=== PATIENT | male | born 1945 | race Caucasian/White ===

== ENCOUNTER → 2020-09-04 15:36 | Outpatient (BNVA) | payer MEDICARE, SELFPAY | PROVIDERS: PCP Internal Medicine; Visit Provider Internal Medicine | DX: J44.9 Chronic obstructive pulmonary disease, unspecified (principal); R53.83 Other fatigue; Z79.899 Other long term (current) drug therapy | CPT/HCPCS: 99212; 99213 ==

== ENCOUNTER 2020-09-05 06:13 | Outpatient (REF) | payer MEDICARE, SELFPAY ==
--- NOTE | 2020-09-05 06:37 | XR_ITS ---
EXAMINATION: XR CHEST CLINICAL INFORMATION: Bronchitis COMPARISON: 05/12/2020 TECHNIQUE: 2 views of the chest were obtained. FINDINGS: The lungs are hyperinflated, suggesting underlying COPD. No focal consolidation is seen. Redemonstrated clips overlying the upper and lower left lung. No evidence of pneumothorax, pleural effusion, or pulmonary edema. The cardiomediastinal contour is unremarkable. Mild degenerative changes are present in the spine. XR/XR chest 2V IMPRESSION: Hyperinflated lungs suspicious for COPD. No acute findings identified.
[2020-09-05 07:38] LABS: MANUAL DIFF FLAG NO
[2020-09-05 07:47] LABS: Basophils Percent Auto 0.3 % (0-2); Eosinophils Percent Auto 0.1 % (0-4); Hematocrit 39.5 % (42-52); Imm Gran Abs Auto 0.02 X10*3/uL (0.00-0.03); Imm Gran Pct Auto 0.3 % (0.0-0.4); Lymphocytes Absolute Auto 2.4 X10*3/uL (1.2-4.9); Lymphocytes Percent Auto 33.6 % (20-40); Mean Corpuscular HGB Conc 32.9 g/dl (31.0-36.0); Mean Corpuscular Hemoglobin 30.2 pg (27.0-33.0); Mean Corpuscular Volume 91.9 fL (80-98); Monocytes Absolute Auto 0.7 X10*3/uL (0.1-1.2); Monocytes Percent Auto 9.5 % (2-11); Neutrophils Percent Auto 56.2 % (45-73); Platelet Count 307 X10*3/uL (160-400); Red Cell Distribution Width 12.4 % (11.0-16.0); White Blood Count 7.1 X10*3/uL (4.8-10.8)
== END 2020-09-05 06:14 | disposition home or self-care (01) ==
LOC: HO.LAB 06:13
PROVIDERS: PCP Internal Medicine; Visit Provider Internal Medicine
DX: J40 Bronchitis, not specified as acute or chronic (principal); J44.9 Chronic obstructive pulmonary disease, unspecified; R53.83 Other fatigue
CPT/HCPCS: 36415; 71046; 85025; 87635

== ENCOUNTER 2020-09-18 15:38 | Outpatient (REF) | payer MEDICARE, SELFPAY ==
--- NOTE | 2020-09-18 12:36 | PFT_ITS ---
FLOWS: FEV1 53% of predicted at 1.60 L. FVC 94% of predicted at 3.92 L. FEV1 to FVC ratio of 0.41. Positive bronchodilator response. LUNG VOLUMES: Total lung capacity 8.09 L at 114% of predicted. Residual volume 164% of predicted at 4.29 L. Slow vital capacity 85% of predicted at 3.81 L. Expiratory reserve volume 146% of predicted at 1.76 L. Diffusion capacity is severely decreased. In comparison to pulmonary function test performed in September of 2014, FVC and FEV1 have been without significant changes; total lung capacity has increased by 0.36 L; residual volume has increased by 0.23 L; slow vital capacity has increased by 0.14 L; expiratory reserve volume has increased by 0.36 L; diffusion capacity has decreased by 0.64 mL/minute/mmHg. IMPRESSION: Severe obstructive ventilatory defect with positive bronchodilator response. Increased residual volume suggests air trapping. Decreased diffusion capacity suggests emphysema. MD LELA Medrano/MODL / [id number]
== END 2020-09-18 15:39 | disposition home or self-care (01) ==
LOC: HO.RESP 15:38
PROVIDERS: PCP Internal Medicine; Visit Provider Internal Medicine
DX: J44.9 Chronic obstructive pulmonary disease, unspecified (principal); Z87.891 Personal history of nicotine dependence
CPT/HCPCS: 94060; 94727; 94729

== ENCOUNTER 2020-09-25 10:22 | Outpatient (REF) | payer MEDICARE, SELFPAY ==
[2020-09-25 11:19] LABS: MANUAL DIFF FLAG NO
[2020-09-25 11:27] LABS: Basophils Absolute Auto 0.1 X10*3/uL (0.0-0.2); Basophils Percent Auto 0.6 % (0-2); Eosinophils Absolute Auto 0.2 X10*3/uL (0.0-0.4); Eosinophils Percent Auto 1.9 % (0-4); Hematocrit 42.3 % (42-52); Hemoglobin 14.1 g/dl (14.0-18.0); Imm Gran Abs Auto 0.04 X10*3/uL (0.00-0.03); Imm Gran Pct Auto 0.5 % (0.0-0.4); Lymphocytes Absolute Auto 2.3 X10*3/uL (1.2-4.9); Mean Corpuscular HGB Conc 33.3 g/dl (31.0-36.0); Mean Corpuscular Hemoglobin 30.7 pg (27.0-33.0); Monocytes Absolute Auto 0.7 X10*3/uL (0.1-1.2); Monocytes Percent Auto 9.3 % (2-11); Neutrophils Absolute Auto 4.6 X10*3/uL (2.0-8.3); Neutrophils Percent Auto 58.7 % (45-73); Platelet Count 274 X10*3/uL (160-400); Red Cell Distribution Width 12.8 % (11.0-16.0); White Blood Count 7.8 X10*3/uL (4.8-10.8)
[2020-09-25 12:12] LABS: Alanine Aminotransferase 10 U/L (0-40); Albumin Level 3.9 g/dL (3.5-5.0); Alkaline Phosphatase 53 U/L (39-117); Anion Gap 13 (12-20); Aspartate Amino Transferase 13 U/L (5-37); Blood Urea Nitrogen 9 mg/dL (9-16); Calcium 8.7 mg/dL (8.4-10.2); Carbon Dioxide 26 mmol/L (22-29); Chloride 101 mmol/L (96-108); Estimated Glomerular Filt Rate 58; Glucose Random 83 mg/dL (60-115); Potassium 4.4 mmol/l (3.3-5.1); Sodium 136 mmol/L (135-145); Total Protein 6.8 g/dL (6.5-8.0)
[2020-09-25 12:16] LABS: Erythrocyte Sedimentation Rate 2 MM/HR (0-15)
[2020-09-25 12:37] LABS: Thyroid Stimulating Hormone 0.01 uIU/mL (0.32-4.0)
[2020-09-26 08:07] LABS: Triiodothyronine T3 Total 112 ng/dL (76-181)
== END 2020-09-25 10:23 | disposition home or self-care (01) ==
LOC: HO.HMGCLDS 10:22
PROVIDERS: PCP Internal Medicine; Visit Provider Internal Medicine
DX: E03.9 Hypothyroidism, unspecified (principal); G25.81 Restless legs syndrome; F41.9 Anxiety disorder, unspecified
CPT/HCPCS: 36415; 80053; 82550; 83735; 84439; 84443; 84480; 85025; 85652

== ENCOUNTER → 2020-10-02 15:04 | Outpatient (BNVA) | payer MEDICARE, SELFPAY | PROVIDERS: PCP Internal Medicine; Visit Provider Internal Medicine | DX: J44.9 Chronic obstructive pulmonary disease, unspecified (principal) | CPT/HCPCS: 99212 ==

== ENCOUNTER → 2020-12-03 15:09 | Outpatient (BNVA) | payer MEDICARE, SELFPAY | PROVIDERS: PCP Internal Medicine; Visit Provider Internal Medicine | DX: J44.9 Chronic obstructive pulmonary disease, unspecified (principal); M51.36 Other intervertebral disc degeneration, lumbar region; G25.81 Restless legs syndrome | CPT/HCPCS: 99212 ==

== ENCOUNTER 2021-02-19 10:44 | Outpatient (REF) | payer MEDICARE, SELFPAY ==
[2021-02-19 13:59] LABS: MANUAL DIFF FLAG NO
[2021-02-19 14:07] LABS: Basophils Absolute Auto 0.1 X10*3/uL (0.0-0.2); Eosinophils Absolute Auto 0.2 X10*3/uL (0.0-0.4); Eosinophils Percent Auto 3.4 % (0-4); Hematocrit 37.5 % (42-52); Hemoglobin 12.6 g/dl (14.0-18.0); Imm Gran Abs Auto 0.01 X10*3/uL (0.00-0.03); Imm Gran Pct Auto 0.2 % (0.0-0.4); Lymphocytes Absolute Auto 1.8 X10*3/uL (1.2-4.9); Lymphocytes Percent Auto 30.9 % (20-40); Mean Corpuscular HGB Conc 33.6 g/dl (31.0-36.0); Mean Corpuscular Hemoglobin 30.4 pg (27.0-33.0); Mean Corpuscular Volume 90.6 fL (80-98); Monocytes Absolute Auto 0.8 X10*3/uL (0.1-1.2); Monocytes Percent Auto 13.4 % (2-11); Neutrophils Percent Auto 51.1 % (45-73); Platelet Count 272 X10*3/uL (160-400); Red Blood Count 4.14 X10*6/uL (4.60-5.80); Red Cell Distribution Width 12.9 % (11.0-16.0)
[2021-02-19 14:40] LABS: Alanine Aminotransferase 12 U/L (0-40); Alkaline Phosphatase 60 U/L (39-117); Anion Gap 13 (12-20); Aspartate Amino Transferase 18 U/L (5-37); Bilirubin Total 1.6 mg/dL (0.0-1.0); Blood Urea Nitrogen 15 mg/dL (9-16); Calcium 8.8 mg/dL (8.4-10.2); Carbon Dioxide 26 mmol/L (22-29); Chloride 102 mmol/L (96-108); Estimated Glomerular Filt Rate 57; Glucose Random 93 mg/dL (60-115); Potassium 4.7 mmol/L (3.3-5.1); Sodium 136 mmol/L (135-145); Total Protein 6.9 g/dL (6.5-8.0)
[2021-02-19 14:41] LABS: Free T4 (Free Thyroxine) 1.52 ng/dL (0.71-1.85); Thyroid Stimulating Hormone 0.03 uIU/mL (0.32-4.0)
== END 2021-02-19 10:45 | disposition home or self-care (01) ==
LOC: HO.LAB 10:44
PROVIDERS: PCP Internal Medicine; Visit Provider Internal Medicine
DX: E03.9 Hypothyroidism, unspecified (principal); J44.9 Chronic obstructive pulmonary disease, unspecified; M51.36 Other intervertebral disc degeneration, lumbar region
CPT/HCPCS: 36415; 80053; 84439; 84443; 85025

== ENCOUNTER → 2021-04-08 15:53 | Outpatient (BNVA) | payer MEDICARE, SELFPAY | PROVIDERS: PCP Internal Medicine; Visit Provider Internal Medicine | DX: J44.9 Chronic obstructive pulmonary disease, unspecified (principal); G25.81 Restless legs syndrome | CPT/HCPCS: 99212 ==

== ENCOUNTER → 2021-04-29 10:42 | Outpatient (BNVA) | payer MEDICARE, SELFPAY | PROVIDERS: PCP Internal Medicine; Visit Provider Internal Medicine | DX: J44.9 Chronic obstructive pulmonary disease, unspecified (principal); R06.00 Dyspnea, unspecified; R00.0 Tachycardia, unspecified | CPT/HCPCS: 99212 ==

== ENCOUNTER 2021-05-12 13:55 | Outpatient (REF) | payer MEDICARE, SELFPAY | END 2021-05-12 13:56 | disposition home or self-care (01) | LOC: HO.LNP 13:55 | PROVIDERS: Visit Provider Internal Medicine | DX: R19.7 Diarrhea, unspecified (principal) | CPT/HCPCS: 87338 ==

== ENCOUNTER 2021-06-11 12:20 | Outpatient (REF) | payer MEDICARE, SELFPAY ==
[2021-06-11 14:29] LABS: PSA,Total (Free>4and<10) 3.75 ng/mL (0.00-4.00)
== END 2021-06-11 12:21 | disposition home or self-care (01) ==
LOC: HO.HMGCLDS 12:20
PROVIDERS: PCP Internal Medicine; Visit Provider Internal Medicine
DX: Z12.5 Encounter for screening for malignant neoplasm of prostate (principal); N40.1 Benign prostatic hyperplasia with lower urinary tract symptoms; R35.0 Frequency of micturition
CPT/HCPCS: 36415; 84153

== ENCOUNTER → 2021-07-08 15:10 | Outpatient (BNVA) | payer MEDICARE, SELFPAY | PROVIDERS: PCP Internal Medicine; Visit Provider Urology | DX: N40.1 Benign prostatic hyperplasia with lower urinary tract symptoms (principal); R35.0 Frequency of micturition; R35.1 Nocturia | CPT/HCPCS: Q3014 ==

== ENCOUNTER 2021-07-17 10:34 | Outpatient (REF) | payer MEDICARE, SELFPAY ==
[2021-07-17 14:08] LABS: MANUAL DIFF FLAG NO
[2021-07-17 14:23] LABS: Basophils Percent Auto 0.7 % (0-2); Eosinophils Absolute Auto 0.1 X10*3/uL (0.0-0.4); Eosinophils Percent Auto 2.1 % (0-4); Hematocrit 38.4 % (42-52); Hemoglobin 12.7 g/dl (14.0-18.0); Imm Gran Abs Auto 0.01 X10*3/uL (0.00-0.03); Imm Gran Pct Auto 0.2 % (0.0-0.4); Lymphocytes Absolute Auto 2.3 X10*3/uL (1.2-4.9); Lymphocytes Percent Auto 41.1 % (20-40); Mean Corpuscular HGB Conc 33.1 g/dl (31.0-36.0); Mean Corpuscular Hemoglobin 30.2 pg (27.0-33.0); Mean Corpuscular Volume 91.4 fL (80-98); Mean Platelet Volume 9.8 fL (9.4-12.4); Monocytes Absolute Auto 0.5 X10*3/uL (0.1-1.2); Monocytes Percent Auto 9.2 % (2-11); Neutrophils Absolute Auto 2.6 X10*3/uL (2.0-8.3); Neutrophils Percent Auto 46.7 % (45-73); Platelet Count 255 X10*3/uL (160-400); Red Cell Distribution Width 12.8 % (11.0-16.0); White Blood Count 5.6 X10*3/uL (4.8-10.8)
[2021-07-17 14:34] LABS: Alanine Aminotransferase 10 U/L (0-40); Albumin Level 3.9 g/dL (3.5-5.0); Alkaline Phosphatase 55 U/L (39-117); Anion Gap 13 (12-20); Aspartate Amino Transferase 17 U/L (5-37); Bilirubin Total 1.4 mg/dL (0.0-1.0); Blood Urea Nitrogen 14 mg/dL (9-16); Calcium 9.1 mg/dL (8.4-10.2); Carbon Dioxide 26 mmol/L (22-29); Chloride 101 mmol/L (96-108); Estimated Glomerular Filt Rate 57; Glucose Random 90 mg/dL (60-115); Potassium 5.1 mmol/L (3.3-5.1); Sodium 135 mmol/L (135-145); Total Protein 6.6 g/dL (6.5-8.0)
[2021-07-17 14:56] LABS: Free T4 (Free Thyroxine) 1.36 ng/dL (0.71-1.85); Thyroid Stimulating Hormone 0.57 uIU/mL (0.32-4.0)
== END 2021-07-17 10:35 | disposition home or self-care (01) ==
LOC: HO.HMGCLDS 10:34
PROVIDERS: PCP Internal Medicine; Visit Provider Internal Medicine
DX: E03.9 Hypothyroidism, unspecified (principal); R53.83 Other fatigue; I10 Essential (primary) hypertension
CPT/HCPCS: 36415; 80053; 84439; 84443; 85025

== ENCOUNTER → 2021-08-11 15:36 | Outpatient (BNVA) | payer MEDICARE, SELFPAY | PROVIDERS: PCP Internal Medicine; Visit Provider Internal Medicine | DX: J44.9 Chronic obstructive pulmonary disease, unspecified (principal); R06.00 Dyspnea, unspecified | CPT/HCPCS: 99212 ==

== ENCOUNTER 2021-10-12 09:38 | Outpatient (REF) | payer MEDICARE, SELFPAY ==
[2021-10-12 12:28] LABS: Alanine Aminotransferase 11 U/L (0-40); Albumin Level 3.9 g/dL (3.5-5.0); Alkaline Phosphatase 52 U/L (39-117); Anion Gap 11 (12-20); Aspartate Amino Transferase 12 U/L (5-37); Bilirubin Total 1.4 mg/dL (0.0-1.0); Blood Urea Nitrogen 15 mg/dL (9-16); C Reactive Protein 0.05 mg/dL (< or = 0.50); Calcium 9.1 mg/dL (8.4-10.2); Carbon Dioxide 27 mmol/L (22-29); Chloride 104 mmol/L (96-108); Estimated Glomerular Filt Rate 51; Glucose Random 102 mg/dL (60-115); Magnesium 2.2 mg/dL (1.6-2.6); Potassium 5.5 mmol/L (3.3-5.1); Sodium 136 mmol/L (135-145); Total Protein 6.8 g/dL (6.5-8.0)
[2021-10-12 12:30] LABS: Erythrocyte Sedimentation Rate 2 MM/HR (0-15)
[2021-10-13 20:52] LABS: ANA Titer 2 1:40 titer; ANA Titer 3 1:40 titer; Anti Nuclear Antibody Screen POSITIVE (NEGATIVE); Anti Nuclear Antibody Titer 1:40 titer
== END 2021-10-12 09:39 | disposition home or self-care (01) ==
LOC: HO.HMGCLDS 09:38
PROVIDERS: PCP Internal Medicine; Visit Provider Internal Medicine
DX: M79.7 Fibromyalgia (principal); I10 Essential (primary) hypertension; R25.2 Cramp and spasm
CPT/HCPCS: 36415; 80053; 82550; 83735; 85652; 86038; 86039; 86140

== ENCOUNTER → 2021-12-10 14:27 | Outpatient (BNVA) | payer MEDICARE, SELFPAY | PROVIDERS: PCP Internal Medicine; Referring Provider Internal Medicine; Visit Provider Internal Medicine Cardiovascular Disease | DX: R94.39 Abnormal result of other cardiovascular function study (principal); R06.00 Dyspnea, unspecified | CPT/HCPCS: 93005; 99212 ==

== ENCOUNTER → 2021-12-14 12:29 | Outpatient (REF) | payer MEDICARE, SELFPAY ==
--- NOTE | 2021-12-14 12:35 | CA_ITS ---
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 The visually estimated ejection fraction is between 55-60%. - E/E prime ratio is between 8 and 15 consistent with indeterminate filling pressures. - Mildly increased right ventricular cavity size. There is normal right ventricular systolic function. - The left atrium is moderately dilated. - There is mild dilatation of the sinuses of Valsalva measuring 4.30 cm and mild dilatation of the ascending aorta measuring 3.60 cm. Findings Left Ventricle Normal left ventricular size, thickness, and systolic function. The visually estimated ejection fraction is between 55-60%. There is no evidence of regional wall motion abnormalities. Abnormal diastolic function is noted. Spectral Doppler is indicative of an impaired relaxation filling pattern. E/E prime ratio is between 8 and 15 consistent with indeterminate filling pressures. Right Ventricle Mildly increased right ventricular cavity size. There is normal right ventricular systolic function. Atria The left atrium is moderately dilated. Aortic Valve There is a normal trileaflet aortic valve. There is mild calcification of the aortic valve. There is mild thickening of the aortic valve. There is no aortic valve stenosis. There is mild aortic valve regurgitation. Mitral Valve There is severe mitral annular calcification. There is trace mitral valve regurgitation. There is no mitral valve stenosis. Pulmonic Valve Normal pulmonic valve structure and function. There is trace pulmonic valve regurgitation. Tricuspid Valve Normal tricuspid valve structure and function. There is trace tricuspid valve regurgitation. Normal right atrial pressure. Mild pulmonary hypertension is present. Great Vessels There is mild dilatation of the sinuses of Valsalva measuring 4.30 cm and mild dilatation of the ascending aorta measuring 3.60 cm. The visualized portions of the pulmonary artery and branches are normal. Venous The inferior vena cava is normal in size and collapses greater than 50% with inspiration. Pericardium/Pleural There is no evidence of pericardial effusion. Prior Study Comparison Changes noted compared to prior study dated: 07/23/2020. PA pressures are lower than before. Measurements 2D Linear Measurements IVSd: 0.98 0.6-0.9/0.6-1.0 cm LVIDd: 5.12 3.9-5.3/4.2-5.9 cm LVIDd Index: 2.67 2.4-3.2/2.2-3.1 cm/m2 LVIDs: 4.19 2.0-3.6 cm LVPWd: 1.10 0.7-1.1 cm Ao Root: 4.30 2.1-3.5 cm LA Diam: 3.60 2.7-3.8/3.0-4.0 cm LAIDs Index: 1.88 1.5-2.3 cm/m2 LV Mass: 247.94 67-162/88-224 g LV Mass Index: 129.14 43-95/49-115 g/m2 LVOT Diam: 2.30 3.0+(-)1.3 cm 2D Systolic Function EF 4C: 65.60 >55% EF 2C: 60.20 >55% EF BiP: 61.20 >55% Mitral Valve MV Pk E: 0.72 MV PK A: 1.15 MV Decel Time: 310.00 E/A: 0.60 E'Lateral: 9.03 E'Medial: 5.87 E/E' Med: 12.30 E/E' Lat: 8.00 PHT: 91.00 MVA PHT: 2.42 Decel Coal: 2.33 Aortic Valve AoV Pk Rojas: 1.23 AoV Mn Rojas: 0.88 AoV VTI: 0.29 AoV Pk Grad: 6.00 Aov Mn Grad: 3.00 REMI Cont.VTI: 3.57 AI Pk Rojas: 3.71 AI Coal: 1.17 LVOT LVOT Pk Rojas: 1.04 LVOT Mn Rojas: 0.69 LVOT VTI: 0.25 LVOT Pk Grad: 4.00 LVOT Mn Grad: 2.00 LVOT Diam: 2.30 LVOT Area: 4.15 Diastolic Function MV Pk E: 0.72 MV Pk A: 1.15 E/A: 0.60 E'Medial: 5.87 E/E' Med: 12.30 E' Laterial: 9.03 E/E' Lat: 8.00 Right Ventricle TAPSE (mm): 28.20 TVS' Rojas: 11.90 Tricuspid Valve TR Pk Rojas: 3.15 TR Pk Grad: 40.00 RA Press: 3.00 RVSP: 43.00 Great Vessels Aorta Ao Root-2D: 4.30 2.0-3.7 cm Sinus of Valsalva: 4.30 2.0-3.5 cm Ao Asc: 3.60 2.1-3.4 cm Ao Arch: 2.80 Updated in Other Vendor System with Status of Final Oren Liz MD electronically signed on 12/14/2021 5:52:35 PM with status of Final
[2021-12-14 13:25] LABS: Hematocrit 42.9 % (42.0-52.0); Hemoglobin 14.1 g/dl (14.0-18.0); Mean Corpuscular HGB Conc 32.9 g/dl (31.0-36.0); Mean Corpuscular Hemoglobin 30.4 pg (27.0-33.0); Mean Corpuscular Volume 92.5 fL (80.0-98.0); Mean Platelet Volume 10.3 fL (9.4-12.4); Platelet Count 245 X10*3/uL (160-400); Red Blood Count 4.64 X10*6/uL (4.60-5.80); Red Cell Distribution Width 12.5 % (11.0-16.0); White Blood Count 7.8 X10*3/uL (4.8-10.8)
[2021-12-14 13:28] LABS: INTERNATIONAL NORM RATIO 1.1 (0.9-1.1); Prothrombin Time 12.3 SEC (9.9-13.0)
[2021-12-14 13:48] LABS: Anion Gap 16 (12-20); Blood Urea Nitrogen 17 mg/dL (9-16); Calcium 9.8 mg/dL (8.4-10.2); Carbon Dioxide 25 mmol/L (22-29); Chloride 102 mmol/L (96-108); Estimated Glomerular Filt Rate 55; Glucose Random 90 mg/dL (60-115); Potassium 5.8 mmol/L (3.3-5.1); Sodium 137 mmol/L (135-145)
== END ==
LOC: HO.CARD 12:29
PROVIDERS: PCP Internal Medicine; Visit Provider Internal Medicine Cardiovascular Disease
DX: R06.00 Dyspnea, unspecified (principal); R94.39 Abnormal result of other cardiovascular function study
CPT/HCPCS: 36415; 80048; 85027; 85610; 93306

== ENCOUNTER → 2022-01-18 14:51 | Outpatient (BNVA) | payer MEDICARE, SELFPAY | PROVIDERS: PCP Internal Medicine; Referring Provider Internal Medicine; Visit Provider Internal Medicine Cardiovascular Disease | DX: R06.00 Dyspnea, unspecified (principal) | CPT/HCPCS: 99212 ==

== ENCOUNTER → 2022-02-09 14:54 | Outpatient (BNVA) | payer MEDICARE, SELFPAY | PROVIDERS: PCP Internal Medicine; Visit Provider Internal Medicine | DX: J44.9 Chronic obstructive pulmonary disease, unspecified (principal); R06.00 Dyspnea, unspecified; I27.20 Pulmonary hypertension, unspecified | CPT/HCPCS: 99212 ==

== ENCOUNTER → 2022-04-07 15:25 | Outpatient (BNVA) | payer MEDICARE, SELFPAY | PROVIDERS: PCP Internal Medicine; Visit Provider Internal Medicine | DX: J44.9 Chronic obstructive pulmonary disease, unspecified (principal); R06.00 Dyspnea, unspecified; G25.81 Restless legs syndrome; I27.20 Pulmonary hypertension, unspecified | CPT/HCPCS: 99212 ==

== ENCOUNTER 2022-04-16 11:39 | Emergency (ER) | payer MEDICARE, SELFPAY ==
--- NOTE | ~2022-04-16 | XR_ITS ---
EXAMINATION: XR CHEST CLINICAL INFORMATION: Shortness of breath COMPARISON: 09/05/2020 TECHNIQUE: 2 views of the chest were obtained. FINDINGS: Hyperexpanded lungs. No consolidation. No edema or effusion. No pneumothorax. The cardiomediastinal silhouette is within normal limits. Degenerative change at the right shoulder. Surgical clips over the left hemithorax. Nodular density at the right base likely a granuloma. XR/XR chest 2V IMPRESSION: Hyperexpanded lungs with no acute pulmonary finding.
--- NOTE | ~2022-04-16 | CT_ITS ---
EXAMINATION: CT CHEST WITHOUT CONTRAST CLINICAL INFORMATION: Shortness of breath and fever. COMPARISON: Chest x-ray of same day and September 05, 2020 TECHNIQUE: Multidetector volumetric CT imaging of the chest was done. Axial MIP volume rendering provided. Sagittal and coronal reformatted images were obtained. This CT examination was performed using dose optimization techniques as appropriate, variously including the following: *Automated exposure control *Adjustment of mA and/or kV according to patient size (this includes techniques or standardized protocols for targeted exams where dose is matched to indication/reason for exam; i.e. extremities or head) *Use of iterative reconstruction technique DLP: 237 mGy-cm FINDINGS: LUNGS: Lungs are hyperinflated. There are significant changes of centrilobular emphysema seen bilaterally. Central airways are patent. There are mild bronchiectatic region seen within the lower lobes bilaterally. There is a region of airspace disease seen within the right lower lobe consistent with pneumonia or atelectasis. There are scattered sub-4 mm densities noted bilaterally. Atelectasis and/or scarring seen within the left lower lobe and lingula. A few calcified granulomas are present. MEDIASTINUM: Heart normal size. Coronary artery calcification present. Mitral annular calcification is seen. No pericardial effusion. No thoracic aortic aneurysm. Nonocclusive calcified plaque is seen within the aortic arch. Pulmonary artery prominent. No mediastinal or hilar lymphadenopathy appreciated. PLEURA: There is no pleural effusion. No pleural mass or thickening. AXILLA: No lymphadenopathy. UPPER ABDOMEN: Unremarkable. OSSEOUS STRUCTURES: There is severe degenerative change of the right shoulder with loss of joint space and subchondral cyst formation. Calcific tendinitis is also present. There is a nonobstructive sclerotic density seen about the anterior lateral aspect of the ninth right rib. No suspicious destructive bony lesion identified. There is mild scoliosis of the lower thoracic spine convex left. There is multilevel degenerative disc disease present which is most significant in the lower thoracic and lumbar spine. There is scoliosis of the lumbar spine convex right.. Rib resections from previous left lung surgery noted posteriorly. CT/CT chest wo con IMPRESSION: Right lower lobe disease consistent with pneumonia or atelectasis. Old granulomatous disease. Significant changes of centrilobular emphysema. No suspicious destructive bony lesions identified. Fleischner guidelines were followed.
[2022-04-16 11:42] VITALS: BP 160/84; PULSE 87; RESP 19; TEMP 37; O2SAT 99; BMI 23.0
--- NOTE | 2022-04-16 11:46 | ECG_ITS ---
Test Reason : sob Blood Pressure : / mmHG Vent. Rate : 076 BPM Atrial Rate : 076 BPM P-R Int : 146 ms QRS Dur : 096 ms QT Int : 384 ms P-R-T Axes : 082 014 071 degrees QTc Int : 432 ms Normal sinus rhythm Possible Left atrial enlargement Borderline ECG When compared with ECG of 23-AUG-2014 11:55, Premature ventricular complexes are no longer Present Referred By: Generic ED Physician Electronically Signed By:ALEX GAR MD
[2022-04-16 12:15] LABS: Basophils Percent Auto 0.2 % (0-2); Eosinophils Percent Auto 0.1 % (0-4); Hematocrit 38.9 % (42.0-52.0); Hemoglobin 13.3 g/dl (14.0-18.0); Imm Gran Abs Auto 0.12 X10*3/uL (0.00-0.03); Imm Gran Pct Auto 0.7 % (0.0-0.4); Lymphocytes Absolute Auto 1.8 X10*3/uL (1.2-4.9); Lymphocytes Percent Auto 10.9 % (20-40); MANUAL DIFF FLAG SCAN; Mean Corpuscular HGB Conc 34.2 g/dl (31.0-36.0); Mean Corpuscular Hemoglobin 30.6 pg (27.0-33.0); Mean Corpuscular Volume 89.6 fL (80.0-98.0); Mean Platelet Volume 9.2 fL (9.4-12.4); Monocytes Percent Auto 12.3 % (2-11); Neutrophils Absolute Auto 12.4 x10*3/uL (2.0-8.3); Neutrophils Percent Auto 75.8 % (45-73); Platelet Count 259 X10*3/uL (160-400); Red Blood Count 4.34 X10*6/uL (4.60-5.80); Red Cell Distribution Width 13.1 % (11.0-16.0); SCAN SMEAR FLAG 1; White Blood Count 16.3 X10*3/uL (4.8-10.8)
[2022-04-16 12:19] LABS: Lactic Acid 1.2 mmol/L (0.5-2.0)
[2022-04-16 12:22] LABS: Anion Gap 13 (12-20); Blood Urea Nitrogen 14 mg/dL (9-16); Calcium 9.2 mg/dL (8.4-10.2); Carbon Dioxide 24 mmol/L (22-29); Chloride 100 mmol/L (96-108); Creatinine Clr Calc Pharmacy 50.3; Estimated Glomerular Filt Rate 58; Glucose Random 105 mg/dL (60-115); Sodium 133 mmol/L (135-145)
[2022-04-16 12:23] LABS: COVID-19 Test Negative (Negative); IDNOW Serial# 16C4AD1C; IDNOW Serial# 55D5AD1C; Influenza A Negative (Negative); Influenza B2 Negative (Negative)
[2022-04-16 12:31] LABS: B Type Natriuretic Peptide 260 pg/mL (<100); Troponin-I High Sensitivity 7.2 ng/L (<3.5-35.0)
[2022-04-16 12:35] LABS: SLIDE REVIEW VERIFIED
--- NOTE | 2022-04-16 14:02 | ED.URI ---
HPI - URI/Sore Throat General Chief Complaint: Upper Respiratory Symptoms Stated Complaint: SOB/Fever Time Seen by Provider: 04/16/22 11:49 Source: patient Mode of arrival: ambulatory History of Present Illness HPI Narrative: 76-year-old male with a past medical history of hypothyroid, anxiety, BPH, bronchitis, COPD, GERD, pulmonary hypertension, restless leg syndrome, presenting to the ED complaining of fever T-max 101 degrees last night, productive cough of pink sputum, SOB worse on exertion x few days. Has been compliant with inhalers at home. Also reports taking 40 mg of prednisone yesterday an additional 20 mg today, admits periodically takes them when needed. Denies chest pain, abdominal pain, nausea/vomiting, pedal edema, recent travel MD elicited complaint: cough Pertinent past history: COPD Onset (ago): day(s) Related Data Home Medications Medication Instructions Recorded Confirmed celecoxib 200 mg capsule 200 mg PO DAILY cap 04/07/22 Previous Rx's Medication Instructions Recorded tiotropium bromide 2.5 2 puff INHALATION DAILY #12 g 06/29/21 mcg/actuation mist for inhalation (Spiriva Respimat) albuterol sulfate 90 mcg/actuation 2 puff INHALATION Q6H PRN 90 Days 10/06/21 aerosol inhaler (ProAir HFA) #3 ea tizanidine 4 mg tablet See Rx Instructions PO BEDTIME PRN 12/10/21 30 Days #60 tab amlodipine 10 mg tablet 10 mg PO DAILY #60 tab 12/11/21 aspirin 81 mg tablet,delayed 81 mg PO DAILY #90 tab 12/11/21 release (Adult Aspirin Regimen) montelukast 10 mg tablet 10 mg PO DAILY #30 tab 01/05/22 ropinirole 1 mg tablet 1 mg PO Q6H #360 tab 01/18/22 levothyroxine 137 mcg tablet 137 mcg PO DAILY #90 tab 02/08/22 prednisone 20 mg tablet 20 mg PO DAILY PRN 60 Days #20 tab 02/09/22 buspirone 5 mg tablet 5 mg PO BID 30 Days #60 tab 03/15/22 omeprazole 20 mg capsule,delayed 20 mg PO QAM #90 cap 03/15/22 release oxycodone-acetaminophen 10 mg-325 1 tab PO BID PRN #60 tab 03/24/22 mg tablet Advair Diskus 250 mcg-50 mcg/dose 1 inh INHALATION BID #60 ea NS 04/08/22 powder for inhalation (fluticasone propion-salmeterol) tamsulosin 0.4 mg capsule 0.4 mg PO BEDTIME 90 Days #90 cap 04/14/22 levofloxacin 750 mg tablet 750 mg PO DAILY #6 tab 04/16/22 prednisone 20 mg tablet 40 mg PO DAILY 5 Days #10 tab 04/16/22 Allergies Allergy/AdvReac Type Severity Reaction Status Date / Time aspirin AdvReac Unknown stomach Verified 04/07/22 16:40 upset, stomach nicole Review of Systems Review of Systems: Constitutional: No Fever, No Chills, No Fatigue, No Malaise ENT/Mouth: No Ear Pain, No Nasal Congestion, No Sinus Pain, No Hoarseness, No sore throat, No Rhinorrhea, No Swallowing Difficulty Eyes: No Eye Pain, No Swelling, No Redness Cardiovascular: No Chest Pain, + SOB, + Dyspnea on Exertion, No Orthopnea, No Edema, No Palpitations Respiratory: + Cough, + Sputum, No Wheezing, No Smoke Exposure, + Dyspnea Gastrointestinal: No Nausea, No Vomiting, No Diarrhea, No Constipation, No Abdominal pain Genitourinary: No Dysuria, No Urinary Frequency, No Hematuria, No Flank Pain, No Urinary Flow Changes Musculoskeletal: No joint pain, No Myalgias, No Joint Swelling Skin: No Skin Lesions, No rash Neuro: No Weakness, No Numbness, No Dizziness, No Headache Yes all other systems are reviewed and are negative PMFSH Past Medical History Attestation statement: The following information was validated with the patient. Medical History Acquired hypothyroidism Anxiety Benign essential hypertension Benign prostatic hyperplasia Bronchitis COPD (chronic obstructive pulmonary disease) Dyspnea on exertion Fatigue GERD (gastroesophageal reflux disease) Lumbar degenerative disc disease Primary osteoarthritis of right shoulder Pulmonary hypertension Restless leg syndrome Screening for diabetes mellitus Tachycardia Surgical History History of cardiac catheterization (~12/29/21) History of colonoscopy Family History Family History Father No problems noted. 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 80% of hearing loss would like to get hearing aids.) Vision needs: No Physical Exam Vital Signs: Vital Signs: Last Vital Signs Temp 98.7 F 04/16/22 14:14 Pulse 73 04/16/22 17:04 Resp 16 04/16/22 17:04 BP 145/101 H 04/16/22 14:14 Pulse Ox 97 04/16/22 14:14 BMI result Body Mass Index 23.0 Const: General: cooperative, healthy appearing, no acute distress, alert and awake Orientation/consciousness: patient oriented x3 Limitations: no limitations HEENT: Head: Yes normal to inspection and Yes atraumatic Ears: hearing grossly normal bilaterally General nose exam: Normal external nose present Face and sinus: Yes normal facial exam Eyes: General: appearance normal, both eyes and all related structures EOM: EOMs intact bilaterally Neck: Neck: Yes normal visual inspection and Yes no meningeal signs Resp: Other: Talking in short sentences, increased work of breathing with prolonged conversation Effort & Inspection: no respiratory distress and no stridor Auscultation: clear to auscultation bilaterally and no rhonchi Cardio: Rate: regular rate Heart sounds: S1 normal heart sound present and S2 normal heart sound present GI: Inspection: Yes normal to inspection Palpation (GI): Soft to palpation, nontender, no guarding and not rigid : General: Yes no CVA tenderness Back/Spine/Pelvis: Back: no CVA tenderness Skin: Rashes: no rashes Wounds: no wounds Neuro: General: patient oriented x3, tone normal and no meningeal signs Gait exam (Neuro): Normal gait present Extrem: General: Yes normal to inspection, Yes no pedal edema and Yes no calf tenderness Course Course Course Narrative: XR chest 2V IMPRESSION: Hyperexpanded lungs with no acute pulmonary finding. >> dry CT chest ordered for further evaluation -1400--COVID-19 and influenza negative. Noted leukocytosis of 16.3 >likely from prednisone use rather than severe sepsis. H&H at patient's baseline. -initial troponin of 7.2 > will obtain 3 hour repeat. -CRP elevated to 7.7 >> empiric IV Levaquin ordered CT chest wo con IMPRESSION: Right lower lobe disease consistent with pneumonia or atelectasis. ? Old granulomatous disease. ? Significant changes of centrilobular emphysema. ? No suspicious destructive bony lesions identified.? ? Fleischner guidelines were followed. >> infection now suspected. Patient already covered with IV Levaquin. Patient does not meet severe sepsis criteria. PSI/PORT score recommends Outpatient or inpatient treatment, and CURB 65 recommends outpatient treatment Results discussed with patient, Admission offered however patient has no interest in staying. -1630--repeat troponin equivocal, [place] unlikely. Patient reports symptomatic improvement and would like to be discharged home. Will ambulate with pulse ox -patient maintain saturation of 93% or greater during ambulation trial on room air. Patient would still like to be discharged home, will receive 1 additional DuoNeb prior to discharge. Discussed worrisome signs and symptoms and strict return precautions and need a close follow-up with PCP. MDM - URI/Sore Throat MDM Narrative Medical decision making narrative: 76-year-old male with a past medical history of hypothyroid, anxiety, BPH, bronchitis, COPD, GERD, pulmonary hypertension, restless leg syndrome, presenting to the ED complaining of fever T-max 101 degrees last night, productive cough of pink sputum, SOB worse on exertion x few days. On exam vital signs stable, afebrile, increased work of breathing noted with prolonged conversation, no respiratory distress, lungs CTA, no pedal edema. Concern for COPD exacerbation vs viral illness including COVID-19/influenza vs pneumonia vs bronchitis. Lower concern for PE Low concern for severe sepsis at this time Plan: EKG, labs, CXR, COVID 19/influenza testing, a DuoNeb, Solu-Medrol, magnesium Differential Diagnosis Differential diagnosis: Likely upper respiratory infection, viral infection, bronchitis and influenza Medical Records Attestation: I reviewed the patient's medical records. Lab Data Attestation: I reviewed the patient's lab results. Result diagrams: 04/16/22 11:59 04/16/22 11:59 Labs: Lab Results 04/16/22 04/16/22 04/16/22 Range/Units 11:58 11:58 11:58 WBC (4.8-10.8) X10*3/uL RBC (4.60-5.80) X10*6/uL Hgb (14.0-18.0) g/dl Hct (42.0-52.0) % MCV (80.0-98.0) fL MCH (27.0-33.0) pg MCHC (31.0-36.0) g/dl RDW (11.0-16.0) % Plt Count (160-400) X10*3/uL MPV (9.4-12.4) fL Immature Gran % (Auto) (0.0-0.4) % Neut % (Auto) (45-73) % Lymph % (Auto) (20-40) % Cavalier % (Auto) (2-11) % Eos % (Auto) (0-4) % Baso % (Auto) (0-2) % Lymph # (Auto) (1.2-4.9) X10*3/uL Cavalier # (Auto) (0.1-1.2) X10*3/uL Eos # (Auto) (0.0-0.4) X10*3/uL Baso # (Auto) (0.0-0.2) X10*3/uL Abs Immat Gran (auto) (0.00-0.03) X10*3/uL Absolute Neuts (auto) (2.0-8.3) x10*3/uL Absolute Nucleated RBC (0.0-0.012) X10*3/uL Nucleated RBC % (auto) (0.0-0.2) /100WBC Smear Tech's Comments Sodium (135-145) mmol/L Potassium (3.3-5.1) mmol/L Chloride (96-108) mmol/L Carbon Dioxide (22-29) mmol/L Anion Gap (12-20) BUN (9-16) mg/dL Creatinine (0.5-1.4) mg/dL Estim Creat Clear Calc Estimated GFR Random Glucose (60-115) mg/dL Lactic Acid (0.5-2.0) mmol/L Calcium (8.4-10.2) mg/dL Magnesium (1.6-2.6) mg/dL Total Bilirubin (0.0-1.0) mg/dL Direct Bilirubin (0.0-0.5) mg/dL AST (5-37) U/L ALT (0-40) U/L Alkaline Phosphatase (39-117) U/L Troponin I High Sens 7.2 (<3.5-35.0) ng/L C-Reactive Protein (< or = 0.50) mg/dL B-Natriuretic Peptide 260 H (<100) pg/mL Total Protein (6.5-8.0) g/dL Albumin (3.5-5.0) g/dL COVID-19 (EMILY) Negative (Negative) COVID-19 Clin Com See Note Influenza Type A (FEDERICO) Negative (Negative) Influenza Type B (FEDERICO) Negative (Negative) Influenza A & B Note See Note 04/16/22 04/16/22 04/16/22 Range/Units 11:58 11:59 11:59 WBC 16.3 H (4.8-10.8) X10*3/uL RBC 4.34 L (4.60-5.80) X10*6/uL Hgb 13.3 L (14.0-18.0) g/dl Hct 38.9 L (42.0-52.0) % MCV 89.6 (80.0-98.0) fL MCH 30.6 (27.0-33.0) pg MCHC 34.2 (31.0-36.0) g/dl RDW 13.1 (11.0-16.0) % Plt Count 259 (160-400) X10*3/uL MPV 9.2 L (9.4-12.4) fL Immature Gran % (Auto) 0.7 H (0.0-0.4) % Neut % (Auto) 75.8 H (45-73) % Lymph % (Auto) 10.9 L (20-40) % Cavalier % (Auto) 12.3 H (2-11) % Eos % (Auto) 0.1 (0-4) % Baso % (Auto) 0.2 (0-2) % Lymph # (Auto) 1.8 (1.2-4.9) X10*3/uL Cavalier # (Auto) 2.0 H (0.1-1.2) X10*3/uL Eos # (Auto) 0.0 (0.0-0.4) X10*3/uL Baso # (Auto) 0.0 (0.0-0.2) X10*3/uL Abs Immat Gran (auto) 0.12 H (0.00-0.03) X10*3/uL Absolute Neuts (auto) 12.4 H (2.0-8.3) x10*3/uL Absolute Nucleated RBC 0.000 (0.0-0.012) X10*3/uL Nucleated RBC % (auto) 0.0 (0.0-0.2) /100WBC Smear Tech's Comments VERIFIED Sodium 133 L (135-145) mmol/L Potassium 4.0 D (3.3-5.1) mmol/L Chloride 100 (96-108) mmol/L Carbon Dioxide 24 (22-29) mmol/L Anion Gap 13 (12-20) BUN 14 (9-16) mg/dL Creatinine 1.21 (0.5-1.4) mg/dL Estim Creat Clear Calc 50.3 Estimated GFR 58 Random Glucose 105 (60-115) mg/dL Lactic Acid 1.2 (0.5-2.0) mmol/L Calcium 9.2 D (8.4-10.2) mg/dL Magnesium 2.1 (1.6-2.6) mg/dL Total Bilirubin 3.0 H (0.0-1.0) mg/dL Direct Bilirubin 0.5 (0.0-0.5) mg/dL AST 16 (5-37) U/L ALT 17 (0-40) U/L Alkaline Phosphatase 61 (39-117) U/L Troponin I High Sens (<3.5-35.0) ng/L C-Reactive Protein 7.75 H (< or = 0.50) mg/dL B-Natriuretic Peptide (<100) pg/mL Total Protein 7.2 (6.5-8.0) g/dL Albumin 4.0 (3.5-5.0) g/dL COVID-19 (EMILY) (Negative) COVID-19 Clin Com Influenza Type A (FEDERICO) (Negative) Influenza Type B (FEDERICO) (Negative) Influenza A & B Note 04/16/22 Range/Units 14:26 WBC (4.8-10.8) X10*3/uL RBC (4.60-5.80) X10*6/uL Hgb (14.0-18.0) g/dl Hct (42.0-52.0) % MCV (80.0-98.0) fL MCH (27.0-33.0) pg MCHC (31.0-36.0) g/dl RDW (11.0-16.0) % Plt Count (160-400) X10*3/uL MPV (9.4-12.4) fL Immature Gran % (Auto) (0.0-0.4) % Neut % (Auto) (45-73) % Lymph % (Auto) (20-40) % Cavalier % (Auto) (2-11) % Eos % (Auto) (0-4) % Baso % (Auto) (0-2) % Lymph # (Auto) (1.2-4.9) X10*3/uL Cavalier # (Auto) (0.1-1.2) X10*3/uL Eos # (Auto) (0.0-0.4) X10*3/uL Baso # (Auto) (0.0-0.2) X10*3/uL Abs Immat Gran (auto) (0.00-0.03) X10*3/uL Absolute Neuts (auto) (2.0-8.3) x10*3/uL Absolute Nucleated RBC (0.0-0.012) X10*3/uL Nucleated RBC % (auto) (0.0-0.2) /100WBC Smear Tech's Comments Sodium (135-145) mmol/L Potassium (3.3-5.1) mmol/L Chloride (96-108) mmol/L Carbon Dioxide (22-29) mmol/L Anion Gap (12-20) BUN (9-16) mg/dL Creatinine (0.5-1.4) mg/dL Estim Creat Clear Calc Estimated GFR Random Glucose (60-115) mg/dL Lactic Acid (0.5-2.0) mmol/L Calcium (8.4-10.2) mg/dL Magnesium (1.6-2.6) mg/dL Total Bilirubin (0.0-1.0) mg/dL Direct Bilirubin (0.0-0.5) mg/dL AST (5-37) U/L ALT (0-40) U/L Alkaline Phosphatase (39-117) U/L Troponin I High Sens 7.2 (<3.5-35.0) ng/L C-Reactive Protein (< or = 0.50) mg/dL B-Natriuretic Peptide (<100) pg/mL Total Protein (6.5-8.0) g/dL Albumin (3.5-5.0) g/dL COVID-19 (EMILY) (Negative) COVID-19 Clin Com Influenza Type A (FEDERICO) (Negative) Influenza Type B (FEDERICO) (Negative) Influenza A & B Note Discharge Plan Discharge Clinical Impression: Pneumonia, COPD (chronic obstructive pulmonary disease) Patient Disposition: Home, Self-Care Instructions: COPD (Chronic Obstructive Pulmonary Disease) (DC), Pneumonia (ED) Additional Instructions: You have a right lower lobe pneumonia. Your also experiencing an exacerbation of her COPD. It is very important that you take antibiotics as prescribed, Levaquin. In addition take prednisone for the next 4 days. You need to be compliant with her inhalers at home Please call your doctor Tomorrow for close follow-up If her symptoms persist or worsen, have constant worsening shortness breath, developed chest pain, fever, productive cough patient turn to the emergency department Prescriptions: New levofloxacin 750 mg tablet 750 mg PO DAILY Qty: 6 0RF prednisone 20 mg tablet 40 mg PO DAILY 5 Days Qty: 10 0RF No Action Spiriva Respimat 2.5 mcg/actuation mist 2 puff inhalation DAILY Qty: 12 3RF albuterol sulfate [ProAir HFA] 90 mcg/actuation HFA aerosol inhaler 2 puff inhalation Q6H PRN (Reason: shortness of breath or wheezing) 90 Days Qty: 3 0RF tizanidine 4 mg tablet See Rx Instructions PO BEDTIME PRN (Reason: for muscle spasm) 30 Days Qty: 60 3RF Rx Instructions: Take 1 to 2 tablets PO bedtime PRN; aspirin [Adult Aspirin Regimen] 81 mg tablet,delayed release (DR/EC) 81 mg PO DAILY Qty: 90 3RF amlodipine 10 mg tablet 10 mg PO DAILY Qty: 60 4RF montelukast 10 mg tablet 10 mg PO DAILY Qty: 30 3RF ropinirole 1 mg tablet 1 mg PO Q6H Qty: 360 0RF levothyroxine 137 mcg tablet 137 mcg PO DAILY Qty: 90 0RF omeprazole 20 mg capsule,delayed release(DR/EC) 20 mg PO QAM Qty: 90 0RF buspirone 5 mg tablet 5 mg PO BID 30 Days Qty: 60 5RF oxycodone-acetaminophen 10-325 mg tablet 1 tab PO BID PRN (Reason: pain) Qty: 60 0RF fluticasone propion-salmeterol [Advair Diskus] 250-50 mcg/dose blister with device 1 inh inhalation BID Qty: 60 2RF tamsulosin 0.4 mg capsule 0.4 mg PO BEDTIME 90 Days Qty: 90 0RF prednisone 20 mg tablet 20 mg PO DAILY PRN (Reason: COPD EXCARBATION) 60 Days Qty: 20 3RF Rx Instructions: to be used prn for flare up copd celecoxib 200 mg capsule 200 mg PO DAILY 0RF Referrals: Malick Hernandez MD [Primary Care Provider] - 1 day
[2022-04-16 14:08] LABS: C Reactive Protein 7.75 mg/dL (< or = 0.50)
[2022-04-16 14:14] VITALS: BP 145/101; PULSE 69; RESP 18; TEMP 37.1; O2SAT 97; O2SAT 98
[2022-04-16 14:18] LABS: Alanine Aminotransferase 17 U/L (0-40); Alkaline Phosphatase 61 U/L (39-117); Aspartate Amino Transferase 16 U/L (5-37); Bilirubin Direct 0.5 mg/dL (0.0-0.5); Magnesium 2.1 mg/dL (1.6-2.6); Total Protein 7.2 g/dL (6.5-8.0)
[2022-04-16 14:28] VITALS: PULSE 68; RESP 14; O2SAT 97
[2022-04-16] MEDS: Albuterol/Iprat 2.5/0.5MG 3 ML AMPUL.NEB INHALE ×2 (14:28→17:03)
[2022-04-16] MEDS: Magnesium Sulfate/H2O 2 GM/50 ML PIGGYBACK IV (14:42)
[2022-04-16] MEDS: methylPREDNISolone Sod Succ 125 MG/2 ML VIAL IVPUSH (14:42)
[2022-04-16] MEDS: levoFLOXacin/D5W 750 MG/150 ML PIGGYBACK 100 MG IV (14:42)
[2022-04-16 14:51] LABS: Troponin-I High Sensitivity 7.2 ng/L (<3.5-35.0)
[2022-04-16 17:04] VITALS: PULSE 73; RESP 16; O2SAT 97
== END 2022-04-16 17:27 | disposition home or self-care (01) ==
PROVIDERS: Physician Assistant; Emergency Provider Student in an Organized Health Care Education/Training Program; PCP Internal Medicine
DX: J18.9 Pneumonia, unspecified organism (principal); J44.9 Chronic obstructive pulmonary disease, unspecified; R06.02 Shortness of breath; I10 Essential (primary) hypertension; I27.20 Pulmonary hypertension, unspecified; Z20.822 Contact with and (suspected) exposure to COVID-19
CPT/HCPCS: 36415; 71046; 71250; 80048; 80076; 83605; 83735; 83880; 84484; 85025; 86140; 87040; 87502; 87635; 93005; 94640; 96365; 96366; 96375; 99284; J1956; J2930; J3475

== ENCOUNTER 2022-04-23 15:02 | Emergency (ER) | payer MEDICARE, SELFPAY ==
[2022-04-23 15:29] VITALS: BP 152/74; PULSE 73; RESP 16; TEMP 37.4; O2SAT 96; BMI 22.8
--- NOTE | 2022-04-23 18:29 | ED.LOWEXIN ---
HPI - Extremity Injury (Lower) General Chief Complaint: Extremity Injury, Lower Stated Complaint: swollen heel Time Seen by Provider: 04/23/22 17:29 Source: patient Mode of arrival: ambulatory Limitations: no limitations History of Present Illness HPI Narrative: 04/16 prednisone and levofloxacin RLL pneumonia on CT scan complaint: leg injury Onset (ago): day(s) (started yesterday but worse this morning when he felt a pop) Injury: Right: ankle (posterior calf area) Type of Injury: unknown Place: home Severity: moderate Relieving factors: immobilization Exacerbating factors: weight bearing and movement Context: other (stepped on foot and felt a pop) Associated symptoms: snap/pop sensation and swelling Other symptoms: none Related Data Home Medications Medication Instructions Recorded Confirmed celecoxib 200 mg capsule 200 mg PO DAILY for pain 04/07/22 Previous Rx's Medication Instructions Recorded tiotropium bromide 2.5 2 puff inhalation DAILY #12 grams 06/29/21 mcg/actuation mist for inhalation (Spiriva Respimat) albuterol sulfate 90 mcg/actuation 2 puff inhalation Q6H PRN 10/06/21 aerosol inhaler (ProAir HFA) shortness of breath or wheezing 90 days #3 ea tizanidine 4 mg tablet See Rx Instructions PO BEDTIME PRN 12/10/21 for muscle spasm 30 days #60 tabs amlodipine 10 mg tablet 10 mg PO DAILY #60 tabs 12/11/21 aspirin 81 mg tablet,delayed 81 mg PO DAILY #90 tabs 12/11/21 release (Adult Aspirin Regimen) montelukast 10 mg tablet 10 mg PO DAILY #30 tabs 01/05/22 levothyroxine 137 mcg tablet 137 mcg PO DAILY #90 tabs 02/08/22 prednisone 20 mg tablet 20 mg PO DAILY PRN COPD 02/09/22 EXCARBATION 2 months #20 tabs buspirone 5 mg tablet 5 mg PO BID 30 days #60 tabs 03/15/22 omeprazole 20 mg capsule,delayed 20 mg PO QAM #90 caps 03/15/22 release Advair Diskus 250 mcg-50 mcg/dose 1 inh inhalation BID #60 ea 04/08/22 powder for inhalation (fluticasone propion-salmeterol) tamsulosin 0.4 mg capsule 0.4 mg PO BEDTIME 90 days #90 caps 04/14/22 levofloxacin 750 mg tablet 750 mg PO DAILY #6 tabs 04/16/22 prednisone 20 mg tablet 40 mg PO DAILY 5 days #10 tabs 04/16/22 oxycodone-acetaminophen 10 mg-325 1 tab PO BID PRN pain #60 tabs 04/20/22 mg tablet ropinirole 1 mg tablet 1 mg PO Q6H #360 tabs 04/20/22 oxycodone 5 mg tablet 5 mg PO Q6H PRN pain #18 tabs 04/23/22 Allergies Allergy/AdvReac Type Severity Reaction Status Date / Time levofloxacin AdvReac Severe tendon Verified 04/24/22 00:20 rupture aspirin AdvReac Unknown stomach Verified 04/24/22 00:20 upset, stomach nicole Review of Systems Review of Systems: Constitutional : No Fever, No Chills ENT/Mouth : No Ear Pain, No Hoarseness, No sore throat Cardiovascular : No Chest Pain, No SOB Respiratory : No Cough, No Dyspnea Gastrointestinal : No Nausea, No Vomiting, No Diarrhea, No abdominal Pain Genitourinary : No Dysuria, No Hematuria Musculoskeletal : positive joint pain, pos Myalgias, No Joint Swelling Skin : No Skin lacerations, No rash Neuro : No Weakness, No Numbness PMFSH Past Medical History Attestation statement: The following information was validated with the patient. Medical History Acquired hypothyroidism Anxiety Benign essential hypertension Benign prostatic hyperplasia Bronchitis COPD (chronic obstructive pulmonary disease) Dyspnea on exertion Fatigue GERD (gastroesophageal reflux disease) Lumbar degenerative disc disease Primary osteoarthritis of right shoulder Pulmonary hypertension Restless leg syndrome Screening for diabetes mellitus Tachycardia Surgical History History of cardiac catheterization (~12/29/21) History of colonoscopy Family History Family History Father No problems noted. Mother Lung cancer Social History Social History Housing: House Alcohol intake: never Patient Tobacco Use Status: Former Tobacco user e-Cigarette/Vaping Use: Never Used Second Hand Smoke Exposure: No Substance Use Type: Marijuana Advance Directives: No Advance Directives Information Provided: No service: Yes Current occupational status: retired Cognitive needs: Yes (Pt used a cane for balance) Hearing needs: Yes (Per commercial real estate underwriter 80% of hearing loss would like to get hearing aids.) Vision needs: No Physical Exam Vital Signs: Vital Signs: Last Vital Signs Temp 99.3 F 04/23/22 15:29 Pulse 73 04/23/22 15:29 Resp 16 04/23/22 15:29 BP 152/74 H 04/23/22 15:29 Pulse Ox 96 04/23/22 15:29 O2 Del Method 04/23/22 15:29 BMI result Body Mass Index 22.8 Appearance: Alert. Oriented X3. No acute distress. Eyes: Pupils equal, round and reactive to light. ENT: Pharynx normal. Neck: Normal inspection. Neck supple. CVS: Pulses normal. Respiratory: No respiratory distress. Abdomen: atraumatic Skin: Skin warm and dry. Normal skin color. Normal skin turgor. Extremities: No lower extremity edema. R posterior calf large divot felt lower achilles dorsey test no movement distal NV intact consistent with achilles rupture Neuro: Oriented X 3. No motor deficit. No sensory deficit. MDM - Extremity Injury (Lower) MDM Narrative Medical decision making narrative: 77 yo male with hx of COPD, GERD, myalgias just finished levofloxacin for pneumonia (completed on tuesday) he developed posterior R ankle pain yesterday then today was walking and felt a pop with searing pain up his leg - exam consistent with achilles rupture has divot at tendon site and dorsey test there is no movement - will place in splint NWB and refer to PCP and orthopedics for MRI on Tuesday patient aware he is NV intact Procedures Orthopedic Splinting/Casting Injury #1: Side: right Lower Extremity Injury Location: ankle Lower Extremity Immobilizer: posterior splint Other Orthopedic Equipment: crutches Discharge Plan Discharge Clinical Impression: Achilles tendon rupture Patient Disposition: Home, Self-Care Instructions: Crutch Instructions (ED), Achilles Tendon Rupture (ED), R.I.C.E. Treatment (ED) Additional Instructions: return to ED for any worsening symptoms or concerns no weight bearing - use crutches wear splint until replaced by orthopedics monitor splint - make sure foot does not have increased pain, blue color you will need MRI to confirm extent of injury please call your primary care doctor on Tuesday Prescriptions: New oxycodone 5 mg tablet 5 mg PO Q6H PRN (Reason: pain) Qty: 18 0RF Rx Instructions: Partial Fill upon patient request. achilles tendon rupture No Action Spiriva Respimat 2.5 mcg/actuation mist 2 puff inhalation DAILY Qty: 12 3RF albuterol sulfate [ProAir HFA] 90 mcg/actuation HFA aerosol inhaler 2 puff inhalation Q6H PRN (Reason: shortness of breath or wheezing) 90 Days Qty: 3 0RF tizanidine 4 mg tablet See Rx Instructions PO BEDTIME PRN (Reason: for muscle spasm) 30 Days Qty: 60 3RF Rx Instructions: Take 1 to 2 tablets PO bedtime PRN; aspirin [Adult Aspirin Regimen] 81 mg tablet,delayed release (DR/EC) 81 mg PO DAILY Qty: 90 3RF amlodipine 10 mg tablet 10 mg PO DAILY Qty: 60 4RF montelukast 10 mg tablet 10 mg PO DAILY Qty: 30 3RF levothyroxine 137 mcg tablet 137 mcg PO DAILY Qty: 90 0RF omeprazole 20 mg capsule,delayed release(DR/EC) 20 mg PO QAM Qty: 90 0RF buspirone 5 mg tablet 5 mg PO BID 30 Days Qty: 60 5RF fluticasone propion-salmeterol [Advair Diskus] 250-50 mcg/dose blister with device 1 inh inhalation BID Qty: 60 2RF tamsulosin 0.4 mg capsule 0.4 mg PO BEDTIME 90 Days Qty: 90 0RF oxycodone-acetaminophen 10-325 mg tablet 1 tab PO BID PRN (Reason: pain) Qty: 60 0RF ropinirole 1 mg tablet 1 mg PO Q6H Qty: 360 0RF levofloxacin 750 mg tablet 750 mg PO DAILY Qty: 6 0RF prednisone 20 mg tablet 40 mg PO DAILY 5 Days Qty: 10 0RF prednisone 20 mg tablet 20 mg PO DAILY PRN (Reason: COPD EXCARBATION) 60 Days Qty: 20 3RF Rx Instructions: to be used prn for flare up copd celecoxib 200 mg capsule 200 mg PO DAILY Referrals: Malick Hernandez MD [Primary Care Provider] - 04/26/22 Margo Carrasco PA-C [Physician Graduate Recruiter] - 5 days (orthopedics doctor) Interventions: ED Discharge Assessment Last Done: 04/23/22 19:19 Discharge Date/Time: 04/23/22 19:21
[2022-04-23] MEDS: oxyCODONE HCl Immed Release 5 MG TABLET PO (18:50)
== END 2022-04-23 19:21 | disposition home or self-care (01) ==
PROVIDERS: Emergency Provider Emergency Medicine; PCP Internal Medicine
DX: S96.911A Strain of unspecified muscle and tendon at ankle and foot level, right foot, initial encounter (principal); X58.XXXA Exposure to other specified factors, initial encounter; Y93.9 Activity, unspecified; Y92.009 Unspecified place in unspecified non-institutional (private) residence as the place of occurrence of the external cause; Y99.9 Unspecified external cause status
CPT/HCPCS: 99283

== ENCOUNTER → 2022-04-30 08:17 | Outpatient (BNVA) | payer MEDICARE, SELFPAY | PROVIDERS: PCP Internal Medicine; Visit Provider Physician Assistant | DX: S86.011A Strain of right Achilles tendon, initial encounter (principal) | CPT/HCPCS: 99202 ==

== ENCOUNTER 2022-05-04 11:29 | Day surgery (SDC) | payer MEDICARE, SELFPAY ==
--- NOTE | 2022-05-03 08:22 | P.CONAN_ITS ---
Documented by User: Charline Hong NP 05/03/22 08:44 HPI - Anesthesia Eval Consult details Narrative: 77yo M for Right Achilles Tendon Repair Recent course of levaquin for RLL pna. Respiratory staus stable at ED visit 04/23/22 for achilles injury. Case reviewed with Dr Hayes Prednisone prn COPD exac PMFSH Active Problems Active Problems: All Active Problems (Updated 04/26/22 @ 10:12 by Malick Hernandez MD) Rupture of right Achilles tendon (Acute) GERD (gastroesophageal reflux disease) (Acute) Pulmonary hypertension (Acute) Equivocal stress test (Acute) DORADO (dyspnea on exertion) (Acute) Lumbar radiculopathy (Acute) Leg cramps (Acute) Myalgia (Acute) Benign essential hypertension (Acute) Nocturia associated with benign prostatic hyperplasia (Acute) Hypertension (Acute) Adult general medical exam (Acute) Screening for diabetes mellitus (Acute) Tachycardia (Acute) Benign prostatic hyperplasia (Acute) Restless leg syndrome (Acute) Primary osteoarthritis of right shoulder (Acute) Lumbar degenerative disc disease (Acute) Anxiety (Acute) Acquired hypothyroidism (Acute) Dyspnea on exertion (Acute) Bronchitis (Acute) Fatigue (Acute) COPD (chronic obstructive pulmonary disease) (Acute) Family History Family History Father No problems noted. Mother Lung cancer Surgical History Surgical History History of cardiac catheterization (~12/29/21) History of colonoscopy Social History Social History Housing: House Alcohol intake: never Patient Tobacco Use Status: Former Tobacco user Tobacco use type: Cigarette e-Cigarette/Vaping Use: Never Used Second Hand Smoke Exposure: No Use of substances other than those prescribed or required for medical reasons: Yes Substance Use Type: Marijuana Substance Use Type Other:: occ. marijuana edibles none today Substance Use Frequency: Occasionally Are you DNR?: No Advance Directives: No Advance Directives Information Provided: Yes Nutrition Risks: No Nutritional Risk Poor oral hygiene: No service: Yes Current occupational status: retired Cognitive needs: Yes (Pt used a cane for balance) Hearing needs: Yes (Per elevator service technician 80% of hearing loss would like to get hearing aids.) Vision needs: No Meds Allergies Allergy/AdvReac Type Severity Reaction Status Date / Time levofloxacin AdvReac Severe tendon Verified 04/30/22 08:39 rupture aspirin AdvReac Unknown stomach Verified 04/30/22 08:39 upset, stomach nicole Home Medications Medication Instructions Recorded Confirmed Last Taken Type celecoxib 200 mg capsule 200 mg PO DAILY for pain 04/07/22 Unknown History Exam Exam Date and Time: May 03, 2022821 Pertinent Lab Results Pertinent Lab Results: Laboratory Tests 04/16/22 04/16/22 11:59 11:59 WBC 16.3 H Hgb 13.3 L Hct 38.9 L Plt Count 259 Sodium 133 L Potassium 4.0 D Chloride 100 Carbon Dioxide 24 BUN 14 Creatinine 1.21 Narrative Narrative: Cardiac cath 12/2021 No significant CAD. iFR/FFR across RCA was normal. Filling pressures at rest were normal. EKG 04/2022 Vent. Rate : 076 BPM ? ? Atrial Rate : 076 BPM ?? P-R Int : 146 ms? QRS Dur : 096 ms ? ? QT Int : 384 ms ? ? ? P-R-T Axes : 082 014 071 degrees ?? QTc Int : 432 ms ? Normal sinus rhythm Possible Left atrial enlargement Borderline ECG When compared with ECG of 23-AUG-2014 11:55, Premature ventricular complexes are no longer Present ECHO 11/2021 Conclusions: - Normal left ventricular size, thickness, and systolic function. The visually estimated ejection fraction is between 55-60%.? ? ? - E/E prime ratio is between 8 and 15 consistent with? indeterminate filling pressures. ? - Mildly increased right ventricular cavity size.? There is? ? ? normal right ventricular systolic function.? - The left atrium is moderately dilated. ? - There is mild dilatation of the sinuses of Valsalva measuring? 4.30 cm and mild dilatation of the ascending aorta measuring 3.60 cm.? ? Assessment and Plan Assessment Anesthesia Assessment: Chart Reviewed Documented by User: Tom Barroso MD 05/04/22 13:50 PMFSH Family History Family History Father No problems noted. Mother Lung cancer Family history of problems with anesthesia: No Surgical History Surgical History History of cardiac catheterization (~12/29/21) History of colonoscopy History of Problems with Anesthesia: No Social History Social History Housing: House Alcohol intake: never Patient Tobacco Use Status: Former Tobacco user Tobacco use type: Cigarette e-Cigarette/Vaping Use: Never Used Second Hand Smoke Exposure: No Use of substances other than those prescribed or required for medical reasons: Yes Substance Use Type: Marijuana Substance Use Type Other:: occ. marijuana edibles none today Substance Use Frequency: Occasionally Are you DNR?: No Advance Directives: No Advance Directives Information Provided: Yes Nutrition Risks: No Nutritional Risk Poor oral hygiene: No service: Yes Current occupational status: retired Cognitive needs: Yes (Pt used a cane for balance) Hearing needs: Yes (Per elevator service technician 80% of hearing loss would like to get hearing aids.) Vision needs: No Meds Allergies Allergy/AdvReac Type Severity Reaction Status Date / Time levofloxacin AdvReac Severe tendon Verified 04/30/22 08:39 rupture aspirin AdvReac Unknown stomach Verified 04/30/22 08:39 upset, stomach nicole Home Medications Medication Instructions Recorded Confirmed Last Taken Type celecoxib 200 mg capsule 200 mg PO DAILY for pain 04/07/22 Unknown History Exam Airway Mallampati Class: I TM Dist: >3cm Neck ROM: Full Denture: Upper and Lower Assessment and Plan Assessment Anesthesia Assessment: Anesthesia Plan Discussed Final Anesthetic Review Family History of Problems with Anesthesia: No History of Problems with Anesthesia: No NPO: Yes ASA Class: III Final Preanesthetic Review: No Changes in Pt Med Stat, Meds/Allgs Chart Reviewed, Consent Obtained/Reviewed and Anes Risks/Benef Reviewed Patient Risk: Intermediate Procedure Risk: Low Anesthetic Plan Anesthetic Plan: GA, MAC: and Regional Block Disposition: Standard PACU
[2022-05-04] VITALS (9 sets, daily range): BP systolic 131–160; BP diastolic 64–83; PULSE 56–90; RESP 18–20; TEMP 36.5–37.1; O2SAT 95–97; BMI 22.6
[2022-05-04] MEDS: Lactated Ringers 1,000 ML 100 ML IVCONT (12:47)
--- NOTE | 2022-05-04 14:35 | MHC.SHP ---
Pre-Procedural Eval Section A Date of Service: 05/04/22 The patient is an INPATIENT: No Changes since office visit: Yes Patient answered all questions; No Cold of Flu in the past 2 weeks, No New Medical Problems and No Changes in Medication The History & Physical has been completed within 30 days and I have reviewed it.: Yes Section B Chief Complaint: achilles strain Allergies: Allergies Allergy/AdvReac Type Severity Reaction Status Date / Time levofloxacin AdvReac Severe tendon Verified 04/30/22 08:39 rupture aspirin AdvReac Unknown stomach Verified 04/30/22 08:39 upset, stomach nicole Plan I have reviewed the history and physical and performed a pertinent physical examination on my patient. No changes have occurred unless specified.
--- NOTE | 2022-05-04 16:09 | P.BOP_ITS ---
Brief Operative Note Date of Service: 05/04/22 Pre-op diagnosis: right achilles tendon rupture Post-op diagnosis: same Procedure: achilles tendon repair Implants: [employer] collagen allograft Surgeon: Rico Alvarenga MD Anesthesia: GETA and regional Was an Veterinary Assistant Technician used for this Procedure?: Yes Veterinary Assistant Technician: Mayte Arciniega Estimated blood loss (mL): 0 Tourniquet time (min): 31 IV fluids (mL): 600 Pathology: none sent Condition: stable Disposition: PACU
--- NOTE | 2022-05-04 16:24 | P.OP_ITS ---
Operative Note Operative Note Date of Service: 05/04/22 Narrative: Date of Service: 05/04/22 Pre-op diagnosis: right achilles tendon rupture Post-op diagnosis: same Procedure: achilles tendon repair Implants: [employer]hew collagen allograft Surgeon: Rico Alvarenga MD Anesthesia: GETA and regional Was an Chemical Plant Technical Director used for this Procedure?: Yes Chemical Plant Technical Director: Mayte Arciniega Estimated blood loss (mL): 0 Tourniquet time (min): 31 IV fluids (mL): 600 Pathology: none sent Condition: stable Disposition: PACU Patient was brought to the operating room and placed prone on the surgical table. All bony prominences were well-padded. He was prepped and draped in standard sterile fashion and a time out was called to identify proper site, proper procedure and IV antibiotics per weight were administered. The tourniquet was insufflated ti 300 mm Hg. I began by making a 3 cm incision over the p osteromedial achilles at the level of the defect. Full thickness skin flaps were developed and the torn tendon was easily identified. The necrotic debris was removed and the paratenon was partially intact. The ends of the tendon were cleaned up with a sharp blade and a 2.0 fiber-wire suture was used to run a krakow stitch up either side of the tendon and tied with the tendons ends opposed and the foot in plantar flexion. I then wrapped a Howard [employer]hew collagen allograft around the diminutive repaired tendon. This was held in place with a 0 Vicryl suture. I then irrigated copiously and closed with absorbable suture and jesus. he was placed in sterile dressing and thensplinted in 15 deg of plantar flexion. He was then awakened from anesthesia and brought to the recovery room in stable condition. there were no known complications.
[2022-05-04] MEDS: HYDROmorphone HCl 0.5 MG/0.5 ML SYRINGE 0.25 MG IVPUSH ×2 (16:36→16:41)
[2022-05-04] MEDS: oxyCODONE HCl Immed Release 5 MG TABLET PO (16:56)
[2022-05-04] MEDS: Albuterol/Iprat 2.5/0.5MG 3 ML AMPUL.NEB 1.5 ML INHALE (17:18)
== END 2022-05-04 18:01 | disposition home or self-care (01) ==
PROVIDERS: PCP Internal Medicine; Visit Provider Orthopaedic Surgery
PROC: (CPT 27650; principal; 2022-05-04 14:10)
DX: S86.011A Strain of right Achilles tendon, initial encounter (principal); W19.XXXA Unspecified fall, initial encounter; J44.9 Chronic obstructive pulmonary disease, unspecified; I10 Essential (primary) hypertension; Y93.9 Activity, unspecified; Y92.89 Other specified places as the place of occurrence of the external cause; Y99.8 Other external cause status; Z79.51 Long term (current) use of inhaled steroids; Z79.82 Long term (current) use of aspirin; Z79.899 Other long term (current) drug therapy; Z88.8 Allergy status to other drugs, medicaments and biological substances; F12.90 Cannabis use, unspecified, uncomplicated
CPT/HCPCS: 27650; C1781; J0690; J1170; J2795; J3010

== ENCOUNTER 2022-06-08 23:45 | Inpatient (IN) | payer MEDICARE, SELFPAY ==
--- NOTE | ~2022-06-08 | XR_ITS ---
EXAMINATION: XR CHEST CLINICAL INFORMATION: Shortness of breath COMPARISON: 04/16/2022 TECHNIQUE: Frontal view of the chest was obtained. FINDINGS: Heart size is normal. No evidence of CHF. Emphysematous changes are again noted. Some small lung nodules are again seen. There there is increased patchy density seen at the left lung base worrisome for new airspace disease/infiltrate. No pleural effusions are seen. Degenerative changes spine with biconvex scoliosis. XR/XR chest 1V IMPRESSION: COPD. New area of infiltrate left lung base.
--- NOTE | 2022-06-08 23:54 | ECG_ITS ---
Test Reason : SOB Blood Pressure : / mmHG Vent. Rate : 088 BPM Atrial Rate : 088 BPM P-R Int : 144 ms QRS Dur : 084 ms QT Int : 372 ms P-R-T Axes : 081 000 066 degrees QTc Int : 450 ms Normal sinus rhythm Possible Left atrial enlargement Nonspecific ST abnormality Abnormal ECG When compared with ECG of 16-APR-2022 11:44, No significant change was found Referred By: Generic ED Physician Electronically Signed By:ALANIS DAVIS
[2022-06-09] VITALS (12 sets, daily range): BP systolic 110–154; BP diastolic 49–77; PULSE 62–105; RESP 16–19; TEMP 36.3–37.5; O2SAT 90–96; BMI 21.7
[2022-06-09 00:13] LABS: Basophils Percent Auto 0.1 % (0-2); Hemoglobin 13.4 g/dl (14.0-18.0); Imm Gran Abs Auto 0.12 X10*3/uL (0.00-0.03); Imm Gran Pct Auto 0.5 % (0.0-0.4); Lymphocytes Absolute Auto 0.6 X10*3/uL (1.2-4.9); Lymphocytes Percent Auto 2.1 % (20-40); MANUAL DIFF FLAG NO; Mean Corpuscular HGB Conc 33.5 g/dl (31.0-36.0); Mean Corpuscular Hemoglobin 30.2 pg (27.0-33.0); Mean Corpuscular Volume 90.1 fL (80.0-98.0); Mean Platelet Volume 9.3 fL (9.4-12.4); Monocytes Percent Auto 7.6 % (2-11); Neutrophils Absolute Auto 23.2 x10*3/uL (2.0-8.3); Neutrophils Percent Auto 89.7 % (45-73); Platelet Count 272 X10*3/uL (160-400); Red Blood Count 4.44 X10*6/uL (4.60-5.80); Red Cell Distribution Width 12.9 % (11.0-16.0); SCAN SMEAR FLAG 1; White Blood Count 25.9 X10*3/uL (4.8-10.8)
[2022-06-09 00:38] LABS: Anion Gap 14 (12-20); Blood Urea Nitrogen 17 mg/dL (9-16); Calcium 9.2 mg/dL (8.4-10.2); Carbon Dioxide 25 mmol/L (22-29); Chloride 100 mmol/L (96-108); Estimated Glomerular Filt Rate 53; Glucose Random 128 mg/dL (60-115); Potassium 4.8 mmol/L (3.3-5.1); Sodium 134 mmol/L (135-145)
[2022-06-09 00:46] LABS: B Type Natriuretic Peptide 184 pg/mL (<100); Troponin-I High Sensitivity 6.2 ng/L (<3.5-35.0)
[2022-06-09 03:41] LABS: COVID-19 Test Negative (Negative)
[2022-06-09 04:23] LABS: Lactic Acid 1.7 mmol/L (0.5-2.0)
[2022-06-09 04:25] LABS: Appearance Urine CLEAR; Color Urine YELLOW; Glucose Urine UA NEG (NEG); Leukocyte Esterase Urine NEG (NEG); Nitrite Urine NEG (NEG); Specific Gravity - Urine <= 1.005 (1.005-1.025); UACC Culture Trigger NO; Urine Blood 1+ (NEG); Urine Ketones NEG (NEG); Urine Protein NEG (NEG-TRACE)
--- NOTE | 2022-06-09 04:34 | ED_ITS ---
HPI - SOB/Dyspnea General Chief Complaint: Dyspnea Stated Complaint: trouble breathing, heart rate has fluctuated Time Seen by Provider: 06/09/22 04:09 Source: patient Mode of arrival: ambulatory Limitations: no limitations History of Present Illness HPI Narrative: 77-year-old male who presents emergency department for evaluation of shortness of breath, cough, chest pain and dizziness. Patient states that he woke up yesterday morning and developed a cough. He states the cough is nonproductive. He states that every time he coughs he develops pain in his chest. He points to his anterior chest when asked to localize the pain. The pain is constant, sharp and heavy, worse with coughing worse with breathing. The pain is 6/10 at its worst. The patient also feels short of breath at rest and has dyspnea on exertion. Also states he feels his heart racing. The patient states that he has prednisone to take p.r.n. when he short of breath and he took prednisone 20 mg twice a day yesterday. States this did not improve his symptoms. He denied fever, chills. He states he has had rhinorrhea and a sore throat. Denied nausea, vomiting or diarrhea. He has noted urinary frequency. The patient states that he had a right Achilles tendon rupture 6 weeks prior secondary to being on Levaquin. He had a surgical repair 4 weeks prior and is currently wearing immobilized due to his right lower extremity. Related Data Previous Rx's Medication Instructions Recorded tiotropium bromide 2.5 2 puff inhalation DAILY #12 grams 06/29/21 mcg/actuation mist for inhalation (Spiriva Respimat) albuterol sulfate 90 mcg/actuation 2 puff inhalation Q6H PRN 10/06/21 aerosol inhaler (ProAir HFA) shortness of breath or wheezing 90 days #3 ea tizanidine 4 mg tablet See Rx Instructions PO BEDTIME PRN 12/10/21 for muscle spasm 30 days #60 tabs amlodipine 10 mg tablet 10 mg PO DAILY #60 tabs 12/11/21 aspirin 81 mg tablet,delayed 81 mg PO DAILY #90 tabs 12/11/21 release (Adult Aspirin Regimen) prednisone 20 mg tablet 20 mg PO DAILY PRN COPD 02/09/22 EXCARBATION 2 months #20 tabs buspirone 5 mg tablet 5 mg PO BID 30 days #60 tabs 03/15/22 omeprazole 20 mg capsule,delayed 20 mg PO QAM #90 caps 03/15/22 release Advair Diskus 250 mcg-50 mcg/dose 1 inh inhalation BID #60 ea 04/08/22 powder for inhalation (fluticasone propion-salmeterol) tamsulosin 0.4 mg capsule 0.4 mg PO BEDTIME 90 days #90 caps 04/14/22 prednisone 20 mg tablet 40 mg PO DAILY 5 days #10 tabs 04/16/22 ropinirole 1 mg tablet 1 mg PO Q6H #360 tabs 04/20/22 hydrocodone 5 mg-acetaminophen 325 1 tab PO Q8H PRN pain 7 days #21 05/04/22 mg tablet tabs celecoxib 200 mg capsule 200 mg PO DAILY PRN pain 90 days 05/18/22 #90 caps levothyroxine 137 mcg tablet 137 mcg PO DAILY 90 days #90 tabs 05/18/22 oxycodone-acetaminophen 10 mg-325 1 tab PO BID PRN pain 30 days #60 05/18/22 mg tablet tabs montelukast 10 mg tablet 10 mg PO DAILY #30 tabs 05/19/22 Allergies Allergy/AdvReac Type Severity Reaction Status Date / Time levofloxacin AdvReac Severe tendon Verified 06/09/22 02:10 rupture aspirin AdvReac Unknown stomach Verified 06/09/22 02:10 upset, stomach nicole Review of Systems Review of Systems: Yes all other systems are reviewed and are negative [facility] Past Medical History [facility] Narrative: Social history: The patient states that he stop smoking cigarettes in 1988 but smoked for 32 years. He denies alcohol use. He states that he does use marijuana edibles for pain. Medical History Acquired hypothyroidism Anxiety Benign essential hypertension Benign prostatic hyperplasia Bronchitis COPD (chronic obstructive pulmonary disease) Dyspnea on exertion Fatigue GERD (gastroesophageal reflux disease) Lumbar degenerative disc disease Primary osteoarthritis of right shoulder Pulmonary hypertension Restless leg syndrome Screening for diabetes mellitus Tachycardia Surgical History History of cardiac catheterization (~12/29/21) History of colonoscopy Family History Family History Father No problems noted. 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 director global brand marketing 80% of hearing loss would like to get hearing aids.) Vision needs: No Physical Exam Vital Signs: Vital Signs: Last Vital Signs Temp 97.3 F 06/09/22 00:49 Pulse 75 06/09/22 04:15 Resp 18 06/09/22 04:15 BP 137/77 06/09/22 04:15 Pulse Ox 91 L 06/09/22 04:15 O2 Del Method 06/09/22 04:15 O2 Flow Rate 1 06/09/22 04:15 BMI result Body Mass Index 21.7 Const: General: cooperative and no acute distress Orientation/consciousness: oriented to person and oriented to place Limitations: no limitations HEENT: Head: Yes normal to inspection, Yes normocephalic and Yes atraumatic Ears: external ears normal General nose exam: Normal external nose present Face and sinus: Yes normal facial exam Mouth: Normal oral and palatal mucosa present Throat: Yes posterior oropharynx normal Eyes: General: appearance normal, both eyes and all related structures Pupils: Equal, round and reactive pupils present Neck: Neck: Yes normal visual inspection, Yes no lymphadenopathy, Yes trachea midline and Yes supple Chest: Chest palpation & inspection: normal inspection of the chest and normal palpation of entire chest wall Resp: Effort & Inspection: normal respiratory effort and able to speak in complete sentences Auscultation: rales (Bases) and wheezes (Diffuse) Cardio: Rate: regular rate Rhythm: regular rhythm Heart sounds: S1 normal heart sound present, S2 normal heart sound present and no murmurs GI: Inspection: Yes normal to inspection Palpation (GI): Soft to palpation, nontender and no guarding Auscultation: normal bowel sounds : General: Yes no CVA tenderness Back/Spine/Pelvis: Back: no CVA tenderness Skin: General skin exam: no rashes or lesions noted Neuro: General: oriented to person and oriented to place Cranial nerves: Yes CN's II-XII intact bilaterally and Yes Equal, round and reactive pupils present Cognition (Neuro): normal cognition Motor exam (neuro): 5/5 motor strength present throughout Extrem: Other: Patient has a immobilization moved to his right lower extremity Psych: Appearance: grossly normal Speech and movement: Normal speech and movement present Affect: normal affect Attitude: cooperative Thought process: Normal thought process present Thought content: Normal thought content present Course Course Course Narrative: 77-year-old male who presents emergency department for evaluation of chest pain, shortness of breath, cough, dizziness which began yesterday. Vital signs revealed an elevated blood pressure of 154/74, heart rate from 75 105. O2 saturation on room air ranged from 91-94%. Lung examination did reveal wheezing diffusely and rales at the bases. 0445: Laboratory evaluation : WBC elevated 25,900 with 89% neutrophils. BNP elevated 184. First high sensitive troponin I was 6.2, repeat 3 hour troponin was 9.6. Urinalysis 1+ blood, microscopic 0-2 RBCs, 0-2 WBCs, trace bacteria. Lactate 1.7. EKG: Normal sinus rhythm with no acute ST segment elevation depression. Radiology evaluation: Chest x-ray: Left lower lobe infiltrate The patient's presentation is consistent with acute pneumonia. The patient was treated with Zosyn 4.5 g IV, Solu-Medrol 125 mg IV, albuterol nebulizer 5 mg nebulized and morphine 4 mg IV. I will discuss the patient's presentation with the covering hospitalist. 0453: I did discuss the patient's presentation with the hospitalist, Dr. Bojorquez. MDM - SOB/Dyspnea Medical Records Attestation: I reviewed the patient's medical records. Lab Data Attestation: I reviewed the patient's lab results. Result diagrams: 06/09/22 00:07 06/09/22 00:07 Labs: Lab Results 06/09/22 06/09/22 06/09/22 Range/Units 00:07 00:07 00:07 WBC 25.9 H (4.8-10.8) X10*3/uL RBC 4.44 L (4.60-5.80) X10*6/uL Hgb 13.4 L (14.0-18.0) g/dl Hct 40.0 L (42.0-52.0) % MCV 90.1 (80.0-98.0) fL MCH 30.2 (27.0-33.0) pg MCHC 33.5 (31.0-36.0) g/dl RDW 12.9 (11.0-16.0) % Plt Count 272 (160-400) X10*3/uL MPV 9.3 L (9.4-12.4) fL Immature Gran % (Auto) 0.5 H (0.0-0.4) % Neut % (Auto) 89.7 H (45-73) % Lymph % (Auto) 2.1 L (20-40) % Brooks % (Auto) 7.6 (2-11) % Eos % (Auto) 0.0 (0-4) % Baso % (Auto) 0.1 (0-2) % Lymph # (Auto) 0.6 L (1.2-4.9) X10*3/uL [place] # (Auto) 2.0 H (0.1-1.2) X10*3/uL Eos # (Auto) 0.0 (0.0-0.4) X10*3/uL Baso # (Auto) 0.0 (0.0-0.2) X10*3/uL Abs Immat Gran (auto) 0.12 H (0.00-0.03) X10*3/uL Absolute Neuts (auto) 23.2 H (2.0-8.3) x10*3/uL Absolute Nucleated RBC 0.000 (0.0-0.012) X10*3/uL Nucleated RBC % (auto) 0.0 (0.0-0.2) /100WBC Sodium 134 L (135-145) mmol/L Potassium 4.8 (3.3-5.1) mmol/L Chloride 100 (96-108) mmol/L Carbon Dioxide 25 (22-29) mmol/L Anion Gap 14 (12-20) BUN 17 H (9-16) mg/dL Creatinine 1.30 (0.5-1.4) mg/dL Estim Creat Clear Calc TNP Estimated GFR 53 Random Glucose 128 H (60-115) mg/dL Lactic Acid (0.5-2.0) mmol/L Calcium 9.2 (8.4-10.2) mg/dL Troponin I High Sens 6.2 (<3.5-35.0) ng/L B-Natriuretic Peptide 184 H (<100) pg/mL COVID-19 (EMILY) (Negative) COVID-19 Clin Com 06/09/22 06/09/22 Range/Units 03:22 04:02 WBC (4.8-10.8) X10*3/uL RBC (4.60-5.80) X10*6/uL Hgb (14.0-18.0) g/dl Hct (42.0-52.0) % MCV (80.0-98.0) fL MCH (27.0-33.0) pg MCHC (31.0-36.0) g/dl RDW (11.0-16.0) % Plt Count (160-400) X10*3/uL MPV (9.4-12.4) fL Immature Gran % (Auto) (0.0-0.4) % Neut % (Auto) (45-73) % Lymph % (Auto) (20-40) % Brooks % (Auto) (2-11) % Eos % (Auto) (0-4) % Baso % (Auto) (0-2) % Lymph # (Auto) (1.2-4.9) X10*3/uL [place] # (Auto) (0.1-1.2) X10*3/uL Eos # (Auto) (0.0-0.4) X10*3/uL Baso # (Auto) (0.0-0.2) X10*3/uL Abs Immat Gran (auto) (0.00-0.03) X10*3/uL Absolute Neuts (auto) (2.0-8.3) x10*3/uL Absolute Nucleated RBC (0.0-0.012) X10*3/uL Nucleated RBC % (auto) (0.0-0.2) /100WBC Sodium (135-145) mmol/L Potassium (3.3-5.1) mmol/L Chloride (96-108) mmol/L Carbon Dioxide (22-29) mmol/L Anion Gap (12-20) BUN (9-16) mg/dL Creatinine (0.5-1.4) mg/dL Estim Creat Clear Calc Estimated GFR Random Glucose (60-115) mg/dL Lactic Acid 1.7 (0.5-2.0) mmol/L Calcium (8.4-10.2) mg/dL Troponin I High Sens (<3.5-35.0) ng/L B-Natriuretic Peptide (<100) pg/mL COVID-19 (EMILY) Negative (Negative) COVID-19 Clin Com See Note ECG Data Attestation: I personally reviewed and interpreted this ECG as follows: Interpretation: 2359: Normal sinus rhythm rate of 88, normal MA, QRS and QTC intervals, no ST segment elevation, no ST segment depression, no PACs, no PVCs, no significant T- wave abnormalities. Discharge Plan Discharge Prescriptions: No Action Spiriva Respimat 2.5 mcg/actuation mist 2 puff inhalation DAILY Qty: 12 3RF albuterol sulfate [ProAir HFA] 90 mcg/actuation HFA aerosol inhaler 2 puff inhalation Q6H PRN (Reason: shortness of breath or wheezing) 90 Days Qty: 3 0RF tizanidine 4 mg tablet See Rx Instructions PO BEDTIME PRN (Reason: for muscle spasm) 30 Days Qty: 60 3RF Rx Instructions: Take 1 to 2 tablets PO bedtime PRN; aspirin [Adult Aspirin Regimen] 81 mg tablet,delayed release (DR/EC) 81 mg PO DAILY Qty: 90 3RF amlodipine 10 mg tablet 10 mg PO DAILY Qty: 60 4RF omeprazole 20 mg capsule,delayed release(DR/EC) 20 mg PO QAM Qty: 90 0RF buspirone 5 mg tablet 5 mg PO BID 30 Days Qty: 60 5RF fluticasone propion-salmeterol [Advair Diskus] 250-50 mcg/dose blister with device 1 inh inhalation BID Qty: 60 2RF tamsulosin 0.4 mg capsule 0.4 mg PO BEDTIME 90 Days Qty: 90 0RF ropinirole 1 mg tablet 1 mg PO Q6H Qty: 360 0RF levothyroxine 137 mcg tablet 137 mcg PO DAILY 90 Days Qty: 90 1RF celecoxib 200 mg capsule 200 mg PO DAILY PRN (Reason: pain) 90 Days Qty: 90 1RF Rx Instructions: Take with food oxycodone-acetaminophen 10-325 mg tablet 1 tab PO BID PRN (Reason: pain) 30 Days Qty: 60 0RF montelukast 10 mg tablet 10 mg PO DAILY Qty: 30 3RF prednisone 20 mg tablet 40 mg PO DAILY 5 Days Qty: 10 0RF hydrocodone-acetaminophen 5-325 mg tablet 1 tab PO Q8H PRN (Reason: pain) 7 Days Qty: 21 0RF Rx Instructions: Partial Fill upon patient request. prednisone 20 mg tablet 20 mg PO DAILY PRN (Reason: COPD EXCARBATION) 60 Days Qty: 20 3RF Rx Instructions: to be used prn for flare up copd
[2022-06-09 04:39] LABS: Bacteria Urine TRACE /LPF; RBC Urine 0-2 /HPF (0); Squamous Epithelial Cell Urine TRACE /LPF; WBC Urine 0-2 /HPF (0-4)
[2022-06-09 04:40] LABS: Troponin-I High Sensitivity 9.6 ng/L (<3.5-35.0)
[2022-06-09] MEDS: Albuterol Sulfate (0.083%) 2.5 MG/3 ML VIAL.NEB 5 MG INHALE (04:46)
[2022-06-09] MEDS: Piperacillin Sodium/Tazobactam 4.5 GM in 0.9 % Sodium Chloride 100 ML IV (04:58)
[2022-06-09] MEDS: methylPREDNISolone Sod Succ 125 MG/2 ML VIAL IVPUSH (04:58)
[2022-06-09] MEDS: Morphine Sulfate 4 MG/ML CARTRIDGE IVPUSH (04:58)
--- NOTE | 2022-06-09 05:09 | PC.NURSE ---
I assumed nursing care of Sami on his arrival to bed 13 from the waiting room. he presents for evaluation of pleuritic chest pain and dyspnea. Gerber is alert and oriented x 3, calm and cooperative, makes eye contact with RN. he ambulates with one stand by assist safely (he wears a RLE brace due to blowing out his achillees 4 weeks ago). At es respirations are non-labored, RR 20-22, room air sat's 94%. He is only able to speak 4-5 words at a time before he begins to feel short of breath. While talking his room air sat's decrease to 89% and he is visibly short of breath. No cyanosis. 1L nasal cannula given and his sats maintain at 94% or better while at rest and while talking. Gerber describes pain in the middle of his chest that he experiences when he takes a deep breath. The pain reminds him of the pain he experienced when he had pneumonia. +dry, non productive cough. pt states it feels like there's a lot of stuff there for me to bring up but I cant get any of it up. No nausea. No vomiting. Speech clear and appropriate. Gerber and his SO are aware that he is TBADM. Awaiting inpatient bed assignment. We will continue to monitor Gerber.
[2022-06-09 06:05] LABS: Basophils Percent Auto 0.1 % (0-2); Hematocrit 37.8 % (42.0-52.0); Hemoglobin 12.8 g/dl (14.0-18.0); Imm Gran Abs Auto 0.17 X10*3/uL (0.00-0.03); Imm Gran Pct Auto 0.7 % (0.0-0.4); Lymphocytes Absolute Auto 1.7 X10*3/uL (1.2-4.9); Lymphocytes Percent Auto 6.7 % (20-40); MANUAL DIFF FLAG SCAN; Mean Corpuscular HGB Conc 33.9 g/dl (31.0-36.0); Mean Corpuscular Hemoglobin 30.3 pg (27.0-33.0); Mean Corpuscular Volume 89.4 fL (80.0-98.0); Mean Platelet Volume 9.1 fL (9.4-12.4); Monocytes Absolute Auto 1.8 X10*3/uL (0.1-1.2); Neutrophils Percent Auto 85.5 % (45-73); Platelet Count 256 X10*3/uL (160-400); Red Blood Count 4.23 X10*6/uL (4.60-5.80); SCAN SMEAR FLAG 1; White Blood Count 25.7 X10*3/uL (4.8-10.8)
[2022-06-09] MEDS: Enoxaparin Sodium 40 MG/0.4 ML SYRINGE SUBCUT (06:09)
[2022-06-09] MEDS: Azithromycin 500 MG TABLET PO (06:09)
[2022-06-09] MEDS: cefTRIAXone sodium 1 GM in 0.9 % Sodium Chloride 50 ML IV (06:09)
[2022-06-09 06:27] LABS: Anion Gap 14 (12-20); Blood Urea Nitrogen 17 mg/dL (9-16); Calcium 8.7 mg/dL (8.4-10.2); Carbon Dioxide 24 mmol/L (22-29); Chloride 103 mmol/L (96-108); Creatinine Clr Calc Pharmacy 49.7; Estimated Glomerular Filt Rate 58; Glucose Random 142 mg/dL (60-115); Potassium 4.5 mmol/L (3.3-5.1); Sodium 136 mmol/L (135-145)
--- NOTE | 2022-06-09 06:31 | PM.IMHP ---
History of Present Illness Date of Service: 06/09/22 Chief Complaint: sob This is a 77-year-old male with past medical history of GERD, HTN, COPD, restless leg syndrome, osteoarthritis, among others presents to the hospital with complaints of dyspnea as well as cough and slight sputum production. Patient reports the symptoms started 2 days ago, he is also complaining of pleuritic chest pain especially when he coughs or takes deep breaths, patient reports no fever, has no chills, no palpitations, no abdominal pain nausea or vomiting, no diarrhea constipation, no urinary symptoms and no lower extremity edema. No headache or change in vision. No numbness weakness or tingling. On arrival to the ED patient found to have a heart rate of 105, vitals otherwise stable, satting 94% on room air but desatting on minimal activity Labs are significant for WBC count of 25.9, hemoglobin of 13.4, hematocrit 40.0, sodium of 134, BUN of 17, creatinine of 1.30, BNP of 184, UA negative, does have a BUN of 17 Chest x-ray shows left lower lobe infiltrate concerning for infectious etiology Review of Systems Review of Systems: Yes all other systems are reviewed and are negative [facility] Medical History Acquired hypothyroidism Anxiety Benign essential hypertension Benign prostatic hyperplasia Bronchitis COPD (chronic obstructive pulmonary disease) Dyspnea on exertion Fatigue GERD (gastroesophageal reflux disease) Lumbar degenerative disc disease Primary osteoarthritis of right shoulder Pulmonary hypertension Restless leg syndrome Screening for diabetes mellitus Tachycardia Family History Father No problems noted. Mother Lung cancer Surgical History History of cardiac catheterization (~12/29/21) History of colonoscopy Social History Housing: House Alcohol intake: former Patient Tobacco Use Status: Former Tobacco user Tobacco use type: Cigarette e-Cigarette/Vaping Use: Never Used Second Hand Smoke Exposure: No Use of substances other than those prescribed or required for medical reasons: No Substance Use Type: Marijuana Advance Directives: No Advance Directives Information Provided: Yes service: Yes Current occupational status: retired Cognitive needs: Yes (Pt used a cane for balance) Hearing needs: Yes (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 winder 80% of hearing loss would like to get hearing aids.) Vision needs: No Meds Allergies Allergy/AdvReac Type Severity Reaction Status Date / Time levofloxacin AdvReac Severe tendon Verified 06/09/22 02:10 rupture aspirin AdvReac Unknown stomach Verified 06/09/22 02:10 upset, stomach nicole Active Medications: Current Medications Acetaminophen (Acetaminophen 325 Mg Tablet) 650 mg PO Q6H PRN PRN Reason: Pain, Mild (Pain Scale 1-3) Albuterol/Ipratropium (Albuterol/Iprat 2.5/0.5mg 3 Ml Ampul.Neb) 3 ml INHALE RQ4H WHILE AWAKE [facility] Albuterol/Ipratropium (Albuterol/Iprat 2.5/0.5mg 3 Ml Ampul.Neb) 1.5 ml INHALE Q20M PRN PRN Reason: Shortness of Breath/Wheezing Azithromycin (Azithromycin 500 Mg Tablet) 500 mg PO Q24H [facility] Last Admin: 06/09/22 06:09 Dose: 500 mg Benzonatate (Benzonatate 100 Mg Capsule) 100 mg PO TID PRN PRN Reason: Cough Docusate Sodium (Docusate Sodium 100 Mg Capsule) 100 mg PO DAILY PRN PRN Reason: Constipation Enoxaparin Sodium (Enoxaparin Sodium 40 Mg/0.4 Ml Syringe) 40 mg SUBCUT Q24H [facility] Last Admin: 06/09/22 06:09 Dose: 40 mg Ceftriaxone Sodium 1 gm/ (Sodium Chloride) 50 mls @ 100 mls/hr IV Q24H [facility] Last Admin: 06/09/22 06:09 Dose: 100 mls/hr Melatonin (Melatonin 3 Mg Tablet) 6 mg PO BEDTIME PRN PRN Reason: Insomnia Ondansetron HCl (Ondansetron Hcl 4 Mg/2 Ml Vial) 4 mg IVPUSH Q8H PRN PRN Reason: Nausea and Vomiting Sodium Chloride (0.9 % Sodium Chloride Flush 3 Ml Syringe) 3 ml IVFLUSH QSHIFT [facility] Physical Exam Vital Signs and Narrative: Vital Signs: Last Vital Signs Temp 97.3 F 06/09/22 00:49 Pulse 78 06/09/22 04:46 Resp 16 06/09/22 04:46 BP 137/77 06/09/22 04:15 Pulse Ox 91 L 06/09/22 04:15 O2 Del Method 06/09/22 04:15 O2 Flow Rate 1 06/09/22 04:15 BMI result Body Mass Index 21.7 Const: General: cooperative and no acute distress Orientation/consciousness: patient oriented x3 Eyes: General: appearance normal, both eyes and all related structures Pupils: Equal, round and reactive pupils present Resp: Other: Bilateral crackles Effort & Inspection: normal respiratory effort Cardio: Rate: regular rate Rhythm: regular rhythm GI: Palpation (GI): Soft to palpation Auscultation: normal bowel sounds Skin: General skin exam: no rashes or lesions noted Neuro: General: patient oriented x3 Cranial nerves: Yes Equal, round and reactive pupils present Cognition (Neuro): normal cognition Extrem: General: Yes normal to inspection and Yes no pedal edema Results Labs CBC and Chem 7: 06/09/22 06:00 06/09/22 06:00 Labs: Laboratory Results - last 24 hr 06/09/22 06/09/22 06/09/22 00:07 00:07 00:07 MCV 90.1 MCH 30.2 MCHC 33.5 RDW 12.9 Plt Count 272 MPV 9.3 L Immature Gran % (Auto) 0.5 H Neut % (Auto) 89.7 H Lymph % (Auto) 2.1 L [place] % (Auto) 7.6 Eos % (Auto) 0.0 Baso % (Auto) 0.1 Lymph # (Auto) 0.6 L [place] # (Auto) 2.0 H Eos # (Auto) 0.0 Baso # (Auto) 0.0 Abs Immat Gran (auto) 0.12 H Absolute Neuts (auto) 23.2 H Absolute Nucleated RBC 0.000 Nucleated RBC % (auto) 0.0 Anion Gap 14 Estim Creat Clear Calc TNP Estimated GFR 53 Random Glucose 128 H Lactic Acid Calcium 9.2 B-Natriuretic Peptide 184 H Urine Color Urine Appearance Urine pH Ur Specific [facility] Urine Protein Urine Glucose (UA) Urine Ketones Urine Blood Urine Nitrite Ur Leukocyte Esterase Urine RBC Urine WBC Ur Squamous Epith Cells Urine Bacteria COVID-19 (EMILY) COVID-19 Clin Com 06/09/22 06/09/22 06/09/22 03:22 04:02 04:18 MCV MCH MCHC RDW Plt Count MPV Immature Gran % (Auto) Neut % (Auto) Lymph % (Auto) [place] % (Auto) Eos % (Auto) Baso % (Auto) Lymph # (Auto) [place] # (Auto) Eos # (Auto) Baso # (Auto) Abs Immat Gran (auto) Absolute Neuts (auto) Absolute Nucleated RBC Nucleated RBC % (auto) Anion Gap Estim Creat Clear Calc Estimated GFR Random Glucose Lactic Acid 1.7 Calcium B-Natriuretic Peptide Urine Color YELLOW Urine Appearance CLEAR Urine pH 6.0 Ur Specific [place] [facility] <= 1.005 Urine Protein NEG Urine Glucose (UA) NEG Urine Ketones NEG Urine Blood 1+ H Urine Nitrite NEG Ur Leukocyte Esterase NEG Urine RBC 0-2 Urine WBC 0-2 Ur Squamous Epith Cells TRACE Urine Bacteria TRACE COVID-19 (EMILY) Negative COVID-19 Clin Com See Note 06/09/22 06/09/22 06:00 06:00 MCV 89.4 MCH 30.3 MCHC 33.9 RDW 13.0 Plt Count 256 MPV 9.1 L Immature Gran % (Auto) 0.7 H Neut % (Auto) 85.5 H Lymph % (Auto) 6.7 L [place] % (Auto) 7.0 Eos % (Auto) 0.0 Baso % (Auto) 0.1 Lymph # (Auto) 1.7 [place] # (Auto) 1.8 H Eos # (Auto) 0.0 Baso # (Auto) 0.0 Abs Immat Gran (auto) 0.17 H Absolute Neuts (auto) 22.0 H Absolute Nucleated RBC 0.000 Nucleated RBC % (auto) 0.0 Anion Gap 14 Estim Creat Clear Calc 49.7 Estimated GFR 58 Random Glucose 142 H Lactic Acid Calcium 8.7 B-Natriuretic Peptide Urine Color Urine Appearance Urine pH Ur Specific [facility] Urine Protein Urine Glucose (UA) Urine Ketones Urine Blood Urine Nitrite Ur Leukocyte Esterase Urine RBC Urine WBC Ur Squamous Epith Cells Urine Bacteria COVID-19 (EMILY) COVID-19 Clin Com Imaging Radiologist's Impressions: Impressions Chest X-Ray 06/09/22 00:15 IMPRESSION: COPD. New area of infiltrate left lung base. Assessment and Plan (1) Pneumonia: Qualifiers: Laterality: left Lung location: lower lobe of lung Status: Acute (2) COPD exacerbation: Status: Acute Plan 77-year-old male with past medical history of COPD presents the hospital with complaints of cough as well as shortness of breath found to have pneumonia # acute community-acquired pneumonia - patient has significant dyspnea, with evidence of pneumonia on chest x-ray - exacerbating his COPD -will treat with IV antibiotics - follow cultures # acute COPD exacerbation - has dyspnea, increased cough and sputum production - pneumonia as above - will treat with DuoNeb, Solu-Medrol - monitor respiratory status - COVID negative # hypertension - stable - continue home medications # history of right Achilles tendon rupture after Levaquin use - possibly related - avoid levofloxacin on discharge DVT prophylaxis: Lovenox Quality Stroke Does the patient have a stroke diagnosis?: No VTE Prior VTE?: No VTE Risk Level:: Medical - moderate - high VTE Device Contraindication: Treatment Not Indicated VTE Drug Contraindication: N/A - Med Ordered
[2022-06-09] MEDS: Albuterol/Iprat 2.5/0.5MG 3 ML AMPUL.NEB INHALE ×2 (08:04→16:01)
--- NOTE | 2022-06-09 08:21 | PHA.MEDREC ---
Pharmacy Consult ? Medication Reconciliation Pharmacy has completed the medication reconciliation. Patient had list of medications on his phone which matched claim history. Bernadine Angelo, JamaalD
[2022-06-09] MEDS: Benzonatate 100 MG CAPSULE PO ×2 (08:27→16:44)
[2022-06-09] MEDS: Acetaminophen 325 MG TABLET 650 MG PO (08:27)
[2022-06-09] MEDS: 0.9 % Sodium Chloride Flush 3 ML SYRINGE IVFLUSH ×3 (08:28→23:28)
--- NOTE | 2022-06-09 09:29 | MHC.CM.PN ---
Attempted to meet with patient in regards to discharge planning. Patient currently sleeping. No family present. Will attempt to meet again. Continue to monitor for d/c needs.
[2022-06-09 11:17] LABS: SLIDE REVIEW VERIFIED
[2022-06-09] MEDS: rOPINIRole HCL 1 MG TABLET PO ×2 (14:20→20:48)
--- NOTE | 2022-06-09 14:48 | PM.EVENT ---
Event Note Date of Service: 06/09/22 Event Note: Seen and evaluated this morning Patient feels some improvement since presenting to the hospital continue treatment with IV antibiotics, oxygen supplement and steroids
[2022-06-09] MEDS: guaiFENesin DM 600/30 1 TAB TAB.ER.12H PO (16:46)
[2022-06-09] MEDS: methylPREDNISolone Sod Succ 40 MG/ML VIAL IVPUSH (18:02)
--- NOTE | 2022-06-09 19:46 | PC.NURSE ---
Attempt to call report to floor - S3 RN will call back
--- NOTE | 2022-06-09 19:56 | PC.NURSE ---
Report called to RN on S3
--- NOTE | 2022-06-09 20:03 | MHC.CM.PN ---
[facility] 06/09. Met with admitted patient with bed assignment 374. with patient. A&Ox4. Vax/boosted/Pfizer 01/27/21, 02/17/21 & 09/25/21. HCP reviewed, completed and signed. Copies given . Uploaded into [employer] and [employer]. HCP/ Emmy Nieves ([phone]). Lives w . Cane/no services. , not vet connected. No services. D/C plan: home without services. Family to transport CM to follow for d/c plan.
[2022-06-09] MEDS: Tamsulosin HCL 0.4 MG CAPSULE PO (20:48)
[2022-06-09] MEDS: busPIRone HCl 5 MG TABLET PO (20:48)
[2022-06-09] MEDS: oxyCODONE HCl Immed Release 5 MG TABLET PO ×2 (20:54→21:38)
--- NOTE | 2022-06-09 21:16 | PM.EVENT ---
Event Note Date of Service: 06/09/22 Event Note: pt wants Oxy to be his home dose of 10 BID instead of the current 5 Q6. changed.
--- NOTE | 2022-06-09 21:27 | P.HPHOSP_ITS ---
History of Present Illness Date of Service: 06/09/22 [facility] Medical History Acquired hypothyroidism Anxiety Benign essential hypertension Benign prostatic hyperplasia Bronchitis COPD (chronic obstructive pulmonary disease) Dyspnea on exertion Fatigue GERD (gastroesophageal reflux disease) Lumbar degenerative disc disease Primary osteoarthritis of right shoulder Pulmonary hypertension Restless leg syndrome Screening for diabetes mellitus Tachycardia Family History Father No problems noted. Mother Lung cancer Surgical History History of cardiac catheterization (~12/29/21) History of colonoscopy Social History Housing: House Alcohol intake: former Patient Tobacco Use Status: Former Tobacco user Tobacco use type: Cigarette e-Cigarette/Vaping Use: Never Used Second Hand Smoke Exposure: No Use of substances other than those prescribed or required for medical reasons: No Substance Use Type: Marijuana Advance Directives: No Advance Directives Information Provided: Yes service: Yes Current occupational status: retired Cognitive needs: Yes (Pt used a cane for balance) Hearing needs: Yes (Per filler spreader 80% of hearing loss would like to get hearing aids.) Vision needs: No Meds Allergies Allergy/AdvReac Type Severity Reaction Status Date / Time levofloxacin AdvReac Severe tendon Verified 06/09/22 02:10 rupture aspirin AdvReac Unknown stomach Verified 06/09/22 02:10 upset, stomach nicole Active Medications: Current Medications Acetaminophen (Acetaminophen 325 Mg Tablet) 650 mg PO Q6H PRN PRN Reason: Pain, Mild (Pain Scale 1-3) Last Admin: 06/09/22 08:27 Dose: 650 mg Albuterol/Ipratropium (Albuterol/Iprat 2.5/0.5mg 3 Ml Ampul.Neb) 3 ml INHALE RQ4H WHILE AWAKE [place] Last Admin: 06/09/22 19:25 Dose: Not Given Albuterol/Ipratropium (Albuterol/Iprat 2.5/0.5mg 3 Ml Ampul.Neb) 1.5 ml INHALE Q20M PRN PRN Reason: Shortness of Breath/Wheezing Amlodipine Besylate (Amlodipine Besylate 5 Mg Tablet) 5 mg PO DAILY [facility]; Protocol Aspirin (Aspirin Enteric Coated 81 Mg Tablet.) 81 mg PO DAILY [facility] Azithromycin (Azithromycin 500 Mg Tablet) 500 mg PO Q24H [facility] Last Admin: 06/09/22 06:09 Dose: 500 mg Benzonatate (Benzonatate 100 Mg Capsule) 100 mg PO TID PRN PRN Reason: Cough Last Admin: 06/09/22 16:44 Dose: 100 mg Buspirone HCl (Buspirone Hcl 5 Mg Tablet) 5 mg PO BID [facility] Last Admin: 06/09/22 20:48 Dose: 5 mg Docusate Sodium (Docusate Sodium 100 Mg Capsule) 100 mg PO DAILY PRN PRN Reason: Constipation Enoxaparin Sodium (Enoxaparin Sodium 40 Mg/0.4 Ml Syringe) 40 mg SUBCUT Q24H [facility] Last Admin: 06/09/22 06:09 Dose: 40 mg Guaifenesin/Dextromethorphan (Guaifenesin Dm 600/30 1 Tab Tab.Er.12h) 1 tab PO Q12H PRN PRN Reason: Cough Last Admin: 06/09/22 16:46 Dose: 1 tab Ceftriaxone Sodium 1 gm/ (Sodium Chloride) 50 mls @ 100 mls/hr IV Q24H [facility] Last Infusion: 06/09/22 06:44 Dose: Infused Levothyroxine Sodium (Levothyroxine Sodium 112 Mcg Tablet) 112 mcg PO DAILY@0600 [facility] Levothyroxine Sodium (Levothyroxine Sodium 25 Mcg Tablet) 25 mcg PO DAILY@0600 [facility] Magnesium Oxide (Magnesium Oxide 400 Mg Tablet) 400 mg PO DAILY [facility] Melatonin (Melatonin 3 Mg Tablet) 6 mg PO BEDTIME PRN PRN Reason: Insomnia Methylprednisolone Sodium Succinate (Methylprednisolone Sod Succ 40 Mg/Ml Vial) 40 mg IVPUSH Q12H [facility] Last Admin: 06/09/22 18:02 Dose: 40 mg Montelukast Sodium (Montelukast Sodium 10 Mg Tablet) 10 mg PO DAILY [facility] Omeprazole (Omeprazole 20 Mg Capsule.) 20 mg PO DAILY@0630 [facility] Ondansetron HCl (Ondansetron Hcl 4 Mg/2 Ml Vial) 4 mg IVPUSH Q8H PRN PRN Reason: Nausea and Vomiting Oxycodone HCl (Oxycodone Hcl Immed Release 5 Mg Tablet) 10 mg PO BID PRN PRN Reason: Pain, Severe (Pain Scale 7-10) Ropinirole HCl (Ropinirole Hcl 1 Mg Tablet) 1 mg PO QID@0300,0900,1500,2100 [facility] Last Admin: 06/09/22 20:48 Dose: 1 mg Sodium Chloride (0.9 % Sodium Chloride Flush 3 Ml Syringe) 3 ml IVFLUSH QSHIFT [facility] Last Admin: 06/09/22 16:45 Dose: 3 ml Tamsulosin HCl (Tamsulosin Hcl 0.4 Mg Capsule) 0.4 mg PO BEDTIME [facility] Last Admin: 06/09/22 20:48 Dose: 0.4 mg Tizanidine HCl (Tizanidine Hcl 4 Mg Tablet) 4 mg PO BEDTIME MRX1 PRN PRN Reason: for muscle spasm Vitamin D (Cholecalciferol (Vitamin D3) 25 Mcg Tablet) 50 mcg PO DAILY [facility] Home Medications Medication Instructions Recorded Confirmed Last Taken Type cholecalciferol (vitamin D3) 50 50 mcg PO DAILY 06/09/22 06/09/22 06/08/22 History mcg (2,000 unit) tablet dextromethorphan-guaifenesin 30 1 tab PO Q12H PRN Cough 06/09/22 06/09/22 Unknown History mg-600 mg tablet extended hr (Mucinex DM) magnesium oxide 500 mg tablet 500 mg PO DAILY 06/09/22 06/09/22 06/08/22 History ropinirole 1 mg tablet 1 mg PO QID 06/09/22 06/09/22 06/08/22 History Physical Exam Vital Signs and Narrative: Vital Signs: Last Vital Signs Temp 97.8 F 06/09/22 20:36 Pulse 86 06/09/22 20:36 Resp 18 06/09/22 20:36 BP 138/69 06/09/22 20:36 Pulse Ox 94 06/09/22 20:36 O2 Del Method 06/09/22 20:36 O2 Flow Rate 2 06/09/22 18:00 BMI result Body Mass Index 21.7 Results Labs CBC and Chem 7: 06/09/22 06:00 06/09/22 06:00 Labs: Laboratory Results - last 24 hr 06/09/22 06/09/22 06/09/22 00:07 00:07 00:07 MCV 90.1 MCH 30.2 MCHC 33.5 RDW 12.9 Plt Count 272 MPV 9.3 L Immature Gran % (Auto) 0.5 H Neut % (Auto) 89.7 H Lymph % (Auto) 2.1 L Gaines % (Auto) 7.6 Eos % (Auto) 0.0 Baso % (Auto) 0.1 Lymph # (Auto) 0.6 L Gaines # (Auto) 2.0 H Eos # (Auto) 0.0 Baso # (Auto) 0.0 Abs Immat Gran (auto) 0.12 H Absolute Neuts (auto) 23.2 H Absolute Nucleated RBC 0.000 Nucleated RBC % (auto) 0.0 Smear Tech's Comments Anion Gap 14 Estim Creat Clear Calc TNP Estimated GFR 53 Random Glucose 128 H Lactic Acid Calcium 9.2 B-Natriuretic Peptide 184 H Urine Color Urine Appearance Urine pH Ur Specific [place] Urine Protein Urine Glucose (UA) Urine Ketones Urine Blood Urine Nitrite Ur Leukocyte Esterase Urine RBC Urine WBC Ur Squamous Epith Cells Urine Bacteria COVID-19 (EMILY) COVID-19 Clin Com 06/09/22 06/09/22 06/09/22 03:22 04:02 04:18 MCV MCH MCHC RDW Plt Count MPV Immature Gran % (Auto) Neut % (Auto) Lymph % (Auto) Gaines % (Auto) Eos % (Auto) Baso % (Auto) Lymph # (Auto) Gaines # (Auto) Eos # (Auto) Baso # (Auto) Abs Immat Gran (auto) Absolute Neuts (auto) Absolute Nucleated RBC Nucleated RBC % (auto) Smear Tech's Comments Anion Gap Estim Creat Clear Calc Estimated GFR Random Glucose Lactic Acid 1.7 Calcium B-Natriuretic Peptide Urine Color YELLOW Urine Appearance CLEAR Urine pH 6.0 Ur Specific [place] <= 1.005 Urine Protein NEG Urine Glucose (UA) NEG Urine Ketones NEG Urine Blood 1+ H Urine Nitrite NEG Ur Leukocyte Esterase NEG Urine RBC 0-2 Urine WBC 0-2 Ur Squamous Epith Cells TRACE Urine Bacteria TRACE COVID-19 (EMILY) Negative COVID-19 Clin Com See Note 06/09/22 06/09/22 06:00 06:00 MCV 89.4 MCH 30.3 MCHC 33.9 RDW 13.0 Plt Count 256 MPV 9.1 L Immature Gran % (Auto) 0.7 H Neut % (Auto) 85.5 H Lymph % (Auto) 6.7 L Gaines % (Auto) 7.0 Eos % (Auto) 0.0 Baso % (Auto) 0.1 Lymph # (Auto) 1.7 Gaines # (Auto) 1.8 H Eos # (Auto) 0.0 Baso # (Auto) 0.0 Abs Immat Gran (auto) 0.17 H Absolute Neuts (auto) 22.0 H Absolute Nucleated RBC 0.000 Nucleated RBC % (auto) 0.0 Smear Tech's Comments VERIFIED Anion Gap 14 Estim Creat Clear Calc 49.7 Estimated GFR 58 Random Glucose 142 H Lactic Acid Calcium 8.7 B-Natriuretic Peptide Urine Color Urine Appearance Urine pH Ur Specific [place] Urine Protein Urine Glucose (UA) Urine Ketones Urine Blood Urine Nitrite Ur Leukocyte Esterase Urine RBC Urine WBC Ur Squamous Epith Cells Urine Bacteria COVID-19 (EMILY) COVID-19 Clin Com Imaging Radiologist's Impressions: Impressions Chest X-Ray 06/09/22 00:15 IMPRESSION: COPD. New area of infiltrate left lung base. Quality Stroke Does the patient have a stroke diagnosis?: No VTE Prior VTE?: No VTE Risk Level:: Medical - moderate - high VTE Device Contraindication: Treatment Not Indicated VTE Drug Contraindication: N/A - Med Ordered
[2022-06-10] VITALS (9 sets, daily range): BP systolic 129–149; BP diastolic 61–77; PULSE 68–90; RESP 16–20; TEMP 36.2–37.2; O2SAT 93–98
[2022-06-10] MEDS: rOPINIRole HCL 1 MG TABLET PO ×4 (02:49→20:54)
[2022-06-10] MEDS: methylPREDNISolone Sod Succ 40 MG/ML VIAL IVPUSH ×2 (05:37→17:53)
[2022-06-10] MEDS: guaiFENesin DM 600/30 1 TAB TAB.ER.12H PO ×2 (05:37→18:29)
[2022-06-10] MEDS: Omeprazole 20 MG CAPSULE.DR PO (05:37)
[2022-06-10] MEDS: Azithromycin 500 MG TABLET PO (05:37)
[2022-06-10] MEDS: Levothyroxine Sodium 112 MCG TABLET PO (05:37)
[2022-06-10] MEDS: Levothyroxine Sodium 25 MCG TABLET PO (05:38)
[2022-06-10] MEDS: Enoxaparin Sodium 40 MG/0.4 ML SYRINGE SUBCUT (05:38)
[2022-06-10] MEDS: cefTRIAXone sodium 1 GM in 0.9 % Sodium Chloride 50 ML IV (05:40)
[2022-06-10] MEDS: busPIRone HCl 5 MG TABLET PO ×2 (07:39→20:54)
[2022-06-10] MEDS: Aspirin Enteric Coated 81 MG TABLET.DR PO (07:40)
[2022-06-10] MEDS: Magnesium Oxide 400 MG TABLET PO (07:40)
[2022-06-10] MEDS: Montelukast Sodium 10 MG TABLET PO (07:40)
[2022-06-10] MEDS: Cholecalciferol (Vitamin D3) 25 MCG TABLET 50 MCG PO (07:40)
[2022-06-10] MEDS: amLODIPine Besylate 5 MG TABLET PO (07:40)
[2022-06-10] MEDS: 0.9 % Sodium Chloride Flush 3 ML SYRINGE IVFLUSH ×3 (07:47→20:55)
[2022-06-10] MEDS: oxyCODONE HCl Immed Release 5 MG TABLET 10 MG PO (08:00)
[2022-06-10] MEDS: Albuterol/Iprat 2.5/0.5MG 3 ML AMPUL.NEB INHALE ×4 (08:00→20:01)
[2022-06-10 08:14] LABS: Hematocrit 37.7 % (42.0-52.0); Hemoglobin 12.8 g/dl (14.0-18.0); Mean Corpuscular Hemoglobin 30.5 pg (27.0-33.0); Mean Corpuscular Volume 89.8 fL (80.0-98.0); Mean Platelet Volume 9.6 fL (9.4-12.4); Platelet Count 254 X10*3/uL (160-400); Red Cell Distribution Width 13.1 % (11.0-16.0); White Blood Count 20.3 X10*3/uL (4.8-10.8)
[2022-06-10 08:31] LABS: Anion Gap 11 (12-20); Blood Urea Nitrogen 18 mg/dL (9-16); Calcium 8.9 mg/dL (8.4-10.2); Carbon Dioxide 25 mmol/L (22-29); Chloride 101 mmol/L (96-108); Creatinine Clr Calc Pharmacy 59.6; Estimated Glomerular Filt Rate > 60; Glucose Random 124 mg/dL (60-115); Potassium 4.3 mmol/L (3.3-5.1); Sodium 133 mmol/L (135-145)
--- NOTE | 2022-06-10 10:54 | P.PNIM_ITS ---
Subjective Subjective Date of Service: 06/10/22 Interval History: the patient was seen and evaluated this morning Laying in bed, feels improvement since admission Still reporting dyspnea with minimal exertion and coughing No reported other overnight events. Systemic review: No fever, chills or weakness No chest pain, palpitation Still having shortness of breath and dyspnea No abdominal pain, nausea or vomiting No urinary symptoms No any rash or wounds Physical Exam Vital Signs: Vital Signs: Last Vital Signs Temp 98.0 F 06/10/22 07:12 Pulse 77 06/10/22 08:01 Resp 18 06/10/22 08:01 BP 149/77 H 06/10/22 07:12 Pulse Ox 93 06/10/22 07:12 O2 Del Method 06/10/22 07:12 O2 Flow Rate 2 06/10/22 07:12 BMI result Body Mass Index 21.7 Const: Other: Constitutional : Alert, oriented, not in distress Neck : Normal inspection, Supple Cardiovascular : RRR, no JVP, no lower extremity edema Respiratory : Decreased bilateral air entry, basal fine crackles, bilateral expiratory fine wheezes Gastrointestinal: soft, lax, Normal bowel sounds, Non tender Skin : Warm, Dry Extremities: Right foot in cast Neurological : Alert & oriented x3, No focal deficit , CN 2-12 within normal Objective Data Active Medications Acetaminophen (Acetaminophen 325 Mg Tablet) 650 mg PO Q6H PRN PRN Reason: Pain, Mild (Pain Scale 1-3) Last Admin: 06/09/22 08:27 Dose: 650 mg Documented By: COOPEB Albuterol/Ipratropium (Albuterol/Iprat 2.5/0.5mg 3 Ml Ampul.Neb) 3 ml INHALE RQ4H WHILE AWAKE [facility] Last Admin: 06/10/22 08:00 Dose: 3 ml Documented By: GUIDJUANIS Albuterol/Ipratropium (Albuterol/Iprat 2.5/0.5mg 3 Ml Ampul.Neb) 1.5 ml INHALE Q20M PRN PRN Reason: Shortness of Breath/Wheezing Amlodipine Besylate (Amlodipine Besylate 5 Mg Tablet) 5 mg PO DAILY [facility]; Protocol Last Admin: 06/10/22 07:40 Dose: 5 mg Documented By: LYSZ Aspirin (Aspirin Enteric Coated 81 Mg Tablet.) 81 mg PO DAILY [facility] Last Admin: 06/10/22 07:40 Dose: 81 mg Documented By: KOBE Azithromycin (Azithromycin 500 Mg Tablet) 500 mg PO Q24H [facility] Last Admin: 06/10/22 05:37 Dose: 500 mg Documented By: FLORENTIN Benzonatate (Benzonatate 100 Mg Capsule) 100 mg PO TID PRN PRN Reason: Cough Last Admin: 06/09/22 16:44 Dose: 100 mg Documented By: COOPEB Buspirone HCl (Buspirone Hcl 5 Mg Tablet) 5 mg PO BID [facility] Last Admin: 06/10/22 07:39 Dose: 5 mg Documented By: KOBE Docusate Sodium (Docusate Sodium 100 Mg Capsule) 100 mg PO DAILY PRN PRN Reason: Constipation Enoxaparin Sodium (Enoxaparin Sodium 40 Mg/0.4 Ml Syringe) 40 mg SUBCUT Q24H [facility] Last Admin: 06/10/22 05:38 Dose: 40 mg Documented By: FLORENTIN Guaifenesin/Dextromethorphan (Guaifenesin Dm 600/30 1 Tab Tab.Er.12h) 1 tab PO Q12H PRN PRN Reason: Cough Last Admin: 06/10/22 05:37 Dose: 1 tab Documented By: FLORENTIN Ceftriaxone Sodium 1 gm/ (Sodium Chloride) 50 mls @ 100 mls/hr IV Q24H [facility] Last Infusion: 06/10/22 06:24 Dose: 0 mls/hr Documented By: FLORENTIN Levothyroxine Sodium (Levothyroxine Sodium 112 Mcg Tablet) 112 mcg PO DAILY@0600 [facility] Last Admin: 06/10/22 05:37 Dose: 112 mcg Documented By: FLORENTIN Levothyroxine Sodium (Levothyroxine Sodium 25 Mcg Tablet) 25 mcg PO DAILY@0600 [facility] Last Admin: 06/10/22 05:38 Dose: 25 mcg Documented By: FLORENTIN Magnesium Oxide (Magnesium Oxide 400 Mg Tablet) 400 mg PO DAILY [facility] Last Admin: 06/10/22 07:40 Dose: 400 mg Documented By: KOBE Melatonin (Melatonin 3 Mg Tablet) 6 mg PO BEDTIME PRN PRN Reason: Insomnia Methylprednisolone Sodium Succinate (Methylprednisolone Sod Succ 40 Mg/Ml Vial) 40 mg IVPUSH Q12H [facility] Last Admin: 06/10/22 05:37 Dose: 40 mg Documented By: FLORENTIN Montelukast Sodium (Montelukast Sodium 10 Mg Tablet) 10 mg PO DAILY [facility] Last Admin: 06/10/22 07:40 Dose: 10 mg Documented By: KOBE Omeprazole (Omeprazole 20 Mg Capsule.Dr) 20 mg PO DAILY@0630 [facility] Last Admin: 06/10/22 05:37 Dose: 20 mg Documented By: FLORENTIN Ondansetron HCl (Ondansetron Hcl 4 Mg/2 Ml Vial) 4 mg IVPUSH Q8H PRN PRN Reason: Nausea and Vomiting Oxycodone HCl (Oxycodone Hcl Immed Release 5 Mg Tablet) 10 mg PO BID PRN PRN Reason: Pain, Severe (Pain Scale 7-10) Last Admin: 06/10/22 08:00 Dose: 10 mg Documented By: KOBE Ropinirole HCl (Ropinirole Hcl 1 Mg Tablet) 1 mg PO QID@0300,0900,1500,2100 [facility] Last Admin: 06/10/22 07:51 Dose: 1 mg Documented By: KOBE Sodium Chloride (0.9 % Sodium Chloride Flush 3 Ml Syringe) 3 ml IVFLUSH QSHIFT [facility] Last Admin: 06/10/22 07:47 Dose: 3 ml Documented By: KOBE Tamsulosin HCl (Tamsulosin Hcl 0.4 Mg Capsule) 0.4 mg PO BEDTIME [facility] Last Admin: 06/09/22 20:48 Dose: 0.4 mg Documented By: FLORENTIN Tiotropium [place] (Tiotropium [place] 18 Mcg Cap.W.Dev) 1 puff INHALE RDAILY [facility] Last Admin: 06/10/22 08:35 Dose: 1 puff Documented By: AMANDA Tizanidine HCl (Tizanidine Hcl 4 Mg Tablet) 4 mg PO BEDTIME MRX1 PRN PRN Reason: for muscle spasm Vitamin D (Cholecalciferol (Vitamin D3) 25 Mcg Tablet) 50 mcg PO DAILY [facility] Last Admin: 06/10/22 07:40 Dose: 50 mcg Documented By: KOBE Labs CBC & Chem 7: 06/10/22 08:08 06/10/22 08:08 Labs: Laboratory Results - last 24 hr 06/09/22 06/10/22 06/10/22 06:00 08:08 08:08 MCV 89.8 MCH 30.5 MCHC 34.0 RDW 13.1 Plt Count 254 MPV 9.6 Absolute Nucleated RBC 0.000 Nucleated RBC % (auto) 0.0 Smear Tech's Comments VERIFIED Anion Gap 11 L Estim Creat Clear Calc 59.6 Estimated GFR > 60 Random Glucose 124 H Calcium 8.9 Microbiology Microbiology Results: Microbiology 06/09/22 04:02 Blood Culture - Preliminary Blood - Venous No growth after 24 hours. Blood Culture - Preliminary No growth after 24 hours. 06/09/22 04:02 Blood Culture - Preliminary Blood - Venous No growth after 24 hours. Assessment and Plan (1) COPD exacerbation: Status: Acute (2) Pneumonia: Status: Acute Plan 77-year-old male with past medical history of COPD presents the hospital with complaints of cough as well as shortness of breath found to have pneumonia # acute community-acquired pneumonia Still having dyspnea, with evidence of pneumonia on chest x-ray Continue IV antibiotics Pending cultures Wean oxygen down as tolerated # acute COPD exacerbation has dyspnea, increased cough and sputum production Continue DuoNeb, Solu-Medrol monitor respiratory status # hypertension stable continue home medications # history of right Achilles tendon rupture after Levaquin use possibly related avoid levofloxacin on discharge DVT prophylaxis Lovenox The patient will need overnight hospital stay to continue treatment for pneumonia and COPD exacerbation to prevent decompensation and hypoxic respiratory failure. Quality Stroke Does the patient have a stroke diagnosis?: No VTE Prior VTE?: No VTE Risk Level:: Medical - moderate - high VTE Device Contraindication: Treatment Not Indicated VTE Drug Contraindication: N/A - Med Ordered
[2022-06-10] MEDS: Benzonatate 100 MG CAPSULE PO (18:29)
[2022-06-10] MEDS: Tamsulosin HCL 0.4 MG CAPSULE PO (20:54)
[2022-06-11] MEDS: oxyCODONE HCl Immed Release 5 MG TABLET 10 MG PO (02:32)
[2022-06-11] MEDS: rOPINIRole HCL 1 MG TABLET PO ×2 (02:32→07:55)
[2022-06-11 03:34] VITALS: BP 129/67; PULSE 73; RESP 17; TEMP 36.3; O2SAT 95
[2022-06-11] MEDS: Azithromycin 500 MG TABLET PO (05:12)
[2022-06-11] MEDS: Levothyroxine Sodium 112 MCG TABLET PO (05:12)
[2022-06-11] MEDS: Levothyroxine Sodium 25 MCG TABLET PO (05:12)
[2022-06-11] MEDS: Omeprazole 20 MG CAPSULE.DR PO (05:12)
[2022-06-11] MEDS: cefTRIAXone sodium 1 GM in 0.9 % Sodium Chloride 50 ML IV (05:13)
[2022-06-11] MEDS: methylPREDNISolone Sod Succ 40 MG/ML VIAL IVPUSH (05:13)
[2022-06-11] MEDS: Enoxaparin Sodium 40 MG/0.4 ML SYRINGE SUBCUT (05:13)
[2022-06-11 06:18] LABS: Hemoglobin 12.8 g/dl (14.0-18.0); Mean Corpuscular HGB Conc 33.7 g/dl (31.0-36.0); Mean Corpuscular Hemoglobin 30.1 pg (27.0-33.0); Mean Corpuscular Volume 89.4 fL (80.0-98.0); Platelet Count 287 X10*3/uL (160-400); Red Blood Count 4.25 X10*6/uL (4.60-5.80); Red Cell Distribution Width 13.1 % (11.0-16.0)
[2022-06-11 06:35] LABS: Anion Gap 16 (12-20); Blood Urea Nitrogen 27 mg/dL (9-16); Calcium 9.3 mg/dL (8.4-10.2); Carbon Dioxide 25 mmol/L (22-29); Chloride 100 mmol/L (96-108); Creatinine Clr Calc Pharmacy 52.8; Estimated Glomerular Filt Rate > 60; Glucose Random 115 mg/dL (60-115); Potassium 4.5 mmol/L (3.3-5.1); Sodium 136 mmol/L (135-145)
[2022-06-11 07:22] VITALS: BP 148/72; PULSE 62; RESP 13; TEMP 36.4; O2SAT 94
[2022-06-11] MEDS: amLODIPine Besylate 5 MG TABLET PO (07:54)
[2022-06-11] MEDS: Montelukast Sodium 10 MG TABLET PO (07:55)
[2022-06-11] MEDS: guaiFENesin DM 600/30 1 TAB TAB.ER.12H PO (07:55)
[2022-06-11] MEDS: Aspirin Enteric Coated 81 MG TABLET.DR PO (07:55)
[2022-06-11] MEDS: Cholecalciferol (Vitamin D3) 25 MCG TABLET 50 MCG PO (07:55)
[2022-06-11] MEDS: Magnesium Oxide 400 MG TABLET PO (07:55)
[2022-06-11] MEDS: busPIRone HCl 5 MG TABLET PO (07:55)
[2022-06-11] MEDS: Benzonatate 100 MG CAPSULE PO (07:56)
[2022-06-11] MEDS: 0.9 % Sodium Chloride Flush 3 ML SYRINGE IVFLUSH (08:00)
[2022-06-11] MEDS: Albuterol/Iprat 2.5/0.5MG 3 ML AMPUL.NEB INHALE (08:02)
[2022-06-11 08:06] VITALS: PULSE 78; RESP 21; O2SAT 95
[2022-06-11 09:45] VITALS: O2SAT 94
--- NOTE | 2022-06-11 10:41 | PM.DS ---
DS: Providers Provider Date of Service: 06/11/22 Date of admission: 06/09/22 05:31 Primary care physician: Malick Hernandez MD DS: Diagnosis Discharge Diagnosis (1) COPD exacerbation: Status: Acute (2) Pneumonia: Status: Acute DS: Summary Hospital Course Hospital Course: Admission note HPI This is a 77-year-old male with past medical history of GERD, HTN, COPD, restless leg syndrome, osteoarthritis, among others presents to the hospital with complaints of dyspnea as well as cough and slight sputum production.? Patient reports the symptoms started 2 days ago, he is also complaining of pleuritic chest pain especially when he coughs or takes deep breaths, patient reports no fever, has no chills, no palpitations, no abdominal pain nausea or vomiting, no diarrhea constipation, no urinary symptoms and no lower extremity edema.? No headache or change in vision.? No numbness weakness or tingling.? On arrival to the ED patient found to have a heart rate of 105, vitals otherwise stable, satting 94% on room air but desatting on minimal activity Labs are significant for WBC count of 25.9, hemoglobin of 13.4, hematocrit 40.0, sodium of 134, BUN of 17, creatinine of 1.30, BNP of 184, UA negative, does have a BUN of 17 Chest x-ray shows left lower lobe infiltrate concerning for infectious etiology Hospital course The patient was admitted for evaluation of difficulty breathing. Chest x-ray was consistent with pneumonia. Treated with IV antibiotics of azithromycin and ceftriaxone as blood cultures remain negative. He was weaned down the oxygen to room air with good tolerance as he was ambulating on room. Treated with steroids and bronchodilator nebulizers for evidence of COPD exacerbation with good improvement over the course of hospital stay. Use your inhalers at home as scheduled Continue azithromycin and Ceftin for 5 more days Continue prednisone for 4 more days To follow-up with PCP as scheduled Time Spent with Patient Time attestation: Total time spent providing and/or coordinating discharge services: Discharge coordination time: Greater than 30 minutes Quality: Safe Use of Opioids Does Pt have an Active Cancer Diagnosis on the Problem List?: No Quality: Stroke Does the patient have a stroke diagnosis?: No Physical Exam Vital Signs: Vital Signs: Last Vital Signs Temp 97.6 F 06/11/22 07:22 Pulse 78 07/29/22 08:06 Resp 21 H 06/11/22 08:06 BP 148/72 H 06/11/22 07:22 Pulse Ox 94 06/11/22 09:45 O2 Del Method 06/11/22 09:45 O2 Flow Rate 2.0 06/11/22 07:22 BMI result Body Mass Index 21.7 Const: Other: Constitutional : Alert, oriented, not in distress Neck : Normal inspection, Supple Cardiovascular : RRR, no JVP, no lower extremity edema Respiratory : For bilateral air entry, no crackles, no wheezes Gastrointestinal: soft, lax, Normal bowel sounds, Non tender Skin : Warm, Dry Extremities: Right foot in cast Neurological : Alert & oriented x3, No focal deficit , CN 2-12 within normal DS: Data Data Completed and Pending Labs on day of discharge: Laboratory Results - last 24 hr 06/11/22 06/11/22 05:25 05:25 WBC 16.0 H RBC 4.25 L Hgb 12.8 L Hct 38.0 L MCV 89.4 MCH 30.1 MCHC 33.7 RDW 13.1 Plt Count 287 MPV 10.0 Absolute Nucleated RBC 0.000 Nucleated RBC % (auto) 0.0 Sodium 136 Potassium 4.5 Chloride 100 Carbon Dioxide 25 Anion Gap 16 BUN 27 H Creatinine 1.13 Estim Creat Clear Calc 52.8 Estimated GFR > 60 Random Glucose 115 Calcium 9.3 Preliminary micro results at discharge 06/09/22 04:02 Blood Culture - Preliminary Blood - Venous No growth after 48 hours. Blood Culture - Preliminary No growth after 48 hours. 06/09/22 04:02 Blood Culture - Preliminary Blood - Venous No growth after 48 hours. Imaging Chest x-ray: Radiologist's impression: ITS Impressions Chest X-Ray 06/09/22 00:15 IMPRESSION: COPD. New area of infiltrate left lung base. Discharge Plan Discharge Patient Disposition: Home, Self-Care Discharge Diagnosis: Pneumonia COPD exacerbation Referrals: Malick Hernandez MD [Primary Care Provider] - 1 Week Discharge Medications: New benzonatate 100 mg Capsule 100 mg PO TID PRN (Reason: Cough) Qty: 20 0RF azithromycin 500 mg Tablet 500 mg PO Q24H 5 Days Qty: 5 0RF prednisone 20 mg tablet 40 mg PO DAILY Qty: 8 0RF cefuroxime axetil 500 mg tablet 500 mg PO BID Qty: 10 0RF Continued Spiriva Respimat 2.5 mcg/actuation mist 2 puff inhalation DAILY Qty: 12 3RF albuterol sulfate [ProAir HFA] 90 mcg/actuation HFA aerosol inhaler 2 puff inhalation Q6H PRN (Reason: shortness of breath or wheezing) 90 Days Qty: 3 0RF tizanidine 4 mg tablet See Rx Instructions PO BEDTIME PRN (Reason: for muscle spasm) 30 Days Qty: 60 3RF Rx Instructions: Take 1 to 2 tablets PO bedtime PRN; aspirin [Adult Aspirin Regimen] 81 mg tablet,delayed release (DR/EC) 81 mg PO DAILY Qty: 90 3RF amlodipine 10 mg tablet 10 mg PO DAILY Qty: 60 4RF omeprazole 20 mg capsule,delayed release(DR/EC) 20 mg PO QAM Qty: 90 0RF buspirone 5 mg tablet 5 mg PO BID 30 Days Qty: 60 5RF fluticasone propion-salmeterol [Advair Diskus] 250-50 mcg/dose blister with device 1 inh inhalation BID Qty: 60 2RF tamsulosin 0.4 mg capsule 0.4 mg PO BEDTIME 90 Days Qty: 90 0RF levothyroxine 137 mcg tablet 137 mcg PO DAILY 90 Days Qty: 90 1RF celecoxib 200 mg capsule 200 mg PO DAILY PRN (Reason: pain) 90 Days Qty: 90 1RF Rx Instructions: Take with food oxycodone-acetaminophen 10-325 mg tablet 1 tab PO BID PRN (Reason: pain) 30 Days Qty: 60 0RF montelukast 10 mg tablet 10 mg PO DAILY Qty: 30 3RF magnesium oxide 500 mg Tablet 500 mg PO DAILY Mucinex DM 30-600 mg Tablet Extended Release 12 Hr 1 tab PO Q12H PRN (Reason: Cough) cholecalciferol (vitamin D3) 50 mcg (2,000 unit) Tablet 50 mcg PO DAILY ropinirole 1 mg tablet 1 mg PO QID Discharge Orders: Discharge Order (Routine); Ordered 06/11/22 Ordered By: Casie Nichole Diet: Advance to usual diet Activity on Discharge: As tolerated Stand Alone Forms: Patient Portal Discharge page Care Plan Goals: Read below Health Concerns: Read below Plan of Treatment: Read below Assessment: You were admitted to the hospital for evaluation of difficulty breathing. Chest x-ray was consistent with pneumonia. Treated with IV antibiotics with addition of bronchodilator nebulizers and steroids for COPD exacerbation. You were weaned off the oxygen and became able to ambulate on room air with good tolerance. Use your inhalers at home as scheduled Continue azithromycin and Ceftin for 5 more days Continue prednisone for 4 more days To follow-up with PCP as scheduled
[2022-06-11 11:15] VITALS: BP 139/67; PULSE 80; RESP 16; TEMP 37.1; O2SAT 91
--- NOTE | 2022-06-11 12:05 | MHC.CM.PN ---
PT WILL DC HOME TODAY WITH NO NEW SERVICES FAMILY TO TRANSPORT
== END 2022-06-11 14:54 | disposition home or self-care (01) | DRG 194 ==
LOC: HO.ED 06-09 04:50 → HO.EDOVER 06-09 05:42 → HO.S3 06-09 19:39
PROVIDERS: Admitting Provider Internal Medicine; Emergency Provider Emergency Medicine Emergency Medical Services; PCP Internal Medicine; Visit Provider Student in an Organized Health Care Education/Training Program
DX: J18.9 Pneumonia, unspecified organism (principal); J44.0 Chronic obstructive pulmonary disease with (acute) lower respiratory infection; J44.1 Chronic obstructive pulmonary disease with (acute) exacerbation; E03.9 Hypothyroidism, unspecified; K21.9 Gastro-esophageal reflux disease without esophagitis; G25.81 Restless legs syndrome; M19.90 Unspecified osteoarthritis, unspecified site; I10 Essential (primary) hypertension; Z20.822 Contact with and (suspected) exposure to COVID-19; Z87.891 Personal history of nicotine dependence; Z88.1 Allergy status to other antibiotic agents; Z88.6 Allergy status to analgesic agent; Z79.52 Long term (current) use of systemic steroids; Z79.82 Long term (current) use of aspirin; Z79.890 Hormone replacement therapy; Z79.899 Other long term (current) drug therapy
CPT/HCPCS: 36415; 71045; 80048; 81001; 83605; 83880; 84484; 85025; 85027; 87040; 87635; 93005; 94640; 96365; 96375; 99285; J0696; J1650; J2270; J2543; J2920; J2930

== ENCOUNTER 2022-07-01 08:41 | Outpatient (REF) | payer MEDICARE, SELFPAY ==
[2022-07-01 11:26] LABS: Hematocrit 39.7 % (42.0-52.0); Mean Corpuscular HGB Conc 32.7 g/dl (31.0-36.0); Mean Corpuscular Hemoglobin 30.3 pg (27.0-33.0); Mean Corpuscular Volume 92.5 fL (80.0-98.0); Mean Platelet Volume 9.4 fL (9.4-12.4); Platelet Count 327 X10*3/uL (160-400); Red Blood Count 4.29 X10*6/uL (4.60-5.80); Red Cell Distribution Width 13.1 % (11.0-16.0); White Blood Count 7.5 X10*3/uL (4.8-10.8)
[2022-07-01 12:00] LABS: Anion Gap 15 (12-20); Blood Urea Nitrogen 14 mg/dL (9-16); Calcium 9.2 mg/dL (8.4-10.2); Carbon Dioxide 27 mmol/L (22-29); Chloride 100 mmol/L (96-108); Estimated Glomerular Filt Rate > 60; Glucose Random 103 mg/dL (60-115); Potassium 5.1 mmol/L (3.3-5.1); Sodium 137 mmol/L (135-145)
== END 2022-07-01 08:42 | disposition home or self-care (01) ==
LOC: HO.HMGCLDS 08:41
PROVIDERS: Absent Provider Internal Medicine; PCP Internal Medicine; Visit Provider Urology
DX: J44.1 Chronic obstructive pulmonary disease with (acute) exacerbation (principal)
CPT/HCPCS: 36415; 80048; 85027

== ENCOUNTER 2022-07-02 11:49 | Outpatient (REF) | payer MEDICARE, SELFPAY ==
[2022-07-05 09:07] LABS: Percent Free Prostate Spec Ag 17 % (calc) (>25)
== END 2022-07-02 11:50 | disposition home or self-care (01) ==
LOC: HO.HMGCLDS 11:49
PROVIDERS: Visit Provider Urology
DX: Z12.5 Encounter for screening for malignant neoplasm of prostate (principal); N40.1 Benign prostatic hyperplasia with lower urinary tract symptoms; R35.0 Frequency of micturition
CPT/HCPCS: 36415; 84153; 84154

== ENCOUNTER 2022-07-05 14:00 | Outpatient (RCR) | payer MEDICARE, SELFPAY ==
--- NOTE | 2022-06-01 10:17 | MHC.PT.EP ---
[facility] [place] Office [place] Office [place] Office [address] Ki Enrique [address] [phone] F: [phone] F: [phone] F: [phone] F: [phone] Physical Therapy Plan of Care Date of Evaluation: Date of Surgery: 05/04/22 Diagnosis: R AT repair Assessment: Pt is a 77 y/o male who underwent a R AT tendon rupture repair surgery on 05/04/22. His functional limitations include decreased tolerance and ability for standing and walking as well as negotiating stairs and curbs as well as performing HH chores secondary to surgical healing process, decreased R ankle strength and ROM, and pain. Pt is deemed an appropriate candidate to receive skilled PT in order to address his physical limitations to improve his functional ability and maximize his recovery. Frequency and Duration: The patient will be seen 2 x / wk x 12 wks. Short Term Goals: -Pt will be I with non weight bearing status with axillary crutches and demonstrates compliance. Initial: at eval Pt unaware of education on weight bearing status and presents with SPC and is FWB as he reports crutches not the right size for him. -Initiate HEP. -DC boot per MD [employer] Football Coach Goals: I with home program. Pt will be FWB and tolerates ambulating 2 blocks with minimal difficulty. Pt will achieve at least 12 degrees AROM R ankle dorsiflexion ROM. symmetrical gait achieved. Treatment Plan: Modalities to reduce pain, spasms and effusion. Manual therapy to restore motion and function. Therapeutic exercise to improve strength and flexibility. Neuromuscular re-education for posture and balance. Therapeutic activities to return to functional activities of daily living. Electronically signed by: Rell Heard PT. Please sign and return to therapist. Thank you for your referral.
--- NOTE | 2022-11-11 08:54 | MHC.PT.DC ---
[facility] [place] Office [place] [facility] [place] Office [address] [place] Enrique [address] [phone] F: [phone] F: [phone] F: [phone] F: [phone] Physical Therapy Discharge Report Diagnosis: R AT repair Date of Surgery: 05/04/22 Date of Evaluation: 05/28/22 Date of Discharge: Treatments to Date: 4 Cancellations to Date: No Shows to Date: Discharge Status: Patient Elected to Stop Discharge Summary: Pt had self progressed his weight bearing and himself into his normal boots before protocol recommends; he requested to stop therapy d/t his back pain and other appointments. His chart was held open x 1 month though did not seek further therapy. Electronically signed by: Rell Heard PT. Please sign and return to therapist. Thank you for your referral.
== END 2022-11-11 08:55 | disposition home or self-care (01) ==
LOC: HO.PTCHIC 14:00
PROVIDERS: PCP Internal Medicine; Visit Provider Orthopaedic Surgery
DX: Z98.890 Other specified postprocedural states (principal)
CPT/HCPCS: 97110; 97116; 97161

== ENCOUNTER → 2022-07-22 14:28 | Outpatient (BNVA) | payer MEDICARE, SELFPAY | PROVIDERS: PCP Internal Medicine; Visit Provider Internal Medicine | DX: J44.1 Chronic obstructive pulmonary disease with (acute) exacerbation (principal); Z79.899 Other long term (current) drug therapy | CPT/HCPCS: 99212 ==

== ENCOUNTER → 2022-08-10 15:20 | Outpatient (BNVA) | payer MEDICARE, SELFPAY | PROVIDERS: PCP Internal Medicine; Visit Provider Internal Medicine | DX: J44.1 Chronic obstructive pulmonary disease with (acute) exacerbation (principal); I27.20 Pulmonary hypertension, unspecified; R06.00 Dyspnea, unspecified | CPT/HCPCS: 99212 ==

== ENCOUNTER → 2022-08-13 13:20 | Outpatient (BNVA) | payer MEDICARE, SELFPAY | PROVIDERS: PCP Internal Medicine; Visit Provider Urology | DX: N40.1 Benign prostatic hyperplasia with lower urinary tract symptoms (principal); R35.0 Frequency of micturition | CPT/HCPCS: Q3014 ==

== ENCOUNTER → 2022-09-14 15:37 | Outpatient (BNVA) | payer MEDICARE, SELFPAY | PROVIDERS: PCP Internal Medicine; Visit Provider Internal Medicine | DX: J44.9 Chronic obstructive pulmonary disease, unspecified (principal); J40 Bronchitis, not specified as acute or chronic; R06.00 Dyspnea, unspecified; G25.81 Restless legs syndrome; I27.20 Pulmonary hypertension, unspecified | CPT/HCPCS: 99212 ==

== ENCOUNTER → 2022-11-17 15:40 | Outpatient (BNVA) | payer MEDICARE, SELFPAY | PROVIDERS: PCP Internal Medicine; Visit Provider Internal Medicine | DX: J44.9 Chronic obstructive pulmonary disease, unspecified (principal); R06.00 Dyspnea, unspecified; G25.81 Restless legs syndrome; Z79.52 Long term (current) use of systemic steroids; Z79.899 Other long term (current) drug therapy | CPT/HCPCS: 99212 ==

== ENCOUNTER → 2023-01-19 14:44 | Outpatient (BNVA) | payer MEDICARE, SELFPAY | PROVIDERS: PCP Internal Medicine; Referring Provider Internal Medicine; Visit Provider Internal Medicine Cardiovascular Disease | DX: R06.00 Dyspnea, unspecified (principal); I10 Essential (primary) hypertension | CPT/HCPCS: 99212 ==

== ENCOUNTER 2023-02-09 14:23 | Outpatient (REF) | payer MEDICARE, SELFPAY ==
[2023-02-09 17:47] LABS: Prostate Specific Antigen 3.12 ng/mL (<0.05-4.0)
== END 2023-02-09 14:24 | disposition home or self-care (01) ==
LOC: HO.HMGCLDS 14:23
PROVIDERS: PCP Internal Medicine; Visit Provider Urology
DX: N40.1 Benign prostatic hyperplasia with lower urinary tract symptoms (principal); R35.0 Frequency of micturition; Z12.5 Encounter for screening for malignant neoplasm of prostate
CPT/HCPCS: 36415; 84153

== ENCOUNTER → 2023-02-16 13:39 | Outpatient (BNVA) | payer MEDICARE, SELFPAY | PROVIDERS: PCP Internal Medicine; Visit Provider Urology | DX: R97.20 Elevated prostate specific antigen [PSA] (principal) | CPT/HCPCS: 51798; 99212 ==

== ENCOUNTER → 2023-02-23 15:39 | Outpatient (BNVA) | payer MEDICARE, SELFPAY | PROVIDERS: PCP Internal Medicine; Visit Provider Internal Medicine | DX: J44.1 Chronic obstructive pulmonary disease with (acute) exacerbation (principal); I27.20 Pulmonary hypertension, unspecified; G25.81 Restless legs syndrome | CPT/HCPCS: 99212 ==

== ENCOUNTER 2023-03-11 09:42 | Outpatient (REF) | payer MEDICARE, SELFPAY ==
[2023-03-11 11:44] LABS: MANUAL DIFF FLAG NO
[2023-03-11 12:05] LABS: Basophils Absolute Auto 0.1 X10*3/uL (0.0-0.2); Basophils Percent Auto 1.1 % (0-2); Eosinophils Absolute Auto 0.4 X10*3/uL (0.0-0.4); Eosinophils Percent Auto 4.6 % (0-4); Hematocrit 42.5 % (42.0-52.0); Hemoglobin 13.8 g/dl (14.0-18.0); Imm Gran Abs Auto 0.03 X10*3/uL (0.00-0.03); Imm Gran Pct Auto 0.4 % (0.0-0.4); Lymphocytes Percent Auto 23.9 % (20-40); Mean Corpuscular HGB Conc 32.5 g/dl (31.0-36.0); Mean Corpuscular Hemoglobin 30.1 pg (27.0-33.0); Mean Corpuscular Volume 92.8 fL (80.0-98.0); Mean Platelet Volume 9.8 fL (9.4-12.4); Monocytes Absolute Auto 0.9 X10*3/uL (0.1-1.2); Monocytes Percent Auto 10.3 % (2-11); Neutrophils Absolute Auto 5.1 x10*3/uL (2.0-8.3); Neutrophils Percent Auto 59.7 % (45-73); Platelet Count 318 X10*3/uL (160-400); Red Blood Count 4.58 X10*6/uL (4.60-5.80); Red Cell Distribution Width 12.4 % (11.0-16.0); White Blood Count 8.5 X10*3/uL (4.8-10.8)
[2023-03-11 12:38] LABS: Alanine Aminotransferase 18 U/L (0-40); Albumin Level 3.9 g/dL (3.5-5.0); Alkaline Phosphatase 53 U/L (39-117); Anion Gap 12 (12-20); Aspartate Amino Transferase 22 U/L (5-37); Bilirubin Total 2.1 mg/dL (0.0-1.0); Blood Urea Nitrogen 16 mg/dL (9-16); Calcium 9.1 mg/dL (8.4-10.2); Carbon Dioxide 28 mmol/L (22-29); Chloride 100 mmol/L (96-108); Cholesterol 143 mg/dL; Estimated Glomerular Filt Rate 54; Free T4 (Free Thyroxine) 1.34 ng/dL (0.71-1.85); Glucose Fasting 89 mg/dL (60-99); HDL Cholesterol 54 mg/dL; LDL Cholesterol Calculated 72 mg/dl; Potassium 4.7 mmol/L (3.3-5.1); Sodium 135 mmol/L (135-145); Thyroid Stimulating Hormone 0.74 uIU/mL (0.32-4.0); Total Protein 6.5 g/dL (6.5-8.0); Triglycerides 86 mg/dL; Vitamin D 25-OH Total 44.4 ng/mL (>30)
[2023-03-11 13:57] LABS: Appearance Urine Clear; Color Urine Yellow; Glucose Urine UA Negative (Negative); Leukocyte Esterase Urine Negative (Negative); Nitrite Urine Negative (Negative); PH 7.5 (5.0-9.0); Specific Gravity - Urine 1.015 (1.005-1.025); Urine Blood Negative (Negative); Urine Ketones Negative (Negative); Urine Protein Negative (Neg-Trace)
== END 2023-03-11 09:43 | disposition home or self-care (01) ==
LOC: HO.HMGCLDS 09:42
PROVIDERS: PCP Internal Medicine; Visit Provider Internal Medicine
DX: R30.0 Dysuria (principal); E03.9 Hypothyroidism, unspecified; I10 Essential (primary) hypertension; E78.00 Pure hypercholesterolemia, unspecified; E55.9 Vitamin D deficiency, unspecified
CPT/HCPCS: 36415; 80053; 80061; 81003; 82306; 84439; 84443; 85025

== ENCOUNTER 2023-03-19 10:21 | Outpatient (REF) | payer MEDICARE, SELFPAY ==
--- NOTE | ~2023-03-19 | XR_ITS ---
EXAMINATION: XR LUMBOSACRAL SPINE CLINICAL INFORMATION: Low back pain. COMPARISON: None available. TECHNIQUE: 3 views of the lumbosacral spine. FINDINGS: There is normal lumbar lordosis. There is dextrorotoscoliosis with degenerative disc changes virtually at every disc level. No visible fracture or lytic process seen. The paravertebral soft tissues are normal. XR/XR lumbar spine 2-3V IMPRESSION: Dextrorotoscoliosis with degenerative disc changes virtually at every disc level. No visible acute fracture or dislocation seen.
== END 2023-03-19 10:22 | disposition home or self-care (01) ==
LOC: HO.HMGCX 10:21
PROVIDERS: PCP Internal Medicine; Visit Provider Internal Medicine
DX: M54.50 Low back pain, unspecified (principal)
CPT/HCPCS: 72100

== ENCOUNTER → 2023-04-07 15:17 | Outpatient (BNVA) | payer MEDICARE, SELFPAY | PROVIDERS: PCP Internal Medicine; Visit Provider Internal Medicine | DX: J44.9 Chronic obstructive pulmonary disease, unspecified (principal); I27.20 Pulmonary hypertension, unspecified; R06.00 Dyspnea, unspecified; Z79.899 Other long term (current) drug therapy | CPT/HCPCS: 99212 ==

== ENCOUNTER → 2023-05-02 14:45 | Outpatient (BNVA) | payer MEDICARE, SELFPAY | PROVIDERS: PCP Internal Medicine; Visit Provider Anesthesiology | DX: M47.816 Spondylosis without myelopathy or radiculopathy, lumbar region (principal); M46.1 Sacroiliitis, not elsewhere classified; M53.3 Sacrococcygeal disorders, not elsewhere classified; M47.819 Spondylosis without myelopathy or radiculopathy, site unspecified; G89.4 Chronic pain syndrome | CPT/HCPCS: 99202 ==

== ENCOUNTER 2023-05-24 07:14 | Outpatient (REF) | payer MEDICARE, SELFPAY ==
--- NOTE | ~2023-05-24 | FL_ITS ---
EXAMINATION: XR FLUOROSCOPY WITH IMAGES CLINICAL INFORMATION: Sacrococcygeal disorders, not elsewhere classified. COMPARISON: None available. TECHNIQUE: Fluoroscopy Supervised By: Dr. Chuck Sandoval. Fluoroscopy Time: 0.2 minutes. Cumulative Dose: 4.22 mGy. DAP: 0.0734 Gycm2. Images: 2. FINDINGS: Images demonstrate needle placement and contrast injection over the bilateral sacroiliac joints. FL/FL guidance in treatment room IMPRESSION: Prostatic guidance for pain management procedure.
== END 2023-05-24 07:15 | disposition home or self-care (01) ==
LOC: CF 07:14
PROVIDERS: PCP Internal Medicine; Visit Provider Anesthesiology
DX: M53.3 Sacrococcygeal disorders, not elsewhere classified (principal); M47.816 Spondylosis without myelopathy or radiculopathy, lumbar region; M46.1 Sacroiliitis, not elsewhere classified; M47.819 Spondylosis without myelopathy or radiculopathy, site unspecified
CPT/HCPCS: 27096; J2795

== ENCOUNTER 2023-05-24 13:45 | Outpatient (AMB) | payer MEDICARE, SELFPAY ==
[2023-05-24 14:45] VITALS: BP 124/68; PULSE 94; RESP 14; O2SAT 97; BMI 22.3
--- NOTE | 2023-05-24 14:45 | MHC.OFFVIS ---
Intake Vital Signs 05/24/23 14:45 05/24/23 15:07 Height 5 ft 11 in 5 ft 11 in Weight 160 lb 160 lb BMI 22.3 22.3 BP 124/68 126/58 L Blood Pressure Location Lt brachial Rt brachial Position Sitting Sitting Respiration 14 14 Pulse 94 100 Pulse Source Pulse Oximeter Pulse Oximeter Pulse Oximetry (%) 97 98 Oxygen Delivery Method Room Air Room Air Comment Pre-op Post-op Intake Visit Reasons: BILAT DX SIJ INJ/LOCAL Allergies levofloxacin Adverse Reaction (Severe, Verified 05/24/23 14:45) tendon rupture aspirin Adverse Reaction (Unknown, Verified 05/24/23 14:45) stomach upset, stomach nicole PFSH Medical History Acquired hypothyroidism Anxiety Benign essential hypertension Benign prostatic hyperplasia Bronchitis COPD (chronic obstructive pulmonary disease) COPD exacerbation Depression Dyspnea on exertion Fatigue GERD (gastroesophageal reflux disease) Lumbar degenerative disc disease Primary osteoarthritis of right shoulder Pulmonary hypertension Restless leg syndrome Screening for diabetes mellitus Tachycardia Surgical History History of cardiac catheterization (~12/29/21) History of colonoscopy History of foot surgery Family History Father No problems noted. 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 resource protection specialist 80% of hearing loss would like to get hearing aids.) Vision needs: No Physical Exam Vital Signs: Last Vital Signs Pulse 100 05/24/23 15:07 Resp 14 05/24/23 15:07 BP 126/58 L 05/24/23 15:07 Pulse Ox 98 05/24/23 15:07 Oxygen Delivery Method Room Air 05/24/23 15:07 BMI result Body Mass Index 22.3 Results Reviewed Results Reviewed: 05/24/23 13:48 Lidocaine HCl 2 % MPF [Xylocaine 2 % MPF] 5 ml .ROUTE .STK-MED ONE 05/24/23 14:34 ROPivacaine HCl/PF 0.5% [Naropin 0.5%] 150 mg .ROUTE .STK-MED ONE Assessment & Plan Assessment & Plan (1) Spondylosis of lumbar region without myelopathy or radiculopathy: Code(s): M47.816 - Spondylosis without myelopathy or radiculopathy, lumbar region (2) Sacroiliitis: Code(s): M46.1 - Sacroiliitis, not elsewhere classified (3) Sacroiliac joint dysfunction of both sides: Code(s): M53.3 - Sacrococcygeal disorders, not elsewhere classified (4) Chronic pain syndrome: Code(s): G89.4 - Chronic pain syndrome (5) Arthropathy of facet joint: Code(s): M47.819 - Spondylosis without myelopathy or radiculopathy, site unspecified Plan bilateral diagnostic sacroiliac joint injection Informed consent was explained thoroughly to the patient. All questions about benefits and risks for the procedure were answered. Patient came to the operating room and was positioned prone on the operating table with the pillow under the pelvis. Time out was performed delineating name and of the patient, allergies and the nature of the procedure. The lower back and buttocks of the patient were prepped with ChloraPrep prepped and draped with sterile utility towels. C-arm was brought over the operating field and sq picture of patient's pelvis was demonstrated on the screen. For the right joint tilting C-arm contralateral to the site of the joint the most posterior portion of the joints was superimposed with anterior silhouette of the joint. Skin was injected in the projection of the joint slightly medial to the location of the joint with 25 gauge 1/2 inch needle using local lidocaine 2% .After that 22 gauge 3 and 1/2 inch needle was driven to the right joint in tunnel vision fashion. When needle entered the joint capsule injection of the contrast was performed demonstrating intra-articular and minimally periarticular spread of the contrast. After that 4 cc. of ropivacaine 0.5% was injected into the joint. Upon completion of the injections the needle was removed and the procedure was repeated for the left joint in the mirroring fashion. Sterile dressing was applied. Upon completion of the injection patient was taken outside of the operating room to the recovery room where recovered uneventfully. Orders: Orders FL guidance in treatment room Today M53.3 - Sacrococcygeal disorders, not elsewhere classified Coding Level of Care Code Procedure Only Diagnoses Spondylosis of lumbar region without myelopathy or radiculopathy M47.816 Sacroiliitis M46.1 Sacroiliac joint dysfunction of both sides M53.3 Chronic pain syndrome G89.4 Arthropathy of facet joint M47.819
[2023-05-24 15:07] VITALS: BP 126/58; PULSE 100; RESP 14; O2SAT 98; BMI 22.3
== END 2023-05-24 14:50 | disposition home or self-care (01) ==
LOC: HO.PMCPRC 13:45
PROVIDERS: PCP Internal Medicine; Visit Provider Anesthesiology
DX: M46.1 Sacroiliitis, not elsewhere classified (principal); M53.3 Sacrococcygeal disorders, not elsewhere classified
CPT/HCPCS: 27096

== ENCOUNTER 2023-05-26 11:34 | Outpatient (AMB) | payer MEDICARE, SELFPAY ==
--- NOTE | 2023-05-26 11:35 | MHC.OFFVIS ---
Intake Intake Visit Reasons: BILAT DX SIJ INJ 05/24/23 Allergies levofloxacin Adverse Reaction (Severe, Verified 05/26/23 11:35) tendon rupture aspirin Adverse Reaction (Unknown, Verified 05/26/23 11:35) stomach upset, stomach nicole HPI HPI Comments History of Present Illness Details Televisit completed today for follow up diagnostic SI joint injections 05/24/2023. Gerber reports that he received approx 50% pain relief after the injections. Prior to the procedure he states pain was about 7/10 Immediately following procedure 5/10 1 hour after 5/10 2 hours post procedure 2/10 which lasted for approx 6 hours. Patient reports pain has since returned and last night was 8/10. After the procedure he went home and remained active; continued with routine activities of daily living. Patient has MBB's scheduled for next week and would like to discuss right shoulder pain after back procedures are completed. 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 Prior: Sami Phoenix) is very pleasant 78 years old gentleman who presents in my office with complains on lower back pain. He reports that pain started 20 years ago and keep getting worse. 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 He reports that he cannot sleep normally because of his pain cannot do activities of daily living, he can take care of himself but he cannot function normally. He is retired individual. He is using cane for ambulation. He reports that his pain is most severe and the left at afternoon and early a.m. in the morning, he reports that he wakes up from pain. In terms of tissue damage he reports his pain is pulsing, throbbing, pounding, stabbing, lancinating, pinching, cramping, crushing, tugging pulling, pulling, ranging, tiring, exhausting, stabbing, lancinating. He takes Celebrex 200 mg once a day for his pain. He used to take oxycodone for his pain but eventually he stop taking oxycodone because of developed tolerance and ?ineffectiveness . He had MRI in 2008 in 2010 the reports are available for me today however I would not think that 13 years after those MRI are relevant to the case. He had physical therapy and obtain some relief with his pain. He was a subject of chiropractic manipulation which did not help his pain. He had acupuncture procedure which did not help his pain and he has 10s unit at home which does not help his pain. He was under care of Dr. Gerard who performed unknown type of steroid injections in his back. He reported that originally injections were working for him for long period of time however the faded ineffectiveness with time. The nature of injections are known to me. His past medical history significant for advanced COPD with shortness of breath and multiple medications. He has benign prostate hypertrophy and hypertension. He is suffering from multiple sites arthritis. His past med surgical history is significant for repair of diaphragmatic hernia and shoulder surgery. His stops to smoking cigarettes in 1988 he was smoking 2 packs per day. He denies drinking alcohol. He admits drinking decaf coffee 3 cups a day peer he denies using recreational drugs. [facility] Medical History Acquired hypothyroidism Anxiety Benign essential hypertension Benign prostatic hyperplasia Bronchitis COPD (chronic obstructive pulmonary disease) COPD exacerbation Depression Dyspnea on exertion Fatigue GERD (gastroesophageal reflux disease) Lumbar degenerative disc disease Primary osteoarthritis of right shoulder Pulmonary hypertension Restless leg syndrome Screening for diabetes mellitus Tachycardia Surgical History History of cardiac catheterization (~12/29/21) History of colonoscopy History of foot surgery Family History Father No problems noted. 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 80% of hearing loss would like to get hearing aids.) Vision needs: No Review of Systems Const All systems reviewed & are unremarkable except as noted in HPI and below Physical Exam Const Orientation/consciousness: patient oriented x3 Neuro General: patient oriented x3 Psych Speech and movement: Clear speech present Attitude: cooperative Thought process: Normal thought process present Thought content: Normal thought content present Insight: Good insight present (Psych) Judgement: Good judgement present (Psych) Assessment & Plan Assessment & Plan (1) Spondylosis of lumbar region without myelopathy or radiculopathy: Code(s): M47.816 - Spondylosis without myelopathy or radiculopathy, lumbar region (2) Sacroiliitis: Code(s): M46.1 - Sacroiliitis, not elsewhere classified (3) Sacroiliac joint dysfunction of both sides: Code(s): M53.3 - Sacrococcygeal disorders, not elsewhere classified (4) Chronic pain syndrome: Code(s): G89.4 - Chronic pain syndrome (5) Arthropathy of facet joint: Code(s): M47.819 - Spondylosis without myelopathy or radiculopathy, site unspecified Plan This patient is suffering from spondylosis of lumbar spine with facet joint arthropathy in combination with sacroiliac joint dysfunction and sacroiliitis bilaterally. He received at least 50% pain relief for 6 hours post diagnostic SI joint injections. Continue with plan for L3 L4 DRL5 MBB next week Patient will follow up after the injection to determine the benefits received from each procedure. If patient does not receive adequate pain relief from either diagnostic injection will consider intervertebral discs as a pain generator. All questions and concerns have been answered and patient agrees with the plan. Follow up after injections and sooner if needed. Telehealth Telehealth Location of provider rendering services: practice address Location of patient: address on file Patient Identification confirmed using: Name, : Yes Telehealth method: voice only Patient verbally consented to treatment: Yes Patient verbally consented to billing insurance company: Yes Patient informed of any privacy concerns related to visit: Yes Coding Level of Care Code Tele Est Pt Level 3 (51969) Diagnoses Spondylosis of lumbar region without myelopathy or radiculopathy M47.816 Sacroiliitis M46.1 Sacroiliac joint dysfunction of both sides M53.3 Chronic pain syndrome G89.4 Arthropathy of facet joint M47.819
== END 2023-05-26 11:55 | disposition home or self-care (01) ==
LOC: HO.PMC 11:34
PROVIDERS: PCP Internal Medicine; Visit Provider Registered Nurse Emergency
DX: M47.816 Spondylosis without myelopathy or radiculopathy, lumbar region (principal); M46.1 Sacroiliitis, not elsewhere classified; M53.3 Sacrococcygeal disorders, not elsewhere classified; G89.4 Chronic pain syndrome; M47.819 Spondylosis without myelopathy or radiculopathy, site unspecified
CPT/HCPCS: 99442

== ENCOUNTER → 2023-05-26 11:34 | Outpatient (BNVA) | payer MEDICARE, SELFPAY | PROVIDERS: PCP Internal Medicine; Visit Provider Registered Nurse Emergency ==

== ENCOUNTER 2023-05-31 06:12 | Outpatient (REF) | payer MEDICARE, SELFPAY ==
--- NOTE | ~2023-05-31 | FL_ITS ---
EXAMINATION: XR FLUOROSCOPY WITH IMAGES CLINICAL INFORMATION: Spondylosis without myelopathy or radiculopathy, lumbar region. Bilateral lumbar injections. COMPARISON: None available. TECHNIQUE: Fluoroscopy Supervised By: Dr. Chuck Sandoval. Fluoroscopy Time: 0.5 minutes. Cumulative Dose: 4.27 mGy. DAP: 0.0742 Gycm2. Images: 6. FINDINGS: There are 6 digital images obtained with bilateral needles positioned adjacent to L5, L4, L3 facet joints with contrast opacifying the soft tissues. There is mild levoscoliosis of lumbar spine with degenerative disc changes at L2-L3, L3-L4, L4-L5 and L5/S1 disc levels. Moderate spondylosis seen throughout lumbar spine. FL/FL guidance in treatment room IMPRESSION: 1. Fluoroscopy was provided to referring physician for bilateral facet joint injection as described above. 2. Levoscoliosis with degenerative disc changes and spondylosis seen
== END 2023-05-31 06:13 | disposition home or self-care (01) ==
LOC: CF 06:12
PROVIDERS: Visit Provider Anesthesiology
DX: M47.816 Spondylosis without myelopathy or radiculopathy, lumbar region (principal); M47.819 Spondylosis without myelopathy or radiculopathy, site unspecified; M46.1 Sacroiliitis, not elsewhere classified; M53.3 Sacrococcygeal disorders, not elsewhere classified; G89.4 Chronic pain syndrome
CPT/HCPCS: 64493; 64494; 64495; J2795

== ENCOUNTER 2023-06-02 10:06 | Outpatient (AMB) | payer MEDICARE, SELFPAY ==
[2023-06-02 10:29] VITALS: BP 136/76; PULSE 73; RESP 14; O2SAT 95; BMI 22.7
--- NOTE | 2023-06-02 10:29 | MHC.OFFVIS ---
Intake Vital Signs 06/02/23 10:29 Height 5 ft 11 in Weight 163 lb BMI 22.7 BP 136/76 Blood Pressure Location Rt brachial Position Sitting Respiration 14 Pulse 73 Pulse Source Pulse Oximeter Pulse Oximetry (%) 95 Oxygen Delivery Method Room Air Intake Visit Reasons: BILAT DX L3-L4-DRL5 MBB 05/31/23 Intake Note: patient comes in for post-op. Allergies levofloxacin Adverse Reaction (Severe, Verified 06/02/23 10:29) tendon rupture aspirin Adverse Reaction (Unknown, Verified 06/02/23 10:29) stomach upset, stomach nicole HPI HPI Comments History of Present Illness Details Patient is here today to discuss the results of the diagnostic medial branch block. The procedure was technically very difficult. He has significant spondylosis and prominent osteoporosis. He reported pain approximately the same range before the injection and after the injection. He reports only minimal improvement. I do not think that this is his pain generator. He had diagnostic sacroiliac joint injection before that and this resulted in no significant improvement either. We discussed today Nevro SCS and very briefly we discussed intrathecal drug delivery system pain pump [employer]. He agreed to go for psychological evaluation. He will be scheduled accordingly. Prior: Sami Phoenix) is very pleasant 78 years old gentleman who presents in my office with complains on lower back pain. He reports that pain started 20 years ago and keep getting worse. 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 He reports that he cannot sleep normally because of his pain cannot do activities of daily living, he can take care of himself but he cannot function normally. He is retired individual. He is using cane for ambulation. He reports that his pain is most severe and the left at afternoon and early a.m. in the morning, he reports that he wakes up from pain. He takes Celebrex 200 mg once a day for his pain. He used to take oxycodone for his pain but eventually he stop taking oxycodone because of developed tolerance and ?ineffectiveness . He had physical therapy and obtain some relief with his pain. He was a subject of chiropractic manipulation which did not help his pain. He had acupuncture procedure which did not help his pain and he has 10s unit at home which does not help his pain. He was under care of Dr. Gerard who performed unknown type of steroid injections in his back. He reported that originally injections were working for him for long period of time however the faded ineffectiveness with time. The nature of injections are not known to me. His past medical history significant for advanced COPD with shortness of breath and multiple medications. He has benign prostate hypertrophy and hypertension. He is suffering from multiple sites arthritis. [facility] Medical History Acquired hypothyroidism Anxiety Benign essential hypertension Benign prostatic hyperplasia Bronchitis COPD (chronic obstructive pulmonary disease) COPD exacerbation Depression Dyspnea on exertion Fatigue GERD (gastroesophageal reflux disease) Lumbar degenerative disc disease Primary osteoarthritis of right shoulder Pulmonary hypertension Restless leg syndrome Screening for diabetes mellitus Tachycardia Surgical History History of cardiac catheterization (~12/29/21) History of colonoscopy History of foot surgery Family History Father No problems noted. 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 80% of hearing loss would like to get hearing aids.) Vision needs: No Review of Systems Const All systems reviewed & are unremarkable except as noted in HPI and below ENT Reports Normal hearing present Neuro Reports Normal hearing present, Denies Abnormal speech present and Denies Sensory deficit (Neuro) Physical Exam Vital Signs: Last Vital Signs Pulse 73 06/02/23 10:29 Resp 14 06/02/23 10:29 BP 136/76 06/02/23 10:29 Pulse Ox 95 06/02/23 10:29 Oxygen Delivery Method Room Air 06/02/23 10:29 BMI result Body Mass Index 22.7 Const General: no acute distress Orientation/consciousness: patient oriented x3 Eyes General: appearance normal, both eyes and all related structures Pupils: Equal, round and reactive pupils present EOM: EOMs intact bilaterally Neck Neck: Yes full ROM Chest Chest palpation & inspection: normal inspection of the chest Resp Effort & Inspection: normal respiratory effort, able to speak in complete sentences, normal respiratory pattern, no audible wheezes and no cough Cardio Jugular venous distension: no JVD GI Inspection: Yes normal to inspection Back/Spine/Pelvis Other: He is able to stand on bilateral tiptoes in bilateral heels without difficulty. He is able to dorsiflex bilateral 1st toes without difficulty. That demonstrates normal strength of bilateral lower extremities. SLR is negative for pain increase. Lassegue test is negative for pain increase. He reports tenderness on palpation in paraspinal spinal region of the lumbar spine. He reports tenderness on palpation in projection of bilateral iliac joints which justifies positive Manny finger test. Stinchfield test is positive for the pain increase in bilateral SI joints. Loading test is positive bilateral. Neuro General: patient oriented x3 and gait normal Cranial nerves: Yes CN's II-XII intact bilaterally, Yes Equal, round and reactive pupils present, Yes Normal hearing present and Yes Ability to bilaterally elevate shoulders present Speech: No Abnormal speech present Gait exam (Neuro): Normal gait present Motor exam (neuro): 5/5 motor strength present throughout Sensory Exam: No Sensory deficit (Neuro) Extrem General: No pedal edema Psych Speech and movement: Normal speech and movement present Affect: normal affect Attitude: cooperative Thought process: Normal thought process present Thought content: Normal thought content present Insight: Good insight present (Psych) Judgement: Good judgement present (Psych) Assessment & Plan Assessment & Plan (1) Spondylosis of lumbar region without myelopathy or radiculopathy: Code(s): M47.816 - Spondylosis without myelopathy or radiculopathy, lumbar region (2) Sacroiliitis: Code(s): M46.1 - Sacroiliitis, not elsewhere classified (3) Sacroiliac joint dysfunction of both sides: Code(s): M53.3 - Sacrococcygeal disorders, not elsewhere classified (4) Chronic pain syndrome: Code(s): G89.4 - Chronic pain syndrome (5) Arthropathy of facet joint: Code(s): M47.819 - Spondylosis without myelopathy or radiculopathy, site unspecified Plan 1. Sacroiliac joint injection diagnostic bilateral. Resulted in equivocal pain improvement. 2. Medial branch block L3-L4 does ramus L5 diagnostic bilateral 2 weeks after sacroiliac joint injection also resulted in equivocal pain improvement. 3. I DDD [employer] and SCS Nevro were discussed. SCS Nevro was explained in detail . Patient will go to psychological evaluation and after that will schedule him for the trial. Coding Level of Care Code Est Pt Level 4 (17054) Diagnoses Spondylosis of lumbar region without myelopathy or radiculopathy M47.816 Sacroiliitis M46.1 Sacroiliac joint dysfunction of both sides M53.3 Chronic pain syndrome G89.4 Arthropathy of facet joint M47.819
== END 2023-06-02 10:46 | disposition home or self-care (01) ==
PROVIDERS: PCP Internal Medicine; Visit Provider Anesthesiology
DX: M47.816 Spondylosis without myelopathy or radiculopathy, lumbar region (principal); M46.1 Sacroiliitis, not elsewhere classified; M53.3 Sacrococcygeal disorders, not elsewhere classified; G89.4 Chronic pain syndrome; M47.819 Spondylosis without myelopathy or radiculopathy, site unspecified
CPT/HCPCS: 99214

== ENCOUNTER → 2023-06-02 10:06 | Outpatient (BNVA) | payer MEDICARE, SELFPAY | PROVIDERS: PCP Internal Medicine; Visit Provider Anesthesiology | DX: G89.4 Chronic pain syndrome (principal); M47.816 Spondylosis without myelopathy or radiculopathy, lumbar region; M46.1 Sacroiliitis, not elsewhere classified; M53.3 Sacrococcygeal disorders, not elsewhere classified | CPT/HCPCS: 99212 ==

== ENCOUNTER 2023-06-25 10:49 | Outpatient (AMB) | payer MEDICARE, SELFPAY ==
--- NOTE | 2023-06-25 11:28 | MHC.OFFWIV ---
Intake Vital Signs 06/25/23 11:30 Height 5 ft 11 in BP 140/78 H Blood Pressure Location Lt brachial Position Sitting Pulse 61 Pulse Source Pulse Oximeter Temp 98.1 F Temp Source Temporal Artery Scan Pulse Oximetry (%) 97 Oxygen Delivery Method Room Air Intake Visit Reasons: EST/COPD flair up Intake Note: pt is here for c/o COPD flair up, concerned about pneumonia Patient Tobacco Use Status: Former Tobacco user Allergies levofloxacin Adverse Reaction (Severe, Verified 06/25/23 11:30) tendon rupture aspirin Adverse Reaction (Unknown, Verified 06/25/23 11:30) stomach upset, stomach nicole HPI EST/COPD flair up HPI Details Patient is an 78-year-old male with 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 He did not do a home test for COVID yet. He states that had a similar exacerbation about a year ago and was diagnosed with pneumonia, and worries that this is occurring again. He uses his home nebulizer with limited relief, and takes maintenance COPD medication along with a prophylactic regimen of low-dose prednisone and azithromycin. He denies chest pain, nausea vomiting or diarrhea, dizziness, loss of sense of taste or smell, sore throat, runny nose, anorexia, or other significant associated symptoms. He states that he has an appointment with Dr. French, his analyst business analysis in 3 days. [facility] Medical History Acquired hypothyroidism Anxiety Benign essential hypertension Benign prostatic hyperplasia Bronchitis COPD (chronic obstructive pulmonary disease) COPD exacerbation Depression Dyspnea on exertion Fatigue GERD (gastroesophageal reflux disease) Lumbar degenerative disc disease Primary osteoarthritis of right shoulder Pulmonary hypertension Restless leg syndrome Screening for diabetes mellitus Tachycardia Surgical History History of cardiac catheterization (~12/29/21) History of colonoscopy History of foot surgery Family History Father No problems noted. 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 plastic welder 80% of hearing loss would like to get hearing aids.) Vision needs: No Review of Systems Const All systems reviewed & are unremarkable except as noted in HPI and below Physical Exam Vital Signs: Last Vital Signs Temp 98.1 F 06/25/23 11:30 Pulse 61 06/25/23 11:30 BP 140/78 H 06/25/23 11:30 Pulse Ox 97 06/25/23 11:30 Oxygen Delivery Method Room Air 06/25/23 11:30 Const General: cooperative, alert, awake, Physically active, ill appearing, tired appearing and well groomed; No healthy appearing, comfortable, anxious, diaphoretic, intoxicated appearing or poor hygiene Nutritional Appearance: average body habitus Orientation/consciousness: patient oriented x3 Limitations: ambulation with cane Resp Effort & Inspection: able to speak in complete sentences (short few words at a time only), no audible wheezes, no cough, no grunting, labored (mild to moderate), no nasal flaring, no pursed lip breathing, no segmental paradox chest wall movement, no stridor, tripod positioning, no use of accessory muscles, prolonged expiratory phase and symmetric chest movement Auscultation: no crackles, no rales, wheezes scattered wheezes, lung sounds not diminished and No rub present Cardio Rate: regular rate Rhythm: regular rhythm Skin Other: Good color, warm and dry Neuro General: patient oriented x3 Psych Appearance: grossly normal Mental Status: mental status grossly normal Speech and movement: Normal speech and movement present Affect: normal affect Attitude: cooperative Thought process: Normal thought process present Insight: Good insight present (Psych) Judgement: Good judgement present (Psych) Assessment & Plan Assessment & Plan (1) COPD with pneumonia: Code(s): J44.0 - Chronic obstructive pulmonary disease with (acute) lower respiratory infection; J18.9 - Pneumonia, unspecified organism Plan: Patient has apparent moderate to severe COPD, and looks like he has exacerbation of symptoms due to left side pneumonia. COVID test was negative. He has an increased cough with sputum production with the cough, shortness of breath, and already is on a prophylaxis regimen with azithromycin and low-dose prednisone. Fortunately he has a follow-up appointment with his analyst business analysis in 3 days, and he does seem to be tolerating his exacerbation, with a resting oxygen saturation of 97%. We discussed trialing outpatient treatment, but very tight monitoring is needed. Unfortunately he cannot tolerate fluoroquinolones due to tendon rupture, and so I will increase his azithromycin to 500 mg daily, and will add Ceftin 500 mg twice a day. This is the treatment regimen that he was put on last year when he had left side pneumonia exacerbating his COPD. I also will increase his prednisone to 60 mg and taper from there. Otherwise he can continue his maintenance COPD medication, and he has his albuterol nebulizer which gives him some relief. He does have an oxygen saturation device at home, so he will monitor this closely. His was present during the exam, and I advised that she consider taking him to the emergency department if his symptoms worsen, specifically if he becomes more dyspneic, or if his oxygen saturation decreases. She agreed to this. Otherwise, they plan to follow up with analyst business analysis in 3 days as planned. Orders: Orders [employer] Covid-19 Ag 06/25/23 Z20.822 - Contact with and (suspected) exposure to COVID-19 XR chest 2V 06/25/23 R05.9 - Cough, unspecified Medications: New prednisone then take 2 and half tabs daily for 3 days, then take 2 tabs daily for 3 days, then take 1 and half tabs daily for 3 days, and then take 1 tab daily for 3 days 60 mg (3 x 20 mg) PO DAILY 3 days 30 tabs 0RF azithromycin 500 mg PO DAILY 5 days 5 tabs 0RF cefuroxime axetil 500 mg PO BID 5 days 10 tabs 0RF Coding Level of Care Code Est Pt Level 4 (58858) Diagnoses COPD with pneumonia J44.0; J18.9
[2023-06-25 11:30] VITALS: BP 140/78; PULSE 61; TEMP 36.7; O2SAT 97
== END 2023-06-25 12:47 | disposition home or self-care (01) ==
PROVIDERS: PCP Internal Medicine; Visit Provider Physician Assistant Medical
DX: J44.0 Chronic obstructive pulmonary disease with (acute) lower respiratory infection (principal); J18.9 Pneumonia, unspecified organism
CPT/HCPCS: 99214

== ENCOUNTER 2023-06-25 12:01 | Outpatient (REF) | payer MEDICARE, SELFPAY ==
--- NOTE | ~2023-06-25 | XR_ITS ---
EXAMINATION: XR CHEST CLINICAL INFORMATION: Cough COMPARISON: No images available for comparison at this time. TECHNIQUE: 2 views of the chest were obtained. FINDINGS: The cardiac silhouette does not appear enlarged. The hilar and mediastinal contours are unremarkable. The lungs are well inflated. There are bilateral symmetric nodular opacities in the midlungs. These may represent nipple shadows. The lungs are otherwise clear. No pleural effusion or pneumothorax. Surgical clips project over the left chest. Degenerative changes of the spine. XR/XR chest 2V IMPRESSION: Well-inflated lungs suggestive of COPD. Symmetric nodular opacities in the midlungs, question representing nipple shadows. Follow-up chest x-ray with nipple markers recommended.
[2023-06-25 12:29] LABS: Binax Internal Control QC Valid; Binax Now Covid-19 Ag Negative (Negative); Binax Performed by: HO.BONILM
== END 2023-06-25 12:02 | disposition home or self-care (01) ==
LOC: HO.HMGCX 12:01
PROVIDERS: PCP Internal Medicine; Visit Provider Physician Assistant Medical
DX: R05.9 Cough, unspecified (principal); Z20.822 Contact with and (suspected) exposure to COVID-19
CPT/HCPCS: 71046; 87811; C9803

== ENCOUNTER 2023-06-28 12:51 | Outpatient (AMB) | payer MEDICARE, SELFPAY ==
[2023-06-28 13:04] VITALS: BP 122/62; PULSE 76; O2SAT 96
--- NOTE | 2023-06-28 13:04 | A.OFFVIS_ITS ---
Intake Vital Signs 06/28/23 13:04 Height 5 ft 11 in BP 122/62 Blood Pressure Location Lt brachial Position Sitting Pulse 76 Pulse Source Pulse Oximeter Pulse Oximetry (%) 96 Oxygen Delivery Method Room Air Intake Visit Reasons: COPD Intake Note: pt is here for his usual follow up and states he was dx with pneumonia and states he is having sore chest from coughing, he has swollen ankles, was given taper dose of prednisone, and antibiotic for 5 days. He states he cannot get the mucous out. Intermediate Designer Required: No Allergies levofloxacin Adverse Reaction (Severe, Verified 06/28/23 13:16) tendon rupture aspirin Adverse Reaction (Unknown, Verified 06/28/23 13:16) stomach upset, stomach nicole Medication List - Last Reconciled 06/28/23 by Ridge French MD albuterol sulfate 90 mcg/actuation 2 puffs inhalation Q6H PRN amlodipine 10 mg PO DAILY aspirin (Adult Aspirin Regimen) 81 mg PO DAILY azithromycin 500 mg PO DAILY 5 days azithromycin 250 mg PO .on alternate days 28 days baclofen 20 mg PO DAILY buspirone 5 mg PO BID 30 days cefuroxime axetil 500 mg PO BID 5 days celecoxib 200 mg PO DAILY cholecalciferol (vitamin D3) 50 mcg PO DAILY dextromethorphan-guaifenesin 30-600 mg (Mucinex DM) 1 tab PO Q12H PRN finasteride 5 mg orally M,W,F; Take Tuesday, Tuesday, Tuesday 90 days ipratropium-albuterol 0.5 mg-3 mg(2.5 mg base)/3 mL 3 mL inhalation Q6H PRN 30 days levothyroxine 137 mcg PO DAILY 90 days montelukast 10 mg PO DAILY omeprazole 20 mg PO QAM oxycodone-acetaminophen 10-325 mg 1 tab PO BID PRN 30 days pramipexole 1 mg PO TID PRN 30 days prednisone 60 mg (3 x 20 mg) PO DAILY 3 days prednisone 10 mg (1/2 x 20 mg) PO Q OTHER DAY tamsulosin 0.4 mg PO BEDTIME 90 days tiotropium bromide 2.5 mcg/actuation (Spiriva Respimat) 2 puffs inhalation DAILY tizanidine 4 mg PO BEDTIME PRN 30 days Do you need a note to return to daycare/school/sports/work: No HPI COPD HPI Details THIS 78 YEARS OLD GENTLEMAN WAS SEEN IN URGENT CARE ON 06/25, BECAUSE OF ACUTE EXACERBATION OF HIS COPD. HE HAD NO FEVER CHILLS BUT HE WAS ALMOST SUFFOCATING WITH SHORTNESS OF BREATH. CHEST X-RAY SHOWED DENSITIES IN BOTH LUNGS BUT QUESTION OF NIPPLE DENSITIES, REST OF THE LUNGS WERE CLEAR. HIS O2 SAT LEVELS WERE SOMEWHAT LOW. TREATED WITH A COURSE OF PREDNISONE AND ALSO COMBINATION OF AZITHROMYCIN PLUS CEFUROXIME X 5 DAYS . HE STILL HAS ABOUT 2 DAYS FOR THE MEDICINE. TO GO TODAY HE IS STILL SOMEWHAT WEAK BUT OTHERWISE HIS BREATHING IS BACK. TO BASELINE HE HAS FREQUENT COUGH AND HAS DIFFICULTY IN EXPECTORATED. HE WAKES FREQUENTLY DURING THE NIGHT AND WHEN HE CHECKS HIS O2 SAT IT IS DOWN TO 86-88 % HE WONDERS IF HE NEEDS OXYGEN AT NIGHT. [facility] Medical History Acquired hypothyroidism Anxiety Benign essential hypertension Benign prostatic hyperplasia Bronchitis COPD (chronic obstructive pulmonary disease) COPD exacerbation Depression Dyspnea on exertion Fatigue GERD (gastroesophageal reflux disease) Lumbar degenerative disc disease Lung density on x-ray Primary osteoarthritis of right shoulder Pulmonary hypertension Restless leg syndrome Screening for diabetes mellitus Tachycardia Surgical History History of cardiac catheterization (~12/29/21) History of colonoscopy History of foot surgery Family History Father No problems noted. 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 hr representative 80% of hearing loss would like to get hearing aids.) Vision needs: No Review of Systems Const All systems reviewed & are unremarkable except as noted in HPI and below Eyes Reports no additional complaints ENT Reports no additional complaints Card Denies chest pain, Denies irregular heart rhythm and Denies leg edema Resp Reports as per HPI GI Reports no additional complaints Reports no additional complaints Musc Reports back pain Skin/Breast Reports system reviewed and no additional complaints, except as documented Neuro Reports no additional complaints Psych Reports no additional complaints Physical Exam Vital Signs: Last Vital Signs Pulse 76 06/28/23 13:04 BP 122/62 06/28/23 13:04 Pulse Ox 96 06/28/23 13:04 Oxygen Delivery Method Room Air 06/28/23 13:04 Const Other: He is of a thin build, with slightly hunched back, and walks with a cane. General: comfortable, no acute distress, alert and awake Orientation/consciousness: patient oriented x3 HEENT Head: Yes normal to inspection General nose exam: No nasal polyps present and No nasal discharge present Face and sinus: Yes sinuses nontender Mouth: oropharynx normal Throat: Yes posterior oropharynx normal Eyes General: appearance normal, both eyes and all related structures Neck Neck: Yes normal visual inspection, Yes no lymphadenopathy, Yes trachea midline and Yes no JVD Thyroid: Thyroid normal Chest Chest palpation & inspection: abnormal inspection of the chest (Extensive scar over the left lower chest from previous surgery), normal palpation of entire chest wall and no tenderness Resp Other: Percussion note is resonant, breath sounds are distant with prolonged expiratory phase. LUNGS ARE MOSTLY CLEAR EXCEPT FOR A FEW EXPIRATORY WHEEZES OVER THE RT LOWER LOBE AREA . Cardio Palpation: normal PMI Rate: regular rate Rhythm: regular rhythm Heart sounds: no gallops and no murmurs GI Palpation (GI): Soft to palpation, nontender, No hepatosplenomegaly present and no masses Auscultation: normal bowel sounds Back/Spine/Pelvis Thoracic/Lumbar Spine: thoracic and lumbar spine normal to inspection, thoraco- lumbar ROM limited and thoraco-lumbar spasm Skin General skin exam: no rashes or lesions noted Neuro General: patient oriented x3 and no focal motor deficits Cranial nerves: Yes CN's II-XII intact bilaterally Extrem General: Yes normal to inspection, Yes no clubbing, cyanosis or edema and Yes no calf tenderness Psych Appearance: grossly normal and well kempt Speech and movement: Normal speech and movement present Assessment & Plan Assessment & Plan (1) COPD exacerbation: Comment: He has very advanced chronic obstructive pulmonary disease. Has been on full scale of medications,but cannot use Advair due to recurrent thrush in the mouth. He was seen in urgent care and is being treated for acute exacerbation, advised to complete the course of prednisone taper, and also complete the course of antibiotics. then go back .to the same routine as before. PLAN : CONTINUE SPIRIVA RESPIMAT 2 INHALATION DAILY. ( Not on the formulary ) CONTINUE USING IPRATROPIUM-ALBUTEROL SOLUTION Q 6 HOURS , OR QID . PREDNISONE 10 MG .DAILY . AZITHROMYCIN 250 MG DAILY TO CONTINUE BUT ON ALTERNATE DAYS .( ANTI-INFLAMMATORY AGENT) HAD ANOTHER DETAILED DISCUSSION ABOUT HIS ADVANCED COPD AND THE TREATMENT PLAN. Patient has question about his oxygen level at night. Will order overnight oximetry recording. Code(s): J44.1 - Chronic obstructive pulmonary disease with (acute) exacerbation (2) Pulmonary hypertension: Comment: SEC TO RT HEART DYSFUNCTION ,, AND COPD . CONT TX OF COPD . DOES NOT REQUIRE O2 . Code(s): I27.20 - Pulmonary hypertension, unspecified (3) DORADO (dyspnea on exertion): Comment: DUE TO COMBINATION OF HIS ADVANCED COPD AND CARDIAC CONDITION. PATIENT UNDERSTANDS WELL. Code(s): R06.00 - Dyspnea, unspecified (4) Lung density on x-ray: Comment: chest x-ray on 06/25/23 showed symmetrical lung densities on both sides, with question of nip.ple densities Repeat chest x-ray with nipple markers was recommended, which is being ordered. Code(s): J98.4 - Other disorders of lung Orders: Orders XR chest 2V Today J44.1 - Chronic obstructive pulmonary disease with (acute) exacerbation, J98.4 - Other disorders of lung Coding Level of Care Code Est Pt Level 3 (78273) Diagnoses COPD exacerbation J44.1 Pulmonary hypertension I27.20 DORADO (dyspnea on exertion) R06.00 Lung density on x-ray J98.4
== END 2023-06-28 13:34 | disposition home or self-care (01) ==
PROVIDERS: PCP Internal Medicine; Visit Provider Internal Medicine
DX: J44.1 Chronic obstructive pulmonary disease with (acute) exacerbation (principal); I27.20 Pulmonary hypertension, unspecified; R06.00 Dyspnea, unspecified; J98.4 Other disorders of lung
CPT/HCPCS: 99213

== ENCOUNTER → 2023-06-28 12:51 | Outpatient (BNVA) | payer MEDICARE, SELFPAY | PROVIDERS: PCP Internal Medicine; Visit Provider Internal Medicine | DX: J44.1 Chronic obstructive pulmonary disease with (acute) exacerbation (principal); I27.20 Pulmonary hypertension, unspecified; J98.4 Other disorders of lung; R06.00 Dyspnea, unspecified | CPT/HCPCS: 99212 ==

== ENCOUNTER 2023-06-30 12:29 | Outpatient (REF) | payer MEDICARE, SELFPAY ==
--- NOTE | ~2023-06-30 | XR_ITS ---
EXAMINATION: XR CHEST 2 VIEWS CLINICAL INFORMATION: Acute exacerbation of COPD. COMPARISON: Prior chest radiographs, most recently 06/25/2023; CT chest dated 04/16/2022. TECHNIQUE: Frontal and lateral views of the chest were obtained. Nipple markers are applied. FINDINGS: The heart, great vessels, pulmonary vasculature and mediastinum are normal. The lungs show no focal infiltrate, effusion or pneumothorax. A 5 mm nodule is redemonstrated at the lateral right costophrenic angle, unchanged from the CT chest and prior chest radiographs. There is stable blunting of the left lateral costophrenic angle. There is no acute osseous abnormality. There are degenerative changes of the thoracic spine. XR/XR chest 2V IMPRESSION: No active cardiopulmonary disease. There is no significant interim change.
== END 2023-06-30 12:30 | disposition home or self-care (01) ==
LOC: HO.XRAY 12:29
PROVIDERS: PCP Internal Medicine; Visit Provider Internal Medicine
DX: J44.1 Chronic obstructive pulmonary disease with (acute) exacerbation (principal); J98.4 Other disorders of lung
CPT/HCPCS: 71046

== ENCOUNTER 2023-07-26 10:27 | Outpatient (REF) | payer MEDICARE, SELFPAY ==
[2023-07-26 13:33] LABS: MANUAL DIFF FLAG NO
[2023-07-26 13:52] LABS: Basophils Percent Auto 0.4 % (0-2); Eosinophils Absolute Auto 0.1 X10*3/uL (0.0-0.4); Eosinophils Percent Auto 0.7 % (0-4); Hematocrit 41.6 % (42.0-52.0); Hemoglobin 13.7 g/dl (14.0-18.0); Imm Gran Abs Auto 0.05 X10*3/uL (0.00-0.03); Imm Gran Pct Auto 0.5 % (0.0-0.4); Lymphocytes Percent Auto 10.8 % (20-40); Mean Corpuscular HGB Conc 32.9 g/dl (31.0-36.0); Mean Corpuscular Hemoglobin 30.6 pg (27.0-33.0); Mean Corpuscular Volume 93.1 fL (80.0-98.0); Mean Platelet Volume 9.4 fL (9.4-12.4); Monocytes Absolute Auto 0.2 X10*3/uL (0.1-1.2); Monocytes Percent Auto 2.3 % (2-11); Neutrophils Absolute Auto 7.8 x10*3/uL (2.0-8.3); Neutrophils Percent Auto 85.3 % (45-73); Platelet Count 317 X10*3/uL (160-400); Red Blood Count 4.47 X10*6/uL (4.60-5.80); White Blood Count 9.2 X10*3/uL (4.8-10.8)
[2023-07-26 14:12] LABS: Alanine Aminotransferase 23 U/L (0-40); Albumin Level 4.2 g/dL (3.5-5.0); Alkaline Phosphatase 50 U/L (39-117); Anion Gap 11 (12-20); Aspartate Amino Transferase 24 U/L (5-37); Blood Urea Nitrogen 12 mg/dL (9-16); Calcium 9.4 mg/dL (8.4-10.2); Carbon Dioxide 28 mmol/L (22-29); Chloride 99 mmol/L (96-108); Cholesterol 135 mg/dL (<200); Estimated Glomerular Filt Rate > 60; Glucose Fasting 101 mg/dL (60-99); HDL Cholesterol 65 mg/dL (>40); LDL Cholesterol Calculated 58 mg/dL (<100); Potassium 4.2 mmol/L (3.3-5.1); Sodium 134 mmol/L (135-145); Total Protein 7.2 g/dL (6.5-8.0); Triglycerides 62 mg/dL (<150)
[2023-07-26 14:20] LABS: Prostate Specific Antigen 4.05 ng/mL (<0.05-4.0)
[2023-07-26 14:31] LABS: Free T4 (Free Thyroxine) 1.14 ng/dL (0.71-1.85); Thyroid Stimulating Hormone 1.31 uIU/mL (0.32-4.0)
== END 2023-07-26 10:28 | disposition home or self-care (01) ==
LOC: HO.HMGCLDS 10:27
PROVIDERS: Urology; PCP Internal Medicine; Visit Provider Internal Medicine
DX: E03.9 Hypothyroidism, unspecified (principal); E78.00 Pure hypercholesterolemia, unspecified; I10 Essential (primary) hypertension; R97.20 Elevated prostate specific antigen [PSA]; Z12.5 Encounter for screening for malignant neoplasm of prostate
CPT/HCPCS: 36415; 80053; 80061; 84153; 84439; 84443; 85025

== ENCOUNTER 2023-07-29 15:11 | Outpatient (AMB) | payer MEDICARE, SELFPAY ==
[2023-07-29 15:13] VITALS: BP 124/80; PULSE 62; O2SAT 95; BMI 22.3
--- NOTE | 2023-07-29 15:13 | A.OFFPC_ITS ---
Vital Signs 07/29/23 15:13 Height 5 ft 11 in Weight 160 lb BMI 22.3 BP 124/80 Blood Pressure Location Lt brachial Position Sitting Pulse 62 Pulse Source Pulse Oximeter Pulse Oximetry (%) 95 Oxygen Delivery Method Room Air Intake Visit Reasons: RLS, lumbar DDD, HTN, hyperlipidemia Chick Sexer Required: No Accompanied by: Self / Same As Patient Allergies levofloxacin Adverse Reaction (Severe, Verified 07/29/23 16:04) tendon rupture aspirin Adverse Reaction (Unknown, Verified 07/29/23 16:04) stomach upset, stomach nicole Medication List - Last Reconciled 07/29/23 by Malick Hernandez MD albuterol sulfate 90 mcg/actuation 2 puffs inhalation Q6H PRN amlodipine 10 mg PO DAILY aspirin (Adult Aspirin Regimen) 81 mg PO DAILY azithromycin 250 mg PO .on alternate days 28 days baclofen 20 mg PO DAILY buspirone 5 mg PO BID 30 days celecoxib 200 mg PO DAILY cholecalciferol (vitamin D3) 50 mcg PO DAILY dextromethorphan-guaifenesin 30-600 mg (Mucinex DM) 1 tab PO Q12H PRN finasteride 5 mg orally M,W,F; Take Tuesday, Tuesday, Tuesday 90 days ipratropium-albuterol 0.5 mg-3 mg(2.5 mg base)/3 mL 3 mL inhalation Q6H PRN 30 days levothyroxine 137 mcg PO DAILY 90 days montelukast 10 mg PO DAILY omeprazole 20 mg PO QAM oxycodone-acetaminophen 10-325 mg 1 tab PO BID PRN 30 days pramipexole 1 mg PO TID PRN 30 days prednisone 10 mg (1/2 x 20 mg) PO Q OTHER DAY tamsulosin 0.4 mg PO BEDTIME 90 days tiotropium bromide 2.5 mcg/actuation (Spiriva Respimat) 2 puffs inhalation DAILY tizanidine 4 mg PO BEDTIME PRN 30 days Tobacco use date assessed: 07/29/23 Fall risk assessment: No Falls in past year Last assessed Fall Risk: 07/29/23 Dental Screening Dental Screen Date: 07/29/23 Did you have a dental visit in the last 12 months?: No Did you have a dental problem in the last 6 months where you did not have access to dental care?: No Was dental information given to patient?: No HPI RLS, lumbar DDD, HTN, hyperlipidemia HPI Details Patient comes in today for his follow-up visit States that he feels okay He denies any headaches or dizziness Denies any chest pains, no increased shortness of breath No nausea /vomiting, no abdominal pain No change in bowel habits noted Still has chronic pains over his lower back and multiple joints - states that his pain medication usually barely helps but he takes them as needed just to get some relief Had his follow-up labs done a few days ago - to discuss his results [facility] Medical History Lung density on x-ray COPD exacerbation Depression GERD (gastroesophageal reflux disease) Pulmonary hypertension Benign essential hypertension Screening for diabetes mellitus Tachycardia Benign prostatic hyperplasia Restless leg syndrome Primary osteoarthritis of right shoulder Lumbar degenerative disc disease Anxiety Acquired hypothyroidism Dyspnea on exertion Bronchitis Fatigue COPD (chronic obstructive pulmonary disease) Surgical History History of foot surgery History of cardiac catheterization (~12/29/21) History of colonoscopy Family History Father No problems noted. 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 information officer 80% of hearing loss would like to get hearing aids.) Vision needs: No Questionnaire PHQ-9 Over the last 2 weeks, how often have you been bothered by any of the following problems? 1. Little interest or pleasure in doing things: not at all 2. Feeling down, depressed, or hopeless: not at all 3. Trouble falling or staying asleep, or sleeping too much: not at all 4. Feeling tired or having little energy: not at all 5. Poor appetite or overeating: not at all 6. Feeling bad about yourself - or that you are a failure or have let yourself or your family down: not at all 7. Trouble concentrating on things, such as reading the newspaper or watching television: not at all 8. Moving or speaking so slowly that other people could have noticed. Or the opposite - being so fidgety or restless that you have been moving around a lot more than usual: not at all 9. Thoughts that you would be better off or of hurting yourself in some way: not at all Total score: 0 Depression Screening Interpretation: Negative 80210 - PHQ-9 Billing: Yes Source: Developed by Drs. Rishabh Stallworth, Kesha Madrid, Louis Tyler and colleagues, with an educational ritu from [employer]. Thrive Questionnaire Date Thrive assessed: 07/29/23 I am a: Patient What is your living situation today?: I have a steady place to live Within the past 12 months, did the food you bought not last and you didn't have the money to get more?: Never true Within the past 12 months, did you worry whether your food would run out before you got money to buy more?: Never true Do you have trouble paying for medicines?: No Do you have trouble getting transportation to medical appointments?: No Do you have trouble paying your heating and electricity bill?: No Do you have trouble taking care of your child, family member or friend?: No Do you have trouble with day-to-day activities such as bathing, preparing meals, shopping, managing finances, etc.?: No Are you currently unemployed and looking for a job?: No Are you interested in more education?: No Please select the resources that you would like help with: None Currently or been in a relationship where the following occur: no concerns reported AUDIT C Alcohol Use Questionnaire (AUDIT-C) 1. How often do you have a drink containing alcohol?: Never 3. How often do you have six or more drinks on one occasion?: Never Total Score: 0 Score Reviewed/Action Taken: Yes THOM-7 AMB Questionnaire THOM-7 Date THOM - 7 assessed: 07/29/23 Feeling nervous, anxious, or on edge: 0 = Not at all Not being able to stop or control worryin = Not at all Worrying too much about different things: 0 = Not at all Trouble relaxin = Not at all Being so restless that it is hard to sit still: 0 = Not at all Becoming easily annoyed or irritable: 0 = Not at all Feeling afraid as if something awful might happen: 0 = Not at all Total THOM-7 score (0-4 normal; 5-9 mild; 10-14 moderate; 15-21 severe): 0 Source: Developed by Drs. Rishabh Stallworth, Kesha Madrid, Louis Tyler and colleagues, with an educational ritu from [employer]. Review of Systems Const Denies chills, Reports fatigue, Denies fever(s) and Denies headache(s) ENT Denies dysphagia, Denies dizziness, Denies otalgia, Denies headache(s), Denies odynophagia and Denies sore throat Card Denies chest pain, Denies palpitations and Reports dyspnea on exertion (mild) Resp Denies cough, Reports dyspnea on exertion (mild) and Denies wheezing GI Denies abdominal pain, Denies constipation, Denies dysphagia, Denies heartburn, Denies diarrhea, Denies nausea, Denies odynophagia and Denies vomiting Denies dysuria, Denies nocturia and Denies urinary frequency Musc Reports back pain (over the lower back, increasing lately), Reports arthralgias (right shoulder), Reports muscle cramps (in both legs, worse at night) and Reports tingling (on and off, in both legs) Neuro Denies dizziness, Denies headache(s), Reports radicular pain (in both lower extremities), Reports restless legs and Reports tingling (on and off, in both legs) Psych Reports anxiety (better controlled on current Rx) and Denies irritability Endo Reports fatigue and Denies palpitations Aller/Immun Denies wheezing Physical exam (Primary Care) Vital Signs: Last Vital Signs Pulse 62 07/29/23 15:13 BP 124/80 07/29/23 15:13 Pulse Ox 95 07/29/23 15:13 Oxygen Delivery Method Room Air 07/29/23 15:13 BMI result Body Mass Index 22.3 Tobacco/Smoking Status: Tobacco use Status Tobacco use date assessed 07/29/23 07/29/23 15:19 Patient Tobacco Use Status Former Tobacco user 07/29/23 15:19 Tobacco use type Cigarette 07/29/23 15:19 e-Cigarette/Vaping Use Never Used 07/29/23 15:19 PHQ-9: PHQ-9 Score PHQ-9: Total score 0 07/29/23 16:07 Depression Screening Interpretation: Negative Thrive Assessment: Date of Thrive Assessment Date Thrive assessed 07/29/23 07/29/23 15:19 Currently or been in a relationship where the following occur: no concerns reported Const General: no acute distress and alert HENMT Throat: Yes posterior oropharynx normal and Yes tonsils normal (no TP congestion noted) Neck Neck: Yes no lymphadenopathy and Yes supple Resp Auscultation: clear to auscultation bilaterally, no rales and no wheezes Cardio Rate: regular rate Rhythm: regular rhythm Heart sounds: no murmurs GI Palpation (GI): Soft to palpation and nontender Auscultation: normal bowel sounds Back/Spine/Pelvis Thoracic/Lumbar Spine: lumbar spinal tenderness and straight leg raise positive Extrem General: Yes no clubbing, cyanosis or edema Results Reviewed Results Reviewed: Laboratory Tests 07/26/23 10:34 WBC 9.2 Hgb 13.7 L Hct 41.6 L Plt Count 317 Sodium 134 L Potassium 4.2 Creatinine 1.07 Estimated GFR > 60 Fasting Glucose 101 H Calcium 9.4 AST 24 ALT 23 Triglycerides 62 Cholesterol 135 LDL Cholesterol, Calc 58 HDL Cholesterol 65 Prostate Specific Ag 4.05 H TSH 1.31 Free T4 1.14 Assessment and Plan Assessment & Plan (1) Lumbar degenerative disc disease: Code(s): M51.36 - Other intervertebral disc degeneration, lumbar region Plan: Reinforced activity and weight-lifting restrictions Continue Celecoxib 200 mg QD PRN, Oxycodone-Acetaminophen 10-325 mg BID PRN and Tizanidine 4 mg Q HS PRN Patient has tried taking Gabapentin in the past but stopped due to frequent nightmares while on the medication;? also noted experiencing increasing leg cramps and pain when started back on Gabapentin Was also tried on Duloxetine 30 mg BID but was only taking it Q PM - states that he felt sedated, tired and too mellow while on the Rx and was advised to stop taking this a few months ago Lumbar spine x-rays last done in March 2020 revealed (+) prominent dextrocurvature and multilevel degenerative disc changes He had an MRI of the lumbar spine done back in 2008 that revealed multilevel bony and disc degenerative changes and osteophytic narrowing of the neural foramina at multiple levels with no focal disc herniation or spinal stenosis noted at that time; patient has not had MRI repeated since Repeat lumbar spine x-rays done back in March 2023 revealed (+) dextrorotoscoliosis with degenerative disc changes virtually at every disc level. No visible acute fracture or dislocation seen (2) Primary osteoarthritis of right shoulder: Code(s): M19.011 - Primary osteoarthritis, right shoulder Plan: States that his current meds, especially Celecoxib, help with his shoulder pain Was given a cortisone injection into his shoulder by Dr. Gerard a few months ago, which he states did not really help much Follow up with orthopedics at [facility] as scheduled (3) COPD (chronic obstructive pulmonary disease): Comment: HAS ADVANCED COPD, PFT C/W SEVERE OBSTRUCTIVE LUNG DISEASE, WITH POSITIVE RESPONSE TO BDs . TX : CONT. SPIRIVA RESPIMAT 2 INH DAILY IN AM CONT. TO USE ALBUTEROL (Proair)MDI 2 PUFFS Q 4-6 HRS PRN ADVAIR 250-51 INHALATION B.I.D. DUO NEB UDs Q 6 HRS W/A PREDNISONE 10 MG ON ALT. DAYS . AZITHROMYCIN 250 MG PO ON ALT DAYS . Code(s): J44.9 - Chronic obstructive pulmonary disease, unspecified Plan: Recent work ups also revealed (+) moderate to severe pulmonary HTN Continue ProAir HFA 2 puffs 4 times a day as needed and Spiriva Respimat 2 inhalations QD; continue Prednisone 20 mg 1 to 2 tablets per week, no more than 7 tablets per month Follow up with pulmonary at [facility] [place] as scheduled (4) DORADO (dyspnea on exertion): Comment: DUE TO COMBINATION OF HIS ADVANCED COPD AND CARDIAC CONDITION. PATIENT UNDERSTANDS WELL. Code(s): R06.00 - Dyspnea, unspecified Plan: Recent echocardiogram revealed (+) moderate to severe pulmonary hypertension and this, together with his advanced COPD, are most likely the main reasons for his DORADO and easy fatigability Patient recently underwent cardiac catheterization for further evaluation - coronary angiogram revealed no significant CAD (5) Benign essential hypertension: Code(s): I10 - Essential (primary) hypertension Plan: Reinforced low sodium diet - goal is systolic BP of at least 130 to 140 mm or less Continue Amlodipine 10 mg QD (6) Acquired hypothyroidism: Code(s): E03.9 - Hypothyroidism, unspecified Plan: Results of his follow-up labs done a few days ago reviewed and discussed with patient Continue Levothyroxine 137 mcg QD Will recheck his labs in 4 months for follow up (7) GERD (gastroesophageal reflux disease): Code(s): K21.9 - Gastro-esophageal reflux disease without esophagitis Qualifiers: Esophagitis presence: without esophagitis Qualified Code(s): K21.9 - Gastro-esophageal reflux disease without esophagitis Plan: Dietary restrictions reinforced Continue Omeprazole 20 mg QD (8) Restless leg syndrome: Comment: IS A CHRONIC PROBLEM CONTROLLED WITH ROPINIROLE 1 MG Q 6 HOURS P.R.N. Code(s): G25.81 - Restless legs syndrome Plan: Continue Pramipexole 1 mg TID PRN Was on Ropinirole 1 mg every 6 hours but it was no longer helping He was referred to and was recently seen by neurology, who cut down his Ropinirole to 1 mg QHS and was reportedly advised that there is really no effective cure for RLS and taking Rx at higher doses can actually be more counterproductive rather than help Follow up with neurology as scheduled (9) Benign prostatic hyperplasia: Code(s): N40.0 - Benign prostatic hyperplasia without lower urinary tract symptoms Qualifiers: Lower urinary tract symptom detail: urinary frequency Lower urinary tract symptom presence: symptoms present Qualified Code(s): N40.1 - Benign prostatic hyperplasia with lower urinary tract symptoms; R35.0 - Frequency of micturition Plan: Continue Tamsulosin 0.4 mg Q HS Follow up with urology as scheduled (10) Mood disorder: Code(s): F39 - Unspecified mood [affective] disorder Plan: Most likely due to frustrations regarding his physical condition and partly due to anxiety and some depression States that he has been feeling better since he was started on Sertaline a few months ago - to continue on Sertraline 100 mg QD Plan Follow up in 4 months Coding Level of Care Code Est Pt Level 4 (85918) Diagnoses Lumbar degenerative disc disease M51.36 Primary osteoarthritis of right shoulder M19.011 Chronic obstructive pulmonary disease, unspecified COPD type J44.9 DORADO (dyspnea on exertion) R06.00 Benign essential hypertension I10 Acquired hypothyroidism E03.9 Gastroesophageal reflux disease without esophagitis K21.9 Esophagitis presence: without esophagitis Restless leg syndrome G25.81 Benign prostatic hyperplasia with urinary frequency N40.1; R35.0 Lower urinary tract symptom detail: urinary frequency Lower urinary tract symptom presence: symptoms present Mood disorder F39
== END 2023-07-29 16:23 | disposition home or self-care (01) ==
PROVIDERS: Visit Provider Internal Medicine
DX: I10 Essential (primary) hypertension (principal); E03.9 Hypothyroidism, unspecified; J44.9 Chronic obstructive pulmonary disease, unspecified; K21.9 Gastro-esophageal reflux disease without esophagitis; F39 Unspecified mood [affective] disorder; M51.36 Other intervertebral disc degeneration, lumbar region; M19.011 Primary osteoarthritis, right shoulder; R06.00 Dyspnea, unspecified; G25.81 Restless legs syndrome; N40.1 Benign prostatic hyperplasia with lower urinary tract symptoms; R35.0 Frequency of micturition
CPT/HCPCS: 99214

== ENCOUNTER 2023-08-23 15:38 | Outpatient (AMB) | payer MEDICARE, SELFPAY ==
[2023-08-23 15:47] VITALS: BP 130/70; PULSE 102; O2SAT 95; BMI 23.1
--- NOTE | 2023-08-23 15:47 | MHC.OFFVIS ---
Intake Vital Signs 08/23/23 15:47 Height 5 ft 11 in Weight 166 lb BMI 23.1 BP 130/70 Blood Pressure Location Lt brachial Position Sitting Pulse 102 H Pulse Source Pulse Oximeter Pulse Oximetry (%) 95 Oxygen Delivery Method Room Air Intake Visit Reasons: COPD Intake Note: pt is here for follow up and has the oxygen at home, using it as he needs it, and he is wondering about mask vs. nasal canuala. Spirvia is not 190.00 but Justus is on formulary, he prefers a mist. Campground Attendant Required: No Allergies levofloxacin Adverse Reaction (Severe, Verified 08/23/23 16:26) tendon rupture aspirin Adverse Reaction (Unknown, Verified 08/23/23 16:26) stomach upset, stomach nicole Medication List - Last Reconciled 08/23/23 by Ridge French MD albuterol sulfate 90 mcg/actuation 2 puffs inhalation Q6H PRN amlodipine 10 mg PO DAILY aspirin (Adult Aspirin Regimen) 81 mg PO DAILY azithromycin 250 mg PO .on alternate days 28 days baclofen 20 mg PO DAILY buspirone 5 mg PO BID 30 days celecoxib 200 mg PO DAILY cholecalciferol (vitamin D3) 50 mcg PO DAILY dextromethorphan-guaifenesin 30-600 mg (Mucinex DM) 1 tab PO Q12H PRN finasteride 5 mg orally M,W,F; Take Tuesday, Tuesday, Tuesday 90 days ipratropium-albuterol 0.5 mg-3 mg(2.5 mg base)/3 mL 3 mL inhalation Q6H PRN 30 days levothyroxine 137 mcg PO DAILY 90 days montelukast 10 mg PO DAILY omeprazole 20 mg PO QAM oxycodone-acetaminophen 10-325 mg 1 tab PO BID PRN 30 days pramipexole 1 mg PO TID PRN 30 days prednisone 10 mg (1/2 x 20 mg) PO Q OTHER DAY tamsulosin 0.4 mg PO BEDTIME 90 days tiotropium bromide 2.5 mcg/actuation (Spiriva Respimat) 2 puffs inhalation DAILY tizanidine 4 mg PO BEDTIME PRN 30 days Do you need a note to return to daycare/school/sports/work: No HPI COPD HPI Details TIERA, 78 YEARS OLD GENTLEMAN, HAS ADVANCED CHRONIC OBSTRUCTIVE PULMONARY DISEASE, ON HIS LAST VISIT HE QUALIFIED FOR PORTABLE O2. HE DOES HAVE THE PORTABLE UNIT AT HOME BUT USES IT ONLY WHEN HE NEEDS. HE CAME TO THE OFFICE TODAY WITHOUT THE OXYGEN AND IS DOING OKAY. AT PRESENT HIS COPD IS AT BASELINE. HIS MAIN ISSUE IS BACK PAIN AND DIFFICULTY IN SLEEPING AT NIGHT. WE HAD A LONG DISCUSSION ABOUT THE SLEEP ISSUE, SLEEP HYGIENE MEASURES, AND RELAXATION MEASURES TO INDUCE SLEEP. [facility] Medical History Lung density on x-ray COPD exacerbation Depression GERD (gastroesophageal reflux disease) Pulmonary hypertension Benign essential hypertension Screening for diabetes mellitus Tachycardia Benign prostatic hyperplasia Restless leg syndrome Primary osteoarthritis of right shoulder Lumbar degenerative disc disease Anxiety Acquired hypothyroidism Dyspnea on exertion Bronchitis Fatigue COPD (chronic obstructive pulmonary disease) Surgical History History of foot surgery History of cardiac catheterization (~12/29/21) History of colonoscopy Family History Father No problems noted. 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 surveyor geodetic 80% of hearing loss would like to get hearing aids.) Vision needs: No Review of Systems Const All systems reviewed & are unremarkable except as noted in HPI and below Eyes Reports no additional complaints ENT Reports no additional complaints Card Denies chest pain, Denies irregular heart rhythm and Denies leg edema Resp Reports as per HPI GI Reports no additional complaints Reports no additional complaints Musc Reports back pain Skin/Breast Reports system reviewed and no additional complaints, except as documented Neuro Reports no additional complaints Psych Reports no additional complaints Physical Exam Vital Signs: Last Vital Signs Pulse 102 H 10/10/23 15:47 BP 130/70 08/23/23 15:47 Pulse Ox 95 08/23/23 15:47 Oxygen Delivery Method Room Air 08/23/23 15:47 BMI result Body Mass Index 23.1 Const Other: He is of a thin build, with slightly hunched back, and walks with a cane. General: comfortable, no acute distress, alert and awake Orientation/consciousness: patient oriented x3 HEENT Head: Yes normal to inspection General nose exam: No nasal polyps present and No nasal discharge present Face and sinus: Yes sinuses nontender Mouth: oropharynx normal Throat: Yes posterior oropharynx normal Eyes General: appearance normal, both eyes and all related structures Neck Neck: Yes normal visual inspection, Yes no lymphadenopathy, Yes trachea midline and Yes no JVD Thyroid: Thyroid normal Chest Chest palpation & inspection: abnormal inspection of the chest (Extensive scar over the left lower chest from previous surgery), normal palpation of entire chest wall and no tenderness Resp Other: Percussion note is resonant, breath sounds are distant with prolonged expiratory phase. LUNGS ARE CLEAR AND NO WHEEZES OR CREPITATIONS ARE HEARD TODAY.. Cardio Palpation: normal PMI Rate: regular rate Rhythm: regular rhythm Heart sounds: no gallops and no murmurs GI Palpation (GI): Soft to palpation, nontender, No hepatosplenomegaly present and no masses Auscultation: normal bowel sounds Back/Spine/Pelvis Thoracic/Lumbar Spine: thoracic and lumbar spine normal to inspection, thoraco-lumbar ROM limited and thoraco-lumbar spasm Skin General skin exam: no rashes or lesions noted Neuro General: patient oriented x3 and no focal motor deficits Cranial nerves: Yes CN's II-XII intact bilaterally Extrem General: Yes normal to inspection, Yes no clubbing, cyanosis or edema and Yes no calf tenderness Psych Appearance: grossly normal and well kempt Speech and movement: Normal speech and movement present Assessment & Plan Assessment & Plan (1) COPD (chronic obstructive pulmonary disease): Comment: HAS ADVANCED COPD, PFT C/W SEVERE OBSTRUCTIVE LUNG DISEASE, WITH POSITIVE RESPONSE TO BDs . TX : CONT. SPIRIVA RESPIMAT 2 INH DAILY IN AM CONT. TO USE ALBUTEROL (Proair)MDI 2 PUFFS Q 4-6 HRS PRN DUO NEB UDs Q 6 HRS W/A ( 4 TIMES A DAY ) PREDNISONE 10 MG ON ALT. DAYS . AZITHROMYCIN 250 MG PO ON ALT DAYS . Code(s): J44.9 - Chronic obstructive pulmonary disease, unspecified (2) DORADO (dyspnea on exertion): Comment: DUE TO COMBINATION OF HIS ADVANCED COPD AND CARDIAC CONDITION. PATIENT UNDERSTANDS WELL. Code(s): R06.00 - Dyspnea, unspecified Coding Level of Care Code Est Pt Level 3 (28417) Diagnoses Chronic obstructive pulmonary disease, unspecified COPD type J44.9 DORADO (dyspnea on exertion) R06.00
== END 2023-08-23 16:25 | disposition home or self-care (01) ==
PROVIDERS: PCP Internal Medicine; Visit Provider Internal Medicine
DX: J44.9 Chronic obstructive pulmonary disease, unspecified (principal); R06.00 Dyspnea, unspecified
CPT/HCPCS: 99213

== ENCOUNTER → 2023-08-23 15:38 | Outpatient (BNVA) | payer MEDICARE, SELFPAY | PROVIDERS: PCP Internal Medicine; Visit Provider Internal Medicine | DX: J44.9 Chronic obstructive pulmonary disease, unspecified (principal); R06.00 Dyspnea, unspecified | CPT/HCPCS: 99212 ==

== ENCOUNTER 2023-09-23 11:42 | Outpatient (AMB) | payer MEDICARE, SELFPAY ==
--- NOTE | 2023-09-23 11:54 | MHC.OFFWIV ---
Intake Vital Signs 09/23/23 12:05 Height 5 ft 11 in Weight 166 lb BMI 23.1 BP 132/74 Blood Pressure Location Rt brachial Position Sitting Pulse 70 Pulse Source Pulse Oximeter Temp 98.3 F Temp Source Oral Pulse Oximetry (%) 95 Oxygen Delivery Method Room Air Intake Visit Reasons: EST/left pointer finger turning green (lobby) Intake Note: pt is here for c/o left pointer finger, nail bed/side of finger turning green denies injury Patient Tobacco Use Status: Former Tobacco user Allergies levofloxacin Adverse Reaction (Severe, Verified 09/23/23 12:06) tendon rupture aspirin Adverse Reaction (Unknown, Verified 09/23/23 12:06) stomach upset, stomach nicole Do you need a note to return to daycare/school/sports/work: Yes HPI HPI Comments History of Present Illness Details This is an 78-year-old male who presents to the office today for sick visit. Patient complaining of swelling erythema of his left pointer finger x1 week. He denies any fevers or chills. He denies any trauma/injury to the area. [facility] Medical History Lung density on x-ray COPD exacerbation Depression GERD (gastroesophageal reflux disease) Pulmonary hypertension Benign essential hypertension Screening for diabetes mellitus Tachycardia Benign prostatic hyperplasia Restless leg syndrome Primary osteoarthritis of right shoulder Lumbar degenerative disc disease Anxiety Acquired hypothyroidism Dyspnea on exertion Bronchitis Fatigue COPD (chronic obstructive pulmonary disease) Surgical History History of foot surgery History of cardiac catheterization (~12/29/21) History of colonoscopy Family History Father No problems noted. 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 auto appraiser 80% of hearing loss would like to get hearing aids.) Vision needs: No Review of Systems Const All systems reviewed & are unremarkable except as noted in HPI and below Reports no additional complaints Eyes Reports no additional complaints ENT Reports no additional complaints Card Reports no additional complaints Resp Reports no additional complaints GI Reports no additional complaints Reports no additional complaints Musc Reports no additional complaints Skin/Breast Reports system reviewed and no additional complaints, except as documented Neuro Reports no additional complaints Psych Reports no additional complaints Endo Reports no additional complaints Jefe/Lymph Reports no additional complaints Aller/Immun Reports no additional complaints Physical Exam Vital Signs: Last Vital Signs Temp 98.3 F 09/23/23 12:05 Pulse 70 09/23/23 12:05 BP 132/74 09/23/23 12:05 Pulse Ox 95 09/23/23 12:05 Oxygen Delivery Method Room Air 09/23/23 12:05 BMI result Body Mass Index 23.1 Const Other: Vital signs reviewed. Constitutional: Non-toxic appearing. No acute distress. Well-developed and well-nourished. HEENT: Normocephalic and atraumatic. Skin: Warm and dry. Paronychia of the left 2nd finger nail with a small abscess. There is erythema and swelling the left 2nd distal phalanx. Neck: Full and painless range of motion. No cervical lymphadenopathy. Cardio: Regular rate. No lower extremity edema. No JVD. Pulmonary: No respiratory distress. No accessory muscle usage. Gastrointestinal: Soft, nontender, and nondistended in all 4 quadrants. Musculoskeletal: Normal range of motion in joints throughout the body. No deformity or other signs of injury. Neuro: Alert and oriented x4. Cranial nerves 2-12 grossly intact. No focal deficits appreciated. Psych: Normal mood and affect. Office Procedures Incision and Drainage Details: Paronychia with small abscess of left 2nd finger nail. Incision and drainage performed by: Monae Keen Informed consent given: Yes Time out checklist: patient, procedure, site marked/identified, supplies available and allergies confirmed Anesthesia: local Incision with: #11 blade Drainage quality: purulent Lesion: erythema, drainage, fluctuance and induration Dressing: other Patient tolerated procedure: well Complications: No Assessment & Plan Assessment & Plan (1) Paronychia of finger of left hand: Code(s): L03.012 - Cellulitis of left finger Plan: This is an 78-year-old male presenting to the office complaining of swelling, erythema of his left 2nd finger. Physical examination, there is a paronychia of the left 2nd finger nail with a small abscess. Incision and drainage was performed at the bedside with expression of purulence drainage. Patient tolerated the procedure well. He was sent home on p.o. trimethoprim sulfamethoxazole twice daily x5 days. Patient advised to follow-up here for persistent/worsening symptoms. Patient verbalized understanding and is agreeable with the plan. Medications: New sulfamethoxazole-trimethoprim 800-160 mg 1 tab PO BID 10 tabs 0RF sulfamethoxazole-trimethoprim 800-160 mg 1 tab PO BID 10 tabs 0RF Coding Level of Care Code Est Pt Level 3 (63258) Diagnoses Paronychia of finger of left hand L03.012
[2023-09-23 12:05] VITALS: BP 132/74; PULSE 70; TEMP 36.8; O2SAT 95; BMI 23.1
== END 2023-09-23 13:10 | disposition home or self-care (01) ==
PROVIDERS: PCP Internal Medicine; Visit Provider Physician Assistant Medical
DX: L03.012 Cellulitis of left finger (principal)
CPT/HCPCS: 99213

== ENCOUNTER 2023-10-18 13:46 | Outpatient (REF) | payer MEDICARE, SELFPAY ==
[2023-10-18 16:50] LABS: Prostate Specific Antigen 2.79 ng/mL (<0.05-4.0)
== END 2023-10-18 13:47 | disposition home or self-care (01) ==
LOC: HO.HMGCLDS 13:46
PROVIDERS: PCP Internal Medicine; Visit Provider Urology
DX: Z12.5 Encounter for screening for malignant neoplasm of prostate (principal); R97.20 Elevated prostate specific antigen [PSA]
CPT/HCPCS: 36415; 84153

== ENCOUNTER 2023-10-25 14:35 | Outpatient (AMB) | payer MEDICARE, SELFPAY ==
--- NOTE | 2023-10-25 14:36 | A.OFFVIS_ITS ---
Intake Intake Visit Reasons: 6m/PSA(set) Intake Note: Patient is Present for Telephone Follow Up Urology Med: Finasteride, Tamsulosin Antibiotic Allergy: Levofloxacin Blood Thinner: Aspirin Allergies levofloxacin Adverse Reaction (Severe, Verified 09/23/23 12:06) tendon rupture aspirin Adverse Reaction (Unknown, Verified 09/23/23 12:06) stomach upset, stomach nicole Medication List - Last Reconciled 10/25/23 by Roscoe See MD albuterol sulfate 90 mcg/actuation 2 puffs inhalation Q6H PRN amlodipine 10 mg PO DAILY aspirin (Adult Aspirin Regimen) 81 mg PO DAILY azithromycin 250 mg PO .on alternate days 28 days baclofen 20 mg PO DAILY buspirone 5 mg PO BID 30 days celecoxib 200 mg PO DAILY cholecalciferol (vitamin D3) 50 mcg PO DAILY dextromethorphan-guaifenesin 30-600 mg (Mucinex DM) 1 tab PO Q12H PRN finasteride 5 mg orally M,W,F; Take Tuesday, Tuesday, Tuesday 90 days ipratropium-albuterol 0.5 mg-3 mg(2.5 mg base)/3 mL 3 mL inhalation Q6H PRN 30 days levothyroxine 137 mcg PO DAILY 90 days montelukast 10 mg PO DAILY omeprazole 20 mg PO QAM oxycodone-acetaminophen 10-325 mg 1 tab PO BID PRN 30 days pramipexole 1 mg PO TID PRN 30 days prednisone 10 mg PO DAILY 30 days prednisone 10 mg (1/2 x 20 mg) PO Q OTHER DAY sulfamethoxazole-trimethoprim 800-160 mg 1 tab PO BID tamsulosin 0.4 mg PO BEDTIME 90 days tiotropium bromide 2.5 mcg/actuation (Spiriva Respimat) 2 inhalations inhalation DAILY tizanidine 4 mg PO BEDTIME PRN 30 days HPI HPI Comments History of Present Illness Details Gerber is a pleasant male. He is a patient of Dr. Hernandez. He is seen for the following urologic conditions - lower urinary tract symptoms - elevated PSA Telemedicine Evaluation 15 min Consultation Dox[employer] Lesa Video attempted Six month follow-up PSA continues to dropped to 2.8 Repeat in 6 months Previously noted some libido side effect Can cut finasteride back to Tuesday, Tuesday, Tuesday Lower urinary tract symptoms Long-term lower urinary tract symptoms Good response to tamsulosin and finasteride Prior cystoscopy with known trilobar hypertrophy Has been considering prostate procedure PSA - historic range 3.5-4.5 06/03 3.8, 07/05 5.7, 02/03 3.1, 11/05 2.8 Will continue with current therapy review with PSA in 12 months [facility] Medical History Lung density on x-ray COPD exacerbation Depression GERD (gastroesophageal reflux disease) Pulmonary hypertension Benign essential hypertension Screening for diabetes mellitus Tachycardia Benign prostatic hyperplasia Restless leg syndrome Primary osteoarthritis of right shoulder Lumbar degenerative disc disease Anxiety Acquired hypothyroidism Dyspnea on exertion Bronchitis Fatigue COPD (chronic obstructive pulmonary disease) Surgical History History of foot surgery History of cardiac catheterization (~12/29/21) History of colonoscopy Family History Father No problems noted. 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 80% of hearing loss would like to get hearing aids.) Vision needs: No Review of Systems Const All systems reviewed & are unremarkable except as noted in HPI and below Reports no additional complaints Resp Reports no additional complaints GI Reports no additional complaints Reports as per HPI Musc Reports no additional complaints Physical Exam Telemedicine evaluation Appropriate responses Regular breathing rate and rhythm HEENT Head: Yes normal to inspection Ears: hearing grossly normal bilaterally Eyes General: appearance normal, both eyes and all related structures Neck Neck: Yes normal visual inspection Chest Chest palpation & inspection: normal inspection of the chest Resp Effort & Inspection: normal respiratory effort and able to speak in complete sentences Assessment & Plan Assessment & Plan (1) Nocturia associated with benign prostatic hyperplasia: Code(s): N40.1 - Benign prostatic hyperplasia with lower urinary tract symptoms; R35.1 - Nocturia (2) Elevated PSA: Code(s): R97.20 - Elevated prostate specific antigen [PSA] Plan Twelve month follow-up Orders: Orders Prostate Specific Antigen 10/18/23 R97.20 - Elevated prostate specific antigen [PSA] Prostate Specific Antigen 364 Days N40.1 - Benign prostatic hyperplasia with lower urinary tract symptoms, R35.0 - Frequency of micturition PSA,Total (Free>4and<10) 364 Days N40.1 - Benign prostatic hyperplasia with lower urinary tract symptoms, R35.0 - Frequency of micturition Patient Instructions: Imaging studies, laboratory and physical exam results were discussed and reviewed in detail. No major barriers to patient understanding were identified. An opportunity to ask questions regarding the treatment plan was provided. All questions were answered. The patient expressed understanding and agreement with the above treatment plan. The patient is aware they should contact our office by phone for worsening of their current condition or the appearance of new urologic symptoms. Compliance is encouraged with any medications and followup testing that is ordered. It is a privilege to participate in the urologic care of your patient. If you have any questions or concerns regarding treatment for the above conditions, or other urologic issues, please do not hesitate to contact me. The office telephone contact is [phone]. This note is constructed using voice recognition software. While every effort has been made to ensure accuracy tax assessor errors may have been included. Yours sincerely, Dr Roscoe See MD, [facility] - Urology Providers of Expert, Compassionate Care for the Genitourinary System Telehealth Telehealth Location of provider rendering services: practice address Location of patient: address on file Patient Identification confirmed using: Name, : Yes Telehealth method: voice only Patient verbally consented to treatment: Yes Patient verbally consented to billing insurance company: Yes Patient informed of any privacy concerns related to visit: Yes Coding Level of Care Code Tele Est Pt Level 3 (41532) Diagnoses Nocturia associated with benign prostatic hyperplasia N40.1; R35.1 Elevated PSA R97.20
== END 2023-10-25 15:03 | disposition home or self-care (01) ==
LOC: HO.HUSH 14:35
PROVIDERS: PCP Internal Medicine; Visit Provider Urology
DX: N40.1 Benign prostatic hyperplasia with lower urinary tract symptoms (principal); R35.1 Nocturia; R97.20 Elevated prostate specific antigen [PSA]
CPT/HCPCS: 99442

== ENCOUNTER → 2023-10-25 14:35 | Outpatient (BNVA) | payer MEDICARE, SELFPAY | PROVIDERS: PCP Internal Medicine; Visit Provider Urology ==

== ENCOUNTER 2023-10-27 10:47 | Outpatient (AMB) | payer MEDICARE, SELFPAY ==
[2023-10-27 11:06] VITALS: BP 124/78; PULSE 85; O2SAT 93; BMI 23.8
--- NOTE | 2023-10-27 11:06 | A.OFFVIS_ITS ---
Intake Vital Signs 10/27/23 11:06 Height 5 ft 11 in Weight 170 lb 13.732 oz BMI 23.8 BP 124/78 Blood Pressure Location Lt brachial Position Sitting Pulse 85 Pulse Source Pulse Oximeter Pulse Oximetry (%) 93 Oxygen Delivery Method Room Air Intake Visit Reasons: COPD follow-up Intake Note: pt is here for follow up and had a rough 5 days, but today is little better, pt is going into the high 80's at times. He is feeling cold all the time, the morning takes him to 20 minutes to get moving in the morning. Campus Coordinator Required: No Allergies levofloxacin Adverse Reaction (Severe, Verified 10/27/23 11:19) tendon rupture aspirin Adverse Reaction (Unknown, Verified 10/27/23 11:19) stomach upset, stomach nicole Medication List - Last Reconciled 10/27/23 by Ridge French MD albuterol sulfate 90 mcg/actuation 2 puffs inhalation Q6H PRN amlodipine 10 mg PO DAILY aspirin (Adult Aspirin Regimen) 81 mg PO DAILY azithromycin 250 mg PO .on alternate days 28 days baclofen 20 mg PO DAILY buspirone 5 mg PO BID 30 days celecoxib 200 mg PO DAILY cholecalciferol (vitamin D3) 50 mcg PO DAILY dextromethorphan-guaifenesin 30-600 mg (Mucinex DM) 1 tab PO Q12H PRN finasteride 5 mg orally M,W,F; Take Tuesday, Tuesday, Tuesday 90 days ipratropium-albuterol 0.5 mg-3 mg(2.5 mg base)/3 mL 3 mL inhalation Q6H PRN 30 days levothyroxine 137 mcg PO DAILY 90 days montelukast 10 mg PO DAILY omeprazole 20 mg PO QAM oxycodone-acetaminophen 10-325 mg 1 tab PO BID PRN 30 days pramipexole 1 mg PO TID PRN 30 days prednisone 10 mg PO Q OTHER DAY tamsulosin 0.4 mg PO BEDTIME 90 days tiotropium bromide 2.5 mcg/actuation (Spiriva Respimat) 2 inhalations inhalation DAILY tizanidine 4 mg PO BEDTIME PRN 30 days Do you need a note to return to daycare/school/sports/work: No HPI COPD follow-up HPI Details TIERA IS 78 YEARS OLD GENTLEMAN, WITH ADVANCED CHRONIC OBSTRUCTIVE PULMONARY DISEASE, PAST HISTORY OF SMOKING, HE IS ON MAXIMUM MEDICAL TREATMENT, HAS HAD FREQUENT COURSES OF ANTIBIOTICS AND NOW ON AZITHROMYCIN 250 ON ALTERNATE DAY, HAS BECOME DEPENDENT ON STEROIDS SO HIS MAINTENANCE DOSES PREDNISONE 10 MG ON ALTERNATE DAYS. HE DOES USE EXTRA AMOUNT OF PREDNISONE EVERY NOW AND THEN. HE COMES TODAY FOR A SPECIAL VISIT BECAUSE IN THE LAST 1 WEEK HE JUST NOT FEELING GOOD. HIS NOSE AND THROAT REMAINED DRY, HE DOES HAVE FREQUENT BOUTS OF COUGH WITHOUT MUCH EXPECTORATION. HE TOOK PREDNISONE 20 MG YESTERDAY AND TODAY HE IS ALREADY FEELING SOMEWHAT BETTER. HE DOES HAVE STATIONARY OXYGEN CONCENTRATOR AT HOME SPORT TO BE USE AT 2 L/MINUTE DURING THE NIGHT AND P.R.N. DURING THE DAYTIME. HE KEEPS TRACK OF HIS O2 SATS AND THERE ON AN AVERAGE 94 WITH SOMETIMES DIPPING DOWN TO HIGH 80S. THERE IS NO HISTORY OF ANY RECENT THE UPPER RESPIRATORY OR LOWER RESPIRATORY INFECTION. [facility] Medical History Lung density on x-ray COPD exacerbation Depression GERD (gastroesophageal reflux disease) Pulmonary hypertension Benign essential hypertension Screening for diabetes mellitus Tachycardia Benign prostatic hyperplasia Restless leg syndrome Primary osteoarthritis of right shoulder Lumbar degenerative disc disease Anxiety Acquired hypothyroidism Dyspnea on exertion Bronchitis Fatigue COPD (chronic obstructive pulmonary disease) Surgical History History of foot surgery History of cardiac catheterization (~12/29/21) History of colonoscopy Family History Father No problems noted. 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 80% of hearing loss would like to get hearing aids.) Vision needs: No Review of Systems Const All systems reviewed & are unremarkable except as noted in HPI and below Eyes Reports no additional complaints ENT Reports no additional complaints Card Denies chest pain, Denies irregular heart rhythm and Denies leg edema Resp Reports as per HPI GI Reports no additional complaints Reports no additional complaints Musc Reports back pain Skin/Breast Reports system reviewed and no additional complaints, except as documented Neuro Reports no additional complaints Psych Reports no additional complaints Physical Exam Vital Signs: Last Vital Signs Pulse 85 10/27/23 11:06 BP 124/78 10/27/23 11:06 Pulse Ox 93 10/27/23 11:06 Oxygen Delivery Method Room Air 10/27/23 11:06 BMI result Body Mass Index 23.8 Const Other: He is of a thin build, with slightly hunched back, and walks with a cane. General: comfortable, no acute distress, alert and awake Orientation/consciousness: patient oriented x3 HEENT Head: Yes normal to inspection General nose exam: No nasal polyps present and No nasal discharge present Face and sinus: Yes sinuses nontender Mouth: oropharynx normal Throat: Yes posterior oropharynx normal Eyes General: appearance normal, both eyes and all related structures Neck Neck: Yes normal visual inspection, Yes no lymphadenopathy, Yes trachea midline and Yes no JVD Thyroid: Thyroid normal Chest Chest palpation & inspection: abnormal inspection of the chest (Extensive scar over the left lower chest from previous surgery), normal palpation of entire chest wall and no tenderness Resp Other: Percussion note is resonant, breath sounds are distant with prolonged expiratory phase. LUNGS ARE CLEAR AND NO WHEEZES OR CREPITATIONS ARE HEARD TODAY.. Cardio Palpation: normal PMI Rate: regular rate Rhythm: regular rhythm Heart sounds: no gallops and no murmurs GI Palpation (GI): Soft to palpation, nontender, No hepatosplenomegaly present and no masses Auscultation: normal bowel sounds Back/Spine/Pelvis Thoracic/Lumbar Spine: thoracic and lumbar spine normal to inspection, thoraco- lumbar ROM limited and thoraco-lumbar spasm Skin General skin exam: no rashes or lesions noted Neuro General: patient oriented x3 and no focal motor deficits Cranial nerves: Yes CN's II-XII intact bilaterally Extrem General: Yes normal to inspection, Yes no clubbing, cyanosis or edema and Yes no calf tenderness Psych Appearance: grossly normal and well kempt Speech and movement: Normal speech and movement present Assessment & Plan Assessment & Plan (1) COPD (chronic obstructive pulmonary disease): Comment: HAS ADVANCED COPD, PFT C/W SEVERE OBSTRUCTIVE LUNG DISEASE, WITH POSITIVE RESPONSE TO BDs . TX : CONT. SPIRIVA RESPIMAT 2 INH DAILY IN AM CONT. TO USE ALBUTEROL (Proair)MDI 2 PUFFS Q 4-6 HRS PRN DUO NEB UDs Q 6 HRS W/A ( 4 TIMES A DAY ) PREDNISONE 10 MG ON ALT. DAYS . AZITHROMYCIN 250 MG PO ON ALT DAYS . Code(s): J44.9 - Chronic obstructive pulmonary disease, unspecified (2) Bronchitis: Comment: A HAS CHRONIC BRONCHITIS PART OF HIS ADVANCED COPD. TX: UNDER COPD. ALSO MAY TAKE MUCINEX 600 MG B.I.D. NEEDED. Code(s): J40 - Bronchitis, not specified as acute or chronic (3) DORADO (dyspnea on exertion): Comment: DUE TO COMBINATION OF HIS ADVANCED COPD AND CARDIAC CONDITION. PATIENT UNDERSTANDS WELL. Code(s): R06.00 - Dyspnea, unspecified (4) Pulmonary hypertension: Comment: SEC TO RT HEART DYSFUNCTION ,, AND COPD . CONT TX OF COPD . DOES NOT REQUIRE O2 . Code(s): I27.20 - Pulmonary hypertension, unspecified Plan I REVIEWED ALL THE MEDICAL PROBLEMS WITH HIM, AND ALSO HE MEDICAL REGIMEN. I REASSURED HIM THAT HIS PULMONARY STATUS IS BASICALLY STABLE WITHOUT ANY DECLINE OR EXACERBATION. THERE IS NO EVIDENCE OF ANY CHEST INFECTION. HIS O2 SAT IS OKAY BUT IS EXPECTED TO FLUCTUATE. I EXPLAINED TO HIM THAT HE SHOULD CONTINUE THE PRESENT MEDICAL REGIMEN IT IS, HE NEEDS TO START HUMIDIFIER IN THE HOUSE AND ON TOP OF THAT SHOULD HAVE A VAPORIZER RUNNING IN HIS BEDROOM. HE CAN USE SALINE SPRAY IN THE NOSE IF THE NOSE FEELS DRY. HE CAN USE OXYGEN 2 L/MINUTE DURING THE DAYTIME IF HE FEELS TIRED OR MORE SHORT OF BREATH. THIS WILL BE FOR SHORT PERIODS. IN THE PAST HE HAS NOT QUALIFIED FOR PORTABLE OXYGEN. OVERALL HIS CONDITION IS STABLE. HE NEEDS LOT OF REASSURANCE, WHICH IS PROVIDED. I WILL RECHECK HIM IN 2 MONTHS. Coding Level of Care Code Est Pt Level 3 (85149) Diagnoses Chronic obstructive pulmonary disease, unspecified COPD type J44.9 Bronchitis J40 DORADO (dyspnea on exertion) R06.00 Pulmonary hypertension I27.20
== END 2023-10-27 11:34 | disposition home or self-care (01) ==
PROVIDERS: PCP Internal Medicine; Visit Provider Internal Medicine
DX: J44.9 Chronic obstructive pulmonary disease, unspecified (principal); J40 Bronchitis, not specified as acute or chronic; R06.00 Dyspnea, unspecified; I27.20 Pulmonary hypertension, unspecified
CPT/HCPCS: 99213

== ENCOUNTER → 2023-10-27 10:47 | Outpatient (BNVA) | payer MEDICARE, SELFPAY | PROVIDERS: PCP Internal Medicine; Visit Provider Internal Medicine | DX: J44.9 Chronic obstructive pulmonary disease, unspecified (principal); J40 Bronchitis, not specified as acute or chronic; R06.00 Dyspnea, unspecified; I27.20 Pulmonary hypertension, unspecified | CPT/HCPCS: 99212 ==

== ENCOUNTER 2023-12-02 15:07 | Outpatient (AMB) | payer MEDICARE, SELFPAY ==
[2023-12-02 15:21] VITALS: BP 120/70; PULSE 70; O2SAT 95; BMI 23.4
--- NOTE | 2023-12-02 15:21 | A.OFFPC_ITS ---
Vital Signs 12/02/23 15:21 Height 5 ft 11 in Weight 168 lb BMI 23.4 BP 120/70 Blood Pressure Location Lt brachial Position Sitting Pulse 70 Pulse Source Pulse Oximeter Pulse Oximetry (%) 95 Oxygen Delivery Method Room Air Intake Visit Reasons: 4 month f/u Intake Note: Patient is here to follow up on COPD. Dermatology Nurse Required: No Jack Frame Tender: Present Accompanied by: Spouse Allergies levofloxacin Adverse Reaction (Severe, Verified 12/02/23 15:52) tendon rupture aspirin Adverse Reaction (Unknown, Verified 12/02/23 15:52) stomach upset, stomach nicole Medication List - Last Reconciled 12/02/23 by Malick Hernandez MD albuterol sulfate 90 mcg/actuation 2 puffs inhalation Q6H PRN amlodipine 10 mg PO DAILY aspirin (Adult Aspirin Regimen) 81 mg PO DAILY azithromycin 250 mg PO .on alternate days 28 days baclofen 20 mg PO DAILY buspirone 5 mg PO BID 30 days celecoxib 200 mg PO DAILY cholecalciferol (vitamin D3) 50 mcg PO DAILY dextromethorphan-guaifenesin 30-600 mg (Mucinex DM) 1 tab PO Q12H PRN finasteride 5 mg orally M,W,F; Take Tuesday, Tuesday, Tuesday 90 days ipratropium-albuterol 0.5 mg-3 mg(2.5 mg base)/3 mL 3 mL inhalation Q6H PRN levothyroxine 137 mcg PO DAILY 90 days montelukast 10 mg PO DAILY omeprazole 20 mg PO QAM oxycodone-acetaminophen 10-325 mg 1 tab PO BID PRN 30 days pramipexole 1 mg PO TID PRN 30 days prednisone 10 mg PO Q OTHER DAY tiotropium bromide 2.5 mcg/actuation (Spiriva Respimat) 2 inhalations inhalation DAILY tizanidine 4 mg PO BEDTIME PRN 30 days Tobacco use date assessed: 07/29/23 Fall risk assessment: 2 + Falls in past year Last assessed Fall Risk: 12/02/23 Dental Screening Dental Screen Date: 12/02/23 Did you have a dental visit in the last 12 months?: No Did you have a dental problem in the last 6 months where you did not have access to dental care?: No Was dental information given to patient?: No HPI 4 month f/u HPI Details Patient comes in today for his follow-up visit States that he feels okay He denies any headaches or dizziness Denies any chest pains, no increased shortness of breath No nausea /vomiting, no abdominal pain No change in bowel habits noted Still has chronic pains over his lower back and multiple joints that he states are mostly unchanged from before - states that his pain medication helps somewhat and he takes them only as needed just to get some relief Adds that he's had increased swelling of both his legs and feet for a while now and has not mentioned this to us in the past but states that this swelling seems to be more persistent and he would wake up in the morning lately with his legs and feet already swollen and he finds it uncomfortable when his legs and feet are swollen like this Is concerned that the swelling may indicate that his heart is declining [facility] Medical History Lung density on x-ray COPD exacerbation Depression GERD (gastroesophageal reflux disease) Pulmonary hypertension Benign essential hypertension Screening for diabetes mellitus Tachycardia Benign prostatic hyperplasia Restless leg syndrome Primary osteoarthritis of right shoulder Lumbar degenerative disc disease Anxiety Acquired hypothyroidism Dyspnea on exertion Bronchitis Fatigue COPD (chronic obstructive pulmonary disease) Surgical History History of foot surgery History of cardiac catheterization (~12/29/21) History of colonoscopy Family History Father No problems noted. 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 temporary office assistant 80% of hearing loss would like to get hearing aids.) Vision needs: No Questionnaire PHQ-9 Over the last 2 weeks, how often have you been bothered by any of the following problems? 1. Little interest or pleasure in doing things: not at all 2. Feeling down, depressed, or hopeless: not at all 3. Trouble falling or staying asleep, or sleeping too much: not at all 4. Feeling tired or having little energy: not at all 5. Poor appetite or overeating: not at all 6. Feeling bad about yourself - or that you are a failure or have let yourself or your family down: not at all 7. Trouble concentrating on things, such as reading the newspaper or watching television: not at all 8. Moving or speaking so slowly that other people could have noticed. Or the opposite - being so fidgety or restless that you have been moving around a lot more than usual: not at all 9. Thoughts that you would be better off or of hurting yourself in some way: not at all Total score: 0 Depression Screening Interpretation: Negative Depression Screening Done: Yes 33272 - PHQ-9 Billing: Yes Source: Developed by Drs. Rishabh Stallworth, Kesha Madrid, Louis Tyler and colleagues, with an educational ritu from [employer]. Thrive Questionnaire Date Thrive assessed: 12/02/23 I am a: Patient What is your living situation today?: I have a steady place to live Within the past 12 months, did the food you bought not last and you didn't have the money to get more?: Never true Within the past 12 months, did you worry whether your food would run out before you got money to buy more?: Never true Do you have trouble paying for medicines?: No Do you have trouble getting transportation to medical appointments?: No Do you have trouble paying your heating and electricity bill?: No Do you have trouble taking care of your child, family member or friend?: No Do you have trouble with day-to-day activities such as bathing, preparing meals, shopping, managing finances, etc.?: No Are you currently unemployed and looking for a job?: No Are you interested in more education?: No Currently or been in a relationship where the following occur: no concerns reported THRIVE Score: 0 AUDIT C Alcohol Use Questionnaire (AUDIT-C) 1. How often do you have a drink containing alcohol?: Never Total Score: 0 Score Reviewed/Action Taken: Yes THOM-7 AMB Questionnaire THOM-7 Date THOM - 7 assessed: 12/02/23 Feeling nervous, anxious, or on edge: 0 = Not at all Not being able to stop or control worryin = Not at all Worrying too much about different things: 0 = Not at all Trouble relaxin = Not at all Being so restless that it is hard to sit still: 0 = Not at all Becoming easily annoyed or irritable: 0 = Not at all Feeling afraid as if something awful might happen: 0 = Not at all Total THOM-7 score (0-4 normal; 5-9 mild; 10-14 moderate; 15-21 severe): 0 Source: Developed by Drs. Rishabh Stallworth, Kesha Madrid, Louis Tyler and colleagues, with an educational ritu from [employer]. Review of Systems Const Denies chills, Reports difficulty sleeping (at times), Reports fatigue, Denies fever(s) and Denies headache(s) ENT Denies dysphagia, Denies dizziness, Denies otalgia, Denies headache(s), Denies odynophagia and Denies sore throat Card Denies chest pain, Denies palpitations and Reports dyspnea on exertion (mild) Resp Denies chest congestion, Denies cough, Reports dyspnea on exertion (mild) and Denies wheezing GI Denies abdominal pain, Denies constipation, Denies dysphagia, Denies heartburn, Denies diarrhea, Denies nausea, Denies odynophagia and Denies vomiting Denies dysuria, Denies nocturia and Denies urinary frequency Musc Reports back pain (over the lower back, chronic), Reports arthralgias (right shoulder), Reports muscle cramps (in both legs, worse at night) and Reports tingling (on and off, in both legs) Skin/Breast Denies rash Neuro Denies dizziness, Denies headache(s), Reports radicular pain (in both lower extremities), Reports restless legs and Reports tingling (on and off, in both legs) Psych Reports anxiety (better controlled on current Rx), Denies depression and Denies irritability Endo Reports fatigue and Denies palpitations Jefe/Lymph Details: increased swelling of both legs and feet for a few months now Aller/Immun Denies wheezing Physical exam (Primary Care) Vital Signs: Last Vital Signs Pulse 70 12/02/23 15:21 BP 120/70 12/02/23 15:21 Pulse Ox 95 12/02/23 15:21 Oxygen Delivery Method Room Air 12/02/23 15:21 BMI result Body Mass Index 23.4 Tobacco/Smoking Status: Tobacco use Status Tobacco use date assessed 07/29/23 12/02/23 15:27 Patient Tobacco Use Status Former Tobacco user 12/02/23 15:27 Tobacco use type Cigarette 12/02/23 15:27 e-Cigarette/Vaping Use Never Used 12/02/23 15:27 PHQ-9: PHQ-9 Score PHQ-9: Total score 0 12/02/23 15:56 Depression Screening Interpretation: Negative Thrive Assessment: Date of Thrive Assessment Date Thrive assessed 12/02/23 12/02/23 15:27 Currently or been in a relationship where the following occur: no concerns reported Const General: no acute distress and alert HENMT Throat: Yes posterior oropharynx normal and Yes tonsils normal (no TP congestion noted) Neck Neck: Yes no lymphadenopathy and Yes supple Resp Auscultation: clear to auscultation bilaterally, no rales and no wheezes Cardio Rate: regular rate Rhythm: regular rhythm Heart sounds: no murmurs GI Palpation (GI): Soft to palpation and nontender Auscultation: normal bowel sounds Back/Spine/Pelvis Thoracic/Lumbar Spine: lumbar spinal tenderness and straight leg raise positive Skin Rashes: no rashes Extrem General: No clubbing, No cyanosis and Yes edema (3+ bipedal edema) Assessment and Plan Assessment & Plan (1) Lumbar degenerative disc disease: Code(s): M51.36 - Other intervertebral disc degeneration, lumbar region Plan: Reinforced activity and weight-lifting restrictions Continue Celecoxib 200 mg QD PRN, Oxycodone-Acetaminophen 10-325 mg BID PRN and Tizanidine 4 mg Q HS PRN Patient has tried taking Gabapentin in the past but stopped due to frequent nightmares while on the medication;? also noted experiencing increasing leg cramps and pain when he was started back on Gabapentin Was also tried on Duloxetine 30 mg BID but was only taking it Q PM - states that he felt sedated, tired and too mellow while on the Rx and was advised to stop taking this after a while Lumbar spine x-rays last done in March 2020 revealed (+) prominent dextrocurvature and multilevel degenerative disc changes He had an MRI of the lumbar spine done back in 2008 that revealed multilevel bony and disc degenerative changes and osteophytic narrowing of the neural foramina at multiple levels with no focal disc herniation or spinal stenosis noted at that time; patient has not had MRI repeated since Repeat lumbar spine x-rays done back in March 2023 revealed (+) dextrorotoscoliosis with degenerative disc changes virtually at every disc level. No visible acute fracture or dislocation seen (2) Primary osteoarthritis of right shoulder: Code(s): M19.011 - Primary osteoarthritis, right shoulder Plan: States that his current meds, especially Celecoxib, help with his shoulder pain Was given a cortisone injection into his shoulder by Dr. Gerard a few months ago, which he states did not really help much Follow up with orthopedics at [facility] as scheduled (3) COPD (chronic obstructive pulmonary disease): Comment: HAS ADVANCED COPD, PFT C/W SEVERE OBSTRUCTIVE LUNG DISEASE, WITH POSITIVE RESPONSE TO BDs . TX : CONT. SPIRIVA RESPIMAT 2 INH DAILY IN AM CONT. TO USE ALBUTEROL (Proair)MDI 2 PUFFS Q 4-6 HRS PRN DUO NEB UDs Q 6 HRS W/A ( 4 TIMES A DAY ) PREDNISONE 10 MG ON ALT. DAYS . AZITHROMYCIN 250 MG PO ON ALT DAYS . Code(s): J44.9 - Chronic obstructive pulmonary disease, unspecified Qualifiers: COPD type: unspecified COPD Qualified Code(s): J44.9 - Chronic obstructive pulmonary disease, unspecified Plan: Recent work ups also revealed (+) moderate to severe pulmonary HTN Continue ProAir HFA 2 puffs 4 times a day as needed and Spiriva Respimat 2 inhalations QD; continue Prednisone 20 mg 1 to 2 tablets per week, no more than 7 tablets per month Follow up with [place] [facility] [place] (4) DORADO (dyspnea on exertion): Comment: DUE TO COMBINATION OF HIS ADVANCED COPD AND CARDIAC CONDITION. PATIENT UNDERSTANDS WELL. Code(s): R06.00 - Dyspnea, unspecified Plan: Recent echocardiogram revealed (+) moderate to severe pulmonary hypertension and this, together with his advanced COPD, are most likely the main reasons for his DORADO and easy fatigability Patient recently underwent cardiac catheterization for further evaluation - coronary angiogram revealed no significant CAD (5) Bilateral lower extremity edema: Code(s): R60.0 - Localized edema Plan: Patient is advised that lower extremity edema is common in patients with advanced COPD and that this is most likely due to pulmonary hypertension (or cor pulmonale), as revealed in his recent echocardiogram He is scheduled to see cardiology in January 2024 for his cardiology follow up and should have cardiology look into this further For now, will go ahead and start him on Furosemide 20 mg Q AM Patient is advised to call if he does not experience any improvement at all of his symptoms in a few months Discussed that his Amlodipine 10 mg may also be contributing to this but I will leave it up to cardiology to determine if this needs to be addressed or not (6) Benign essential hypertension: Code(s): I10 - Essential (primary) hypertension Plan: Reinforced low sodium diet - goal is systolic BP of at least 130 to 140 mm or less Continue Amlodipine 10 mg QD (7) Acquired hypothyroidism: Code(s): E03.9 - Hypothyroidism, unspecified Plan: Continue Levothyroxine 137 mcg QD Will recheck his labs in 4 months for follow up (8) GERD (gastroesophageal reflux disease): Code(s): K21.9 - Gastro-esophageal reflux disease without esophagitis Qualifiers: Esophagitis presence: without esophagitis Qualified Code(s): K21.9 - Gastro-esophageal reflux disease without esophagitis Plan: Dietary restrictions reinforced Continue Omeprazole 20 mg QD (9) Restless leg syndrome: Comment: IS A CHRONIC PROBLEM CONTROLLED WITH ROPINIROLE 1 MG Q 6 HOURS P.R.N. Code(s): G25.81 - Restless legs syndrome Plan: Continue Pramipexole 1 mg TID PRN Was on Ropinirole 1 mg every 6 hours but it was no longer helping He was referred to and was seen by neurology a few months ago, who cut down his Ropinirole to 1 mg QHS and he was reportedly advised that there is really no effective cure for RLS and taking Rx at higher doses can actually be more counterproductive Follow up with neurology as scheduled (10) Benign prostatic hyperplasia: Code(s): N40.0 - Benign prostatic hyperplasia without lower urinary tract symptoms Qualifiers: Lower urinary tract symptom detail: urinary frequency Lower urinary tract symptom presence: symptoms present Qualified Code(s): N40.1 - Benign prostatic hyperplasia with lower urinary tract symptoms; R35.0 - Frequency of micturition Plan: Continue Tamsulosin 0.4 mg Q HS Follow up with urology as scheduled (11) Mood disorder: Code(s): F39 - Unspecified mood [affective] disorder Plan: Most likely due to frustrations regarding his physical condition and partly due to anxiety and some depression States that he has been feeling better since he was started on Sertaline a few months ago Continue Sertraline 100 mg QD Plan Follow up in 4 months Orders: Orders Comprehensive [place]. Panel Fast 4 Months E78.00 - Pure hypercholesterolemia, unspecified UA CC w/rflx Micro + Cult 4 Months R30.0 - Dysuria Thyroid Stimulating Hormone 4 Months E03.9 - Hypothyroidism, unspecified B Type Natriuretic Peptide 4 Months I50.9 - Heart failure, unspecified Complete Blood Count Auto Diff 4 Months D64.9 - Anemia, unspecified Lipid Panel 4 Months E78.00 - Pure hypercholesterolemia, unspecified Free T4 (Free Thyroxine) 4 Months E03.9 - Hypothyroidism, unspecified Vitamin D 25-OH Total 4 Months E55.9 - Vitamin D deficiency, unspecified Medications: New furosemide 20 mg PO QAM 30 days 30 tabs 2RF edema Review Flu Vaccine not done: system reason Coding Level of Care Code Est Pt Level 4 (60642) Diagnoses Lumbar degenerative disc disease M51.36 Primary osteoarthritis of right shoulder M19.011 Chronic obstructive pulmonary disease, unspecified COPD type J44.9 COPD type: unspecified COPD DORADO (dyspnea on exertion) R06.00 Bilateral lower extremity edema R60.0 Benign essential hypertension I10 Acquired hypothyroidism E03.9 Gastroesophageal reflux disease without esophagitis K21.9 Esophagitis presence: without esophagitis Restless leg syndrome G25.81 Benign prostatic hyperplasia with urinary frequency N40.1; R35.0 Lower urinary tract symptom detail: urinary frequency Lower urinary tract symptom presence: symptoms present Mood disorder F39
== END 2023-12-02 16:15 | disposition home or self-care (01) ==
PROVIDERS: PCP Internal Medicine; Visit Provider Internal Medicine
DX: J44.9 Chronic obstructive pulmonary disease, unspecified (principal); F39 Unspecified mood [affective] disorder; M51.36 Other intervertebral disc degeneration, lumbar region; M19.011 Primary osteoarthritis, right shoulder; R06.00 Dyspnea, unspecified; R60.0 Localized edema; I10 Essential (primary) hypertension; E03.9 Hypothyroidism, unspecified; K21.9 Gastro-esophageal reflux disease without esophagitis; G25.81 Restless legs syndrome; N40.1 Benign prostatic hyperplasia with lower urinary tract symptoms; R35.0 Frequency of micturition
CPT/HCPCS: 99214

== ENCOUNTER 2024-01-03 15:07 | Outpatient (AMB) | payer MEDICARE, SELFPAY ==
--- NOTE | 2024-01-03 15:12 | A.OFFVIS_ITS ---
Intake Vital Signs 01/03/24 15:13 Height 5 ft 11 in Weight 159 lb 13.362 oz BMI 22.3 BP 120/70 Blood Pressure Location Lt brachial Position Sitting Pulse 78 Pulse Source Pulse Oximeter Pulse Oximetry (%) 98 Oxygen Delivery Method Room Air Intake Visit Reasons: copd Intake Note: pt is here for follow up and states still good days and bad days. using oxygen when he needs it, past 6-7 weeks feels like he has a sinus issue / things sound muffled, and face is full. Set Up And Charger Required: No Allergies levofloxacin Adverse Reaction (Severe, Verified 01/03/24 15:39) tendon rupture aspirin Adverse Reaction (Unknown, Verified 01/03/24 15:39) stomach upset, stomach nicole Medication List - Last Reconciled 01/03/24 by Ridge French MD albuterol sulfate 90 mcg/actuation 2 puffs inhalation Q6H PRN amlodipine 10 mg PO DAILY aspirin (Adult Aspirin Regimen) 81 mg PO DAILY azithromycin 250 mg PO .on alternate days 28 days buspirone 5 mg PO BID 30 days celecoxib 200 mg PO DAILY cholecalciferol (vitamin D3) 50 mcg PO DAILY dextromethorphan-guaifenesin 30-600 mg (Mucinex DM) 1 tab PO Q12H PRN finasteride 5 mg orally M,W,F; Take Tuesday, Tuesday, Tuesday 90 days furosemide 40 mg PO QAM 30 days ipratropium-albuterol 0.5 mg-3 mg(2.5 mg base)/3 mL 3 mL inhalation Q6H PRN levothyroxine 137 mcg PO DAILY 90 days montelukast 10 mg PO DAILY omeprazole 20 mg PO QAM oxycodone-acetaminophen 10-325 mg 1 tab PO BID PRN 30 days pramipexole 1 mg PO TID PRN 30 days prednisone 10 mg PO Q OTHER DAY tiotropium bromide 2.5 mcg/actuation (Spiriva Respimat) 2 inhalations inhalation DAILY tizanidine 4 mg PO BEDTIME PRN 30 days Do you need a note to return to daycare/school/sports/work: No HPI copd HPI Details Sami is here today for follow-up after 2 months. He has had. No acute Respiratory infection in the last 2 months His main complaint is getting short of breath on minimal exertion, so he can not do much work during the daytime. He has intermittent cough which is mostly dry. He is on maximum. medical treatment for his COPD He does have O2 at home for nighttime use. But has been using it only as needed. He say is even if he keeps the oxygen on whole night it does not make a difference for daytime activities. He very much likes to portable oxygen if he can qualify for that. [facility]LY [facility] Medical History Lung density on x-ray COPD exacerbation Depression GERD (gastroesophageal reflux disease) Pulmonary hypertension Benign essential hypertension Screening for diabetes mellitus Tachycardia Benign prostatic hyperplasia Restless leg syndrome Primary osteoarthritis of right shoulder Lumbar degenerative disc disease Anxiety Acquired hypothyroidism Dyspnea on exertion Bronchitis Fatigue COPD (chronic obstructive pulmonary disease) Surgical History History of foot surgery History of cardiac catheterization (~12/29/21) History of colonoscopy Family History Father No problems noted. 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 technology professional 80% of hearing loss would like to get hearing aids.) Vision needs: No Review of Systems Const All systems reviewed & are unremarkable except as noted in HPI and below Eyes Reports no additional complaints ENT Reports no additional complaints Card Denies chest pain, Denies irregular heart rhythm and Denies leg edema Resp Reports as per HPI GI Reports no additional complaints Reports no additional complaints Musc Reports back pain Skin/Breast Reports system reviewed and no additional complaints, except as documented Neuro Reports no additional complaints Psych Reports no additional complaints Physical Exam Vital Signs: Last Vital Signs Pulse 78 01/03/24 15:13 BP 120/70 01/03/24 15:13 Pulse Ox 98 01/03/24 15:13 Oxygen Delivery Method Room Air 01/03/24 15:13 BMI result Body Mass Index 22.3 Const Other: He is of a thin build, with slightly hunched back, and walks with a cane. General: comfortable, no acute distress, alert and awake Orientation/consciousness: patient oriented x3 HEENT Head: Yes normal to inspection General nose exam: No nasal polyps present and No nasal discharge present Face and sinus: Yes sinuses nontender Mouth: oropharynx normal Throat: Yes posterior oropharynx normal Eyes General: appearance normal, both eyes and all related structures Neck Neck: Yes normal visual inspection, Yes no lymphadenopathy, Yes trachea midline and Yes no JVD Thyroid: Thyroid normal Chest Chest palpation & inspection: abnormal inspection of the chest (Extensive scar over the left lower chest from previous surgery), normal palpation of entire chest wall and no tenderness Resp Other: Percussion note is resonant, breath sounds are distant with prolonged expiratory phase. LUNGS ARE CLEAR AND NO WHEEZES OR CREPITATIONS ARE HEARD TODAY.. Cardio Palpation: normal PMI Rate: regular rate Rhythm: regular rhythm Heart sounds: no gallops and no murmurs GI Palpation (GI): Soft to palpation, nontender, No hepatosplenomegaly present and no masses Auscultation: normal bowel sounds Back/Spine/Pelvis Thoracic/Lumbar Spine: thoracic and lumbar spine normal to inspection, thoraco- lumbar ROM limited and thoraco-lumbar spasm Skin General skin exam: no rashes or lesions noted Neuro General: patient oriented x3 and no focal motor deficits Cranial nerves: Yes CN's II-XII intact bilaterally Extrem General: Yes normal to inspection, Yes no clubbing, cyanosis or edema and Yes no calf tenderness Psych Appearance: grossly normal and well kempt Speech and movement: Normal speech and movement present Office Procedures 6 Minute Walk Time:: 15:40 SPO2 % at rest: 94 Pulse at rest: 88 SPO2 % during excercise: 91 Pulse during excercise: 131 (HR briefly up to 131, recovered to 92 with a short rest ) SPO2 % after excercise: 94 Pulse after excercise: 92 Distance in yards walked: 180 Ed Score: 8 Performance Observations:: Sami walked on level ground with the assistance of a cane in his R hand, he walked on room air the entire walk. He maintained his SPO2 91-94%, no supplemental O2 needed. [id number] - 6 Minute Walk Results Reviewed Results Reviewed: 6 minutes walk test . The lowest O2 sat was 91% He does develop the tachycardia when walking, Assessment & Plan Assessment & Plan (1) COPD (chronic obstructive pulmonary disease): Comment: HAS ADVANCED COPD, PFT C/W SEVERE OBSTRUCTIVE LUNG DISEASE, WITH POSITIVE RESPONSE TO BDs . Code(s): J44.9 - Chronic obstructive pulmonary disease, unspecified Qualifiers: COPD type: unspecified COPD Qualified Code(s): J44.9 - Chronic obstructive pulmonary disease, unspecified Plan: TX : AZITHROMYCIN 250 MG PO ON ALT DAYS . TX : CONT. SPIRIVA RESPIMAT 2 INH DAILY IN AM CONT. TO USE ALBUTEROL (Proair)MDI 2 PUFFS Q 4-6 HRS PRN DUO NEB UDs Q 6 HRS W/A ( 4 TIMES A DAY ) PREDNISONE 10 MG ON ALT. DAYS . (2) DORADO (dyspnea on exertion): Comment: DUE TO COMBINATION OF HIS ADVANCED COPD AND CARDIAC CONDITION. PATIENT UNDERSTANDS WELL. Code(s): R06.00 - Dyspnea, unspecified Plan: Explained that he does not qualify for portable oxygen, Walk slowly when outdoors, . Take your time A few had to go to the mall then may use electric cart . (3) Pulmonary hypertension: Comment: SEC TO RT HEART DYSFUNCTION ,, AND COPD . Code(s): I27.20 - Pulmonary hypertension, unspecified Plan: CONT TX OF COPD . use o2 2l/mt at night Orders: Orders AMB 6 minute walk Today J44.9 - Chronic obstructive pulmonary disease, unspecified Coding Level of Care Code Est Pt Level 3 (46307) Diagnoses Chronic obstructive pulmonary disease, unspecified COPD type J44.9 COPD type: unspecified COPD DORADO (dyspnea on exertion) R06.00 Pulmonary hypertension I27.20 CPT Codes Coding ([id number])
[2024-01-03 15:13] VITALS: BP 120/70; PULSE 78; O2SAT 98; BMI 22.3
[2024-01-03 15:50] VITALS: PULSE 88; O2SAT 94
== END 2024-01-03 15:53 | disposition home or self-care (01) ==
PROVIDERS: PCP Internal Medicine; Visit Provider Internal Medicine
DX: J44.9 Chronic obstructive pulmonary disease, unspecified (principal); R06.00 Dyspnea, unspecified; I27.20 Pulmonary hypertension, unspecified
CPT/HCPCS: 94618; 99213

== ENCOUNTER → 2024-01-03 15:07 | Outpatient (BNVA) | payer MEDICARE, SELFPAY | PROVIDERS: PCP Internal Medicine; Visit Provider Internal Medicine | DX: J44.9 Chronic obstructive pulmonary disease, unspecified (principal); R06.00 Dyspnea, unspecified; I27.20 Pulmonary hypertension, unspecified | CPT/HCPCS: 94618; 99212 ==

== ENCOUNTER 2024-01-10 10:22 | Outpatient (REF) | payer MEDICARE, SELFPAY ==
[2024-01-10 13:18] LABS: MANUAL DIFF FLAG NO
[2024-01-10 13:35] LABS: Basophils Absolute Auto 0.1 X10*3/uL (0.0-0.2); Basophils Percent Auto 0.7 % (0-2); Eosinophils Absolute Auto 0.3 X10*3/uL (0.0-0.4); Eosinophils Percent Auto 2.8 % (0-4); Hematocrit 38.6 % (42.0-52.0); Imm Gran Abs Auto 0.03 X10*3/uL (0.00-0.03); Imm Gran Pct Auto 0.3 % (0.0-0.4); Lymphocytes Absolute Auto 3.1 X10*3/uL (1.2-4.9); Lymphocytes Percent Auto 32.8 % (20-40); Mean Corpuscular HGB Conc 33.7 g/dl (31.0-36.0); Mean Corpuscular Hemoglobin 30.7 pg (27.0-33.0); Mean Corpuscular Volume 91.3 fL (80.0-98.0); Mean Platelet Volume 9.3 fL (9.4-12.4); Monocytes Percent Auto 10.4 % (2-11); Neutrophils Absolute Auto 5.1 x10*3/uL (2.0-8.3); Platelet Count 320 X10*3/uL (160-400); Red Blood Count 4.23 X10*6/uL (4.60-5.80); Red Cell Distribution Width 12.7 % (11.0-16.0); White Blood Count 9.6 X10*3/uL (4.8-10.8)
[2024-01-10 13:56] LABS: Alanine Aminotransferase 18 U/L (0-40); Alkaline Phosphatase 52 U/L (39-117); Anion Gap 10 (12-20); Aspartate Amino Transferase 23 U/L (5-37); Bilirubin Total 1.1 mg/dL (0.0-1.0); Blood Urea Nitrogen 16 mg/dL (9-16); Calcium 9.3 mg/dL (8.4-10.2); Carbon Dioxide 32 mmol/L (22-29); Chloride 96 mmol/L (96-108); Estimated Glomerular Filt Rate > 60; Glucose Random 87 mg/dL (60-115); Potassium 3.4 mmol/L (3.3-5.1); Sodium 135 mmol/L (135-145); TSH reflex Free T4 0.64 uIU/mL (0.32-4.0); Total Protein 6.9 g/dL (6.5-8.0)
[2024-01-10 14:15] LABS: B Type Natriuretic Peptide 66 pg/mL (<100)
== END 2024-01-10 10:23 | disposition home or self-care (01) ==
LOC: HO.HMGCLDS 10:22
PROVIDERS: PCP Internal Medicine; Visit Provider Internal Medicine
DX: R60.0 Localized edema (principal)
CPT/HCPCS: 36415; 80053; 83880; 84443; 85025

== ENCOUNTER 2024-02-15 14:15 | Outpatient (AMB) | payer MEDICARE, SELFPAY ==
[2024-02-15 14:19] VITALS: BP 134/72; PULSE 95; O2SAT 95; BMI 22.1
--- NOTE | 2024-02-15 14:19 | A.OFFVIS_ITS ---
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 Accompanied by: Spouse Allergies levofloxacin Adverse Reaction (Severe, Verified 01/03/24 15:39) tendon rupture aspirin Adverse Reaction (Unknown, Verified 01/03/24 15:39) stomach upset, stomach nicole Medication List - Last Reconciled 02/15/24 by Oren Liz MD albuterol sulfate 90 mcg/actuation 2 puffs inhalation Q6H PRN amlodipine 10 mg PO DAILY aspirin (Adult Aspirin Regimen) 81 mg PO DAILY azithromycin 250 mg PO .on alternate days 28 days bumetanide 1 mg PO DAILY PRN buspirone 5 mg PO BID 30 days celecoxib 200 mg PO DAILY cholecalciferol (vitamin D3) 50 mcg PO DAILY dextromethorphan-guaifenesin 30-600 mg (Mucinex DM) 1 tab PO Q12H PRN finasteride 5 mg orally M,W,F; Take Tuesday, Tuesday, Tuesday 90 days ipratropium-albuterol 0.5 mg-3 mg(2.5 mg base)/3 mL 3 mL inhalation Q6H PRN levothyroxine 137 mcg PO DAILY 90 days montelukast 10 mg PO DAILY omeprazole 20 mg PO QAM oxycodone-acetaminophen 10-325 mg 1 tab PO BID PRN 30 days pramipexole 1 mg PO TID PRN 30 days prednisone 10 mg PO Q OTHER DAY tiotropium bromide 2.5 mcg/actuation (Spiriva Respimat) 2 inhalations inhalation DAILY tizanidine 4 mg PO BEDTIME PRN 30 days HPI HPI Comments History of Present Illness Details 78-year-old gentleman here for follow-up . He has background history of COPD. Main complaint has been dyspnea on exertion. His echocardiography showed RV dysfunction with moderate to severe pulmonary hypertension with pulmonary artery systolic pressure 55 mm Hg. For his dyspnea on exertion he underwent stress testing which was equivocal because he stops quite quickly on the treadmill. After discussion we took him for left and right heart cath. His filling pressures at rest were normal. He had 60% RCA stenosis which was normal with iFR/FFR assessment. On follow-up he was doing well. 02/15/24: He returns for follow-up. He h as been more short of breath over the last year. He is a former smoker and has COPD. He also has back pain and is quite limited due to that. Overall appears to be quite deconditioned but is complaining that his shortness of breath is worse than before. FOR[facility]LY [facility] Medical History Lung density on x-ray COPD exacerbation Depression GERD (gastroesophageal reflux disease) Pulmonary hypertension Benign essential hypertension Screening for diabetes mellitus Tachycardia Benign prostatic hyperplasia Restless leg syndrome Primary osteoarthritis of right shoulder Lumbar degenerative disc disease Anxiety Acquired hypothyroidism Dyspnea on exertion Bronchitis Fatigue COPD (chronic obstructive pulmonary disease) Surgical History History of foot surgery History of cardiac catheterization (~12/29/21) History of colonoscopy Family History Father No problems noted. 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 dean of admissions 80% of hearing loss would like to get hearing aids.) Vision needs: No Review of Systems Const Denies chills, Denies fatigue, Denies fever(s), Denies frequent falls, Denies weakness, Denies weight gain and Denies weight loss ENT Denies dizziness Card Denies chest pain, Denies leg edema, Denies lightheadedness, Denies palpitations, Denies dyspnea and Denies dyspnea on exertion Resp Denies cough, Denies dyspnea and Denies dyspnea on exertion GI Denies hematochezia Musc Denies abnormal gait, Denies muscle weakness, Denies numbness, Denies radiating pain into limb and Denies tingling Neuro Denies abnormal gait, Denies dizziness, Denies frequent falls, Denies numbness, Denies tingling and Denies weakness Endo Denies fatigue and Denies palpitations Physical Exam Vital Signs: Last Vital Signs Pulse 95 02/15/24 14:19 BP 134/72 02/15/24 14:19 Pulse Ox 95 02/15/24 14:19 BMI result Body Mass Index 22.1 GENERAL APPEARANCE: in no acute distress, pleasant. NECK: no carotid bruit, no jugular venous distention. SKIN: no suspicious lesions, warm and dry. HEART: no murmurs, regular rate and rhythm. LUNGS: clear to auscultation bilaterally. ABDOMEN: soft, nontender. EXTREMITIES: no edema. PERIPHERAL PULSES: equal. NEUROLOGIC: No gross deficits, AAO X 3. Office Procedures EKG Details: Sinus rhythm 95 beats per minute, normal axis, otherwise normal EKG, QTC 447 milliseconds. [id number], Complete Assessment & Plan Assessment & Plan (1) Bilateral lower extremity edema: Code(s): R60.0 - Localized edema (2) Pulmonary hypertension: Code(s): I27.20 - Pulmonary hypertension, unspecified (3) Dyspnea on exertion: Comment: Code(s): R06.00 - Dyspnea, unspecified Plan 78-year-old gentleman who is here for follow-up. He has background history of COPD and moderate right coronary artery stenosis. He also has moderate to severe pulmonary hypertension with PASP of 55 mm Hg on last echocardiography. He is back and is has more shortness of breath than before. He appears quite symptomatic. He has low back pain which is a chronic issue for him and is definitely affecting his mobility. I think his dyspnea is multifactorial probably due to underlying lung disease and deconditioning. Pulmonary hypertension is playing a role in this and I think we should reassess his PA pressures with echocardiography. If in fact his PA pressures are worse or he has RV dysfunction then he may need oxygen therapy in the future. He supposed to use oxygen at night time but he occasionally uses it. I have advised him to use oxygen at night regularly. We will arrange echocardiography. He will benefit from pulmonary rehab in addition. LE edema but no obvious JVD or CHF currently. This is probably due to amlodipine. Thank you for allowing me to participate in the care of your patient. Please feel free to contact me if you have any questions. Orders: Orders CA echo transthorac w con Today I27.20 - Pulmonary hypertension, unspecified Coding Level of Care Code Est Pt Level 4 (46744) Diagnoses Bilateral lower extremity edema R60.0 Pulmonary hypertension I27.20 Dyspnea on exertion R06.00 CPT Codes EKG - CPT: 14786-[id number], Complete ([id number])
== END 2024-02-15 15:02 | disposition home or self-care (01) ==
PROVIDERS: PCP Internal Medicine; Visit Provider Internal Medicine Cardiovascular Disease
DX: R60.0 Localized edema (principal); I27.20 Pulmonary hypertension, unspecified; R06.00 Dyspnea, unspecified
CPT/HCPCS: 93010; 99214

== ENCOUNTER → 2024-02-15 14:15 | Outpatient (BNVA) | payer MEDICARE, SELFPAY | PROVIDERS: PCP Internal Medicine; Visit Provider Internal Medicine Cardiovascular Disease | DX: I27.20 Pulmonary hypertension, unspecified (principal); J44.1 Chronic obstructive pulmonary disease with (acute) exacerbation; R06.00 Dyspnea, unspecified; R60.0 Localized edema | CPT/HCPCS: 93005; 99212 ==

== ENCOUNTER 2024-03-06 15:09 | Outpatient (AMB) | payer MEDICARE, SELFPAY ==
[2024-03-06 15:35] VITALS: BP 120/62; PULSE 75; O2SAT 94; BMI 22.1
--- NOTE | 2024-03-06 15:35 | A.OFFVIS_ITS ---
Vital Signs 03/06/24 15:35 Height 5 ft 11 in Weight 158 lb 11.725 oz BMI 22.1 BP 120/62 Blood Pressure Location Lt brachial Position Sitting Pulse 75 Pulse Source Pulse Oximeter Pulse Oximetry (%) 94 Oxygen Delivery Method Room Air Intake Visit Reasons: COPD Intake Note: pt is here for follow up and states he is doing about the same with up and down oxygen levels, did nebulizer right before he came over. 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 Allergies levofloxacin Adverse Reaction (Severe, Verified 03/06/24 16:17) tendon rupture aspirin Adverse Reaction (Unknown, Verified 03/06/24 16:17) stomach upset, stomach nicole Medication List - Last Reconciled 03/06/24 by Ridge French MD albuterol sulfate 90 mcg/actuation 2 puffs inhalation Q6H PRN amlodipine 10 mg PO DAILY aspirin (Adult Aspirin Regimen) 81 mg PO DAILY azithromycin 250 mg PO Q OTHER DAY bumetanide 1 mg PO DAILY PRN buspirone 5 mg PO BID 30 days celecoxib 200 mg PO DAILY cholecalciferol (vitamin D3) 50 mcg PO DAILY dextromethorphan-guaifenesin 30-600 mg (Mucinex DM) 1 tab PO Q12H PRN finasteride 5 mg orally M,W,F; Take Tuesday, Tuesday, Tuesday 90 days ipratropium-albuterol 0.5 mg-3 mg(2.5 mg base)/3 mL 3 mL inhalation Q6H PRN levothyroxine 137 mcg PO DAILY 90 days montelukast 10 mg PO DAILY omeprazole 20 mg PO QAM oxycodone-acetaminophen 10-325 mg 1 tab PO BID PRN 30 days pramipexole 1 mg PO TID PRN 30 days prednisone 10 mg PO Q OTHER DAY tiotropium bromide 2.5 mcg/actuation (Spiriva Respimat) 2 inhalations inhalation DAILY tizanidine 4 mg PO BEDTIME PRN 30 days Do you need a note to return to daycare/school/sports/work: No HPI HPI COPD: Details: TIERA IS COMING AFTER 2 MONTHS FOR FOLLOW-UP. HE HAS REMAINED VERY STABLE IN THE LAST 2 MONTHS WITHOUT ANY RESPIRATORY INFECTION OR. ACUTE EXACERBATION HE DID NOT HAVE TO USE ANY EXTRA DOES OF PREDNISONE. HE WAS ABLE TO GET OUT AND MOWS HIS LAWN A FEW DAYS AGO. OF COURSE HE GETS SHORT OF BREATH AND THEN, HE HAS TO USE OXYGEN FOR A SHORT PERIOD. HE DOES USE OXYGEN 2 L/MINUTE AT NIGHT. HE IS DOING WELL WITH HIS CURRENT MEDICAL REGIMEN. PENDING SALE TO [facility] Medical History Lung density on x-ray COPD exacerbation Depression GERD (gastroesophageal reflux disease) Pulmonary hypertension Benign essential hypertension Screening for diabetes mellitus Tachycardia Benign prostatic hyperplasia Restless leg syndrome Primary osteoarthritis of right shoulder Lumbar degenerative disc disease Anxiety Acquired hypothyroidism Dyspnea on exertion Bronchitis Fatigue COPD (chronic obstructive pulmonary disease) Surgical History History of foot surgery History of cardiac catheterization (~12/29/21) History of colonoscopy Family History Father No problems noted. 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 fill technician 80% of hearing loss would like to get hearing aids.) Vision needs: No Review of Systems Const All systems reviewed & are unremarkable except as noted in HPI and below Eyes Reports no additional complaints ENT Reports no additional complaints Card Denies chest pain, Denies irregular heart rhythm and Denies leg edema Resp Reports as per HPI GI Reports no additional complaints Reports no additional complaints Musc Reports back pain Skin/Breast Reports system reviewed and no additional complaints, except as documented Neuro Reports no additional complaints Psych Reports no additional complaints Physical Exam Vital Signs: Last Vital Signs Pulse 75 03/06/24 15:35 BP 120/62 03/06/24 15:35 Pulse Ox 94 03/06/24 15:35 Oxygen Delivery Method Room Air 03/06/24 15:35 BMI result Body Mass Index 22.1 Const Other: He is of a thin build, with slightly hunched back, and walks with a cane. General: comfortable, no acute distress, alert and awake Orientation/consciousness: patient oriented x3 HEENT Head: Yes normal to inspection General nose exam: No nasal polyps present and No nasal discharge present Face and sinus: Yes sinuses nontender Mouth: oropharynx normal Throat: Yes posterior oropharynx normal Eyes General: appearance normal, both eyes and all related structures Neck Neck: Yes normal visual inspection, Yes no lymphadenopathy, Yes trachea midline and Yes no JVD Thyroid: Thyroid normal Chest Chest palpation & inspection: abnormal inspection of the chest (Extensive scar over the left lower chest from previous surgery), normal palpation of entire chest wall and no tenderness Resp Other: Percussion note is resonant, breath sounds are distant with prolonged expiratory phase. LUNGS ARE CLEAR AND NO WHEEZES OR CREPITATIONS ARE HEARD TODAY.. Cardio Palpation: normal PMI Rate: regular rate Rhythm: regular rhythm Heart sounds: no gallops and no murmurs GI Palpation (GI): Soft to palpation, nontender, No hepatosplenomegaly present and no masses Auscultation: normal bowel sounds Back/Spine/Pelvis Thoracic/Lumbar Spine: thoracic and lumbar spine normal to inspection, thoraco- lumbar ROM limited and thoraco-lumbar spasm Skin General skin exam: no rashes or lesions noted Neuro General: patient oriented x3 and no focal motor deficits Cranial nerves: Yes CN's II-XII intact bilaterally Extrem General: Yes normal to inspection, Yes no clubbing, cyanosis or edema and Yes no calf tenderness Psych Appearance: grossly normal and well kempt Speech and movement: Normal speech and movement present Assessment & Plan Assessment & Plan (1) COPD (chronic obstructive pulmonary disease): Comment: HAS ADVANCED COPD, PFT C/W SEVERE OBSTRUCTIVE LUNG DISEASE, WITH POSITIVE RESPONSE TO BDs . Code(s): J44.9 - Chronic obstructive pulmonary disease, unspecified Category: Medical Qualifiers: COPD type: unspecified COPD Qualified Code(s): J44.9 - Chronic obstructive pulmonary disease, unspecified Plan: CONTINUE THE PRESENT REGIMEN WHICH IS FOLLOWS ; DUONEB UPDRAFT Q 6 HOURS P.R.N. MONTELUKAST 10 MG DAILY PREDNISONE 10 MG ON ALTERNATE DAYS SPIRIVA RESPIMAT 2 INHALATIONS DAILY PROAIR 2 PUFFS Q 4-6 HOURS P.R.N. WHEN OUTDOORS (2) Restless leg syndrome: Comment: IS A CHRONIC PROBLEM CONTROLLED WITH ROPINIROLE 1 MG Q 6 HOURS P.R.N. Code(s): G25.81 - Restless legs syndrome Category: Medical Plan: PREMPEXOLE 1 MG T.I.D. P.R.N. (3) DORADO (dyspnea on exertion): Comment: DUE TO COMBINATION OF HIS ADVANCED COPD AND CARDIAC CONDITION. PATIENT UNDERSTANDS WELL. Code(s): R06.00 - Dyspnea, unspecified Category: Medical Plan: HAD A GOOD DISCUSSION WITH HIM AND HE UNDERSTANDS VERY WELL. Medications: Refilled albuterol sulfate 90 mcg/actuation 2 puffs inhalation Q6H PRN 25.5 grams 3RF for wheezing Coding Level of Care Code Est Pt Level 3 (51144) Diagnoses Chronic obstructive pulmonary disease, unspecified COPD type J44.9 COPD type: unspecified COPD Restless leg syndrome G25.81 DORADO (dyspnea on exertion) R06.00
== END 2024-03-06 16:18 | disposition home or self-care (01) ==
PROVIDERS: PCP Internal Medicine; Visit Provider Internal Medicine
DX: J44.9 Chronic obstructive pulmonary disease, unspecified (principal); G25.81 Restless legs syndrome; R06.00 Dyspnea, unspecified
CPT/HCPCS: 99213

== ENCOUNTER → 2024-03-06 15:09 | Outpatient (BNVA) | payer MEDICARE, SELFPAY | PROVIDERS: PCP Internal Medicine; Visit Provider Internal Medicine | DX: J44.9 Chronic obstructive pulmonary disease, unspecified (principal); G25.81 Restless legs syndrome; R06.00 Dyspnea, unspecified; Z99.81 Dependence on supplemental oxygen | CPT/HCPCS: 99212 ==

== ENCOUNTER → 2024-03-15 10:42 | Outpatient (REF) | payer MEDICARE, SELFPAY ==
--- NOTE | 2024-03-15 10:45 | CA_ITS ---
Transthoracic Echocardiogram Patient (Last, First, Middle): Sami Levi, Gender: Male Date of : 1945 Age: 78 Procedure Date: 03/15/2024 Procedure Type: Transthoracic Echocardiogram Location: OP Height: 177.8 cm Weight: 68.95 kg BSA: 1.86 m2 Heart Rate: 67 bpm BP: 138 / 68 mmHg Furrier Designer: TO Referring MD: Oren Liz MD Cloud Systems Architect: Oren Liz MD Symptoms: I27.20 - Pulmonary hypertension, unspecified Study Quality: Fair ECG Rhythm: Sinus Conclusions: - The left ventricular systolic function is normal. The calculated ejection fraction is 61% by biplane method. - Moderately increased right ventricular cavity size. - There is moderate mitral annular calcification. - Mild pulmonary hypertension is present. Findings Left Ventricle Normal left ventricular cavity size. There is normal left ventricular wall thickness. The left ventricular systolic function is normal. The calculated ejection fraction is 61% by biplane method. There is no evidence of regional wall motion abnormalities. Diastolic function is normal for age. Right Ventricle Moderately increased right ventricular cavity size. There is normal right ventricular systolic function. Atria Mild biatrial enlargement. Aortic Valve There is a normal trileaflet aortic valve. There is mild calcification of the aortic valve. There is no aortic valve stenosis. Trace to mild aortic regurgitation. Mitral Valve There is moderate mitral annular calcification. There is no mitral valve regurgitation. There is no mitral valve stenosis. Pulmonic Valve There is trace pulmonic valve regurgitation. Tricuspid Valve Normal tricuspid valve structure. There is mild tricuspid valve regurgitation. Mild pulmonary hypertension is present. Great Vessels The asc aorta is normal in size. Venous The inferior vena cava is dilated and collapses greater than 50% with inspiration. Pericardium/Pleural There is no evidence of pericardial effusion. Prior Study Comparison No significant change compared to prior study dated: 12/14/2021. Measurements 2D Linear Measurements IVSd: 0.98 0.6-0.9/0.6-1.0 cm LVIDd: 4.77 3.9-5.3/4.2-5.9 cm LVIDd Index: 2.56 2.4-3.2/2.2-3.1 cm/m2 LVIDs: 3.20 2.0-3.6 cm LVPWd: 0.93 0.7-1.1 cm LA Diam: 3.70 2.7-3.8/3.0-4.0 cm LAIDs Index: 1.99 1.5-2.3 cm/m2 LV Mass: 196.43 67-162/88-224 g LV Mass Index: 105.61 43-95/49-115 g/m2 LVOT Diam: 2.60 3.0+(-)1.3 cm 2D Systolic Function EF 4C: 58.40 >55% EF 2C: 62.70 >55% EF BiP: 60.70 >55% Mitral Valve MV VTI: 0.41 MV Pk Rojas: 1.03 MV Mn Rojas: 0.49 MV Pk Grad: 4.00 MV Mn Grad: 1.00 MV Pk E: 0.79 MV PK A: 0.87 MV Decel Time: 245.00 E/A: 0.90 E'Lateral: 8.59 E'Medial: 5.98 E/E' Med: 13.30 E/E' Lat: 9.20 PHT: 72.00 MVA PHT: 3.06 MVA Continuity: 3.86 Decel Floyd: 3.23 Aortic Valve AoV Pk Rojas: 1.39 AoV Mn Rojas: 0.91 AoV VTI: 0.31 AoV Pk Grad: 8.00 Aov Mn Grad: 4.00 REMI Cont.VTI: 5.21 AI Pk Rojas: 3.34 AI Floyd: 1.53 LVOT LVOT Pk Rojas: 1.29 LVOT Mn Rojas: 0.77 LVOT VTI: 0.30 LVOT Pk Grad: 7.00 LVOT Mn Grad: 3.00 LVOT Diam: 2.60 LVOT Area: 5.31 Diastolic Function MV Pk E: 0.79 MV Pk A: 0.87 E/A: 0.90 E'Medial: 5.98 E/E' Med: 13.30 E' Laterial: 8.59 E/E' Lat: 9.20 Right Ventricle TAPSE (mm): 30.90 TVS' Rojas: 14.00 Tricuspid Valve TR Pk Rojas: 3.12 TR Pk Grad: 39.00 RA Press: 8.00 RVSP: 47.00 Great Vessels Aorta Sinus of Valsalva: 4.28 2.0-3.[address] [place]: 3.28 1.7-3.4 cm Ao Asc: 3.80 2.1-3.4 cm Updated in Other Vendor System with Status of Final Neil Jones MD electronically signed on 03/17/2024 12:38:20 PM with status of Final
== END ==
LOC: HO.CARD 10:42
PROVIDERS: PCP Internal Medicine; Visit Provider Internal Medicine Cardiovascular Disease
DX: I27.20 Pulmonary hypertension, unspecified (principal)
CPT/HCPCS: 93306

== ENCOUNTER → 2024-03-15 10:45 | Outpatient (BNV) | payer MEDICARE, SELFPAY | PROVIDERS: PCP Internal Medicine; Visit Provider Internal Medicine | DX: I34.81 Nonrheumatic mitral (valve) annulus calcification (principal); I35.0 Nonrheumatic aortic (valve) stenosis | CPT/HCPCS: 93306 ==

== ENCOUNTER 2024-03-26 10:28 | Outpatient (REF) | payer MEDICARE, SELFPAY ==
[2024-03-26 13:27] LABS: MANUAL DIFF FLAG NO
[2024-03-26 13:50] LABS: Basophils Absolute Auto 0.1 X10*3/uL (0.0-0.2); Eosinophils Absolute Auto 0.4 X10*3/uL (0.0-0.4); Eosinophils Percent Auto 4.5 % (0-4); Hematocrit 40.2 % (42.0-52.0); Imm Gran Abs Auto 0.03 X10*3/uL (0.00-0.03); Imm Gran Pct Auto 0.3 % (0.0-0.4); Lymphocytes Absolute Auto 2.1 X10*3/uL (1.2-4.9); Lymphocytes Percent Auto 24.2 % (20-40); Mean Corpuscular HGB Conc 32.3 g/dl (31.0-36.0); Mean Corpuscular Hemoglobin 30.1 pg (27.0-33.0); Mean Corpuscular Volume 93.1 fL (80.0-98.0); Mean Platelet Volume 9.6 fL (9.4-12.4); Monocytes Absolute Auto 0.7 X10*3/uL (0.1-1.2); Monocytes Percent Auto 8.2 % (2-11); Neutrophils Absolute Auto 5.3 x10*3/uL (2.0-8.3); Neutrophils Percent Auto 61.8 % (45-73); Platelet Count 288 X10*3/uL (160-400); Red Blood Count 4.32 X10*6/uL (4.60-5.80); Red Cell Distribution Width 12.6 % (11.0-16.0); White Blood Count 8.6 X10*3/uL (4.8-10.8)
[2024-03-26 14:10] LABS: Appearance Urine Clear; Color Urine Yellow; Glucose Urine UA Negative (Negative); Leukocyte Esterase Urine Negative (Negative); Nitrite Urine Negative (Negative); PH 6.5 (5.0-9.0); Urine Blood Negative (Negative); Urine Ketones Negative (Negative); Urine Protein Negative (Neg-Trace)
[2024-03-26 14:13] LABS: Alanine Aminotransferase 19 U/L (0-40); Albumin Level 3.9 g/dL (3.5-5.0); Alkaline Phosphatase 55 U/L (39-117); Anion Gap 19 (12-20); Aspartate Amino Transferase 25 U/L (5-37); Bilirubin Total 1.8 mg/dL (0.0-1.0); Blood Urea Nitrogen 11 mg/dL (9-16); Calcium 9.2 mg/dL (8.4-10.2); Carbon Dioxide 24 mmol/L (22-29); Chloride 100 mmol/L (96-108); Cholesterol 122 mg/dL (<200); Estimated Glomerular Filt Rate > 60; Glucose Fasting 82 mg/dL (60-99); HDL Cholesterol 49 mg/dL (>40); LDL Cholesterol Calculated 59 mg/dL (<100); Potassium 4.6 mmol/L (3.3-5.1); Sodium 138 mmol/L (135-145); Total Protein 6.9 g/dL (6.5-8.0); Triglycerides 70 mg/dL (<150)
[2024-03-26 14:20] LABS: B Type Natriuretic Peptide 228 pg/mL (<100)
[2024-03-26 14:33] LABS: Free T4 (Free Thyroxine) 1.31 ng/dL (0.71-1.85); Thyroid Stimulating Hormone 0.49 uIU/mL (0.32-4.0); Vitamin D 25-OH Total 62.5 ng/mL (>30)
== END 2024-03-26 10:29 | disposition home or self-care (01) ==
LOC: HO.HMGCLDS 10:28
PROVIDERS: PCP Internal Medicine; Visit Provider Internal Medicine
DX: I50.9 Heart failure, unspecified (principal); D64.9 Anemia, unspecified; E78.00 Pure hypercholesterolemia, unspecified; E03.9 Hypothyroidism, unspecified; R30.0 Dysuria; E55.9 Vitamin D deficiency, unspecified
CPT/HCPCS: 36415; 80053; 80061; 81003; 82306; 83880; 84439; 84443; 85025

== ENCOUNTER 2024-04-03 15:16 | Outpatient (AMB) | payer MEDICARE, SELFPAY ==
[2024-04-03 15:17] VITALS: BP 122/60; PULSE 70; O2SAT 96; BMI 22.2
--- NOTE | 2024-04-03 15:17 | A.OFFPC_ITS ---
Vital Signs 04/03/24 15:17 Height 5 ft 11 in Weight 159 lb BMI 22.2 BP 122/60 Blood Pressure Location Lt brachial Position Sitting Pulse 70 Pulse Source Pulse Oximeter Pulse Oximetry (%) 96 Oxygen Delivery Method Room Air Intake Visit Reasons: 4mth f/u Associate Director Of Development Required: No Allergies levofloxacin Adverse Reaction (Severe, Verified 04/03/24 16:17) tendon rupture duloxetine Adverse Reaction (Intermediate, Verified 04/04/24 05:19) sedation gabapentin Adverse Reaction (Intermediate, Verified 04/04/24 05:19) nightmares; leg cramps aspirin Adverse Reaction (Unknown, Verified 04/03/24 16:17) stomach upset, stomach nicole Medication List - Last Reconciled 04/03/24 by Malick Hernandez MD albuterol sulfate 90 mcg/actuation 2 puffs inhalation Q6H PRN amlodipine 10 mg PO DAILY aspirin 81 mg PO DAILY azithromycin 250 mg PO Q OTHER DAY bumetanide 1 mg PO DAILY PRN buspirone 5 mg PO BID 30 days celecoxib 200 mg PO DAILY cholecalciferol (vitamin D3) 50 mcg PO DAILY dextromethorphan-guaifenesin 30-600 mg (Mucinex DM) 1 tab PO Q12H PRN finasteride 5 mg orally M,W,F; Take Tuesday, Tuesday, Tuesday 90 days ipratropium-albuterol 0.5 mg-3 mg(2.5 mg base)/3 mL 3 mL inhalation Q6H PRN levothyroxine 137 mcg PO DAILY 90 days montelukast 10 mg PO DAILY omeprazole 20 mg PO QAM oxycodone-acetaminophen 10-325 mg 1 tab PO BID PRN 30 days pramipexole 1 mg PO TID PRN 30 days prednisone 10 mg PO Q OTHER DAY tiotropium bromide 2.5 mcg/actuation (Spiriva Respimat) 2 inhalations inhalation DAILY tizanidine 4 mg PO BEDTIME PRN 30 days Tobacco use date assessed: 04/03/24 Fall risk assessment: No Falls in past year Last assessed Fall Risk: 04/03/24 Dental Screening Dental Screen Date: 12/02/23 HPI 4mth f/u HPI Details Patient comes in today for his follow-up visit States that he feels okay He denies any headaches or dizziness Denies any chest pains, no shortness of breath No nausea /vomiting, no abdominal pain No change in bowel habits noted States that he continues to struggle with increased pain over his lower back and multiple joints - states that his current meds help keep the manageable He has been to pain management in the past couple of years and states that so far, everything that they have tried him on have not really helped much He would like to try a going [place] the [place] [facility] [place] what options are available to him at this time Had his follow-up labs done last week - to discuss his results [facility] Medical History Lung density on x-ray COPD exacerbation Depression GERD (gastroesophageal reflux disease) Pulmonary hypertension Benign essential hypertension Screening for diabetes mellitus Tachycardia Benign prostatic hyperplasia Restless leg syndrome Primary osteoarthritis of right shoulder Lumbar degenerative disc disease Anxiety Acquired hypothyroidism Dyspnea on exertion Bronchitis Fatigue COPD (chronic obstructive pulmonary disease) Surgical History History of foot surgery History of cardiac catheterization (~12/29/21) History of colonoscopy Family History Father No problems noted. 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 signalling and communications engineer 80% of hearing loss would like to get hearing aids.) Vision needs: No Questionnaire Thrive Questionnaire Date Thrive assessed: 12/02/23 AUDIT C Alcohol Use Questionnaire (AUDIT-C) 1. How often do you have a drink containing alcohol?: Never 3. How often do you have six or more drinks on one occasion?: Never Total Score: 0 Score Reviewed/Action Taken: Yes THOM-7 AMB Questionnaire THOM-7 Date THOM - 7 assessed: 12/02/23 Source: Developed by Drs. Rishabh Stallworth, Kesha Madrid, Louis Tyler and colleagues, with an educational ritu from [employer]. Review of Systems Const Denies chills, Reports difficulty sleeping (at times), Reports fatigue, Denies fever(s) and Denies headache(s) ENT Denies dysphagia, Denies dizziness, Denies otalgia, Denies headache(s), Denies neck pain, Denies odynophagia and Denies sore throat Card Denies chest pain, Denies palpitations and Reports dyspnea on exertion (mild) Resp Denies chest congestion, Denies cough, Reports dyspnea on exertion (mild) and Denies wheezing GI Denies abdominal pain, Denies constipation, Denies dysphagia, Denies heartburn, Denies diarrhea, Denies nausea, Denies odynophagia and Denies vomiting Denies dysuria, Denies nocturia and Denies urinary frequency Musc Reports back pain (over the lower back, chronic), Reports arthralgias (right shoulder), Reports muscle cramps (in both legs, worse at night), Denies neck pain and Reports tingling (on and off, in both legs) Skin/Breast Denies rash Neuro Denies dizziness, Denies headache(s), Reports radicular pain (in both lower extremities), Reports restless legs and Reports tingling (on and off, in both legs) Psych Reports anxiety (better controlled on current Rx), Denies depression and Denies irritability Endo Reports fatigue and Denies palpitations Jefe/Lymph Details: on and off swelling of both legs and feet Aller/Immun Denies wheezing Physical exam (Primary Care) Vital Signs: Last Vital Signs Pulse 70 04/03/24 15:17 BP 122/60 04/03/24 15:17 Pulse Ox 96 04/03/24 15:17 Oxygen Delivery Method Room Air 04/03/24 15:17 BMI result Body Mass Index 22.2 Tobacco/Smoking Status: Tobacco use Status Tobacco use date assessed 04/03/24 04/03/24 15:18 Patient Tobacco Use Status Former Tobacco user 04/03/24 15:18 Tobacco use type Cigarette 04/03/24 15:18 e-Cigarette/Vaping Use Never Used 04/03/24 15:18 Thrive Assessment: Date of Thrive Assessment Date Thrive assessed 12/02/23 04/03/24 15:18 Const General: no acute distress and alert HENMT Throat: Yes posterior oropharynx normal and Yes tonsils normal (no TP congestion noted) Neck Neck: Yes no lymphadenopathy and Yes supple Thyroid: Thyroid normal Resp Auscultation: clear to auscultation bilaterally, no rales and no wheezes Cardio Rate: regular rate Rhythm: regular rhythm Heart sounds: no murmurs GI Palpation (GI): Soft to palpation and nontender Auscultation: normal bowel sounds General: Yes no CVA tenderness Back/Spine/Pelvis Back: no CVA tenderness Thoracic/Lumbar Spine: lumbar spinal tenderness and straight leg raise positive Skin Rashes: no rashes Extrem General: No clubbing, No cyanosis and Yes edema (3+ bipedal edema) Results Reviewed Results Reviewed: Laboratory Tests 03/26/24 03/26/24 11:13 11:15 WBC 8.6 Hgb 13.0 L Hct 40.2 L Plt Count 288 Sodium 138 Potassium 4.6 D Creatinine 1.02 Estimated GFR > 60 Fasting Glucose 82 Calcium 9.2 AST 25 ALT 19 B-Natriuretic Peptide 228 H Triglycerides 70 Cholesterol 122 LDL Cholesterol, Calc 59 HDL Cholesterol 49 25-OH Vitamin D Total 62.5 TSH 0.49 Free T4 1.31 Ur Specific [place] 1.010 Urine Protein Negative Urine Glucose (UA) Negative Urine Blood Negative Urine Nitrite Negative Ur Leukocyte Esterase Negative Assessment and Plan Assessment & Plan (1) Lumbar degenerative disc disease: Code(s): M51.36 - Other intervertebral disc degeneration, lumbar region Plan: Reinforced activity and weight-lifting restrictions Lumbar spine x-rays last done in March 2020 revealed (+) prominent dextrocurvature and multilevel degenerative disc changes He had an MRI of the lumbar spine done back in 2008 that revealed multilevel bony and disc degenerative changes and osteophytic narrowing of the neural foramina at multiple levels with no focal disc herniation or spinal stenosis noted at that time; patient has not had MRI repeated since Repeat lumbar spine x-rays done back in March 2023 revealed (+) dextrorotoscoliosis with degenerative disc changes virtually at every disc level. No visible acute fracture or dislocation seen He has been to pain management and so far, none of the options he has been tried on have helped Per request, will try referring him to the Spine [place] here at [facility] to see what other treatment or management options remain available to him at this time Continue Celecoxib 200 mg QD PRN, Oxycodone-Acetaminophen 10-325 mg BID PRN and Tizanidine 4 mg Q HS PRN Patient has tried taking Gabapentin in the past but stopped due to frequent nightmares while on the medication;? also noted experiencing increasing leg cramps and pain when he was started back on Gabapentin Was also tried on Duloxetine 30 mg BID but was only taking it Q PM - states that he felt sedated, tired and too mellow while on the Rx and was advised to stop taking this after a while (2) Primary osteoarthritis of right shoulder: Code(s): M19.011 - Primary osteoarthritis, right shoulder Plan: States that his current meds, especially Celecoxib, help with his shoulder pain He was given a cortisone injection into his shoulder by Dr. Gerard a few months ago, which he states did not really help much Follow up with orthopedics at [facility] as scheduled (3) COPD (chronic obstructive pulmonary disease): Comment: HAS ADVANCED COPD, PFT C/W SEVERE OBSTRUCTIVE LUNG DISEASE, WITH POSITIVE RESPONSE TO BDs . Code(s): J44.9 - Chronic obstructive pulmonary disease, unspecified Qualifiers: COPD type: unspecified COPD Qualified Code(s): J44.9 - Chronic obstructive pulmonary disease, unspecified Plan: Recent work ups revealed (+) moderate to severe pulmonary HTN Continue Albuterol HFA 2 puffs 4 times a day as needed and Spiriva Respimat 2 inhalations QD; continue Prednisone 20 mg 1 to 2 tablets per week, no more than 7 tablets per month Follow up with pulmonary at [facility] [place] scheduled (4) DORADO (dyspnea on exertion): Comment: DUE TO COMBINATION OF HIS ADVANCED COPD AND CARDIAC CONDITION. PATIENT UNDERSTANDS WELL. Code(s): R06.00 - Dyspnea, unspecified Plan: Recent echocardiogram revealed (+) moderate to severe pulmonary hypertension and this, together with his advanced COPD, are most likely the main reasons for his DORADO and easy fatigability Patient recently underwent cardiac catheterization for further evaluation - coronary angiogram revealed no significant CAD (5) Bilateral lower extremity edema: Code(s): R60.0 - Localized edema Plan: Patient is advised that lower extremity edema is common in patients with advanced COPD and that this is most likely due to pulmonary hypertension (or cor pulmonale), as revealed in his recent echocardiogram Have advised that his Amlodipine 10 mg may also be contributing to this Continue Bumetanide 1 mg Q AM PRN for increased edema (6) Chronic anemia: Code(s): D64.9 - Anemia, unspecified Plan: Results of his labs done last week reviewed and discussed with patient - he is advised that he still has chronic but mild anemia - etiology remains unclear at this time as he does not appear to be deficient in iron or Vitamin B12 He reportedly last had his colonoscopy sometime in 2017 Because of his persistent anemia of unclear etiology, will refer him back to GI for consideration for repeat colonoscopy (7) Benign essential hypertension: Code(s): I10 - Essential (primary) hypertension Plan: Reinforced low sodium diet - goal is systolic BP of at least 130 to 140 mm or less Continue Amlodipine 10 mg QD (8) Acquired hypothyroidism: Code(s): E03.9 - Hypothyroidism, unspecified Plan: Continue Levothyroxine 137 mcg QD Will recheck his labs in 4 months for follow up (9) GERD (gastroesophageal reflux disease): Code(s): K21.9 - Gastro-esophageal reflux disease without esophagitis Qualifiers: Esophagitis presence: without esophagitis Qualified Code(s): K21.9 - Gastro-esophageal reflux disease without esophagitis Plan: Dietary restrictions reinforced Continue Omeprazole 20 mg QD (10) Restless leg syndrome: Comment: IS A CHRONIC PROBLEM CONTROLLED WITH ROPINIROLE 1 MG Q 6 HOURS P.R.N. Code(s): G25.81 - Restless legs syndrome Plan: Continue Pramipexole 1 mg TID PRN Was on Ropinirole 1 mg every 6 hours but it was no longer helping He was referred to and was seen by neurology a few months ago, who cut down his Ropinirole to 1 mg QHS and he was reportedly advised that there is really no effective cure for RLS and taking Rx at higher doses can actually be more counterproductive Follow up with neurology as scheduled (11) Benign prostatic hyperplasia: Code(s): N40.0 - Benign prostatic hyperplasia without lower urinary tract symptoms Qualifiers: Lower urinary tract symptom detail: urinary frequency Lower urinary tract symptom presence: symptoms present Qualified Code(s): N40.1 - Benign prostatic hyperplasia with lower urinary tract symptoms; R35.0 - Frequency of micturition Plan: Continue Tamsulosin 0.4 mg Q HS Follow up with urology as scheduled (12) Mood disorder: Code(s): F39 - Unspecified mood [affective] disorder Plan: This is Most likely due to frustrations regarding his physical condition and partly due to anxiety and some depression Patient states that he has been feeling better since he was started on Sertaline a few months ago Continue Sertraline 100 mg QD Plan Follow up in 4 months Orders: Orders 2 Complete Blood Count Auto Diff 4 Months D64.9 - Anemia, unspecified Comprehensive Imogene. Panel Fast 4 Months E78.00 - Pure hypercholesterolemia, u nspecified Lipid Panel 4 Months E78.00 - Pure hypercholesterolemia, unspecified Thyroid Stimulating Hormone 4 Months E03.9 - Hypothyroidism, unspecified Free T4 (Free Thyroxine) 4 Months E03.9 - Hypothyroidism, unspecified Vitamin D 25-OH Total 4 Months E55.9 - Vitamin D deficiency, unspecified Vitamin B12 and Folate 4 Months E53.8 - Deficiency of other specified B group vitamins UA CC w/rflx Micro + Cult 4 Months R30.0 - Dysuria B Type Natriuretic Peptide 4 Months I50.9 - Heart failure, unspecified Referrals Gastroenterology Referral D64.9 - Anemia, unspecified, Z12.11 - Encounter for screening for malignant neoplasm of colon Neurosurgery Referral M51.36 - Other intervertebral disc degeneration, lumbar region, M54.16 - Radiculopathy, lumbar region Review Flu Vaccine not done: system reason Coding Level of Care Code Est Pt Level 4 (39938) Diagnoses Lumbar degenerative disc disease M51.36 Primary osteoarthritis of right shoulder M19.011 Chronic obstructive pulmonary disease, unspecified COPD type J44.9 COPD type: unspecified COPD DORADO (dyspnea on exertion) R06.00 Bilateral lower extremity edema R60.0 Chronic anemia D64.9 Benign essential hypertension I10 Acquired hypothyroidism E03.9 Gastroesophageal reflux disease without esophagitis K21.9 Esophagitis presence: without esophagitis Restless leg syndrome G25.81 Benign prostatic hyperplasia with urinary frequency N40.1; R35.0 Lower urinary tract symptom detail: urinary frequency Lower urinary tract symptom presence: symptoms present Mood disorder F39
== END 2024-04-03 16:32 | disposition home or self-care (01) ==
PROVIDERS: PCP Internal Medicine; Visit Provider Internal Medicine
DX: M51.36 Other intervertebral disc degeneration, lumbar region (principal); J44.9 Chronic obstructive pulmonary disease, unspecified; F39 Unspecified mood [affective] disorder; M19.011 Primary osteoarthritis, right shoulder; R06.00 Dyspnea, unspecified; R60.0 Localized edema; D64.9 Anemia, unspecified; I10 Essential (primary) hypertension; E03.9 Hypothyroidism, unspecified; K21.9 Gastro-esophageal reflux disease without esophagitis; G25.81 Restless legs syndrome; N40.1 Benign prostatic hyperplasia with lower urinary tract symptoms
CPT/HCPCS: 99214

== ENCOUNTER 2024-06-05 15:51 | Outpatient (AMB) | payer MEDICARE, SELFPAY ==
[2024-06-05 15:52] VITALS: O2SAT 91
--- NOTE | 2024-06-05 15:52 | A.OFFVIS_ITS ---
Vital Signs 06/05/24 15:52 Height 5 ft 11 in Pulse Oximetry (%) 91 L Oxygen Delivery Method Room Air Intake Visit Reasons: COPD Intake Note: pt is on the phone for the past few weeks, a lot of coughing, and O2 up and down. Developing Machine Operator Required: No Allergies levofloxacin Adverse Reaction (Severe, Verified 06/05/24 16:14) tendon rupture duloxetine Adverse Reaction (Intermediate, Verified 06/05/24 16:14) sedation gabapentin Adverse Reaction (Intermediate, Verified 06/05/24 16:14) nightmares; leg cramps aspirin Adverse Reaction (Unknown, Verified 06/05/24 16:14) stomach upset, stomach nicole Medication List - Last Reconciled 06/05/24 by Ridge French MD albuterol sulfate 90 mcg/actuation 2 puffs inhalation Q6H PRN amlodipine 10 mg PO DAILY aspirin 81 mg PO DAILY azithromycin 250 mg PO Q OTHER DAY bumetanide 1 mg PO DAILY PRN buspirone 5 mg PO BID 30 days celecoxib 200 mg PO DAILY cholecalciferol (vitamin D3) 50 mcg PO DAILY dextromethorphan-guaifenesin 30-600 mg (Mucinex DM) 1 tab PO Q12H PRN finasteride 5 mg orally M,W,F; Take Tuesday, Tuesday, Tuesday 90 days ipratropium-albuterol 0.5 mg-3 mg(2.5 mg base)/3 mL 3 mL inhalation Q6H PRN levothyroxine 137 mcg PO DAILY 90 days montelukast 10 mg PO DAILY omeprazole 20 mg PO QAM oxycodone-acetaminophen 10-325 mg 1 tab PO BID PRN 30 days pramipexole 1 mg PO TID PRN 30 days prednisone 10 mg PO Q OTHER DAY tiotropium bromide 2.5 mcg/actuation (Spiriva Respimat) 2 inhalations inhalation DAILY tizanidine 4 mg PO BEDTIME PRN 30 days Do you need a note to return to daycare/school/sports/work: No HPI HPI COPD: Details: TELE-VISIT THIS 79 YEARS OLD GENTLEMAN WAS SUPPOSED TO BE COMING TO THE OFFICE FOR HIS FO LLOW-UP VISIT BUT HE CALLED. HE TOLD THAT HE HAS BEEN SICK FOR THE LAST 1 WEEK, MOST LIKELY HAD FLU-LIKE SYMPTOMS TO START WITH AND AFTER THAT HE HAS CONTINUE TO HAVE VERY FREQUENT COUGH WITH LOT EXPECTORATION . HE IS FEELING SHORT OF BREATH EVEN AT REST IN SPITE OF THE FACT THAT HE IS ON MAXIMUM TREATMENT AND ALSO HAS BEEN ON PREDNISONE 10 MG A DAY. DENIES FEVER OR CHILLS. [facility] Medical History Lung density on x-ray COPD exacerbation Depression GERD (gastroesophageal reflux disease) Pulmonary hypertension Benign essential hypertension Screening for diabetes mellitus Tachycardia Benign prostatic hyperplasia Restless leg syndrome Primary osteoarthritis of right shoulder Lumbar degenerative disc disease Anxiety Acquired hypothyroidism Dyspnea on exertion Bronchitis Fatigue COPD (chronic obstructive pulmonary disease) Surgical History History of foot surgery History of cardiac catheterization (~12/29/21) History of colonoscopy Family History Father No problems noted. 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 protein specialist 80% of hearing loss would like to get hearing aids.) Vision needs: No Review of Systems Const All systems reviewed & are unremarkable except as noted in HPI and below Eyes Reports no additional complaints ENT Reports no additional complaints Card Denies chest pain, Denies irregular heart rhythm and Denies leg edema Resp Reports as per HPI GI Reports no additional complaints Reports no additional complaints Musc Reports back pain Skin/Breast Reports system reviewed and no additional complaints, except as documented Neuro Reports no additional complaints Psych Reports no additional complaints Physical Exam Vital Signs: Last Vital Signs Pulse Ox 91 L 06/05/24 15:52 Oxygen Delivery Method Room Air 06/05/24 15:52 TELE VISIT---- . NO PHYSICAL EXAMINATION Telehealth Telehealth Minutes spent on Phone/Video with Pt.: 20 Assessment & Plan Assessment & Plan (1) COPD exacerbation: Comment: He has very advanced chronic obstructive pulmonary disease. Has been on full scale of medications, but cannot use Advair due to recurrent thrush in the mouth. He stays on prednisone 10 mg a day all the times. Code(s): J44.1 - Chronic obstructive pulmonary disease with (acute) exacerbation Category: Medical Plan: PLAN : CONTINUE SPIRIVA RESPIMAT 2 INHALATION DAILY. ( Not on the formulary ) CONTINUE USING IPRATROPIUM-ALBUTEROL SOLUTION Q 6 HOURS , OR QID . PREDNISONE 40 mg po daily for 5 days then back to 10 MG .DAILY . AZITHROMYCIN 250 MG DAILY TO CONTINUE BUT ON ALTERNATE DAYS .( ANTI-INFLAMMATORY AGENT) (2) Bronchitis: Comment: A HAS CHRONIC BRONCHITIS PART OF HIS ADVANCED COPD. Code(s): J40 - Bronchitis, not specified as acute or chronic Category: Medical Plan: TX: UNDER COPD. ALSO MAY TAKE MUCINEX 600 MG B.I.D. NEEDED. Medications: New prednisone 20 mg PO BID 5 days 10 tabs 0RF copd excerbation . Coding Level of Care Code Tele Est Pt Level 3 (03206) Diagnoses COPD exacerbation J44.1 Bronchitis J40
== END 2024-06-05 16:09 | disposition home or self-care (01) ==
LOC: HO.HPS 15:51
PROVIDERS: PCP Internal Medicine; Visit Provider Internal Medicine
DX: J44.1 Chronic obstructive pulmonary disease with (acute) exacerbation (principal)
CPT/HCPCS: 99441

== ENCOUNTER → 2024-06-05 15:51 | Outpatient (BNVA) | payer MEDICARE, SELFPAY | PROVIDERS: PCP Internal Medicine; Visit Provider Internal Medicine | DX: J44.9 Chronic obstructive pulmonary disease, unspecified (principal) ==

== ENCOUNTER 2024-06-13 13:10 | Outpatient (AMB) | payer MEDICARE, SELFPAY ==
[2024-06-13 13:14] VITALS: BP 142/70; PULSE 76; O2SAT 94; BMI 22.3
--- NOTE | 2024-06-13 13:14 | A.OFFPC_ITS ---
Vital Signs 06/13/24 13:14 06/13/24 13:41 Height 5 ft 11 in Weight 160 lb BMI 22.3 BP 142/70 H 130/72 Blood Pressure Location Lt brachial Lt brachial Position Sitting Sitting Pulse 76 Pulse Source Pulse Oximeter Pulse Oximetry (%) 94 Oxygen Delivery Method Nasal Cannula Oxygen Flow Rate 2 Intake Visit Reasons: Bilateral leg and feet swelling Intake Note: pt c/o bilateral swollen legs, red areas, and pain X6 months Allergies levofloxacin Adverse Reaction (Severe, Verified 06/13/24 13:14) tendon rupture duloxetine Adverse Reaction (Intermediate, Verified 06/13/24 13:14) sedation gabapentin Adverse Reaction (Intermediate, Verified 06/13/24 13:14) nightmares; leg cramps aspirin Adverse Reaction (Unknown, Verified 06/13/24 13:14) stomach upset, stomach nicole Medication List - Last Reconciled 06/13/24 by Sil Mahcado PA-C albuterol sulfate 90 mcg/actuation 2 puffs inhalation Q6H PRN amlodipine 10 mg PO DAILY aspirin 81 mg PO DAILY azithromycin 250 mg PO Q OTHER DAY bumetanide 1 mg PO DAILY PRN buspirone 5 mg PO BID 30 days celecoxib 200 mg PO DAILY cholecalciferol (vitamin D3) 50 mcg PO DAILY dextromethorphan-guaifenesin 30-600 mg (Mucinex DM) 1 tab PO Q12H PRN finasteride 5 mg orally M,W,F; Take Tuesday, Tuesday, Tuesday 90 days ipratropium-albuterol 0.5 mg-3 mg(2.5 mg base)/3 mL 3 mL inhalation Q6H PRN levothyroxine 137 mcg PO DAILY 90 days montelukast 10 mg PO DAILY omeprazole 20 mg PO QAM oxycodone-acetaminophen 10-325 mg 1 tab PO BID PRN 30 days pramipexole 1 mg PO TID PRN 30 days prednisone 10 mg PO Q OTHER DAY prednisone 20 mg PO BID 5 days tiotropium bromide 2.5 mcg/actuation (Spiriva Respimat) 2 inhalations inhalation DAILY tizanidine 4 mg PO BEDTIME PRN 30 days Tobacco use date assessed: 04/03/24 Fall risk assessment: No Falls in past year Last assessed Fall Risk: 06/13/24 Dental Screening Dental Screen Date: 12/02/23 HPI Bilateral leg and feet swelling HPI Details 79-year-old male with past medical histo ry COPD, hypothyroidism, BPH, hypertension, GERD, and depression last seen by Dr. Hernandez 03/2024 coming in for acute visit.? In review of the notes, patient was seen by pulmonology 05/2024 for cough and low O2 was given prednisone and azithromycin and continue on current regimen.? Per Health portal message patient has been having leg swelling which has been worsening over the last 6 months and now has drainage and erythema or bilateral legs. Patient states he has been having ongoing bilateral leg swelling for the past 2- 3 months. In the last week he has noticed his left leg has been red, painful, weeping with open sores. He also mentions he has been feeling more fatigued in the last week. Denies any fevers, confusion, chest pain. [facility] Medical History Lung density on x-ray COPD exacerbation Depression GERD (gastroesophageal reflux disease) Pulmonary hypertension Benign essential hypertension Screening for diabetes mellitus Tachycardia Benign prostatic hyperplasia Restless leg syndrome Primary osteoarthritis of right shoulder Lumbar degenerative disc disease Anxiety Acquired hypothyroidism Dyspnea on exertion Bronchitis Fatigue COPD (chronic obstructive pulmonary disease) Surgical History History of foot surgery History of cardiac catheterization (~12/29/21) History of colonoscopy Family History Father No problems noted. 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 director staffing 80% of hearing loss would like to get hearing aids.) Vision needs: No Questionnaire Thrive Questionnaire Date Thrive assessed: 12/02/23 AUDIT C Alcohol Use Questionnaire (AUDIT-C) 1. How often do you have a drink containing alcohol?: Never 3. How often do you have six or more drinks on one occasion?: Never Total Score: 0 Score Reviewed/Action Taken: Yes THOM-7 AMB Questionnaire THOM-7 Date THOM - 7 assessed: 12/02/23 Source: Developed by Drs. Rishabh Stallworth, Kesha Madrid, Louis Tyler and colleagues, with an educational ritu from [employer]. Review of Systems Const Denies body aches, Denies chills, Reports fatigue, Denies fever(s), Denies headache(s) and Denies poor appetite Eyes Reports no additional complaints ENT Denies dysphagia, Denies dizziness, Denies headache(s) and Denies odynophagia Card Denies chest pain, Denies syncope, Denies edema, Denies irregular heart rhythm, Denies lightheadedness, Reports dyspnea (Chronic on O2) and Reports dyspnea on exertion Resp Denies cough, Reports dyspnea (Chronic on O2) and Reports dyspnea on exertion GI Denies abdominal pain, Denies constipation, Denies dysphagia, Denies diarrhea, Denies nausea, Denies odynophagia and Denies vomiting Reports no additional complaints Musc Reports as per HPI and Denies abnormal gait Skin/Breast Reports system reviewed and no additional complaints, except as documented Neuro Denies abnormal gait, Denies dizziness, Denies syncope and Denies headache(s) Psych Reports no additional complaints Endo Reports fatigue Physical exam (Primary Care) Vital Signs: Oxygen Delivery Method Room Air 06/13/24 13:14 Tobacco/Smoking Status: Tobacco use Status Tobacco use date assessed 04/03/24 06/13/24 13:17 Patient Tobacco Use Status Former Tobacco user 06/13/24 13:17 Tobacco use type Cigarette 06/13/24 13:17 e-Cigarette/Vaping Use Never Used 06/13/24 13:17 Thrive Assessment: Date of Thrive Assessment Date Thrive assessed 12/02/23 06/13/24 13:17 Const General: cooperative, healthy appearing, comfortable and no acute distress Orientation/consciousness: patient oriented x3 HENMT Head: Yes normocephalic Ears: hearing grossly normal bilaterally General nose exam: Normal external nose present Eyes General: appearance normal, both eyes and all related structures Conjunctivae: conjunctivae normal Neck Neck: Yes full ROM and Yes no lymphadenopathy Resp Effort & Inspection: normal respiratory effort Auscultation: clear to auscultation bilaterally, no crackles, no rales, no rhonchi and no wheezes Cardio Rate: regular rate Rhythm: regular rhythm Skin Other: Small area of erythema on left lower extremity with warmth, tenderness, open skin tears, and clear drainage visualized on exam. Neuro General: patient oriented x3 Gait exam (Neuro): Normal gait present Extrem Other: 2+ pitting edema in bilateral lower extremities with intact pulses, sensation, strength and dry skin cracking. General: Yes normal to inspection, Yes full ROM and No edema Psych Affect: normal affect Attitude: cooperative Insight: Good insight present (Psych) Judgement: Good judgement present (Psych) Assessment and Plan Assessment & Plan (1) Bilateral lower extremity edema: Code(s): R60.0 - Localized edema Plan: Patient states that he has been having worsening leg swelling over the last 6 months has been seen by chair inspector and leveler and primary care for this concern. Electronic Controls Repairer Supervisor suspected this may be related to amlodipine. Recommended reaching out to Cardiology to let them know about worsening leg edema. We will trial increase dose of Bumetanide which was sent pharmacy. Continue regular exercise as tolerated, may use compression stockings, and elevate legs. (2) Cellulitis: Code(s): L03.90 - Cellulitis, unspecified Plan: Patient appears to have cellulitis of left lower extremity due to overlying erythema, drainage, warmth and redness on exam. We will treat with 7 day course of cephalexin which was sent to pharmacy. Please reach out if infection does not improve or worsens. If you begin to have fevers or confusion please follow up. Plan This note was constructed using voice recognition software. While every effort has been made to ensure accuracy and subassembly supervisor, still areas may have been included sometimes these areas may affect the content or meeting of the given symptoms. Total time spent caring for the patient today was 30 minutes. This includes time spent before the visit reviewing the chart, time spent during the visit, and time spent after the visit and documentation. Medications: New cephalexin 500 mg PO QID 7 days 28 caps 0RF Changed From bumetanide 1 mg PO DAILY PRN 90 tabs 0RF swelling To bumetanide 2 mg (2 x 1 mg) PO DAILY PRN 90 tabs 0RF swelling Coding Level of Care Code Est Pt Level 4 (94489) Diagnoses Bilateral lower extremity edema R60.0 Cellulitis L03.90
[2024-06-13 13:41] VITALS: BP 130/72
== END 2024-06-13 14:02 | disposition home or self-care (01) ==
PROVIDERS: PCP Internal Medicine
DX: R60.0 Localized edema (principal); L03.90 Cellulitis, unspecified
CPT/HCPCS: 99214

== ENCOUNTER 2024-07-11 11:29 | Outpatient (AMB) | payer MEDICARE, SELFPAY ==
--- NOTE | 2024-07-11 11:32 | MHC.OFFVIS ---
Intake Visit Reasons: 4 mth fu Allergies levofloxacin Adverse Reaction (Severe, Verified 06/13/24 13:14) tendon rupture duloxetine Adverse Reaction (Intermediate, Verified 06/13/24 13:14) sedation gabapentin Adverse Reaction (Intermediate, Verified 06/13/24 13:14) nightmares; leg cramps aspirin Adverse Reaction (Unknown, Verified 06/13/24 13:14) stomach upset, stomach nicole Medication List - Last Reconciled 07/11/24 by Oren Liz MD albuterol sulfate 90 mcg/actuation 2 puffs inhalation Q6H PRN amlodipine 10 mg PO DAILY aspirin 81 mg PO DAILY azithromycin 250 mg PO Q OTHER DAY bumetanide 2 mg (2 x 1 mg) PO DAILY PRN buspirone 5 mg PO BID 30 days celecoxib 200 mg PO DAILY cephalexin 500 mg PO QID 7 days cholecalciferol (vitamin D3) 50 mcg PO DAILY dextromethorphan-guaifenesin 30-600 mg (Mucinex DM) 1 tab PO Q12H PRN finasteride 5 mg orally M,W,F; Take Tuesday, Tuesday, Tuesday 90 days ipratropium-albuterol 0.5 mg-3 mg(2.5 mg base)/3 mL 3 mL inhalation Q6H PRN levothyroxine 137 mcg PO DAILY 90 days montelukast 10 mg PO DAILY omeprazole 20 mg PO QAM oxycodone-acetaminophen 10-325 mg 1 tab PO BID PRN 30 days pramipexole 1 mg PO TID PRN 30 days prednisone 20 mg PO BID 5 days prednisone 10 mg PO Q OTHER DAY tizanidine 4 mg PO BEDTIME PRN 30 days umeclidinium 62.5 mcg/actuation (Incruse Ellipta) 1 inh inhalation DAILY 30 days HPI Comments Details: 79-year-old gentleman here for follow-up. He has background history of COPD. Main complaint has been dyspnea on exertion. His echocardiography showed RV dysfunction with moderate to severe pulmonary hypertension with pulmonary artery systolic pressure 55 mm Hg. For his dyspnea on exertion he underwent stress testing which was equivocal because he stops quite quickly on the treadmill. After discussion we took him for left and right heart cath. His filling pressures at rest were normal. He had 60% RCA stenosis which was normal with iFR/FFR assessment. On follow-up he was doing well. 02/15/24: He returns for follow-up. He has been more short of breath over the last year. He is a former smoker and has COPD. He also has back pain and is quite limited due to that. Overall appears to be quite deconditioned but is complaining that his shortness of breath is worse than before. 07/11/2024: He could not come for office visit today and requested a tele health visit. We were able to do a face time call. He is saying that he has been losing weight and has been trying to gain weight for some time. This has been a process for more than couple of years at this point. He is saying this is unintentional. He is more constipated than usual but no alternation of bowel habits. No hemoptysis but he has chronic cough and sputum due to underlying COPD. He had echocardiography performed in 04/02/2024 which showed normal LVEF of 61% without any wall motion abnormalities. Moderate increase in right ventricular cavity size with normal RV function and mild pulmonary artery hypertension. [facility] Medical History Lung density on x-ray COPD exacerbation Depression GERD (gastroesophageal reflux disease) Pulmonary hypertension Benign essential hypertension Screening for diabetes mellitus Tachycardia Benign prostatic hyperplasia Restless leg syndrome Primary osteoarthritis of right shoulder Lumbar degenerative disc disease Anxiety Acquired hypothyroidism Dyspnea on exertion Bronchitis Fatigue COPD (chronic obstructive pulmonary disease) Surgical History History of foot surgery History of cardiac catheterization (~12/29/21) History of colonoscopy Family History Father No problems noted. 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 typesetter perforator operator 80% of hearing loss would like to get hearing aids.) Vision needs: No Review of Systems Const Denies chills, Denies fatigue, Denies fever(s), Denies frequent falls, Denies weakness, Denies weight gain and Denies weight loss ENT Denies dizziness Card Denies chest pain, Denies leg edema, Denies lightheadedness, Denies palpitations, Denies dyspnea and Denies dyspnea on exertion Resp Denies cough, Denies dyspnea and Denies dyspnea on exertion GI Denies hematochezia Musc Denies abnormal gait, Denies muscle weakness, Denies numbness, Denies radiating pain into limb and Denies tingling Neuro Denies abnormal gait, Denies dizziness, Denies frequent falls, Denies numbness, Denies tingling and Denies weakness Endo Denies fatigue and Denies palpitations Telehealth Telehealth Telehealth Platform: Telephone Location of provider rendering services: practice address Location of patient: address on file Patient Identification confirmed using: Name, : Yes Telehealth method: video Patient verbally consented to treatment: Yes Patient verbally consented to billing insurance company: Yes Patient informed of any privacy concerns related to visit: Yes Assessment & Plan Assessment & Plan (1) Weight loss: Code(s): R63.4 - Abnormal weight loss Category: Medical (2) Hypertension: Code(s): I10 - Essential (primary) hypertension Category: Medical Plan Pleasant 79 year gentleman with chronic dyspnea on exertion who had cardiac catheterization in the past revealing no significant coronary disease. He has pulmonary hypertension by echocardiography but recent ECHO is showing mild pulmonary hypertension. Denying any significant cardiovascular issues but worried about his weight loss which she has been experiencing for some time. He has never had colonoscopy done before. I have discussed the case with Dr. Bustillos and we will arrange assessment with GI and potential colonoscopy. I have also reached out to Dr. French to see if he should have repeat CT scan of his lungs to rule out any malignancy. He will see us back in few months. Thank you for allowing me to participate in the care of your patient. Please feel free to contact me if you have any questions. Total time spent: 15 minutes. Orders: Referrals Gastroenterology Referral R63.4 - Abnormal weight loss Coding Level of Care Code Tele Est Pt Level 4 (56978) Diagnoses Weight loss R63.4 Hypertension I10
== END 2024-07-11 11:46 | disposition home or self-care (01) ==
LOC: HO.HCS 11:29
PROVIDERS: PCP Internal Medicine; Visit Provider Internal Medicine Cardiovascular Disease
DX: I10 Essential (primary) hypertension (principal); R63.4 Abnormal weight loss
CPT/HCPCS: 99214

== ENCOUNTER → 2024-07-11 11:29 | Outpatient (BNVA) | payer MEDICARE, SELFPAY | PROVIDERS: PCP Internal Medicine; Visit Provider Internal Medicine Cardiovascular Disease ==

== ENCOUNTER 2024-08-06 14:45 | Outpatient (AMB) | payer MEDICARE, SELFPAY ==
[2024-08-06 15:02] VITALS: BP 128/80; PULSE 80; O2SAT 91; BMI 19.6
--- NOTE | 2024-08-06 15:02 | MHC.PC.OV ---
Vital Signs 08/06/24 15:02 Height 5 ft 11 in Weight 140 lb 4 oz BMI 19.6 BP 128/80 Blood Pressure Location Lt brachial Position Sitting Pulse 80 Pulse Source Pulse Oximeter Pulse Oximetry (%) 91 L Oxygen Delivery Method Room Air Intake Visit Reasons: 4mof\u Chief Nuclear Medicine Technologist Required: No Accompanied by: Self / Same As Patient Allergies levofloxacin Adverse Reaction (Severe, Verified 08/06/24 15:38) tendon rupture duloxetine Adverse Reaction (Intermediate, Verified 08/06/24 15:38) sedation gabapentin Adverse Reaction (Intermediate, Verified 08/06/24 15:38) nightmares; leg cramps aspirin Adverse Reaction (Unknown, Verified 08/06/24 15:38) stomach upset, stomach nicole Medication List - Last Reconciled 08/06/24 by Malick Hernandez MD albuterol sulfate 90 mcg/actuation 2 puffs inhalation Q6H PRN amlodipine 10 mg PO DAILY aspirin 81 mg PO DAILY azithromycin 250 mg PO Q OTHER DAY 90 days bumetanide 2 mg (2 x 1 mg) PO DAILY PRN buspirone 5 mg PO BID 30 days celecoxib 200 mg PO DAILY cephalexin 500 mg PO QID 7 days cholecalciferol (vitamin D3) 50 mcg PO DAILY dextromethorphan-guaifenesin 30-600 mg (Mucinex DM) 1 tab PO Q12H PRN finasteride 5 mg orally M,W,F; Take Tuesday, Tuesday, Tuesday 90 days ipratropium-albuterol 0.5 mg-3 mg(2.5 mg base)/3 mL 3 mL inhalation Q6H PRN levothyroxine 137 mcg PO DAILY 90 days montelukast 10 mg PO DAILY omeprazole 20 mg PO QAM oxycodone-acetaminophen 10-325 mg 1 tab PO BID PRN 30 days pramipexole 1 mg PO TID PRN 30 days prednisone 20 mg PO BID 5 days prednisone 10 mg PO Q OTHER DAY tizanidine 4 mg PO BEDTIME PRN 30 days umeclidinium 62.5 mcg/actuation (Incruse Ellipta) 1 inh inhalation DAILY 30 days Tobacco use date assessed: 08/06/24 Fall risk assessment: No Falls in past year Last assessed Fall Risk: 08/06/24 Dental Screening Dental Screen Date: 08/06/24 Did you have a dental visit in the last 12 months?: No Did you have a dental problem in the last 6 months where you did not have access to dental care?: No Was dental information given to patient?: No HPI 4mof\u HPI Details Patient comes in today for his follow up visit States that he has lost about 20 pounds in the past month or so He has lung CT scheduled for 08/10/24 to further evaluate the lung density seen on x-rays recently - CT was ordered by Dr. French He reports feeling numb on his head and on his face often lately He denies any headaches or dizziness Denies any chest pains, no increased SOB No nausea/vomiting, reports experiencing recurrent abdominal pain and bloating lately States that he has been experiencing recurrent constipation Notes that his low back pain and joint pains remain adequately controlled on his current medications He has not had his follow up labs done yet [facility] Medical History Weight loss Weight loss Lung density on x-ray COPD exacerbation Depression GERD (gastroesophageal reflux disease) Pulmonary hypertension Benign essential hypertension Screening for diabetes mellitus Tachycardia Benign prostatic hyperplasia Restless leg syndrome Primary osteoarthritis of right shoulder Lumbar degenerative disc disease Anxiety Acquired hypothyroidism Dyspnea on exertion Bronchitis Fatigue COPD (chronic obstructive pulmonary disease) Surgical History (Updated 08/06/24 @ 15:47 by Malick Hernandez MD) History of gastric surgery History of foot surgery History of cardiac catheterization (~12/29/21) History of colonoscopy Family History Father No problems noted. 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 teacher advisor 80% of hearing loss would like to get hearing aids.) Vision needs: No Questionnaire PHQ-9 Over the last 2 weeks, how often have you been bothered by any of the following problems? 1. Little interest or pleasure in doing things: not at all 2. Feeling down, depressed, or hopeless: not at all 3. Trouble falling or staying asleep, or sleeping too much: not at all 4. Feeling tired or having little energy: not at all 5. Poor appetite or overeating: not at all 6. Feeling bad about yourself - or that you are a failure or have let yourself or your family down: not at all 7. Trouble concentrating on things, such as reading the newspaper or watching television: not at all 8. Moving or speaking so slowly that other people could have noticed. Or the opposite - being so fidgety or restless that you have been moving around a lot more than usual: not at all 9. Thoughts that you would be better off or of hurting yourself in some way: not at all Total score: 0 Depression Screening Interpretation: Negative Depression Screening Done: Yes 62829 - PHQ-9 Billing: Yes Source: Developed by Drs. Rishabh Stallworth, Kesha Madrid, Louis Tyler and colleagues, with an educational ritu from [employer] Thrive Questionnaire Date Thrive assessed: 08/06/24 I am a: Patient What is your living situation today?: I have a steady place to live Within the past 12 months, did the food you bought not last and you didn't have the money to get more?: Never true Within the past 12 months, did you worry whether your food would run out before you got money to buy more?: Never true Do you have trouble paying for medicines?: No Do you have trouble getting transportation to medical appointments?: No Do you have trouble paying your heating and electricity bill?: No Do you have trouble taking care of your child, family member or friend?: No Do you have trouble with day-to-day activities such as bathing, preparing meals, shopping, managing finances, etc.?: No Are you currently unemployed and looking for a job?: No Are you interested in more education?: No Please select the resources that you would like help with: None Currently or been in a relationship where the following occur: No concerns reported THRIVE Score: 0 AUDIT C Alcohol Use Questionnaire (AUDIT-C) 1. How often do you have a drink containing alcohol?: Never 3. How often do you have six or more drinks on one occasion?: Never Total Score: 0 Score Reviewed/Action Taken: Yes THOM-7 AMB Questionnaire THOM-7 Date THOM - 7 assessed: 08/06/24 Feeling nervous, anxious, or on edge: 0 = Not at all Not being able to stop or control worryin = Not at all Worrying too much about different things: 0 = Not at all Trouble relaxin = Not at all Being so restless that it is hard to sit still: 0 = Not at all Becoming easily annoyed or irritable: 0 = Not at all Feeling afraid as if something awful might happen: 0 = Not at all Total TOHM-7 score (0-4 normal; 5-9 mild; 10-14 moderate; 15-21 severe): 0 Source: Developed by Drs. Rishabh Stallworth, Kesha Madrid, Louis Tyler and colleagues, with an educational ritu from [employer]). Review of Systems Const Denies chills, Reports difficulty sleeping (at times), Reports fatigue, Denies fever(s), Denies headache(s) and Reports weight loss ENT Denies dysphagia, Denies dizziness, Denies otalgia, Denies headache(s), Denies neck pain, Denies odynophagia and Denies sore throat Card Denies chest pain, Denies palpitations and Reports dyspnea on exertion (mild) Resp Denies chest congestion, Denies cough, Reports dyspnea on exertion (mild) and Denies wheezing GI Reports abdominal pain (on and off lately), Reports bloating, Reports constipation (increased lately), Denies dysphagia, Denies heartburn, Denies diarrhea, Denies nausea, Denies odynophagia and Denies vomiting Denies dysuria, Denies nocturia and Denies urinary frequency Musc Reports back pain (over the lower back, chronic), Reports arthralgias (right shoulder), Reports muscle cramps (in both legs, worse at night), Denies neck pain, Reports numbness (on the head and face lately) and Reports tingling (on and off, in both legs) Skin/Breast Denies rash Neuro Denies dizziness, Denies headache(s), Reports numbness (on the head and face lately), Reports radicular pain (in both lower extremities), Reports restless legs and Reports tingling (on and off, in both legs) Psych Reports anxiety (better controlled on current Rx), Denies depression and Denies irritability Endo Reports fatigue and Denies palpitations Jefe/Lymph Details: on and off swelling of both legs and feet Aller/Immun Denies wheezing Physical exam (Primary Care) Vital Signs: Last Vital Signs Pulse 80 08/06/24 15:02 BP 128/80 08/06/24 15:02 Pulse Ox 91 L 08/06/24 15:02 Oxygen Delivery Method Room Air 08/06/24 15:02 BMI result Body Mass Index 19.6 Tobacco/Smoking Status: Tobacco use Status Tobacco use date assessed 08/06/24 08/06/24 15:05 Patient Tobacco Use Status Former Tobacco user 08/06/24 15:05 Tobacco use type Cigarette 08/06/24 15:05 e-Cigarette/Vaping Use Never Used 08/06/24 15:05 PHQ-9: PHQ-9 Score PHQ-9: Total score 0 08/06/24 15:41 Depression Screening Interpretation: Negative Thrive Assessment: Date of Thrive Assessment Date Thrive assessed 08/06/24 08/06/24 15:05 Currently or been in a relationship where the following occur: No concerns reported Const General: no acute distress and alert HENMT Ears: TM's normal bilaterally and EAC's normal Throat: Yes posterior oropharynx normal and Yes tonsils normal (no TP congestion noted) Neck Neck: Yes no lymphadenopathy and Yes supple Thyroid: Thyroid normal Resp Auscultation: clear to auscultation bilaterally, no rales and no wheezes Cardio Rate: regular rate Rhythm: regular rhythm Heart sounds: no murmurs GI Palpation (GI): Soft to palpation and nontender Auscultation: normal bowel sounds General: Yes no CVA tenderness Back/Spine/Pelvis Back: no CVA tenderness Thoracic/Lumbar Spine: lumbar spinal tenderness and straight leg raise positive Skin Rashes: no rashes Extrem General: No clubbing, No cyanosis and Yes edema (3+ bipedal edema) Assessment and Plan Assessment & Plan (1) Lumbar degenerative disc disease: Code(s): M51.36 - Other intervertebral disc degeneration, lumbar region Plan: Reinforced activity and weight-lifting restrictions Lumbar spine x-rays last done in March 2020 revealed (+) prominent dextrocurvature and multilevel degenerative disc changes He had an MRI of the lumbar spine done back in 2008 that revealed multilevel bony and disc degenerative changes and osteophytic narrowing of the neural foramina at multiple levels with no focal disc herniation or spinal stenosis noted at that time; patient has not had MRI repeated since Repeat lumbar spine x-rays done back in March 2023 revealed (+) dextrorotoscoliosis with degenerative disc changes virtually at every disc level. No visible acute fracture or dislocation seen He has been to pain management and so far, none of the options he has been tried on have helped Per request, will try referring him to the Sp[facility] Center here at [facility] to see what other treatment or management options remain available to him at this time but was advised that he needs to get a more recent lumbar spine MRI done before he can be seen Continue Celecoxib 200 mg QD PRN, Oxycodone-Acetaminophen 10-325 mg BID PRN and Tizanidine 4 mg Q HS PRN Patient has tried taking Gabapentin in the past but stopped due to frequent nightmares while on the medication;? also noted experiencing increasing leg cramps and pain when he was started back on Gabapentin Was also tried on Duloxetine 30 mg BID but was only taking it Q PM - states that he felt sedated, tired and too mellow while on the Rx and was advised to stop taking this after a while (2) Primary osteoarthritis of right shoulder: Code(s): M19.011 - Primary osteoarthritis, right shoulder Plan: States that his current meds, especially Celecoxib, help with his shoulder pain He was given a cortisone injection into his shoulder by Dr. Gerard a few months ago, which he states did not really help much Follow up with orthopedics at [facility] as scheduled (3) COPD (chronic obstructive pulmonary disease): Comment: HAS ADVANCED COPD, PFT C/W SEVERE OBSTRUCTIVE LUNG DISEASE, WITH POSITIVE RESPONSE TO BDs . Code(s): J44.9 - Chronic obstructive pulmonary disease, unspecified Qualifiers: COPD type: unspecified COPD Qualified Code(s): J44.9 - Chronic obstructive pulmonary disease, unspecified Plan: Recent work ups revealed (+) moderate to severe pulmonary HTN Continue Albuterol HFA 2 puffs 4 times a day as needed and Spiriva Respimat 2 inhalations QD; continue Prednisone 20 mg 1 to 2 tablets per week, no more than 7 tablets per month Follow up with pulmonary at [facility] as scheduled (4) DORADO (dyspnea on exertion): Comment: DUE TO COMBINATION OF HIS ADVANCED COPD AND CARDIAC CONDITION. PATIENT UNDERSTANDS WELL. Code(s): R06.00 - Dyspnea, unspecified Plan: Recent echocardiogram revealed (+) moderate to severe pulmonary hypertension and this, together with his advanced COPD, are most likely the main reasons for his DORADO and easy fatigability Patient recently underwent cardiac catheterization for further evaluation - coronary angiogram revealed no significant CAD (5) Lung density on x-ray: Comment: chest x-ray on 06/25/23 showed symmetrical lung densities on both sides, with question of nip.ple densities Repeat chest x-ray with nipple markers was recommended, which is being ordered. Code(s): J98.4 - Other disorders of lung Plan: In light of his recent weight loss, he was sent for chest CT for further evaluation of these findings by Dr. French He is now scheduled to have this done in a few days on 08/10/2024 (6) Bilateral lower extremity edema: Code(s): R60.0 - Localized edema Plan: Patient is advised that lower extremity edema is common in patients with advanced COPD and that this is most likely due to pulmonary hypertension (or cor pulmonale), as revealed in his recent echocardiogram Have advised that his Amlodipine 10 mg may also be contributing to this Continue Bumetanide 1 mg Q AM PRN for increased edema (7) Acquired hypothyroidism: Code(s): E03.9 - Hypothyroidism, unspecified Plan: He is advised to try getting his previously ordered labs done MINDY Continue Levothyroxine 137 mcg QD (8) Chronic anemia: Code(s): D64.9 - Anemia, unspecified Plan: Patient still has chronic but mild anemia on his labs done a few months ago - etiology remains unclear at this time as he does not appear to be deficient in iron or Vitamin B12 He reportedly last had his colonoscopy sometime in 2017 Because of his persistent anemia of unclear etiology, he was referred back to GI for consideration for repeat colonoscopy - he is scheduled to see Dr. Bustillos in September 2024 Will also have him recheck his labs in 4 months for follow up (9) Benign essential hypertension: Code(s): I10 - Essential (primary) hypertension Plan: Reinforced low sodium diet - goal is systolic BP of at least 130 to 140 mm or less Continue Amlodipine 10 mg QD (10) GERD (gastroesophageal reflux disease): Code(s): K21.9 - Gastro-esophageal reflux disease without esophagitis Qualifiers: Esophagitis presence: without esophagitis Qualified Code(s): K21.9 - Gastro-esophageal reflux disease without esophagitis Plan: Dietary restrictions reinforced Continue Omeprazole 20 mg QD (11) Restless leg syndrome: Comment: IS A CHRONIC PROBLEM CONTROLLED WITH ROPINIROLE 1 MG Q 6 HOURS P.R.N. Code(s): G25.81 - Restless legs syndrome Plan: Continue Pramipexole 1 mg TID PRN He was on Ropinirole 1 mg every 6 hours but it was no longer helping He was referred to and was seen by neurology a few months ago, who cut down his Ropinirole to 1 mg QHS and he was reportedly advised that there is really no effective cure for RLS and taking Rx at higher doses can actually be more counterproductive Follow up with neurology as scheduled (12) Benign prostatic hyperplasia: Code(s): N40.0 - Benign prostatic hyperplasia without lower urinary tract symptoms Qualifiers: Lower urinary tract symptom detail: urinary frequency Lower urinary tract symptom presence: symptoms present Qualified Code(s): N40.1 - Benign prostatic hyperplasia with lower urinary tract symptoms; R35.0 - Frequency of micturition Plan: Continue Tamsulosin 0.4 mg Q HS Follow up with urology as scheduled (13) Mood disorder: Code(s): F39 - Unspecified mood [affective] disorder Plan: This is most likely due to frustrations regarding his physical condition and partly due to anxiety and some depression Patient states that he has been feeling better since he was started on Sertaline Continue Sertraline 100 mg QD Plan Follow up in 4 months Orders: Orders Complete Blood Count Auto Diff 4 Months D64.9 - Anemia, unspecified Thyroid Stimulating Hormone 4 Months E03.9 - Hypothyroidism, unspecified Lipid Panel 4 Months E78.00 - Pure hypercholesterolemia, unspecified Free T4 (Free Thyroxine) 4 Months E03.9 - Hypothyroidism, unspecified Comprehensive [place]. Panel Fast 4 Months E78.00 - Pure hypercholesterolemia, unspecified UA CC w/rflx Micro + Cult 4 Months R30.0 - Dysuria Review Flu Vaccine not done: system reason Coding Level of Care Code Est Pt Level 4 (53283) Complex EM visit Add On G2211 Diagnoses Lumbar degenerative disc disease M51.36 Primary osteoarthritis of right shoulder M19.011 Chronic obstructive pulmonary disease, unspecified COPD type J44.9 COPD type: unspecified COPD DORADO (dyspnea on exertion) R06.00 Lung density on x-ray J98.4 Bilateral lower extremity edema R60.0 Acquired hypothyroidism E03.9 Chronic anemia D64.9 Benign essential hypertension I10 Gastroesophageal reflux disease without esophagitis K21.9 Esophagitis presence: without esophagitis Restless leg syndrome G25.81 Benign prostatic hyperplasia with urinary frequency N40.1; R35.0 Lower urinary tract symptom detail: urinary frequency Lower urinary tract symptom presence: symptoms present Mood disorder F39
== END 2024-08-06 16:02 | disposition home or self-care (01) ==
PROVIDERS: PCP Internal Medicine; Visit Provider Internal Medicine
DX: J44.9 Chronic obstructive pulmonary disease, unspecified (principal); F39 Unspecified mood [affective] disorder; M51.36 Other intervertebral disc degeneration, lumbar region; M19.011 Primary osteoarthritis, right shoulder; R06.00 Dyspnea, unspecified; J98.4 Other disorders of lung; R60.0 Localized edema; E03.9 Hypothyroidism, unspecified; D64.9 Anemia, unspecified; I10 Essential (primary) hypertension; K21.9 Gastro-esophageal reflux disease without esophagitis; G25.81 Restless legs syndrome

== ENCOUNTER → 2024-08-06 14:45 | Outpatient (BNVA) | payer MEDICARE, SELFPAY | PROVIDERS: PCP Internal Medicine; Visit Provider Internal Medicine | DX: J98.4 Other disorders of lung (principal); R06.00 Dyspnea, unspecified; R60.0 Localized edema; J44.9 Chronic obstructive pulmonary disease, unspecified; M51.36 Other intervertebral disc degeneration, lumbar region; M19.011 Primary osteoarthritis, right shoulder; E03.9 Hypothyroidism, unspecified; D64.9 Anemia, unspecified; I10 Essential (primary) hypertension; K21.9 Gastro-esophageal reflux disease without esophagitis; G25.81 Restless legs syndrome; N40.1 Benign prostatic hyperplasia with lower urinary tract symptoms; R35.0 Frequency of micturition; F39 Unspecified mood [affective] disorder | CPT/HCPCS: 99212 ==

== ENCOUNTER 2024-08-07 10:52 | Outpatient (REF) | payer MEDICARE, SELFPAY ==
[2024-08-07 13:12] LABS: Appearance Urine Clear; Color Urine Yellow; Glucose Urine UA Negative (Negative); Leukocyte Esterase Urine Moderate (2+) (Negative); Nitrite Urine Negative (Negative); PH 6.5 (5.0-9.0); UMIC TRIGGER UACC YES; Urine Blood Negative (Negative); Urine Ketones Negative (Negative); Urine Protein Negative (Neg-Trace)
[2024-08-07 13:14] LABS: MANUAL DIFF FLAG NO
[2024-08-07 13:16] LABS: Bacteria Urine None Seen (None Seen); Hyaline Casts Urine 0-2 /LPF (0-2); RBC Urine 0-2 /HPF (0-2); Squamous Epithelial Cell Urine 0-2 /HPF (0-2); UACC Culture Trigger YES
[2024-08-07 13:30] LABS: Basophils Absolute Auto 0.1 X10*3/uL (0.0-0.2); Basophils Percent Auto 0.8 % (0-2); Eosinophils Absolute Auto 0.2 X10*3/uL (0.0-0.4); Eosinophils Percent Auto 2.2 % (0-4); Hematocrit 37.7 % (42.0-52.0); Hemoglobin 12.6 g/dl (14.0-18.0); Imm Gran Abs Auto 0.03 X10*3/uL (0.00-0.03); Imm Gran Pct Auto 0.4 % (0.0-0.4); Lymphocytes Absolute Auto 2.8 X10*3/uL (1.2-4.9); Lymphocytes Percent Auto 35.8 % (20-40); Mean Corpuscular HGB Conc 33.4 g/dl (31.0-36.0); Mean Corpuscular Hemoglobin 30.4 pg (27.0-33.0); Mean Corpuscular Volume 90.8 fL (80.0-98.0); Mean Platelet Volume 9.8 fL (9.4-12.4); Monocytes Absolute Auto 0.7 X10*3/uL (0.1-1.2); Monocytes Percent Auto 9.1 % (2-11); Neutrophils Absolute Auto 4.1 x10*3/uL (2.0-8.3); Neutrophils Percent Auto 51.7 % (45-73); Platelet Count 284 X10*3/uL (160-400); Red Blood Count 4.15 X10*6/uL (4.60-5.80); Red Cell Distribution Width 12.5 % (11.0-16.0); White Blood Count 7.8 X10*3/uL (4.8-10.8)
[2024-08-07 13:36] LABS: B Type Natriuretic Peptide 94 pg/mL (<100)
[2024-08-07 13:52] LABS: Alanine Aminotransferase 17 U/L (0-40); Albumin Level 3.9 g/dL (3.5-5.0); Alkaline Phosphatase 61 U/L (39-117); Anion Gap 9 (12-20); Aspartate Amino Transferase 25 U/L (5-37); Bilirubin Total 1.4 mg/dL (0.0-1.0); Blood Urea Nitrogen 20 mg/dL (9-16); Calcium 8.8 mg/dL (8.4-10.2); Carbon Dioxide 35 mmol/L (22-29); Chloride 97 mmol/L (96-108); Cholesterol 117 mg/dL (<200); Estimated Glomerular Filt Rate 56; Glucose Fasting 91 mg/dL (60-99); HDL Cholesterol 53 mg/dL (>40); LDL Cholesterol Calculated 54 mg/dL (<100); Potassium 3.2 mmol/L (3.3-5.1); Sodium 138 mmol/L (135-145); Triglycerides 50 mg/dL (<150)
[2024-08-07 14:13] LABS: Thyroid Stimulating Hormone 0.99 uIU/mL (0.32-4.0); Vitamin D 25-OH Total 55.5 ng/mL (>30)
[2024-08-07 14:36] LABS: Folate 10.6 ng/mL (> or = 4.0); Vitamin B12 545 pg/mL (200-900)
== END 2024-08-07 10:53 | disposition home or self-care (01) ==
LOC: HO.HMGCLDS 10:52
PROVIDERS: PCP Internal Medicine; Visit Provider Internal Medicine
DX: I50.9 Heart failure, unspecified (principal); E53.8 Deficiency of other specified B group vitamins; E55.9 Vitamin D deficiency, unspecified; E03.9 Hypothyroidism, unspecified; E78.00 Pure hypercholesterolemia, unspecified; D64.9 Anemia, unspecified; R30.0 Dysuria
CPT/HCPCS: 36415; 80053; 80061; 81001; 82306; 82607; 82746; 83880; 84439; 84443; 85025; 87086

== ENCOUNTER 2024-08-10 12:32 | Outpatient (REF) | payer MEDICARE, SELFPAY ==
--- NOTE | ~2024-08-10 | CT_ITS ---
EXAMINATION: CT CHEST WITHOUT CONTRAST CLINICAL INFORMATION: Follow-up with atelectasis COMPARISON: April 16, 2022 TECHNIQUE: Multidetector volumetric CT imaging of the chest was done. Axial MIP volume rendering provided. Sagittal and coronal reformatted images were obtained. This CT examination was performed using dose optimization techniques as appropriate, variously including the following: *Automated exposure control *Adjustment of mA and/or kV according to patient size (this includes techniques or standardized protocols for targeted exams where dose is matched to indication/reason for exam; i.e. extremities or head) *Use of iterative reconstruction technique DLP: 113 mGy-cm FINDINGS: DAIRY MANUFACTURING TECHNOLOGIST: There is S-shaped scoliosis of thoracic and upper lumbar spine LUNGS: There are emphysematous changes in the lungs with flattening of the diaphragm and scarring in the left lung base and no lung nodules or evidence of interstitial lung disease. Trachea and main bronchi are widely patent. No evidence of bronchiectasis. MEDIASTINUM: Thyroid gland is unremarkable. There is no mediastinal or hilar lymphadenopathy is seen. Aorta is not aneurysmally dilated. There is prominence of the esophagus. There is possibly prominent pulmonary artery, limited for evaluation due to noncontrast technique. Consider possibility of pulmonary hypertension. CORONARY ARTERY CALCIFICATION: Moderate to severe PLEURA: There is no pleural effusion but pleural thickening: The left AXILLA: No lymphadenopathy. UPPER ABDOMEN: Unremarkable. OSSEOUS STRUCTURES: There are multilevel degenerative changes in lumbar spine and healed fracture deformity of lower ribs on the left posterior CT/CT chest wo IV con IMPRESSION: Emphysematous changes and scarring in the left lower lobe. COPD. Questionable pulmonary hypertension Coronary artery calcifications Fleischner guidelines were followed. Electronically signed by: Sergey Agee MD 08/23/2024 05:00 PM EDT
== END 2024-08-10 12:33 | disposition home or self-care (01) ==
LOC: HO.CT 12:32
PROVIDERS: PCP Internal Medicine; Visit Provider Internal Medicine
DX: J98.4 Other disorders of lung (principal); J44.9 Chronic obstructive pulmonary disease, unspecified; R63.4 Abnormal weight loss
CPT/HCPCS: 71250

== ENCOUNTER 2024-08-14 15:08 | Outpatient (AMB) | payer MEDICARE, SELFPAY ==
[2024-08-14 15:12] VITALS: BP 120/62; PULSE 74; O2SAT 96; BMI 20.4
--- NOTE | 2024-08-14 15:12 | MHC.OFFVIS ---
Vital Signs 08/14/24 15:12 Height 5 ft 11 in Weight 146 lb 9.718 oz BMI 20.4 BP 120/62 Blood Pressure Location Lt brachial Position Sitting Pulse 74 Pulse Source Pulse Oximeter Pulse Oximetry (%) 96 Oxygen Delivery Method Room Air Intake Visit Reasons: COPD Intake Note: pt is here for follow up and states he is about the same, good days and bad days, rainy days are not good, oxygen is being used at night, and daytime prn short of breath., he does state he still does not sleep, had a lot of pain in back, pt would like a mist vs a powder in place in incse. please send into [facility]. 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 Required: No Allergies levofloxacin Adverse Reaction (Severe, Verified 08/14/24 15:18) tendon rupture duloxetine Adverse Reaction (Intermediate, Verified 08/14/24 15:18) sedation gabapentin Adverse Reaction (Intermediate, Verified 08/14/24 15:18) nightmares; leg cramps aspirin Adverse Reaction (Unknown, Verified 08/14/24 15:18) stomach upset, stomach nicole Medication List - Last Reconciled 08/14/24 by Ridge French MD albuterol sulfate 90 mcg/actuation 2 puffs inhalation Q6H PRN amlodipine 10 mg PO DAILY aspirin 81 mg PO DAILY azithromycin 250 mg PO Q OTHER DAY 90 days bumetanide 2 mg (2 x 1 mg) PO DAILY PRN buspirone 5 mg PO BID 30 days celecoxib 200 mg PO DAILY cholecalciferol (vitamin D3) 50 mcg PO DAILY dextromethorphan-guaifenesin 30-600 mg (Mucinex DM) 1 tab PO Q12H PRN finasteride 5 mg orally M,W,F; Take Tuesday, Tuesday, Tuesday 90 days ipratropium-albuterol 0.5 mg-3 mg(2.5 mg base)/3 mL 3 mL inhalation Q6H PRN levothyroxine 137 mcg PO DAILY 90 days montelukast 10 mg PO DAILY omeprazole 20 mg PO QAM oxycodone-acetaminophen 10-325 mg 1 tab PO BID PRN 30 days pramipexole 1 mg PO TID PRN 30 days prednisone 10 mg PO Q OTHER DAY tizanidine 4 mg PO BEDTIME PRN 30 days umeclidinium 62.5 mcg/actuation (Incruse Ellipta) 1 inh inhalation DAILY 30 days Do you need a note to return to daycare/school/sports/work: No HPI HPI COPD: Details: Sami is here for 2 months follow-up for his advanced chronic obstructive pulmonary disease. He has remained relatively stable with the ups and Downs depending upon the weather. He has had no major respiratory infection. Continues to feel congested in the upper airways with husky voice. In the hot weather he was having increased swelling of the legs but this has now subsided. His main issue is lot of mucus and hard to clear completely. [facility] Medical History (Updated 08/14/24 @ 15:58 by Ridge French MD) Nocturnal hypoxemia Weight loss Weight loss Lung density on x-ray COPD exacerbation Depression GERD (gastroesophageal reflux disease) Pulmonary hypertension Benign essential hypertension Screening for diabetes mellitus Tachycardia Benign prostatic hyperplasia Restless leg syndrome Primary osteoarthritis of right shoulder Lumbar degenerative disc disease Anxiety Acquired hypothyroidism Dyspnea on exertion Bronchitis Fatigue COPD (chronic obstructive pulmonary disease) Surgical History History of gastric surgery History of foot surgery History of cardiac catheterization (~12/29/21) History of colonoscopy Family History Father No problems noted. 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 byproducts operator 80% of hearing loss would like to get hearing aids.) Vision needs: No Review of Systems Const All systems reviewed & are unremarkable except as noted in HPI and below Eyes Reports no additional complaints ENT Reports no additional complaints Card Denies chest pain, Denies irregular heart rhythm and Denies leg edema Resp Reports as per HPI GI Reports no additional complaints Reports no additional complaints Musc Reports back pain Skin/Breast Reports system reviewed and no additional complaints, except as documented Neuro Reports no additional complaints Psych Reports no additional complaints Physical Exam Vital Signs: Last Vital Signs Pulse 74 08/14/24 15:12 BP 120/62 08/14/24 15:12 Pulse Ox 96 08/14/24 15:12 Oxygen Delivery Method Room Air 08/14/24 15:12 BMI result Body Mass Index 20.4 Const Other: He is of a thin build, with slightly hunched back, and walks with a cane. General: comfortable, no acute distress, alert and awake Orientation/consciousness: patient oriented x3 HEENT Head: Yes normal to inspection General nose exam: No nasal polyps present and No nasal discharge present Face and sinus: Yes sinuses nontender Mouth: oropharynx normal Throat: Yes posterior oropharynx normal Eyes General: appearance normal, both eyes and all related structures Neck Neck: Yes normal visual inspection, Yes no lymphadenopathy, Yes trachea midline and Yes no JVD Thyroid: Thyroid normal Chest Chest palpation & inspection: abnormal inspection of the chest (Extensive scar over the left lower chest from previous surgery), normal palpation of entire chest wall and no tenderness Resp Other: Percussion note is resonant, breath sounds are distant with prolonged expiratory phase. LUNGS ARE CLEAR AND NO WHEEZES OR CREPITATIONS ARE HEARD TODAY.. Cardio Palpation: normal PMI Rate: regular rate Rhythm: regular rhythm Heart sounds: no gallops and no murmurs GI Palpation (GI): Soft to palpation, nontender, No hepatosplenomegaly present and no masses Auscultation: normal bowel sounds Back/Spine/Pelvis Thoracic/Lumbar Spine: thoracic and lumbar spine normal to inspection, thoraco-lumbar ROM limited and thoraco-lumbar spasm Skin General skin exam: no rashes or lesions noted Neuro General: patient oriented x3 and no focal motor deficits Cranial nerves: Yes CN's II-XII intact bilaterally Extrem General: Yes normal to inspection, Yes no clubbing, cyanosis or edema and Yes no calf tenderness Psych Appearance: grossly normal and well kempt Speech and movement: Normal speech and movement present Results Reviewed Results Reviewed: CT scan of the chest performed last week, not officially read yet. I reviewed the image and there is evidence of thickening of the bronchial hobson, pulmonary emphysema some bronchiectasis, but no big density, Assessment & Plan Assessment & Plan (1) COPD (chronic obstructive pulmonary disease): Comment: HAS ADVANCED COPD, PFT C/W SEVERE OBSTRUCTIVE LUNG DISEASE, WITH POSITIVE RESPONSE TO BDs . Code(s): J44.9 - Chronic obstructive pulmonary disease, unspecified Category: Medical Qualifiers: COPD type: unspecified COPD Qualified Code(s): J44.9 - Chronic obstructive pulmonary disease, unspecified Plan: Prednisone 10 mg on alternate days Ipratropium-albuterol solution in the nebulizer Q 6 hours while awake. Incruse Ellipta 1 inhalation daily ( however he does not like the powder form. I told him that he does not have to use Incruse as long as he is using ipratropium solution in the nebulizer ) Montelukast 10 mg daily (2) Bronchitis: Comment: A HAS CHRONIC BRONCHITIS PART OF HIS ADVANCED COPD. It seems to be better controlled with azithromycin 250 mg Q 3 times a week. Code(s): J40 - Bronchitis, not specified as acute or chronic Category: Medical Plan: Continues azithromycin 250 mg 3 times every (3) DORADO (dyspnea on exertion): Comment: DUE TO COMBINATION OF HIS ADVANCED COPD AND CARDIAC CONDITION. PATIENT UNDERSTANDS WELL. Code(s): R06.00 - Dyspnea, unspecified Category: Medical Plan: Once again we had detailed discussion and patient is educated about his multiple medical problems especially advanced COPD (4) Restless leg syndrome: Comment: IS A CHRONIC PROBLEM CONTROLLED WITH ROPINIROLE 1 MG Q 6 HOURS P.R.N. Code(s): G25.81 - Restless legs syndrome Category: Medical Plan: Continue same (5) Nocturnal hypoxemia: Comment: Patient is a known case of nocturnal hypoxemia which is treated with O2 therapy Code(s): G47.34 - Idiopathic sleep related nonobstructive alveolar hypoventilation Category: Medical Plan: Use oxygen 2 L/minute at night and may also use it p.r.n. during the daytime Coding Level of Care Code Est Pt Level 4 (82562) Diagnoses Chronic obstructive pulmonary disease, unspecified COPD type J44.9 COPD type: unspecified COPD Bronchitis J40 DORADO (dyspnea on exertion) R06.00 Restless leg syndrome G25.81 Nocturnal hypoxemia G47.34
== END 2024-08-14 15:37 | disposition home or self-care (01) ==
PROVIDERS: PCP Internal Medicine; Visit Provider Internal Medicine
DX: J44.9 Chronic obstructive pulmonary disease, unspecified (principal); J40 Bronchitis, not specified as acute or chronic; R06.00 Dyspnea, unspecified; G25.81 Restless legs syndrome; G47.34 Idiopathic sleep related nonobstructive alveolar hypoventilation
CPT/HCPCS: 99214

== ENCOUNTER → 2024-08-14 15:08 | Outpatient (BNVA) | payer MEDICARE, SELFPAY | PROVIDERS: PCP Internal Medicine; Visit Provider Internal Medicine | DX: J44.9 Chronic obstructive pulmonary disease, unspecified (principal); J40 Bronchitis, not specified as acute or chronic; R06.00 Dyspnea, unspecified; G25.81 Restless legs syndrome; G47.34 Idiopathic sleep related nonobstructive alveolar hypoventilation; Z99.81 Dependence on supplemental oxygen | CPT/HCPCS: 99212 ==

== ENCOUNTER 2024-09-12 09:07 | Outpatient (AMB) | payer MEDICARE, SELFPAY ==
[2024-09-12 09:22] VITALS: BP 124/60; PULSE 59; BMI 21.0
--- NOTE | 2024-09-12 09:22 | A.OFFVIS_ITS ---
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 Accompanied by: Spouse Allergies levofloxacin Adverse Reaction (Severe, Verified 08/14/24 15:18) tendon rupture duloxetine Adverse Reaction (Intermediate, Verified 08/14/24 15:18) sedation gabapentin Adverse Reaction (Intermediate, Verified 08/14/24 15:18) nightmares; leg cramps aspirin Adverse Reaction (Unknown, Verified 08/14/24 15:18) stomach upset, stomach nicole Medication List - Last Reconciled 09/12/24 by Oren Liz MD albuterol sulfate 90 mcg/actuation 2 puffs inhalation Q6H PRN amlodipine 10 mg PO DAILY aspirin 81 mg PO DAILY azithromycin 250 mg PO Q OTHER DAY 90 days bumetanide 2 mg (2 x 1 mg) PO DAILY PRN buspirone 5 mg PO BID 30 days celecoxib 200 mg PO DAILY cholecalciferol (vitamin D3) 50 mcg PO DAILY dextromethorphan-guaifenesin 30-600 mg (Mucinex DM) 1 tab PO Q12H PRN finasteride 5 mg orally M,W,F; Take Tuesday, Tuesday, Tuesday 90 days ipratropium-albuterol 0.5 mg-3 mg(2.5 mg base)/3 mL 3 mL inhalation Q6H PRN levothyroxine 137 mcg PO DAILY 90 days montelukast 10 mg PO DAILY omeprazole 20 mg PO QAM oxycodone-acetaminophen 10-325 mg 1 tab PO BID PRN 30 days pramipexole 1 mg PO TID PRN 30 days prednisone 10 mg PO Q OTHER DAY tizanidine 4 mg PO BEDTIME PRN 30 days umeclidinium 62.5 mcg/actuation (Incruse Ellipta) 1 inh inhalation DAILY 30 days HPI Comments Details: 79-year-old gentleman here for follow-up. He has background history of COPD. Main complaint has been dyspnea on exertion. His echocardiography showed RV dysfunction with moderate to severe pulmonary hypertension with pulmonary artery systolic pressure 55 mm Hg. For his dyspnea on exertion he underwent stress testing which was equivocal because he stops quite quickly on the treadmill. After discussion we took him for left and right heart cath. His filling pressures at rest were normal. He had 60% RCA stenosis which was normal with iFR/FFR assessment. On follow-up he was doing well. 02/15/24: He returns for follow-up. He has been more short of breath over the last year. He is a former smoker and has COPD. He also has back pain and is quite limited due to that. Overall appears to be quite deconditioned but is complaining that his shortness of breath is worse than before. 07/11/2024: He could not come for office visit today and requested a tele health visit. We were able to do a face time call. He is saying that he has been losing weight and has been trying to gain weight for some time. This has been a process for more than couple of years at this point. He is saying this is unintentional. He is more constipated than usual but no alternation of bowel habits. No hemoptysis but he has chronic cough and sputum due to underlying COPD. He had echocardiography performed in 04/02/2024 which showed normal LVEF of 61% without any wall motion abnormalities. Moderate increase in right ventricular cavity size with normal RV function and mild pulmonary artery hypertension. 09/12/2024: He is here for follow-up. He continues to have shortness of breath with activities. He is not on any supplemental oxygen for COPD at this stage. Previous echocardiogram showed moderate RV dilation with mild pulmonary hypertension. He has peripheral edema on examination and has been on amlodipine 10 mg daily. It appears he was started on Bumex by his primary care physician and has been on Bumex 1 mg twice a day. [facility] Medical History (Updated 08/14/24 @ 15:58 by Ridge rFench MD) Nocturnal hypoxemia Weight loss Weight loss Lung density on x-ray COPD exacerbation Depression GERD (gastroesophageal reflux disease) Pulmonary hypertension Benign essential hypertension Screening for diabetes mellitus Tachycardia Benign prostatic hyperplasia Restless leg syndrome Primary osteoarthritis of right shoulder Lumbar degenerative disc disease Anxiety Acquired hypothyroidism Dyspnea on exertion Bronchitis Fatigue COPD (chronic obstructive pulmonary disease) Surgical History History of gastric surgery History of foot surgery History of cardiac catheterization (~12/29/21) History of colonoscopy Family History Father No problems noted. 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 services sales representative 80% of hearing loss would like to get hearing aids.) Vision needs: No Review of Systems Const Denies chills, Denies fatigue, Denies fever(s), Denies frequent falls, Denies weakness, Denies weight gain and Denies weight loss ENT Denies dizziness Card Denies chest pain, Denies leg edema, Denies lightheadedness, Denies palpitations, Denies dyspnea and Denies dyspnea on exertion Resp Denies cough, Denies dyspnea and Denies dyspnea on exertion GI Denies hematochezia Musc Denies abnormal gait, Denies muscle weakness, Denies numbness, Denies radiating pain into limb and Denies tingling Neuro Denies abnormal gait, Denies dizziness, Denies frequent falls, Denies numbness, Denies tingling and Denies weakness Endo Denies fatigue and Denies palpitations Physical Exam Vital Signs: Last Vital Signs Pulse 59 09/12/24 09:22 BP 124/60 09/12/24 09:22 BMI result Body Mass Index 21.0 GENERAL APPEARANCE: in no acute distress, pleasant. NECK: no carotid bruit, no jugular venous distention. SKIN: no suspicious lesions, warm and dry. HEART: no murmurs, regular rate and rhythm. LUNGS: clear to auscultation bilaterally. ABDOMEN: soft, nontender. EXTREMITIES: no edema. PERIPHERAL PULSES: equal. NEUROLOGIC: No gross deficits, AAO X 3. Office Procedures EKG Details: Sinus bradycardia 59 beats per minute, normal axis, premature atrial complexes, QTC 427 milliseconds. [id number], Complete Assessment & Plan Assessment & Plan (1) Dyspnea on exertion: Comment: Code(s): R06.00 - Dyspnea, unspecified Category: Medical (2) Hypertension: Code(s): I10 - Essential (primary) hypertension Category: Medical (3) Pulmonary hypertension: Code(s): I27.20 - Pulmonary hypertension, unspecified Category: Medical (4) Bilateral lower extremity edema: Code(s): R60.0 - Localized edema Category: Medical Plan 79-year-old gentleman with known history of COPD and deconditioning presenting for follow-up. He has dyspnea on exertion due to COPD and significant deconditioning due to significant back issues. He is not on supplemental oxygen currently. He has been getting some shortness of breath off and on but overall has been clinically stable. His main complaint is lower extremity edema and he has 1 to 2+ edema up to mid legs. He is on Bumex 1 mg twice a day. He is on amlodipine 10 mg daily. Clinical examination is not significant for any JVD. I think this could be related to amlodipine and I have advised him to cut the amlodipine to 5 mg. Given his previous RV dilation and mild pulmonary hypertension I have advised him to check repeat echocardiogram to reassess the RV function and pulmonary pressures. If RV is worse her PA pressures arising then maybe his peripheral edema is linked with the RV failure. We will follow along with you. Thank you for allowing me to participate in the care of your patient. Please feel free to contact me if you have any questions. Orders: Orders CA echo transthoracic complete Today R60.0 - Localized edema Medications: New amlodipine 5 mg PO DAILY 90 tabs 3RF R60.0 - Localized edema Changed From bumetanide 2 mg (2 x 1 mg) PO DAILY PRN 180 tabs 0RF for swelling R60.0 - Localized edema To bumetanide 1 mg PO BID 180 tabs 0RF for swelling R60.0 - Localized edema Discontinued amlodipine Discontinued Reason: Doctor's Order 10 mg PO DAILY 90 tabs 3RF Coding Level of Care Code Est Pt Level 4 (86562) Diagnoses Dyspnea on exertion R06.00 Hypertension I10 Pulmonary hypertension I27.20 Bilateral lower extremity edema R60.0 CPT Codes EKG - CPT: [id number], Complete ([id number])
== END 2024-09-12 09:54 | disposition home or self-care (01) ==
LOC: HO.HCS 09:07
PROVIDERS: PCP Internal Medicine; Visit Provider Internal Medicine Cardiovascular Disease
DX: R06.00 Dyspnea, unspecified (principal); I10 Essential (primary) hypertension; I27.20 Pulmonary hypertension, unspecified; R60.0 Localized edema
CPT/HCPCS: 93010; 99214

== ENCOUNTER → 2024-09-12 09:07 | Outpatient (BNVA) | payer MEDICARE, SELFPAY | PROVIDERS: PCP Internal Medicine; Visit Provider Internal Medicine Cardiovascular Disease | DX: R06.00 Dyspnea, unspecified (principal); I10 Essential (primary) hypertension; I27.20 Pulmonary hypertension, unspecified; R60.0 Localized edema | CPT/HCPCS: 93005; 99212 ==

== ENCOUNTER 2024-10-05 11:07 | Outpatient (AMB) | payer MEDICARE, SELFPAY ==
--- NOTE | 2024-10-05 11:08 | MHC.OFFVIS ---
Vital Signs 10/05/24 11:10 Height 5 ft 11 in Weight 140 lb 4.807 oz BMI 19.6 BP 145/71 H Blood Pressure Location Lt brachial Position Sitting Pulse 74 Intake Visit Reasons: Unintentional weight loss Intake Note: Sami presents in the office as a new patient for weight loss. CC: He states that he is here due to the weight loss - he states that he doesnt drink enough water so his BMs are not regular. 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 Allergies levofloxacin Adverse Reaction (Severe, Verified 10/05/24 11:11) tendon rupture duloxetine Adverse Reaction (Intermediate, Verified 10/05/24 11:11) sedation gabapentin Adverse Reaction (Intermediate, Verified 10/05/24 11:11) nightmares; leg cramps aspirin Adverse Reaction (Unknown, Verified 10/05/24 11:11) stomach upset, stomach nicole HPI HPI Unintentional weight loss: Details: HPI 79 yr old m here for assessment for weight loss HE has lost about 20# over last few years prior hx of peptic ulcer and perf many years ago he has chronic back pain no urine issues, no hematuria stools solids but now more like balls which is different no nausea or vomiting no depression no abdominal pain labs with nomrocytic anemia for last several years ROS: Constitutional : No Weight loss, No Fever, No Chills ENT/Mouth : No sore throat, No Rhinorrhea Eyes: No Swelling, No Redness Cardiovascular : No Chest Pain, No SOB, No Edema Respiratory : No Cough, No Sputum, No Wheezing Gastrointestinal : see HPI Genitourinary : NO Dysuria, No Urinary Frequency, No Hematuria, No Urgency Musculoskeletal : + joint pain, No Myalgias, No Joint Swelling Skin : No Skin Lesions, No rash Neuro : No Weakness, No Numbness, No Dizziness, No Headache Psych : No Anxiety/Panic, No Depression Heme/Lymph: No Bruising, No Lymphadenopathy Endocrine : No Polyuria, No Polydipsia All other systems reviewed and are negative. Medical History Weight loss Lung density on x-ray COPD exacerbation Depression GERD (gastroesophageal reflux disease) Pulmonary hypertension Benign essential hypertension Screening for diabetes mellitus Tachycardia Benign prostatic hyperplasia Restless leg syndrome Primary osteoarthritis of right shoulder Lumbar degenerative disc disease Anxiety Acquired hypothyroidism Dyspnea on exertion Bronchitis Fatigue COPD (chronic obstructive pulmonary disease) Surgical History History of gastric surgery History of foot surgery History of cardiac catheterization (~12/29/21) History of colonoscopy Family History Father No problems noted. 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 Oropharynx clear. Moist mucous membranes. Conjunctivae appear well perfused. No thyroid mass. CHEST: Chest wall is nontender. HEART: Regular rate and rhythm without murmurs. LUNGS: hyperinflated chest, reduced air entry ABDOMEN: Soft, positive bowel sounds, nontender, no organomegaly.no flank tenderness SKIN: No rash, no excessive bruising, petechiae, or purpura. NEUROLOGIC: Cranial nerves II-XII intact without motor/sensory deficit. Psych: normal affect A/P: 1/ unintentional weight loss, with altered bowel habit --advised on colonoscopy EGD but wants to go for CT first TSH was normal PLAN: 1/ CT with IV and PO contrast 2/ check hematinics and PSA 3/ EGD and colo depending on above [facility] Medical History (Updated 10/05/24 @ 11:39 by Kaz Bustillos MD) Nocturnal hypoxemia Weight loss Weight loss Lung density on x-ray COPD exacerbation Depression GERD (gastroesophageal reflux disease) Pulmonary hypertension Benign essential hypertension Screening for diabetes mellitus Tachycardia Benign prostatic hyperplasia Restless leg syndrome Primary osteoarthritis of right shoulder Lumbar degenerative disc disease Anxiety Acquired hypothyroidism Dyspnea on exertion Bronchitis Fatigue COPD (chronic obstructive pulmonary disease) Surgical History (Updated 10/05/24 @ 11:11 by LETICIA Eduardo) History of esophagogastroduodenoscopy (EGD) History of gastric surgery History of foot surgery History of cardiac catheterization (~12/29/21) History of colonoscopy Family History Father No problems noted. 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 ordnance truck installation mechanic 80% of hearing loss would like to get hearing aids.) Vision needs: No Physical Exam Vital Signs: Last Vital Signs Pulse 74 10/05/24 11:10 BP 145/71 H 10/05/24 11:10 BMI result Body Mass Index 19.6 Assessment & Plan Assessment & Plan (1) Weight loss: Code(s): R63.4 - Abnormal weight loss Category: Medical Plan: see above (2) Benign prostatic disease: Code(s): N42.9 - Disorder of prostate, unspecified Category: Medical Plan: see above Orders: Orders Complete Blood Count Auto Diff Today R63.4 - Abnormal weight loss Vitamin B12 and Folate Today R63.4 - Abnormal weight loss Zinc Today R63.4 - Abnormal weight loss Vitamin B1 Today R63.4 - Abnormal weight loss PSA, Ultra Sensitive Today N42.9 - Disorder of prostate, unspecified CT abdomen pelvis w IV con Today R63.4 - Abnormal weight loss Comprehensive Met. Panel Today K75.81 - Nonalcoholic steatohepatitis (CAMEJO), R63.4 - Abnormal weight loss Ferritin Today R63.4 - Abnormal weight loss Coding Level of Care Code New Pt Level 4 (51999) Diagnoses Weight loss R63.4 Benign prostatic disease N42.9
[2024-10-05 11:10] VITALS: BP 145/71; PULSE 74; BMI 19.6
== END 2024-10-05 11:37 | disposition home or self-care (01) ==
PROVIDERS: PCP Internal Medicine; Visit Provider Internal Medicine Gastroenterology
DX: R63.4 Abnormal weight loss (principal); N42.9 Disorder of prostate, unspecified
CPT/HCPCS: 99204

== ENCOUNTER → 2024-10-05 11:07 | Outpatient (BNVA) | payer MEDICARE, SELFPAY | PROVIDERS: PCP Internal Medicine; Visit Provider Internal Medicine Gastroenterology | DX: N42.9 Disorder of prostate, unspecified (principal); R63.4 Abnormal weight loss | CPT/HCPCS: 99202 ==

== ENCOUNTER → 2024-10-08 10:45 | Outpatient (REF) | payer MEDICARE, SELFPAY ==
--- NOTE | 2024-10-08 10:48 | CA_ITS ---
Transthoracic Echocardiogram Patient (Last, First, Middle): Sami Levi, Gender: Male Date of : 1945 Age: 79 Procedure Date: 10/08/2024 Procedure Type: Transthoracic Echocardiogram Location: OP Height: 175.26 cm Weight: 63.5 kg BSA: 1.78 m2 Heart Rate: 64 bpm BP: 145 / 71 mmHg Risk Engineer: RHEA Referring MD: Oren Liz MD Wet Inspector Optical Glass: Oren Liz MD Symptoms: R60.0 - Localized edema Study Quality: Adequate ECG Rhythm: Sinus Conclusions: - Normal left ventricular size, thickness, systolic function, and wall motion. The visually estimated ejection fraction is between 60-65%. Diastolic function is indeterminate on the basis of available data. - Moderately increased right ventricular cavity size. There is normal right ventricular systolic function. - There is severe mitral annular calcification. - There is mild to moderate tricuspid valve regurgitation. The right ventricular systolic pressure is 58 mmHg. Moderately elevated right atrial pressure. Moderate to severe pulmonary hypertension is present. - There is mild dilatation of the sinuses of Valsalva measuring 4.30 cm and mild dilatation of the ascending aorta measuring 3.70 cm. Findings Left Ventricle Normal left ventricular size, thickness, systolic function, and wall motion. The visually estimated ejection fraction is between 60-65%. Diastolic function is indeterminate on the basis of available data. Right Ventricle Moderately increased right ventricular cavity size. There is normal right ventricular systolic function. Atria The left atrium is likely dilated. The right atrium is moderately dilated. Aortic Valve Normal aortic valve structure and function. There is no aortic valve stenosis. There is mild aortic valve regurgitation. Mitral Valve There is severe mitral annular calcification. There is trace mitral valve regurgitation. There is no mitral valve stenosis. Pulmonic Valve The pulmonic valve is normal. There is trace pulmonic valve regurgitation. Tricuspid Valve Normal tricuspid valve structure. There is mild to moderate tricuspid valve regurgitation. The right ventricular systolic pressure is 58 mmHg. Moderately elevated right atrial pressure. Moderate to severe pulmonary hypertension is present. Great Vessels There is mild dilatation of the sinuses of Valsalva measuring 4.30 cm and mild dilatation of the ascending aorta measuring 3.70 cm. The visualized portions of the pulmonary artery and branches are normal. Venous The inferior vena cava is dilated and collapses less than 50% with inspiration. Pericardium/Pleural There is no evidence of pericardial effusion. Prior Study Comparison Changes noted compared to prior study dated: 03/15/2024. Moderate to severe pulmonary hypertension. Elevated RA pressures. Measurements 2D Linear Measurements IVSd: 0.95 0.6-0.9/0.6-1.0 cm LVIDd: 4.48 3.9-5.3/4.2-5.9 cm LVIDd Index: 2.52 2.4-3.2/2.2-3.1 cm/m2 LVIDs: 2.76 2.0-3.6 cm LVPWd: 0.75 0.7-1.1 cm LA Diam: 3.50 2.7-3.8/3.0-4.0 cm LAIDs Index: 1.97 1.5-2.3 cm/m2 LV Mass: 151.96 67-162/88-224 g LV Mass Index: 85.37 43-95/49-115 g/m2 LVOT Diam: 2.50 3.0+(-)1.3 cm 2D Systolic Function EF 4C: 58.00 >55% EF 2C: 63.50 >55% EF BiP: 61.90 >55% Mitral Valve MV Pk E: 0.77 MV PK A: 1.03 MV Decel Time: 231.00 E/A: 0.70 E'Lateral: 8.92 E'Medial: 6.42 E/E' Med: 11.90 E/E' Lat: 8.60 PHT: 68.00 MVA PHT: 3.24 Decel Howell: 3.32 Aortic Valve AoV Pk Rojas: 1.06 AoV Pk Grad: 4.00 REMI: 5.23 LVOT LVOT Pk Rojas: 1.13 LVOT Mn Rojas: 0.74 LVOT VTI: 0.22 LVOT Pk Grad: 5.00 LVOT Mn Grad: 3.00 LVOT Diam: 2.50 LVOT Area: 4.91 Diastolic Function MV Pk E: 0.77 MV Pk A: 1.03 E/A: 0.70 E'Medial: 6.42 E/E' Med: 11.90 E' Laterial: 8.92 E/E' Lat: 8.60 Right Ventricle TAPSE (mm): 34.10 TVS' Rojas: 17.10 Tricuspid Valve TR Pk Rojas: 3.27 TR Pk Grad: 43.00 RA Press: 15.00 RVSP: 58.00 Great Vessels Aorta Sinus of Valsalva: 4.30 2.0-3.5 cm Ao Asc: 3.70 2.1-3.4 cm Pulmonary Valve PV Pk Rojas: 1.05 Peak PV Grad: 4.00 WV Pk Rojas: 2.01 Updated in Other Vendor System with Status of Final Oren Liz MD electronically signed on 10/10/2024 11:46:41 AM with status of Final
== END ==
LOC: HO.CARD 10:45
PROVIDERS: PCP Internal Medicine; Visit Provider Internal Medicine Cardiovascular Disease
DX: R60.0 Localized edema (principal)
CPT/HCPCS: 93306

== ENCOUNTER → 2024-10-08 10:48 | Outpatient (BNV) | payer MEDICARE, SELFPAY | PROVIDERS: PCP Internal Medicine; Visit Provider Internal Medicine Cardiovascular Disease | DX: I35.1 Nonrheumatic aortic (valve) insufficiency (principal); I34.81 Nonrheumatic mitral (valve) annulus calcification; I36.1 Nonrheumatic tricuspid (valve) insufficiency | CPT/HCPCS: 93306 ==

== ENCOUNTER 2024-10-16 15:11 | Outpatient (AMB) | payer MEDICARE, SELFPAY ==
[2024-10-16 15:22] VITALS: BP 122/64; PULSE 69; O2SAT 92; BMI 22.0
--- NOTE | 2024-10-16 15:22 | MHC.OFFVIS ---
Vital Signs 10/16/24 15:22 Height 5 ft 11 in Weight 157 lb 10.088 oz BMI 22.0 BP 122/64 Blood Pressure Location Lt brachial Position Sitting Pulse 69 Pulse Oximetry (%) 92 Oxygen Delivery Method Room Air Intake Visit Reasons: COPD Intake Note: pt is here for follow up and states he had an echo and the MD stated that he should use more oxygen and they have questions on that, liter or more time. also, ct scan results are in. Artist Model Required: No Allergies levofloxacin Adverse Reaction (Severe, Verified 10/16/24 15:39) tendon rupture duloxetine Adverse Reaction (Intermediate, Verified 10/16/24 15:39) sedation gabapentin Adverse Reaction (Intermediate, Verified 10/16/24 15:39) nightmares; leg cramps aspirin Adverse Reaction (Unknown, Verified 10/16/24 15:39) stomach upset, stomach nicole Medication List - Last Reconciled 10/16/24 by Ridge French MD albuterol sulfate 90 mcg/actuation 2 puffs inhalation Q6H PRN amlodipine 5 mg PO DAILY aspirin 81 mg PO DAILY azithromycin 250 mg PO Q OTHER DAY 90 days bumetanide 1 mg PO BID buspirone 5 mg PO BID 30 days cholecalciferol (vitamin D3) 50 mcg PO DAILY dextromethorphan-guaifenesin 30-600 mg (Mucinex DM) 1 tab PO Q12H PRN finasteride 5 mg orally M,W,F; Take Tuesday, Tuesday, Tuesday 90 days ipratropium-albuterol 0.5 mg-3 mg(2.5 mg base)/3 mL 3 mL inhalation Q6H PRN levothyroxine 137 mcg PO DAILY 90 days montelukast 10 mg PO DAILY omeprazole 20 mg PO QAM oxycodone-acetaminophen 10-325 mg 1 tab PO BID PRN 30 days pramipexole 1 mg PO TID PRN 30 days prednisone 10 mg PO Q OTHER DAY tizanidine 4 mg PO BEDTIME PRN 30 days Do you need a note to return to daycare/school/sports/work: No HPI HPI COPD: Details: Sami is 79 years old gentleman with advanced chronic obstructive pulmonary disease, .he is here for 2 months follow-up His condition has remained basically unchanged. But once again he is why seeing the same complaint of getting short of breath on minimal exertion. During the winter months he is relatively less active, but in the summer months he was doing physical work outdoors. on a daily basis He is on maximum medical treatment including DuoNeb updraft 3 times a day, Prednisone 10 mg on alternate days ( does not tolerate any steroids by inhalation ) azithromycin 3 days a week, montelukast 10 mg daily. He also has O2 concentrator at home and uses O2 2 L/minute at night. On repeated tests here in the office he did not qualify for portable oxygen, but he is allowed to use O2 during the daytime if he has respiratory distress. Because he gets very short-winded on walking around he has been provided with a portable cylinder, which he carries along when he goes. Outdoors but does not have to use it As he gets short of breath very quickly with any physical activity like even going to the bathroom, he thinks that he needs oxygen. However we have done 6 minutes walk a few times and he did not qualify for portable oxygen. He is also looking for POC. But has not qualified for that. He had recent echocardiogram, and found to have slightly increased right ventricular systolic pressure indicating increased pulmonary hypertension. Cardiology service has questioned if he needs to use more oxygen, [facility] Medical History Nocturnal hypoxemia Weight loss Weight loss Lung density on x-ray COPD exacerbation Depression GERD (gastroesophageal reflux disease) Pulmonary hypertension Benign essential hypertension Screening for diabetes mellitus Tachycardia Benign prostatic hyperplasia Restless leg syndrome Primary osteoarthritis of right shoulder Lumbar degenerative disc disease Anxiety Acquired hypothyroidism Dyspnea on exertion Bronchitis Fatigue COPD (chronic obstructive pulmonary disease) Surgical History History of esophagogastroduodenoscopy (EGD) History of gastric surgery History of foot surgery History of cardiac catheterization (~12/29/21) History of colonoscopy Family History Father No problems noted. 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 boxing and pressing supervisor 80% of hearing loss would like to get hearing aids.) Vision needs: No Review of Systems Const All systems reviewed & are unremarkable except as noted in HPI and below Eyes Reports no additional complaints ENT Reports no additional complaints Card Denies chest pain, Denies irregular heart rhythm and Denies leg edema Resp Reports as per HPI GI Reports no additional complaints Reports no additional complaints Musc Reports back pain Skin/Breast Reports system reviewed and no additional complaints, except as documented Neuro Reports no additional complaints Psych Reports no additional complaints Physical Exam Vital Signs: Last Vital Signs Pulse 69 10/16/24 15:22 BP 122/64 10/16/24 15:22 Pulse Ox 92 10/16/24 15:22 Oxygen Delivery Method Room Air 10/16/24 15:22 BMI result Body Mass Index 22.0 Const Other: He is of a thin build, with slightly hunched back, and walks with a cane. General: comfortable, no acute distress, alert and awake Orientation/consciousness: patient oriented x3 HEENT Head: Yes normal to inspection General nose exam: No nasal polyps present and No nasal discharge present Face and sinus: Yes sinuses nontender Mouth: oropharynx normal Throat: Yes posterior oropharynx normal Eyes General: appearance normal, both eyes and all related structures Neck Neck: Yes normal visual inspection, Yes no lymphadenopathy, Yes trachea midline and Yes no JVD Thyroid: Thyroid normal Chest Chest palpation & inspection: abnormal inspection of the chest (Extensive scar over the left lower chest from previous surgery), normal palpation of entire chest wall and no tenderness Resp Other: Percussion note is resonant, breath sounds are distant with prolonged expiratory phase. LUNGS ARE CLEAR AND NO WHEEZES OR CREPITATIONS ARE HEARD TODAY.. Cardio Palpation: normal PMI Rate: regular rate Rhythm: regular rhythm Heart sounds: no gallops and no murmurs GI Palpation (GI): Soft to palpation, nontender, No hepatosplenomegaly present and no masses Auscultation: normal bowel sounds Back/Spine/Pelvis Thoracic/Lumbar Spine: thoracic and lumbar spine normal to inspection, thoraco-lumbar ROM limited and thoraco-lumbar spasm Skin General skin exam: no rashes or lesions noted Neuro General: patient oriented x3 and no focal motor deficits Cranial nerves: Yes CN's II-XII intact bilaterally Extrem General: Yes normal to inspection, Yes no clubbing, cyanosis or edema and Yes no calf tenderness Psych Appearance: grossly normal and well kempt Speech and movement: Normal speech and movement present Assessment & Plan Assessment & Plan (1) COPD exacerbation: Comment: He has very advanced chronic obstructive pulmonary disease. Has been on full scale of medications, but cannot use Advair due to recurrent thrush in the mouth. He stays on prednisone 10 mg on alternate days all the times. Code(s): J44.1 - Chronic obstructive pulmonary disease with (acute) exacerbation Category: Medical Plan: Advised to continue DuoNeb updrafts Q 6 hours while awake. Use at least 3 times a day, and p.r.n. during the night if he needs. Continue montelukast 10 mg daily. Continue prednisone 10 mg on alternate days. Continue azithromycin 250 mg on alternate days Albuterol HFA Q 6 hours p.r.n. when outdoors. (2) DORADO (dyspnea on exertion): Comment: DYSPNEA ON MINIMAL EXERTION IS DUE TO COMBINATION OF HIS ADVANCED COPD AND CARDIAC CONDITION. PATIENT UNDERSTANDS WELL. HE IS FRUSTRATED BECAUSE WHEN HE GETS SHORT OF BREATH ON MINIMAL EXERTION HE TRIES TO USE O2 AND IT DOES NOT MAKE A DIFFERENCE. Code(s): R06.00 - Dyspnea, unspecified Category: Medical Plan: I HAVE EXPLAINED TO HIM IN DETAIL, THAT DYSPNEA ON EXERTION IS SECONDARY TO ADVANCED CHRONIC OBSTRUCTIVE PULMONARY DISEASE, AND NOT NECESSARILY DUE TO LACK OF OXYGEN. HE HAS MUSCULAR WEAKNESS WELL LOSS OF ELASTICITY OF THE LUNGS. HE MAY USE OXYGEN 2 L/MINUTE IF HE GETS VERY SHORT OF BREATH, BUT THIS IS MAINLY FOR PSYCHOLOGICAL RELIEF. THE 1 THING THAT MAY HELP IS PULMONARY REHAB PROGRAM, HE AGREED TO JOIN THE PULMONARY REHAB BUT AFTER THE NEW YEAR. IN THE MEANTIME I HAVE ORDERED TO HAVE A PULMONARY FUNCTION TEST ONCE AGAIN. THE LAST 1 WAS IN 2019 SHOWING VERY SEVERE OBSTRUCTIVE AIRWAY DISORDER BUT WITH PARTIAL REVERSIBILITY. (3) Nocturnal hypoxemia: Comment: Patient is a known case of nocturnal hypoxemia which is treated with O2 therapy. Code(s): G47.34 - Idiopathic sleep related nonobstructive alveolar hypoventilation Category: Medical Plan: ADVISED TO KEEP ON USING O2 2 L/MINUTE AT NIGHT. HE DOES HAVE STATIONARY CONCENTRATOR AND PORTABLE CYLINDERS, IT IS OKAY TO USE O2 2 L/MINUTE DURING THE DAYTIME AT HOME WHEN HE GOES OUTDOORS . DISCUSSED ABOUT POC, BUT WE HAVE TESTED HIM AT LEAST TWICE AND HE DID NOT QUALIFY FOR O2 CONSERVING UNIT. I HAVE ONCE AGAIN EXPLAINED TO HIM ABOUT THIS ISSUE. Coding Level of Care Code Est Pt Level 4 (63963) Diagnoses COPD exacerbation J44.1 DORADO (dyspnea on exertion) R06.00 Nocturnal hypoxemia G47.34
== END 2024-10-16 16:03 | disposition home or self-care (01) ==
PROVIDERS: PCP Internal Medicine; Visit Provider Internal Medicine
DX: J44.1 Chronic obstructive pulmonary disease with (acute) exacerbation (principal); R06.00 Dyspnea, unspecified; G47.34 Idiopathic sleep related nonobstructive alveolar hypoventilation
CPT/HCPCS: 99214

== ENCOUNTER → 2024-10-16 15:11 | Outpatient (BNVA) | payer MEDICARE, SELFPAY | PROVIDERS: PCP Internal Medicine; Visit Provider Internal Medicine | DX: J44.1 Chronic obstructive pulmonary disease with (acute) exacerbation (principal); R06.00 Dyspnea, unspecified; G47.34 Idiopathic sleep related nonobstructive alveolar hypoventilation; Z79.52 Long term (current) use of systemic steroids; Z99.81 Dependence on supplemental oxygen | CPT/HCPCS: 99212 ==

== ENCOUNTER 2024-10-20 13:13 | Outpatient (REF) | payer MEDICARE, SELFPAY ==
[2024-10-20 15:22] LABS: MANUAL DIFF FLAG NO
[2024-10-20 15:24] LABS: Basophils Absolute Auto 0.1 X10*3/uL (0.0-0.2); Basophils Percent Auto 0.7 % (0-2); Eosinophils Absolute Auto 0.3 X10*3/uL (0.0-0.4); Eosinophils Percent Auto 2.5 % (0-4); Imm Gran Abs Auto 0.02 X10*3/uL (0.00-0.03); Imm Gran Pct Auto 0.2 % (0.0-0.4); Lymphocytes Absolute Auto 3.3 X10*3/uL (1.2-4.9); Lymphocytes Percent Auto 32.8 % (20-40); Mean Corpuscular HGB Conc 34.2 g/dl (31.0-36.0); Mean Corpuscular Hemoglobin 31.9 pg (27.0-33.0); Mean Corpuscular Volume 93.1 fL (80.0-98.0); Mean Platelet Volume 9.7 fL (9.4-12.4); Monocytes Absolute Auto 0.9 X10*3/uL (0.1-1.2); Monocytes Percent Auto 8.5 % (2-11); Neutrophils Absolute Auto 5.6 x10*3/uL (2.0-8.3); Neutrophils Percent Auto 55.3 % (45-73); Platelet Count 309 X10*3/uL (160-400); Red Blood Count 4.08 X10*6/uL (4.60-5.80); Red Cell Distribution Width 12.8 % (11.0-16.0)
[2024-10-20 16:55] LABS: PSA,Total (Free>4and<10) 3.11 ng/mL (0.00-4.00)
[2024-10-20 16:58] LABS: Alanine Aminotransferase 19 U/L (0-40); Albumin Level 3.9 g/dL (3.5-5.0); Alkaline Phosphatase 59 U/L (39-117); Anion Gap 15 (12-20); Aspartate Amino Transferase 29 U/L (5-37); Bilirubin Total 1.3 mg/dL (0.0-1.0); Blood Urea Nitrogen 15 mg/dL (9-16); Calcium 9.2 mg/dL (8.4-10.2); Carbon Dioxide 31 mmol/L (22-29); Chloride 98 mmol/L (96-108); Estimated Glomerular Filt Rate > 60; Glucose Random 87 mg/dL (60-115); Potassium 3.7 mmol/L (3.3-5.1); Sodium 140 mmol/L (135-145)
[2024-10-20 17:08] LABS: Vitamin B12 491 pg/mL (200-900)
[2024-10-20 17:13] LABS: Ferritin 65 ng/mL (20-250)
[2024-10-26 03:08] LABS: Zinc 60 mcg/dL (60-130)
[2024-10-27 13:43] LABS: Vitamin B1 12 nmol/L (8-30)
[2024-11-01 10:33] LABS: PSA, Ultra Sensitive 2.72 ng/mL
== END 2024-10-20 13:14 | disposition home or self-care (01) ==
LOC: HO.HMGCLDS 13:13
PROVIDERS: PCP Internal Medicine; Referring Provider Urology; Visit Provider Internal Medicine Gastroenterology
DX: Z12.5 Encounter for screening for malignant neoplasm of prostate (principal); N40.1 Benign prostatic hyperplasia with lower urinary tract symptoms; R35.0 Frequency of micturition; R63.4 Abnormal weight loss; K75.81 Nonalcoholic steatohepatitis (NASH); N42.9 Disorder of prostate, unspecified
CPT/HCPCS: 36415; 80053; 82607; 82728; 82746; 84153; 84425; 84630; 85025

== ENCOUNTER 2024-10-24 14:33 | Outpatient (AMB) | payer MEDICARE, SELFPAY ==
--- NOTE | 2024-10-24 14:34 | MHC.OFFVIS ---
Intake Visit Reasons: 1y/PSA Intake Note: Patient is Present for Telephone 1Y Follow Up Urology Med: Finasteride Antibiotic Allergy: Levofloxacin Blood Thinner: Aspirin Supervisor Hard Candy Required: No Allergies levofloxacin Adverse Reaction (Severe, Verified 10/24/24 14:34) tendon rupture duloxetine Adverse Reaction (Intermediate, Verified 10/24/24 14:34) sedation gabapentin Adverse Reaction (Intermediate, Verified 10/24/24 14:34) nightmares; leg cramps aspirin Adverse Reaction (Unknown, Verified 10/24/24 14:34) stomach upset, stomach nicole HPI Comments Details: Gerber is a pleasant male. He is a patient of Dr. Hernandez. He is seen for the following urologic conditions - lower urinary tract symptoms - elevated PSA Telemedicine Evaluation 15 min Consultation Work[employer] Lesa Video attempted Twelve month follow-up PSA remains in range Previously noted some libido side effect Can cut finasteride back to Tuesday, Tuesday, Tuesday Twelve month follow-up Lower urinary tract symptoms Long-term lower urinary tract symptoms Good response to tamsulosin and finasteride Prior cystoscopy with known trilobar hypertrophy Has been considering prostate procedure PSA - historic range 3.5-4.5 06/03 3.8, 07/05 5.7, 02/03 3.1, 11/05 2.8, 11/06 3.1 Will continue with current therapy review with PSA in 12 months [facility] Medical History Nocturnal hypoxemia Weight loss Weight loss Lung density on x-ray COPD exacerbation Depression GERD (gastroesophageal reflux disease) Pulmonary hypertension Benign essential hypertension Screening for diabetes mellitus Tachycardia Benign prostatic hyperplasia Restless leg syndrome Primary osteoarthritis of right shoulder Lumbar degenerative disc disease Anxiety Acquired hypothyroidism Dyspnea on exertion Bronchitis Fatigue COPD (chronic obstructive pulmonary disease) Surgical History History of esophagogastroduodenoscopy (EGD) History of gastric surgery History of foot surgery History of cardiac catheterization (~12/29/21) History of colonoscopy Family History Father No problems noted. 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 80% of hearing loss would like to get hearing aids.) Vision needs: No Review of Systems Const All systems reviewed & are unremarkable except as noted in HPI and below Reports no additional complaints Resp Reports no additional complaints GI Reports no additional complaints Reports as per HPI Musc Reports no additional complaints Physical Exam Telemedicine evaluation Appropriate responses Regular breathing rate and rhythm HEENT Head: Yes normal to inspection Ears: hearing grossly normal bilaterally Eyes General: appearance normal, both eyes and all related structures Neck Neck: Yes normal visual inspection Chest Chest palpation & inspection: normal inspection of the chest Resp Effort & Inspection: normal respiratory effort and able to speak in complete sentences Telehealth Telehealth Telehealth Platform: Work[employer] Location of provider rendering services: practice address Location of patient: address on file Patient Identification confirmed using: Name, : Yes Telehealth method: video Patient verbally consented to treatment: Yes Patient verbally consented to billing insurance company: Yes Patient informed of any privacy concerns related to visit: Yes Minutes spent on Phone/Video with Pt.: 15 Assessment & Plan Assessment & Plan (1) Benign prostatic hyperplasia: Code(s): N40.0 - Benign prostatic hyperplasia without lower urinary tract symptoms Category: Medical Qualifiers: Lower urinary tract symptom presence: symptoms present Lower urinary tract symptom detail: urinary frequency Qualified Code(s): N40.1 - Benign prostatic hyperplasia with lower urinary tract symptoms; R35.0 - Frequency of micturition (2) Nocturia associated with benign prostatic hyperplasia: Code(s): N40.1 - Benign prostatic hyperplasia with lower urinary tract symptoms; R35.1 - Nocturia Category: Medical (3) Elevated PSA: Code(s): R97.20 - Elevated prostate specific antigen [PSA] Category: Medical Plan Twelve month follow-up PSA Medications: Refilled finasteride 5 mg orally M,W,F; Take Tuesday, Tuesday, Tuesday 90 days 90 tabs 3RF N40.1 - Benign prostatic hyperplasia with lower urinary tract symptoms, R35.0 - Frequency of micturition Patient Instructions: Imaging studies, laboratory and physical exam results were discussed and reviewed in detail. No major barriers to patient understanding were identified. An opportunity to ask questions regarding the treatment plan was provided. All questions were answered. The patient expressed understanding and agreement with the above treatment plan. The patient is aware they should contact our office by phone for worsening of their current condition or the appearance of new urologic symptoms. Compliance is encouraged with any medications and followup testing that is ordered. It is a privilege to participate in the urologic care of your patient. If you have any questions or concerns regarding treatment for the above conditions, or other urologic issues, please do not hesitate to contact me. The office telephone contact is [phone]. This note is constructed using voice recognition software. While every effort has been made to ensure accuracy windows architect errors may have been included. Yours sincerely, Dr Roscoe See MD, [facility] - Urology Providers of Expert, Compassionate Care for the Genitourinary System Coding Level of Care Code Tele Est Pt Level 4 (04098) Diagnoses Benign prostatic hyperplasia with urinary frequency N40.1; R35.0 Lower urinary tract symptom presence: symptoms present Lower urinary tract symptom detail: urinary frequency Nocturia associated with benign prostatic hyperplasia N40.1; R35.1 Elevated PSA R97.20
== END 2024-10-24 15:03 | disposition home or self-care (01) ==
LOC: HO.HUSH 14:33
PROVIDERS: PCP Internal Medicine; Visit Provider Urology
DX: N40.1 Benign prostatic hyperplasia with lower urinary tract symptoms (principal); R35.0 Frequency of micturition; R35.1 Nocturia; R97.20 Elevated prostate specific antigen [PSA]
CPT/HCPCS: 99214

== ENCOUNTER 2024-11-03 13:00 | Outpatient (REF) | payer MEDICARE, SELFPAY ==
[2024-11-03 10:19] VITALS: PULSE 110; O2SAT 92
--- NOTE | 2024-11-03 12:30 | PFT_ITS ---
Flows: FEV1: 39 % of predicted at 1.08 L FVC: 82 % of predicted at 3.06 L FEV1/FVC: 35 % Bronchodilator response: Present Volumes: Total lung capacity: 115 % of predicted at 7.87 L Residual volume: 173 % of predicted at 4.68 L Slow vital capacity: 82 % of predicted at 3.19 L Expiratory reserve volume: 91 % of predicted at 1.07 L Diffusion capacity: Severely decreased, adjusts to being moderately decreased after correction for alveolar ventilation. Impression: Severe to very severe obstructive ventilatory defect with positive bronchodilator response. Increased residual volume suggests air trapping. Decreased diffusion capacity suggests emphysema. MTDD
== END 2024-11-03 13:01 | disposition home or self-care (01) ==
LOC: HO.RESP 13:00
PROVIDERS: PCP Internal Medicine; Visit Provider Internal Medicine
DX: R06.00 Dyspnea, unspecified (principal); J44.9 Chronic obstructive pulmonary disease, unspecified
CPT/HCPCS: 94010; 94640; 94727; 94729

== ENCOUNTER 2024-11-21 14:09 | Outpatient (AMB) | payer MEDICARE, SELFPAY ==
[2024-11-21 14:39] VITALS: BP 120/50; PULSE 70; BMI 20.8
--- NOTE | 2024-11-21 14:39 | A.OFFVIS_ITS ---
Vital Signs 11/21/24 14:39 Height 5 ft 11 in Weight 149 lb 0.52 oz BMI 20.8 BP 120/50 L Blood Pressure Location Lt brachial Position Sitting Pulse 70 Pulse Source Pulse Oximeter Intake Visit Reasons: 2mth f/up/echo-km pt Switch Tender Required: No Accompanied by: Spouse Allergies levofloxacin Adverse Reaction (Severe, Verified 11/21/24 15:14) tendon rupture duloxetine Adverse Reaction (Intermediate, Verified 11/21/24 15:14) sedation gabapentin Adverse Reaction (Intermediate, Verified 11/21/24 15:14) nightmares; leg cramps aspirin Adverse Reaction (Unknown, Verified 11/21/24 15:14) stomach upset, stomach nicole Medication List - Last Reconciled 11/21/24 by Jeferson Jenkins NP albuterol sulfate 90 mcg/actuation 2 puffs inhalation Q6H PRN aspirin 81 mg PO DAILY azithromycin 250 mg PO Q OTHER DAY 90 days bumetanide 1 mg PO BID buspirone 5 mg PO BID 30 days cholecalciferol (vitamin D3) 50 mcg PO DAILY dextromethorphan-guaifenesin 30-600 mg (Mucinex DM) 1 tab PO Q12H PRN finasteride 5 mg orally M,W,F; Take Tuesday, Tuesday, Tuesday 90 days ipratropium-albuterol 0.5 mg-3 mg(2.5 mg base)/3 mL 3 mL inhalation Q6H PRN levothyroxine 137 mcg PO DAILY 90 days montelukast 10 mg PO DAILY omeprazole 20 mg PO QAM oxycodone-acetaminophen 10-325 mg 1 tab PO BID PRN 30 days pramipexole 1 mg PO TID PRN 30 days prednisone 10 mg PO Q OTHER DAY tizanidine 4 mg PO BEDTIME PRN 30 days HPI Comments Details: This is an 79-year-old male presenting for follow-up after an echo. He has history of COPD on 2 L oxygen at night, chronic shortness of breath on exertion, and lumbar degenerative disc disease. The patient is accompanied by his for the visit. The patient continues to report shortness of breath with activities. He states he uses his oxygen throughout the day as he gets short of breath with any kind of exertion. He is frustrated over not being able to obtain a portable oxygen cylinder, as this interferes with his independence. Patient does have a portable oxygen tank but he reports it is too heavy for him to be carrying around which makes his shortness of breath worse. For this reason, he has to have his wherever he goes as he fears potential hypoxic episodes. He reports that despite repeated tests, he does not qualify for daytime oxygen. Additionally, the patient mentions that he continues to have back pain and notes may get a back pain stimulator in the future. He also notes that he has stopped taking amlodipine 2 weeks ago. [facility] Medical History Nocturnal hypoxemia Weight loss Weight loss Lung density on x-ray COPD exacerbation Depression GERD (gastroesophageal reflux disease) Pulmonary hypertension Benign essential hypertension Screening for diabetes mellitus Tachycardia Benign prostatic hyperplasia Restless leg syndrome Primary osteoarthritis of right shoulder Lumbar degenerative disc disease Anxiety Acquired hypothyroidism Dyspnea on exertion Bronchitis Fatigue COPD (chronic obstructive pulmonary disease) Surgical History History of esophagogastroduodenoscopy (EGD) History of gastric surgery History of foot surgery History of cardiac catheterization (~12/29/21) History of colonoscopy Family History Father No problems noted. 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 health communications specialist 80% of hearing loss would like to get hearing aids.) Vision needs: No Review of Systems Const Denies chills, Denies fatigue, Denies fever(s), Denies weight gain and Denies weight loss ENT Denies dizziness Card Denies chest pain, Denies leg edema, Denies lightheadedness, Denies palpitations, Denies dyspnea on exertion, Denies orthopnea and Denies other Resp Denies cough and Denies dyspnea on exertion GI Denies hematochezia and Denies change in stool character Musc Denies abnormal gait, Denies muscle weakness, Denies numbness, Denies radiating pain into limb and Denies tingling Neuro Denies abnormal gait, Denies dizziness, Denies numbness and Denies tingling Endo Denies fatigue and Denies palpitations Physical Exam Vital Signs: Last Vital Signs Pulse 70 11/21/24 14:39 BP 120/50 L 11/21/24 14:39 BMI result Body Mass Index 20.8 Const General: cooperative, healthy appearing, comfortable and no acute distress Orientation/consciousness: patient oriented x3 HEENT Head: Yes normal to inspection Neck Neck: Yes normal visual inspection, Yes trachea midline and Yes supple Chest Chest palpation & inspection: normal inspection of the chest Resp Effort & Inspection: normal respiratory effort Auscultation: clear to auscultation bilaterally, no crackles, no rales, no rhonchi and no wheezes Cardio Jugular venous distension: no JVD Palpation: normal PMI Rate: regular rate Rhythm: regular rhythm Heart sounds: S1 normal heart sound present, S2 normal heart sound present, no click, no gallops, no murmurs and no rubs Peripheral pulses: Peripheral pulses 2+ throughout GI Inspection: Yes normal to inspection Palpation (GI): Soft to palpation Auscultation: normal bowel sounds Skin General skin exam: no rashes or lesions noted Neuro General: patient oriented x3 Extrem General: Yes normal to inspection, No no pedal edema and No calf tenderness Psych Appearance: grossly normal Mental Status: mental status grossly normal Speech and movement: Normal speech and movement present Assessment & Plan Assessment & Plan (1) Dyspnea on exertion: Comment: Code(s): R06.00 - Dyspnea, unspecified Category: Medical (2) Pulmonary hypertension: Code(s): I27.20 - Pulmonary hypertension, unspecified Category: Medical (3) Bilateral lower extremity edema: Code(s): R60.0 - Localized edema Category: Medical Plan 09/28/2024- echo showed normal EF 60-65%. Moderately increased RV cavity, severe mitral annular calcification, [id number] tricuspid valve regurgitation, increased RV systolic pressure, moderately right atrial pressure, moderate to severe pulmonary hypertension, mild dilation of Valsalva 4.30 cm and mild dilation of ascending aorta 3.70 cm. Pulmonology was made aware of the increased PA pressure, however, after the repeating pulmonary function test at his last visit, patient still did not qualify for daytime O2. Continues to use it p.r.n. Recommend continuing to increase using O2 throughout the day. Blood pressure today is well controlled. Patient off amlodipine and reports leg swelling improved significantly since. Follow-up in 6 months with an echo to reassess RV function and pulmonary pressures. In the interim patient will call us with any concerns. This note was generated using voice recognition software. While every effort has been made to ensure accuracy and proper creative resource manager, there may be occasional errors that could affect the content or meaning of the described symptoms. Orders: Orders CA echo transthoracic complete 6 Months I27.20 - Pulmonary hypertension, unspecified Coding Level of Care Code Est Pt Level 4 (20998) Diagnoses Dyspnea on exertion R06.00 Pulmonary hypertension I27.20 Bilateral lower extremity edema R60.0 Time Spent (min) 31 Comment Time spent in reviewing the chart, test results, assessment, counseling and documentation.
== END 2024-11-21 15:20 | disposition home or self-care (01) ==
PROVIDERS: PCP Internal Medicine
DX: R06.00 Dyspnea, unspecified (principal); I27.20 Pulmonary hypertension, unspecified; R60.0 Localized edema
CPT/HCPCS: 99214

== ENCOUNTER → 2024-11-21 14:09 | Outpatient (BNVA) | payer MEDICARE, SELFPAY | PROVIDERS: PCP Internal Medicine | DX: R06.00 Dyspnea, unspecified (principal); R60.0 Localized edema; I27.20 Pulmonary hypertension, unspecified | CPT/HCPCS: 99212 ==

== ENCOUNTER 2024-11-29 15:44 | Outpatient (AMB) | payer MEDICARE, SELFPAY ==
[2024-11-29 15:48] VITALS: BP 140/70; PULSE 106; O2SAT 96; BMI 20.4
--- NOTE | 2024-11-29 15:48 | MHC.OFFVIS ---
Vital Signs 11/29/24 15:48 Height 5 ft 11 in Weight 146 lb 9.718 oz BMI 20.4 BP 140/70 H Blood Pressure Location Lt brachial Position Sitting Pulse 106 H Pulse Source Pulse Oximeter Pulse Oximetry (%) 96 Oxygen Delivery Method Room Air Intake Visit Reasons: COPD Intake Note: pt is here for follow up and states he is having a good 2 weeks, but open hearth worker feels he may need more oxygen at night. Phlebotomy Instructor Required: No Allergies levofloxacin Adverse Reaction (Severe, Verified 11/29/24 16:15) tendon rupture duloxetine Adverse Reaction (Intermediate, Verified 11/29/24 16:15) sedation gabapentin Adverse Reaction (Intermediate, Verified 11/29/24 16:15) nightmares; leg cramps aspirin Adverse Reaction (Unknown, Verified 11/29/24 16:15) stomach upset, stomach nicole Medication List - Last Reconciled 11/29/24 by Ridge French MD albuterol sulfate 90 mcg/actuation 2 puffs inhalation Q6H PRN aspirin 81 mg PO DAILY azithromycin 250 mg PO Q OTHER DAY 90 days barium sulfate 2%(w/v) (Readi-Cat 2) 900 mL PO ONCE bumetanide 1 mg PO BID buspirone 5 mg PO BID 30 days cholecalciferol (vitamin D3) 50 mcg PO DAILY dextromethorphan-guaifenesin 30-600 mg (Mucinex DM) 1 tab PO Q12H PRN finasteride 5 mg orally M,W,F; Take Tuesday, Tuesday, Tuesday 90 days ipratropium-albuterol 0.5 mg-3 mg(2.5 mg base)/3 mL 3 mL inhalation Q6H PRN levothyroxine 137 mcg PO DAILY 90 days montelukast 10 mg PO DAILY omeprazole 20 mg PO QAM oxycodone-acetaminophen 10-325 mg 1 tab PO BID PRN 30 days oxycodone-acetaminophen 10-325 mg 1 tab PO BID PRN 30 days pramipexole 1 mg PO TID PRN 30 days prednisone 10 mg PO Q OTHER DAY tizanidine 4 mg PO BEDTIME PRN 30 days Do you need a note to return to daycare/school/sports/work: No HPI HPI COPD: Details: Sami is here today after 1 month for follow-up. He has recovered from acute exacerbation of COPD, and is at his baseline today. Continues to use prednisone 10 mg on alternate days and azithromycin 250 mg 3 days a week. His the medical regimen is mainly consisting of ipratropium-albuterol solution by updraft Q 6 hours while awake and albuterol HFA 2 puffs Q 6 hours p.r.n. when outdoors. He was not tolerating Incruse Ellipta show has stopped it. As usual he gets short of breath when he goes outdoors. At home with any physical activity he does get short of breath but he sits down and puts himself on oxygen. Most of the time he is doing well with O2 2 L/minute at home and also uses continuously at night. CARDIOLOGY [place] HE DOES HAVE PULMONARY HYPERTENSION, and was told that lately his pressure has increased a bit, He was told to increase the use of oxygen. However he uses oxygen almost continuously when he is at home. For outdoors he is not comfortable in bringing out the heavy portable cylinders. We have tested him repeatedly and he does not actually qualify for portable oxygen, and especially he does not qualify for POC. [facility] Medical History Nocturnal hypoxemia Weight loss Weight loss Lung density on x-ray COPD exacerbation Depression GERD (gastroesophageal reflux disease) Pulmonary hypertension Benign essential hypertension Screening for diabetes mellitus Tachycardia Benign prostatic hyperplasia Restless leg syndrome Primary osteoarthritis of right shoulder Lumbar degenerative disc disease Anxiety Acquired hypothyroidism Dyspnea on exertion Bronchitis Fatigue COPD (chronic obstructive pulmonary disease) Surgical History History of esophagogastroduodenoscopy (EGD) History of gastric surgery History of foot surgery History of cardiac catheterization (~12/29/21) History of colonoscopy Family History Father No problems noted. 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 outsole scheduler 80% of hearing loss would like to get hearing aids.) Vision needs: No Review of Systems Const All systems reviewed & are unremarkable except as noted in HPI and below Eyes Reports no additional complaints ENT Reports no additional complaints Card Denies chest pain, Denies irregular heart rhythm and Denies leg edema Resp Reports as per HPI GI Reports no additional complaints Reports no additional complaints Musc Reports back pain Skin/Breast Reports system reviewed and no additional complaints, except as documented Neuro Reports no additional complaints Psych Reports no additional complaints Physical Exam Vital Signs: Last Vital Signs Pulse 106 H 11/29/24 15:48 BP 140/70 H 11/29/24 15:48 Pulse Ox 96 11/29/24 15:48 Oxygen Delivery Method Room Air 11/29/24 15:48 BMI result Body Mass Index 20.4 Const Other: He is of a thin build, with slightly hunched back, and walks with a cane. General: comfortable, no acute distress, alert and awake Orientation/consciousness: patient oriented x3 HEENT Head: Yes normal to inspection General nose exam: No nasal polyps present and No nasal discharge present Face and sinus: Yes sinuses nontender Mouth: oropharynx normal Throat: Yes posterior oropharynx normal Eyes General: appearance normal, both eyes and all related structures Neck Neck: Yes normal visual inspection, Yes no lymphadenopathy, Yes trachea midline and Yes no JVD Thyroid: Thyroid normal Chest Chest palpation & inspection: abnormal inspection of the chest (Extensive scar over the left lower chest from previous surgery), normal palpation of entire chest wall and no tenderness Resp Other: Percussion note is resonant, breath sounds are distant with prolonged expiratory phase. LUNGS ARE CLEAR AND NO WHEEZES OR CREPITATIONS ARE HEARD TODAY.. Cardio Palpation: normal PMI Rate: regular rate Rhythm: regular rhythm Heart sounds: no gallops and no murmurs GI Palpation (GI): Soft to palpation, nontender, No hepatosplenomegaly present and no masses Auscultation: normal bowel sounds Back/Spine/Pelvis Thoracic/Lumbar Spine: thoracic and lumbar spine normal to inspection, thoraco-lumbar ROM limited and thoraco-lumbar spasm Skin General skin exam: no rashes or lesions noted Neuro General: patient oriented x3 and no focal motor deficits Cranial nerves: Yes CN's II-XII intact bilaterally Extrem General: Yes normal to inspection, Yes no clubbing, cyanosis or edema and Yes no calf tenderness Psych Appearance: grossly normal and well kempt Speech and movement: Normal speech and movement present Assessment & Plan Assessment & Plan (1) COPD (chronic obstructive pulmonary disease): Comment: HAS ADVANCED COPD, PFT C/W SEVERE OBSTRUCTIVE LUNG DISEASE, WITH POSITIVE RESPONSE TO BDs . Code(s): J44.9 - Chronic obstructive pulmonary disease, unspecified Category: Medical Qualifiers: COPD type: unspecified COPD Qualified Code(s): J44.9 - Chronic obstructive pulmonary disease, unspecified Plan: Continue to use ipratropium-albuterol solution in the nebulizer Q 6 hours while awake. Prednisone 10 mg on alternate days. Azithromycin 250 mg 3 days a week. Albuterol HFA 2 puffs Q 4-6 hours p.r.n. when outdoors (2) Bronchitis: Comment: A HAS CHRONIC BRONCHITIS PART OF HIS ADVANCED COPD. It seems to be better controlled with azithromycin 250 mg Q 3 times a week. Code(s): J40 - Bronchitis, not specified as acute or chronic Category: Medical Plan: Okay to continue taking azithromycin 250 mg 3 days a week (3) Restless leg syndrome: Comment: IS A CHRONIC PROBLEM CONTROLLED WITH ROPINIROLE 1 MG Q 6 HOURS P.R.N. Code(s): G25.81 - Restless legs syndrome Category: Medical Plan: Continue the same (4) Nocturnal hypoxemia: Comment: Patient is a known case of nocturnal hypoxemia which is treated with O2 therapy. This gentleman has advanced COPD, He has subjective shortness of breath all the time which is expected. For years we have been testing him for possibility to qualify for portable oxygen but he never qualified. Finally when we did overnight oximetry recording his O2 sat dipped below 88% for 5-6 minutes, and that was enough to in title him to have O2 at nighttime. So he does have stationary concentrator at home. He uses O2 2 L/minute during the night. He is also allowed to use O2 during the daytime whenever he feels short of breath. The problem is he can not have portable unit , because he does not desaturate much on walking . His open hearth worker's tell him that he should use more oxygen because he has pulmonary hypertension. However I think using more oxygen than what he is using right now is not going to make a big difference. His pulmonary hypertension is also contributed by valvular heart disease. Also the new study has shown that using oxygen for 15-16 hours a day, is as good as using for 24 hours a day. Code(s): G47.34 - Idiopathic sleep related nonobstructive alveolar hypoventilation Category: Medical Plan: Had a long discussion about the oxygen and I hope he understands well. I suggest that he can use O2 2-3 L/minute during the night and p.r.n. during the daytime. He should aim to use O2 for about 16 hours every day. Which he can do when he is at home. (5) Pulmonary hypertension: Comment: See the discussion under COPD. Code(s): I27.20 - Pulmonary hypertension, unspecified Category: Medical Plan: OK to use oxygen 2-3 L/minute for 15-16 hours a day. But as per previous testing he does not qualify for portable oxygen and especially for POC. Coding Level of Care Code Est Pt Level 3 (32589) Diagnoses Chronic obstructive pulmonary disease, unspecified COPD type J44.9 COPD type: unspecified COPD Bronchitis J40 Restless leg syndrome G25.81 Nocturnal hypoxemia G47.34 Pulmonary hypertension I27.20
== END 2024-11-29 16:32 | disposition home or self-care (01) ==
PROVIDERS: PCP Internal Medicine; Visit Provider Internal Medicine
DX: J44.9 Chronic obstructive pulmonary disease, unspecified (principal); J40 Bronchitis, not specified as acute or chronic; G25.81 Restless legs syndrome; G47.34 Idiopathic sleep related nonobstructive alveolar hypoventilation; I27.20 Pulmonary hypertension, unspecified
CPT/HCPCS: 99213

== ENCOUNTER → 2024-11-29 15:44 | Outpatient (BNVA) | payer MEDICARE, SELFPAY | PROVIDERS: PCP Internal Medicine; Visit Provider Internal Medicine | DX: J44.9 Chronic obstructive pulmonary disease, unspecified (principal); J40 Bronchitis, not specified as acute or chronic; G25.81 Restless legs syndrome; G47.34 Idiopathic sleep related nonobstructive alveolar hypoventilation; I27.20 Pulmonary hypertension, unspecified | CPT/HCPCS: 99212 ==

== ENCOUNTER 2024-12-04 09:35 | Outpatient (REF) | payer MEDICARE, SELFPAY ==
[2024-12-04 13:14] LABS: MANUAL DIFF FLAG NO
[2024-12-04 13:31] LABS: Appearance Urine Clear; Basophils Absolute Auto 0.1 X10*3/uL (0.0-0.2); Basophils Percent Auto 0.8 % (0-2); Color Urine Yellow; Eosinophils Absolute Auto 0.2 X10*3/uL (0.0-0.4); Eosinophils Percent Auto 1.6 % (0-4); Glucose Urine UA Negative (Negative); Hematocrit 39.3 % (42.0-52.0); Hemoglobin 13.2 g/dl (14.0-18.0); Imm Gran Abs Auto 0.02 X10*3/uL (0.00-0.03); Imm Gran Pct Auto 0.2 % (0.0-0.4); Leukocyte Esterase Urine Negative (Negative); Lymphocytes Absolute Auto 3.4 X10*3/uL (1.2-4.9); Lymphocytes Percent Auto 37.4 % (20-40); Mean Corpuscular HGB Conc 33.6 g/dl (31.0-36.0); Mean Corpuscular Hemoglobin 31.5 pg (27.0-33.0); Mean Corpuscular Volume 93.8 fL (80.0-98.0); Mean Platelet Volume 9.9 fL (9.4-12.4); Monocytes Percent Auto 10.6 % (2-11); Neutrophils Absolute Auto 4.5 x10*3/uL (2.0-8.3); Neutrophils Percent Auto 49.4 % (45-73); Nitrite Urine Negative (Negative); PH 6.5 (5.0-9.0); Platelet Count 293 X10*3/uL (160-400); Red Blood Count 4.19 X10*6/uL (4.60-5.80); Red Cell Distribution Width 11.9 % (11.0-16.0); Specific Gravity - Urine 1.015 (1.005-1.025); Urine Blood Negative (Negative); Urine Ketones Negative (Negative); Urine Protein Negative (Neg-Trace); White Blood Count 9.2 X10*3/uL (4.8-10.8)
[2024-12-04 14:06] LABS: Alanine Aminotransferase 19 U/L (0-40); Alkaline Phosphatase 58 U/L (39-117); Anion Gap 10 (12-20); Aspartate Amino Transferase 33 U/L (5-37); Bilirubin Total 1.4 mg/dL (0.0-1.0); Blood Urea Nitrogen 22 mg/dL (9-16); Calcium 8.9 mg/dL (8.4-10.2); Carbon Dioxide 34 mmol/L (22-29); Chloride 97 mmol/L (96-108); Cholesterol 117 mg/dL (<200); Estimated Glomerular Filt Rate 55; Glucose Fasting 78 mg/dL (60-99); HDL Cholesterol 54 mg/dL (>40); LDL Cholesterol Calculated 53 mg/dL (<100); Potassium 3.9 mmol/L (3.3-5.1); Sodium 137 mmol/L (135-145); Total Protein 7.4 g/dL (6.5-8.0); Triglycerides 52 mg/dL (<150)
[2024-12-04 14:15] LABS: Free T4 (Free Thyroxine) 1.25 ng/dL (0.71-1.85); Thyroid Stimulating Hormone 0.96 uIU/mL (0.32-4.0)
== END 2024-12-04 09:36 | disposition home or self-care (01) ==
LOC: HO.HMGCLDS 09:35
PROVIDERS: PCP Internal Medicine; Visit Provider Internal Medicine
DX: D64.9 Anemia, unspecified (principal); E78.00 Pure hypercholesterolemia, unspecified; E03.9 Hypothyroidism, unspecified; R30.0 Dysuria
CPT/HCPCS: 36415; 80053; 80061; 81003; 84439; 84443; 85025

== ENCOUNTER 2024-12-07 14:03 | Outpatient (AMB) | payer MEDICARE, SELFPAY ==
[2024-12-07 14:12] VITALS: BP 132/80; PULSE 69; O2SAT 94; BMI 21.0
--- NOTE | 2024-12-07 14:12 | MHC.PC.OV ---
Vital Signs 12/07/24 14:12 Height 5 ft 11 in Weight 150 lb 6 oz BMI 21.0 BP 132/80 Blood Pressure Location Lt brachial Position Sitting Pulse 69 Pulse Source Pulse Oximeter Pulse Oximetry (%) 94 Oxygen Delivery Method Room Air Intake Visit Reasons: 4mth f/u Staffing Recruiter Required: No Accompanied by: Spouse Allergies levofloxacin Adverse Reaction (Severe, Verified 12/07/24 14:36) tendon rupture duloxetine Adverse Reaction (Intermediate, Verified 12/07/24 14:36) sedation gabapentin Adverse Reaction (Intermediate, Verified 12/07/24 14:36) nightmares; leg cramps aspirin Adverse Reaction (Unknown, Verified 12/07/24 14:36) stomach upset, stomach nicole Medication List - Last Reconciled 12/07/24 by Malick Hernandez MD albuterol sulfate 90 mcg/actuation 2 puffs inhalation Q6H PRN aspirin 81 mg PO DAILY azithromycin 250 mg PO Q OTHER DAY 90 days barium sulfate 2%(w/v) (Readi-Cat 2) 900 mL PO ONCE bumetanide 1 mg PO BID buspirone 5 mg PO BID 30 days cholecalciferol (vitamin D3) 50 mcg PO DAILY dextromethorphan-guaifenesin 30-600 mg (Mucinex DM) 1 tab PO Q12H PRN finasteride 5 mg orally M,W,F; Take Tuesday, Tuesday, Tuesday 90 days ipratropium-albuterol 0.5 mg-3 mg(2.5 mg base)/3 mL 3 mL inhalation Q6H PRN levothyroxine 137 mcg PO DAILY 90 days montelukast 10 mg PO DAILY omeprazole 20 mg PO QAM oxycodone-acetaminophen 10-325 mg 1 tab PO BID PRN 30 days oxycodone-acetaminophen 10-325 mg 1 tab PO BID PRN 30 days pramipexole 1 mg PO TID PRN 30 days prednisone 10 mg PO Q OTHER DAY tizanidine 4 mg PO BEDTIME PRN 30 days Tobacco use date assessed: 12/07/24 Fall risk assessment: 2 + Falls in past year Last assessed Fall Risk: 12/07/24 Dental Screening Dental Screen Date: 12/07/24 Did you have a dental visit in the last 12 months?: No Did you have a dental problem in the last 6 months where you did not have access to dental care?: No Was dental information given to patient?: No HPI 4mth f/u HPI Details Patient comes in today for his follow-up visit States that he feels okay Notes that his low back pain and joint pains remain adequately controlled on his current medications He denies any headaches or dizziness Denies any chest pains, no increased shortness of breath No nausea/vomiting, no abdominal pain No change in bowel habits noted He had his follow-up labs done a few days ago - to discuss his results [facility] Medical History Nocturnal hypoxemia Weight loss Weight loss Lung density on x-ray COPD exacerbation Depression GERD (gastroesophageal reflux disease) Pulmonary hypertension Benign essential hypertension Screening for diabetes mellitus Tachycardia Benign prostatic hyperplasia Restless leg syndrome Primary osteoarthritis of right shoulder Lumbar degenerative disc disease Anxiety Acquired hypothyroidism Dyspnea on exertion Bronchitis Fatigue COPD (chronic obstructive pulmonary disease) Surgical History History of esophagogastroduodenoscopy (EGD) History of gastric surgery History of foot surgery History of cardiac catheterization (~12/29/21) History of colonoscopy Family History Father No problems noted. 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 ups driver 80% of hearing loss would like to get hearing aids.) Vision needs: No Questionnaire PHQ-9 Over the last 2 weeks, how often have you been bothered by any of the following problems? 1. Little interest or pleasure in doing things: not at all 2. Feeling down, depressed, or hopeless: not at all 3. Trouble falling or staying asleep, or sleeping too much: not at all 4. Feeling tired or having little energy: not at all 5. Poor appetite or overeating: not at all 6. Feeling bad about yourself - or that you are a failure or have let yourself or your family down: not at all 7. Trouble concentrating on things, such as reading the newspaper or watching television: not at all 8. Moving or speaking so slowly that other people could have noticed. Or the opposite - being so fidgety or restless that you have been moving around a lot more than usual: not at all 9. Thoughts that you would be better off or of hurting yourself in some way: not at all Total score: 0 Depression Screening Interpretation: Negative Depression Screening Done: Yes 93843 - PHQ-9 Billing: Yes Source: Developed by Drs. Rishabh Stallworth, Kesha Madrid, Louis Tyler and colleagues, with an educational ritu from [employer]. Thrive Questionnaire Date Thrive assessed: 12/07/24 I am a: Patient What is your living situation today?: I have a steady place to live Within the past 12 months, did the food you bought not last and you didn't have the money to get more?: Never true Within the past 12 months, did you worry whether your food would run out before you got money to buy more?: Never true Do you have trouble paying for medicines?: No Do you have trouble getting transportation to medical appointments?: No Do you have trouble paying your heating and electricity bill?: No Do you have trouble taking care of your child, family member or friend?: No Do you have trouble with day-to-day activities such as bathing, preparing meals, shopping, managing finances, etc.?: No Are you currently unemployed and looking for a job?: No Are you interested in more education?: No Please select the resources that you would like help with: None Currently or been in a relationship where the following occur: No concerns reported THRIVE Score: 0 AUDIT C Alcohol Use Questionnaire (AUDIT-C) 1. How often do you have a drink containing alcohol?: Never 3. How often do you have six or more drinks on one occasion?: Never Total Score: 0 Score Reviewed/Action Taken: Yes THOM-7 AMB Questionnaire THOM-7 Date THOM - 7 assessed: 12/07/24 Feeling nervous, anxious, or on edge: 0 = Not at all Not being able to stop or control worryin = Not at all Worrying too much about different things: 0 = Not at all Trouble relaxin = Not at all Being so restless that it is hard to sit still: 0 = Not at all Becoming easily annoyed or irritable: 0 = Not at all Feeling afraid as if something awful might happen: 0 = Not at all Total THOM-7 score (0-4 normal; 5-9 mild; 10-14 moderate; 15-21 severe): 0 Source: Developed by Drs. Rishabh Stallworth, Kesha Madrid, Louis Tyler and colleagues, with an educational ritu from [employer]. Review of Systems Const Denies chills, Reports difficulty sleeping (at times), Reports fatigue, Denies fever(s) and Denies headache(s) ENT Denies dysphagia, Denies dizziness, Denies otalgia, Denies headache(s), Denies neck pain, Denies odynophagia and Denies sore throat Card Denies chest pain, Denies palpitations and Reports dyspnea on exertion (mild) Resp Denies chest congestion, Denies cough and Reports dyspnea on exertion (mild) GI Denies abdominal pain, Reports constipation (at times), Denies dysphagia, Denies heartburn, Denies diarrhea, Denies nausea, Denies odynophagia and Denies vomiting Denies difficulty urinating, Denies dysuria, Denies nocturia and Denies urinary frequency Musc Reports back pain (over the lower back, chronic), Reports arthralgias (right shoulder), Reports muscle cramps (in both legs, worse at night), Denies neck pain, Reports numbness (on the head and face lately) and Reports tingling (on and off, in both legs) Skin/Breast Denies rash Neuro Denies dizziness, Denies headache(s), Reports numbness (on the head and face lately), Reports radicular pain (in both lower extremities), Reports restless legs and Reports tingling (on and off, in both legs) Psych Reports anxiety (better controlled on current Rx), Denies depression and Denies irritability Endo Reports fatigue and Denies palpitations Jefe/Lymph Details: on and off swelling of both legs and feet Physical exam (Primary Care) Vital Signs: Last Vital Signs Pulse 69 12/07/24 14:12 BP 132/80 12/07/24 14:12 Pulse Ox 94 12/07/24 14:12 Oxygen Delivery Method Room Air 12/07/24 14:12 BMI result Body Mass Index 21.0 Tobacco/Smoking Status: Tobacco use Status Tobacco use date assessed 12/07/24 12/07/24 14:15 Patient Tobacco Use Status Former Tobacco user 12/07/24 14:15 Tobacco use type Cigarette 12/07/24 14:15 e-Cigarette/Vaping Use Never Used 12/07/24 14:15 PHQ-9: PHQ-9 Score PHQ-9: Total score 0 12/07/24 14:46 Depression Screening Interpretation: Negative Thrive Assessment: Date of Thrive Assessment Date Thrive assessed 12/07/24 12/07/24 14:15 Currently or been in a relationship where the following occur: No concerns reported Const General: no acute distress and alert HENMT Ears: TM's normal bilaterally and EAC's normal Throat: Yes posterior oropharynx normal and Yes tonsils normal (no TP congestion noted) Neck Neck: Yes supple and No lymphadenopathy Thyroid: Thyroid normal Resp Auscultation: clear to auscultation bilaterally, no rales and no wheezes Cardio Rate: regular rate Rhythm: regular rhythm Heart sounds: no murmurs GI Palpation (GI): Soft to palpation and nontender Auscultation: normal bowel sounds General: Yes no CVA tenderness Back/Spine/Pelvis Back: no CVA tenderness Thoracic/Lumbar Spine: lumbar spinal tenderness and straight leg raise positive Skin Rashes: no rashes Extrem General: No clubbing, No cyanosis and Yes edema (3+ bipedal edema) Results Reviewed Results Reviewed: Laboratory Tests 12/04/24 09:39 WBC 9.2 Hgb 13.2 L Hct 39.3 L Plt Count 293 Sodium 137 Potassium 3.9 Creatinine 1.26 Estimated GFR 55 Fasting Glucose 78 Calcium 8.9 Total Bilirubin 1.4 H AST 33 ALT 19 Triglycerides 52 Cholesterol 117 LDL Cholesterol, Calc 53 HDL Cholesterol 54 TSH 0.96 Free T4 1.25 Ur Specific [place] 1.015 Urine Protein Negative Urine Glucose (UA) Negative Urine Blood Negative Urine Nitrite Negative Ur Leukocyte Esterase Negative Coding Level of Care Code Est Pt Level 4 (48884) Diagnoses Degeneration of intervertebral disc of lumbar region with discogenic back pain and lower extremity pain M51.362 Disc-related pain type: discogenic back pain and lower extremity pain Chronic obstructive pulmonary disease, unspecified COPD type J44.9 COPD type: unspecified COPD Pulmonary hypertension I27.20 Primary osteoarthritis of right shoulder M19.011 Acquired hypothyroidism E03.9 Bilateral lower extremity edema R60.0 Chronic anemia D64.9 Benign essential hypertension I10 Gastroesophageal reflux disease without esophagitis K21.9 Esophagitis presence: without esophagitis Restless leg syndrome G25.81 Benign prostatic hyperplasia with urinary frequency N40.1; R35.0 Lower urinary tract symptom presence: symptoms present Lower urinary tract symptom detail: urinary frequency Mood disorder F39 Additional Codes PHQ-9 - 26556 - PHQ-9 Billing: Yes ([id number]) Assessment & Plan Assessment & Plan (1) Lumbar degenerative disc disease: Code(s): M51.36 - Other intervertebral disc degeneration, lumbar region Category: Medical Qualifiers: Disc-related pain type: discogenic back pain and lower extremity pain Qualified Code(s): M51.362 - Other intervertebral disc degeneration, lumbar region with discogenic back pain and lower extremity pain Plan: Reinforced activity and weight-lifting restrictions MRI of the lumbar spine done back in 2008 revealed multilevel bony and disc degenerative changes and osteophytic narrowing of the neural foramina at multiple levels with no focal disc herniation or spinal stenosis noted at that time; patient has not had MRI repeated since Lumbar spine x-rays done in March 2020 revealed (+) prominent dextrocurvature and multilevel degenerative disc changes Repeat lumbar spine x-rays done back in March 2023 revealed (+) dextrorotoscoliosis with degenerative disc changes virtually at every disc level. No visible acute fracture or dislocation seen He has been to pain management but none of the options/interventions that he has tried so far have helped We tried referring him to the Sp[facility] here at [facility] last year to see what other treatment or management options remain available to him at this time but was advised that he needs to get a more recent lumbar spine MRI done before he can be seen Continue Celecoxib 200 mg QD PRN, Oxycodone-Acetaminophen 10-325 mg BID PRN and Tizanidine 4 mg Q HS PRN Patient has tried taking Gabapentin in the past but stopped due to frequent nightmares while on the medication;? he also recalled experiencing increasing leg cramps and pain when he was started back on Gabapentin He was also tried on Duloxetine 30 mg BID but was only taking it Q PM - states that he felt sedated, tired and too mellow while on the Rx and was advised to stop taking this after a while (2) COPD (chronic obstructive pulmonary disease): Comment: HAS ADVANCED COPD, PFT C/W SEVERE OBSTRUCTIVE LUNG DISEASE, WITH POSITIVE RESPONSE TO BDs . Code(s): J44.9 - Chronic obstructive pulmonary disease, unspecified Category: Medical Qualifiers: COPD type: unspecified COPD Qualified Code(s): J44.9 - Chronic obstructive pulmonary disease, unspecified Plan: Chest CT done in July 2024 revealed (+) COPD and emphysematous changes and scarring in the left lower lobe with (+) coronary artery calcifications Continue Albuterol HFA 2 puffs 4 times a day as needed and Spiriva Respimat 2 inhalations QD; continue Prednisone 20 mg 1 to 2 tablets per week, no more than 7 tablets per month Follow up with pulmonary at [facility] as scheduled (3) Pulmonary hypertension: Comment: See the discussion under COPD. Code(s): I27.20 - Pulmonary hypertension, unspecified Category: Medical Plan: Echocardiogram done back in September 2024 revealed (+) moderate to severe pulmonary hypertension Left ventricular size, thickness, systolic function, and wall motion are normal and the visually estimated ejection fraction is between 60-65%. (+) moderately increased right ventricular cavity size but right ventricular systolic function is normal. There is severe mitral annular calcification, mild to moderate tricuspid valve regurgitation, the right ventricular systolic pressure is 58 mmHg, with moderately elevated right atrial pressure. There is also (+) mild dilatation of the sinuses of Valsalva measuring 4.30 cm and mild dilatation of the ascending aorta measuring 3.70 cm Patient also recently underwent cardiac catheterization a few years ago (2021) for further evaluation of his progressive DORADO and equivocal stress test - coronary angiogram revealed no significant CAD Patient then advised to continue with aggressive risk factor modification Follow up with pulmonary and cardiology as scheduled (4) Primary osteoarthritis of right shoulder: Code(s): M19.011 - Primary osteoarthritis, right shoulder Category: Medical Plan: States that his current meds, especially Celecoxib, help with his shoulder pain He was given a cortisone injection into his shoulder by Dr. Gerard last year, which he states did not really help much Follow up with orthopedics at [facility] as scheduled (5) Acquired hypothyroidism: Code(s): E03.9 - Hypothyroidism, unspecified Category: Medical Plan: Results of his labs done a few days ago reviewed and discussed with patient - his TFTs were normal Continue Levothyroxine 137 mcg QD Will recheck his TFTs in 4 months for follow up (6) Bilateral lower extremity edema: Code(s): R60.0 - Localized edema Category: Medical Plan: Continue Bumetanide 1 mg Q AM PRN Patient has been advised that lower extremity edema is common in patients with advanced COPD and that this is most likely due to pulmonary hypertension (or cor pulmonale), as revealed in his recent echocardiogram Have advised that his Amlodipine 10 mg may also be contributing to this (7) Chronic anemia: Code(s): D64.9 - Anemia, unspecified Category: Medical Plan: Patient still has chronic but mild anemia on his labs done a few days ago - etiology remains unclear at this time as he does not appear to be deficient in iron or Vitamin B12 He reportedly last had his colonoscopy sometime in 2017 Because of his persistent anemia of unclear etiology, he was referred back to GI for consideration for repeat colonoscopy He was seen by Dr. Bustillos in September 2024 for initial consultation and was sent for additional work ups, including abdominal and pelvic CT, which he is scheduled for in December 2024 Will continue to monitor his CBC regularly (8) Benign essential hypertension: Code(s): I10 - Essential (primary) hypertension Category: Medical Plan: Reinforced low sodium diet - goal is systolic BP of at least 130 to 140 mm or less Continue Amlodipine 10 mg QD (9) GERD (gastroesophageal reflux disease): Code(s): K21.9 - Gastro-esophageal reflux disease without esophagitis Category: Medical Qualifiers: Esophagitis presence: without esophagitis Qualified Code(s): K21.9 - Gastro-esophageal reflux disease without esophagitis Plan: Dietary restrictions reinforced Continue Omeprazole 20 mg QD (10) Restless leg syndrome: Comment: IS A CHRONIC PROBLEM CONTROLLED WITH ROPINIROLE 1 MG Q 6 HOURS P.R.N. Code(s): G25.81 - Restless legs syndrome Category: Medical Plan: Continue Pramipexole 1 mg TID PRN He was on Ropinirole 1 mg every 6 hours for a while but it has no longer been helping He was referred to and was seen by neurology a few months ago, who cut down his Ropinirole to 1 mg QHS and he was reportedly advised that there is really no effective cure for RLS and taking Rx at higher doses can actually be more counterproductive Follow up with neurology as scheduled (11) Benign prostatic hyperplasia: Code(s): N40.0 - Benign prostatic hyperplasia without lower urinary tract symptoms Category: Medical Qualifiers: Lower urinary tract symptom presence: symptoms present Lower urinary tract symptom detail: urinary frequency Qualified Code(s): N40.1 - Benign prostatic hyperplasia with lower urinary tract symptoms; R35.0 - Frequency of micturition Plan: Continue Tamsulosin 0.4 mg Q HS Follow up with urology as scheduled (12) Mood disorder: Code(s): F39 - Unspecified mood [affective] disorder Category: Medical Plan: This is in part due to frustrations regarding his physical condition and also to his anxiety and some depression Patient states that he has been feeling better since he was started on Sertaline Continue Sertraline 100 mg QD Plan Follow up in 4 months Orders: Orders Lipid Panel 4 Months E78.00 - Pure hypercholesterolemia, unspecified Vitamin D 25-OH Total 4 Months E55.9 - Vitamin D deficiency, unspecified Complete Blood Count Auto Diff 4 Months D64.9 - Anemia, unspecified Comprehensive [place]. Panel Fast 4 Months E78.00 - Pure hypercholesterolemia, unspecified Thyroid Stimulating Hormone 4 Months E03.9 - Hypothyroidism, unspecified Free T4 (Free Thyroxine) 4 Months E03.9 - Hypothyroidism, unspecified Medications: Discontinued oxycodone-acetaminophen 10-325 mg Discontinued Reason: Duplicate 1 tab PO BID 30 days PRN 60 tabs 0RF pain M54.16 - Radiculopathy, lumbar region
--- OUTSIDE RECORDS SUMMARY | 2024-12-07 15:48 | XMS_ITS | Encounter Summary ---
Author Organization [facility] Address [address] [place] [address] Care Team Providers Care Professional Nursing Assistant Name Role Phone Iggy Rojas MD Primary Care Provider Unavail able Ridge French Primary Care Provider Unavail able Encounter Details Date Type Department Care Team Description 06/12/2014 Release of Information Medical Records [address] [place] [address] Abstract, Provider Social History Tobacco Use Types Packs/Day Years Used Date Smoking Tobacco: Former Cigarettes 1.5 25 Q uit: 10/21/1989 Smokeless Tobacco: Never Comments:started smoking at 14 yr / smokes marijuana once in awhile to stay healthy Alcohol Use Standard Drinks/Week Comments No 0 (1 standard drink = 0.6 oz pur e alcohol) Sex Assigned at Date Recorded Not on file documented as of this encounter Plan of Treatment Not on file documented as of this encounter Visit Diagnoses Not on filedocumented in this encounter Care Teams Professional Nursing Assistant Relationship Specialty Start Date End Date Iggy Rojas MD PCP - General 02/13/02 09/01/15 Ridge French PCP - General Internal Medicine 09/02/15 documented as of this encounter
--- OUTSIDE RECORDS SUMMARY | 2024-12-07 15:48 | XMS_ITS | Encounter Summary ---
Author Organization [facility] Address [address] [place] [address] Care Team Providers Care Recycling Or Rubbish Collector Name Role Phone Iggy Rojas MD Primary Care Provider Unavail able Ridge French Primary Care Provider Unavail able Encounter Details Date Type Department Care Team Description 06/13/2014 [facility] Medical Records [address] [place] [id number] Miguel Souza Social History Tobacco Use Types Packs/Day Years Used Date Smoking Tobacco: Former Cigarettes 1.5 25 0 1958 - 10/21/1989 Smokeless Tobacco: Never Comments:started smoking at [...] on filedocumented in this encounter Care Teams Recycling Or Rubbish Collector Relationship Specialty Start Date End Date Iggy Rojas MD PCP - General 02/13/02 09/01/15 Ridge French PCP - General Internal Medicine 09/02/15 documented as of this encounter
--- OUTSIDE RECORDS SUMMARY | 2024-12-07 15:48 | XMS_ITS | Encounter Summary ---
Author Organization [facility] Address [address] [place] [address] Care Team Providers Care Presiding Steward Name Role Phone Ridge French Primary Care Provider Unavail able Encounter Details Date Type Department Care Team Description 07/05/2016 Soda Room Operator Report Medical Records [address] [place] [address] Ridge French Social History Tobacco Use Types Packs/Day Years [...] on filedocumented in this encounter Care Teams Presiding Steward Relationship Specialty Start Date End Date Ridge French PCP - General Internal Medicine 09/02/15 documented as of this encounter
--- OUTSIDE RECORDS SUMMARY | 2024-12-07 15:48 | XMS_ITS | Encounter Summary ---
Author Organization [facility] Address [address] [place] [address] Care Team Providers Care Cartography Teacher Name Role Phone Iggy Rojas MD Primary Care Provider Unavail able Ridge French Primary Care Provider Unavail able Encounter Details Date Type Department Care Team Description 03/07/2015 Geophysical Laboratory Director Report Medical Records [address] [place] [id number] Ridge French Social History Tobacco Use Types [...] on filedocumented in this encounter Care Teams Cartography Teacher Relationship Specialty Start Date End Date Iggy Rojas MD PCP - General 02/13/02 09/01/15 Ridge French PCP - General Internal Medicine 09/02/15 documented as of this encounter
--- OUTSIDE RECORDS SUMMARY | 2024-12-07 15:48 | XMS_ITS | Encounter Summary ---
Author Organization [facility] Address [address] [place] [address] Care Team Providers Care Supervisor Opening And Picking Name Role Phone Iggy Rojas MD Primary Care Provider Unavail able Ridge French Primary Care Provider Unavail able Encounter Details Date Type Department Care Team Description 11/05/2014 [facility] Medical Records [address] [place] [address] Abstract, Provider Social History Tobacco Use Types [...] on file documented as of this encounter Procedures Procedure Name Priority Date/Time Associated Diagnosis Comments OUTSIDE LAB Routine 08/23/2014 documented in this encounter Results * OUTSIDE LAB (08/23/2014) Provider Abstract LAB documented in this encounter Visit Diagnoses Not on filedocumented in this encounter Care Teams Supervisor Opening And Picking Relationship Specialty Start Date End Date Iggy Rojas MD PCP - General 02/13/02 09/01/15 Ridge French PCP - General Internal Medicine 09/02/15 documented as of this encounter
--- OUTSIDE RECORDS SUMMARY | 2024-12-07 15:48 | XMS_ITS | Encounter Summary ---
Author Organization [facility] Address [address] [place] [address] Care Team Providers Care Unit Receptionist Name Role Phone Iggy Rojas MD Primary Care Provider Unavail able Ridge French Primary Care Provider Unavail able Encounter Details Date Type Department Care Team Description 08/23/2014 [facility] Medical Records [address] [place] [phone] Anna Rocha, DO Social History Tobacco Use Types Packs/Day Years [...] on filedocumented in this encounter Care Teams Unit Receptionist Relationship Specialty Start Date End Date Iggy Rojas MD PCP - General 02/13/02 09/01/15 Ridge French PCP - General Internal Medicine 09/02/15 documented as of this encounter
--- OUTSIDE RECORDS SUMMARY | 2024-12-07 15:48 | XMS_ITS | Encounter Summary ---
Author Organization [facility] Address [address] [place] [address] Care Team Providers Care Federal Air Marshal Name Role Phone Iggy Rojas MD Primary Care Provider Unavail able Ridge French Primary Care Provider Unavail able Encounter Details Date Type Department Care Team Description 07/13/2010 Fire Fighting Equipment Specialist Report Medical Records [address] [place] [phone] Levy Stewart MD Social History Tobacco Use Types Packs/Day Years Used Date Smoking Tobacco: Former Cigarettes 1.5 25 Q uit: 10/21/1989 Comments:started smoking at 14 yr / smokes [...] on filedocumented in this encounter Care Teams Federal Air Marshal Relationship Specialty Start Date End Date Iggy Rojas MD PCP - General 02/13/02 09/01/15 Rideg French PCP - General Internal Medicine 09/02/15 documented as of this encounter
--- OUTSIDE RECORDS SUMMARY | 2024-12-07 15:48 | XMS_ITS | Encounter Summary ---
Author Organization [facility] Address [address] [place] [address] Care Team Providers Care Snow Fence Erector Name Role Phone Iggy Rojas MD Primary Care Provider Unavail able Ridge Frecnh Primary Care Provider Unavail able Encounter Details Date Type Department Care Team Description 08/25/2014 [facility] Medical Records [address] [place] [phone] Emmett Burrell Social History Tobacco Use Types Packs/Day Years [...] on filedocumented in this encounter Care Teams Snow Fence Erector Relationship Specialty Start Date End Date Iggy Rojas MD PCP - General 02/13/02 09/01/15 Ridge French PCP - General Internal Medicine 09/02/15 documented as of this encounter
--- OUTSIDE RECORDS SUMMARY | 2024-12-07 15:48 | XMS_ITS | Encounter Summary ---
Author Organization [facility] Address [address] [place] [address] Care Team Providers Care Refinery Operator Helper Cracking Unit Name Role Phone Ridge French Primary Care Provider Unavail able Encounter Details Date Type Department Care Team Description 11/17/2016 Transfer Records Medical Records [address] [place] [address] Abstract, Provider Social History Tobacco Use Types [...] on filedocumented in this encounter Care Teams Refinery Operator Helper Cracking Unit Relationship Specialty Start Date End Date Ridge French PCP - General Internal Medicine 09/02/15 documented as of this encounter
--- OUTSIDE RECORDS SUMMARY | 2024-12-07 15:48 | XMS_ITS | Encounter Summary ---
Author Organization [facility] Address [address] [place] [address] Care Team Providers Care Sewage Reticulation Drafting Officer Name Role Phone Iggy Rojas MD Primary Care Provider Unavail able Ridge French Primary Care Provider Unavail able Encounter Details Date Type Department Care Team Description 06/14/2014 [facility] Medical Records [address] [place] [phone] Miguel Souza Social History Tobacco Use Types [...] on filedocumented in this encounter Care Teams Sewage Reticulation Drafting Officer Relationship Specialty Start Date End Date Iggy Rojas MD PCP - General 02/13/02 09/01/15 Ridge French PCP - General Internal Medicine 09/02/15 documented as of this encounter
--- OUTSIDE RECORDS SUMMARY | 2024-12-07 15:48 | XMS_ITS | Clinical Summary ---
Author Organization [facility] Address [address] [place] [address] Care Team Providers Care Accountant Machine Processing Name Role Phone Ridge French Primary Care Provider Unavail able Allergies Active Allergy Reactions Severity Noted Date Comments Aspirin 12/21/2005 bleeding in stomache Cannot take uncoated asa Gabapentin hallucinations High 06/16/2009 Medications Medication Sig Dispensed Refills Start Date End Date Status SPIRIVA RESPIMAT 2.5 MCG/ACT Aero Soln 2 Sprays daily. 0 03/21/2015 Ac tive terazosin (HYTRIN) 5 MG capsule Take 1 Cap by mouth at bedtime. 30 Cap 5 04/28/2015 Active levothyroxine (SYNTHROID, LEVOTHROID) 150 MCG tablet Take 1 Tab by mouth daily. 30 Tab 5 04/28/2015 Active ropinirole (REQUIP) 1 MG tablet Take 1 Tab by mouth 4 times daily. 120 Tab 5 04/28/2015 Active Multiple Vitamins-Minerals (MULTIVITAMIN OR) Take by mouth daily. 0 Active PROAIR RESPICLICK 108 (90 BASE) MCG/ACT AEROSOL POWDER,BREATH ACTIVATED 2 Puffs every 4 hours as needed. 0 11/29/2015 Active oxycodone-acetaminop hen (PERCOCET) 5-325 MG per tablet 1 tablet 4 times daily as needed. 0 12/31/2015 Active predniSONE (DELTASONE) 10 MG tablet Prn for respiratory problems 0 01/18/2017 Active Medical Marijuana In candy once or twice a week 0 Active Coenzyme Q10 (COQ10) 400 MG CapIndications:Muscl e cramp Take 1 Tab by mouth daily for 360 days. 30 Cap 11 09/01/2017 Active Magnesium 500 MG CapIndications:Muscl e cramp Take 1 Cap by mouth daily for 360 days. 30 Cap 11 09/01/2017 Active Active Problems Problem Noted Date Benign neoplasm of colon 06/13/2013 Overview: Small tubular adenomas x 2 at colonoscopy 2012, next colonoscopy indicated 2015. Family history of diabetes mellitus (DM) 05/25/2012 Elevated fasting glucose 09/20/2010 Degenerative arthritis of lumbar spine 0 01/07/2010 Radiculitis, lumbosacral 01/07/2010 Lumbago 09/05/2009 Helicobacter pylori infection 01/24/2009 Overview: Treatment failure December,. History of peptic ulcer disease 12/06/19 09 Syncope 07/17/2008 Atypical chest pain 07/17/2008 HTN (hypertension) 07/17/2008 DEPRESSION 04/12/2007 Restless legs syndrome (RLS) 04/12/2007 GASTRIC ULCER 04/12/2007 Overview: with bleeding 1982. EGD + antral bx 01/21/2009: no ulcers, path: Chronic gastritis, H. Pylori present. IMO update COPD 02/07/2006 BPH 01/24/2006 Overview: IMO update HIATAL HERNIA 01/24/2006 Overview: IMO update HYPOTHYROIDISM 01/24/2006 Overview: graves disease HERMAN Immunizations Name Administration Dates Next Due Influenza (> 6 Months) 09/11/2013,2012,08/23/2011,08/07,07/25/2009,09/04/2008,08/08/2007 ,09/15/2006 Pneumoccoccal(Adult) Polysac charide PPSV23 11/02/2007 TD (STATE SUPPLIED FOR ADULT S AND CHILDREN) 07/13/2007 Family History Medical History Relation Name Comments COPD Father Diabetes Father's side CA Lung Mother Relation Name Status Comments Father Father's side Mother Social History Tobacco Use Types Packs/Day Years Used Date Smoking Tobacco: Former Cigarettes 1.5 25 0 1958 - 10/21/1989 Smokeless Tobacco: Never Tobacco Cessation:Ready to Q uit: No Comments:started smoking at 14 yr / smokes marijuana once in awhile to stay healthy Alcohol Use Standard Drinks/Week Comments No 0 (1 standard drink = 0.6 oz pur e alcohol) Sex Assigned at Date Recorded Not on file Last Filed Vital Signs Vital Sign Reading Time Taken Comments Blood Pressure 128/70 09/01/2017 9:05 AM EDT Pulse 72 09/01/2017 9:05 AM EDT Temperature 36.7 ??C (98 ??F) 02/18/2017 7:51 AM EDT Respiratory Rate 16 09/01/2017 9:05 AM EDT Oxygen Saturation 95% 02/18/2017 9:26 AM EDT Inhaled Oxygen Concentration - - Weight 77.7 kg (171 lb 6.4 oz) 09/01/2017 9:05 A M EDT Height 175.3 cm (5' 9 ) 09/01/2017 9:05 AM EDT Body Mass Index 25.31 09/01/2017 9:05 AM EDT Plan of Treatment Health Maintenance Due Date Last Done Comments Covid-19 Vaccine (#1) 1943 TOBACCO CHECK/ADVISE 1961 SHINGLES VACCINE (1 of 2) 1993 DTAP/TDAP/TD (1 - Tdap) 07/14/2007 07/13/2007 PNEUMOCOCCAL VACCINE (2 - PCV) 11/02/2008 11/02/2007 SPIROMETRY (BREATHING CAPACI TY TEST) FOR COPD 12/08/2014 12/08/2012, 05/23/2009, 05/23/2009, Additional history exists DIABETES/HEART DISEASE: LAUREN AL CHOLESTEROL (LDL) 03/11/2016 03/11/2015, 12/27/2012, 12/06/2008, Additional history exists COLON CANCER SCREENING 02/18/2022 7, 05/31/2013, 05/31/2013, Additional history exists INFLUENZA (#1) 2024 09/11/2013, 12/2012, 08/23/2011, Additional history exists BMI CHECK/ADVISE 11/14/2024 04/28/2015, , 05/06/2014, Additional history exists Care Teams Accountant Machine Processing Relationship Specialty Start Date End Date Ridge French PCP - General Internal Medicine 09/02/15
--- OUTSIDE RECORDS SUMMARY | 2024-12-07 15:48 | XMS_ITS | Encounter Summary ---
Author Organization [facility] Address [address] [place] [address] Care Team Providers Care Photographic Specialist Name Role Phone Iggy Rojas MD Primary Care Provider Unavail able Ridge French Primary Care Provider Unavail able Encounter Details Date Type Department Care Team Description 06/10/2014 Psychiatric Rn Report Medical Records [address] [place] [id number] Miguel Souza Social History Tobacco Use Types [...] on filedocumented in this encounter Care Teams Photographic Specialist Relationship Specialty Start Date End Date Iggy Rojas MD PCP - General 02/13/02 09/01/15 Ridge French PCP - General Internal Medicine 09/02/15 documented as of this encounter
== END 2024-12-07 15:41 | disposition home or self-care (01) ==
PROVIDERS: PCP Internal Medicine; Visit Provider Internal Medicine
DX: J44.9 Chronic obstructive pulmonary disease, unspecified (principal); F39 Unspecified mood [affective] disorder; I27.20 Pulmonary hypertension, unspecified; M51.362 Other intervertebral disc degeneration, lumbar region with discogenic back pain and lower extremity pain; M19.011 Primary osteoarthritis, right shoulder; E03.9 Hypothyroidism, unspecified; R60.0 Localized edema; D64.9 Anemia, unspecified; I10 Essential (primary) hypertension; K21.9 Gastro-esophageal reflux disease without esophagitis; G25.81 Restless legs syndrome; N40.1 Benign prostatic hyperplasia with lower urinary tract symptoms

== ENCOUNTER → 2024-12-07 14:03 | Outpatient (BNVA) | payer MEDICARE, SELFPAY | PROVIDERS: PCP Internal Medicine; Visit Provider Internal Medicine | DX: M51.362 Other intervertebral disc degeneration, lumbar region with discogenic back pain and lower extremity pain (principal); J44.9 Chronic obstructive pulmonary disease, unspecified; I27.20 Pulmonary hypertension, unspecified; E03.9 Hypothyroidism, unspecified; M19.011 Primary osteoarthritis, right shoulder; R60.0 Localized edema; D64.9 Anemia, unspecified; I10 Essential (primary) hypertension; K21.9 Gastro-esophageal reflux disease without esophagitis; G25.81 Restless legs syndrome; N40.1 Benign prostatic hyperplasia with lower urinary tract symptoms; R35.0 Frequency of micturition; F39 Unspecified mood [affective] disorder | CPT/HCPCS: 96127; 99212 ==

== ENCOUNTER 2024-12-28 12:17 | Outpatient (REF) | payer MEDICARE, SELFPAY ==
[2024-12-28 13:50] LABS: Blood Urea Nitrogen 16 mg/dL (9-16); Estimated Glomerular Filt Rate 54
== END 2024-12-28 12:18 | disposition home or self-care (01) ==
LOC: HO.HMGCLDS 12:17
PROVIDERS: PCP Internal Medicine; Visit Provider Internal Medicine Gastroenterology
DX: K21.9 Gastro-esophageal reflux disease without esophagitis (principal)
CPT/HCPCS: 36415; 82565; 84520

== ENCOUNTER 2025-01-02 13:42 | Outpatient (REF) | payer MEDICARE, SELFPAY ==
--- NOTE | ~2025-01-02 | CT_ITS ---
EXAMINATION: CT ABDOMEN AND PELVIS WITH CONTRAST CLINICAL INFORMATION: Weight loss, unintentional COMPARISON: None available. TECHNIQUE: Multidetector volumetric images were obtained from the superior aspect of the liver through the pubic symphysis following administration 85 mL of Omnipaque 350 intravenous contrast. Sagittal and coronal reformatted images were obtained on the technologist's workstation. Oral contrast: No This CT examination was performed using dose optimization techniques as appropriate, variously including the following: *Automated exposure control *Adjustment of mA and/or kV according to patient size (this includes techniques or standardized protocols for targeted exams where dose is matched to indication/reason for exam; i.e. extremities or head) *Use of iterative reconstruction technique. DLP: 529 mGy centimeter. FINDINGS: LUNG BASES: Centrilobular emphysematous changes. Focal attenuation with air bronchograms in the right lung base. LIVER, GALLBLADDER, AND BILIARY TREE: Liver measures 15 cm subtle nodular surface. There is a 4 mm hypodensity in the right hepatic lobe too small to be fully characterized. Portal veins, hepatic veins and intrahepatic portion of the IVC are patent. Mild intrahepatic biliary ductal dilatation. No pericholecystic fluid collection or gallbladder wall thickening. Common bile duct measures 10 mm with an abrupt cut off at the junction with the duodenum. PANCREAS: Main pancreatic duct measures 3 mm. The pancreas has reduced volume. No focal lesion. No peripancreatic fluid collection. SPLEEN: 10 cm. No focal lesion. ADRENAL GLANDS: No nodular lesions. KIDNEYS AND URETERS: Normal enhancement pattern of the renal parenchyma. No gross renal mass. No hydronephrosis. No gross nephrolithiasis. BLADDER: Fluid-filled. GASTROINTESTINAL TRACT: Small to moderate size hiatal hernia with the questionable soft tissue fullness. Abundant stool throughout the large intestine. No intestinal obstruction pattern. No pneumatosis intestinalis. I do not see the appendix. No pericecal edema pattern. No ascites. No pneumoperitoneum.. ABDOMINAL WALL: No gross umbilical hernia. LYMPH NODES: No gross lymphadenopathy. VASCULAR: Calcified plaques, mitral valve. Mixed plaques throughout the descending thoracic aorta. Mixed plaques throughout the abdominal aorta wall and iliac arteries without gross aneurysm or dissection. Calcified plaques at the origin of the mesenteric arteries and the main renal arteries. Calcified plaques in the coronary arteries.. PELVIC VISCERA: Prostate gland is not enlarged. OSSEOUS STRUCTURES: There is a dextroconvex rotoscoliosis apex at L2-3 and a levoconvex rotoscoliosis apex at L4-5. Level thoracolumbar spondylosis, moderate to severe. There is a 9 mm elastic lesion in the right acetabulum likely bony island. Osteopenia versus osteoporosis.. CT/CT abdomen pelvis w IV con IMPRESSION: Small to moderate volume hiatal hernia with questionable soft tissue fullness. Consider direct inspection. Focal atelectasis versus acute airspace disease, right lung base. Probable stricture at the sphincter of Oddi. Calcified mitral valve. Coronary artery disease and atherosclerosis disease. Thoracolumbar scoliosis, moderate to severe with associated the spondylosis. Fleischner guidelines were followed. Electronically signed by: Giorgio Cline MD 01/03/2025 08:36 AM ALAN
[2025-01-02] MEDS: iohexoL 350 MG/ML 100 ML INFUS..BTL 85 ML IV (16:53)
[2025-01-02] MEDS: Barium Sulfate Oral (Mocha) 450 ML ORAL.SUSP 900 ML PO (16:53)
== END 2025-01-02 13:43 | disposition home or self-care (01) ==
LOC: HO.CT 13:42
PROVIDERS: PCP Internal Medicine; Visit Provider Internal Medicine Gastroenterology
DX: R63.4 Abnormal weight loss (principal)
CPT/HCPCS: 74177; Q9967

== ENCOUNTER → 2025-01-02 13:44 | Outpatient (BNV) | payer MEDICARE, SELFPAY | PROVIDERS: PCP Internal Medicine; Visit Provider Radiology Diagnostic Radiology | DX: R63.4 Abnormal weight loss (principal) | CPT/HCPCS: 74177 ==

== ENCOUNTER 2025-01-03 13:39 | Outpatient (AMB) | payer MEDICARE, SELFPAY ==
[2025-01-03 14:21] VITALS: PULSE 64; O2SAT 95; BMI 20.9
--- NOTE | 2025-01-03 14:21 | A.OFFVIS_ITS ---
Vital Signs 01/03/25 14:21 Height 5 ft 11 in Weight 149 lb 14.629 oz BMI 20.9 Pulse 64 Pulse Source Pulse Oximeter Pulse Oximetry (%) 95 Oxygen Delivery Method Nasal Cannula Oxygen Flow Rate 2 Intake Visit Reasons: 6 minute walk Allergies levofloxacin Adverse Reaction (Severe, Verified 01/03/25 14:21) tendon rupture duloxetine Adverse Reaction (Intermediate, Verified 01/03/25 14:21) sedation gabapentin Adverse Reaction (Intermediate, Verified 01/03/25 14:21) nightmares; leg cramps aspirin Adverse Reaction (Unknown, Verified 01/03/25 14:21) stomach upset, stomach nicole Medication List - Last Reconciled 01/03/25 by Katerine Bingham LPN albuterol sulfate 90 mcg/actuation 2 puffs inhalation Q6H PRN aspirin 81 mg PO DAILY azithromycin 250 mg PO Q OTHER DAY 90 days barium sulfate 2%(w/v) (Readi-Cat 2) 900 mL PO ONCE bumetanide 1 mg PO BID buspirone 5 mg PO BID 30 days cholecalciferol (vitamin D3) 50 mcg PO DAILY dextromethorphan-guaifenesin 30-600 mg (Mucinex DM) 1 tab PO Q12H PRN finasteride 5 mg orally M,W,F; Take Tuesday, Tuesday, Tuesday 90 days ipratropium-albuterol 0.5 mg-3 mg(2.5 mg base)/3 mL 3 mL inhalation Q6H PRN levothyroxine 137 mcg PO DAILY 90 days montelukast 10 mg PO DAILY omeprazole 20 mg PO QAM oxycodone-acetaminophen 10-325 mg 1 tab PO BID PRN 30 days pramipexole 1 mg PO TID PRN 30 days prednisone 10 mg PO Q OTHER DAY tizanidine 4 mg PO BEDTIME PRN 30 days PFSH Medical History Nocturnal hypoxemia Weight loss Weight loss Lung density on x-ray COPD exacerbation Depression GERD (gastroesophageal reflux disease) Pulmonary hypertension Benign essential hypertension Screening for diabetes mellitus Tachycardia Benign prostatic hyperplasia Restless leg syndrome Primary osteoarthritis of right shoulder Lumbar degenerative disc disease Anxiety Acquired hypothyroidism Dyspnea on exertion Bronchitis Fatigue COPD (chronic obstructive pulmonary disease) Surgical History History of esophagogastroduodenoscopy (EGD) History of gastric surgery History of foot surgery History of cardiac catheterization (~12/29/21) History of colonoscopy Family History Father No problems noted. 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 lithographic plate maker apprentice 80% of hearing loss would like to get hearing aids.) Vision needs: No Physical Exam Vital Signs: Last Vital Signs Pulse 64 01/03/25 14:21 Pulse Ox 95 01/03/25 14:21 Oxygen Delivery Method Nasal Cannula 01/03/25 14:21 Oxygen Flow Rate 2 01/03/25 14:21 BMI result Body Mass Index 20.9 Office Procedures 6 Minute Walk Time:: 14:00 SPO2 % at rest: 84 (started O2 at 2 lpm and his SPO2 recovered to 98%) Pulse at rest: 62 SPO2 % during excercise: 87 Pulse during excercise: 99 SPO2 % after excercise: 97 Pulse after excercise: 94 Distance in yards walked: 150 Ed Score: 6 Performance Observations:: Sami's SPO2 sitting at rest on room air was 84% O2 started at 2 lpm and his SPO2 recovered to 98%. Sami walked on level ground with a cane to his R hand, he walked for 25 yards before his SPO2 decreased to 87%, O2 increased to 3 lpm and with a brief rest his SPO2 recovered to 97%. He maintained his SPO2 95-97% on 3 lpm continuous O2. [id number] - 6 Minute Walk Assessment & Plan Assessment & Plan (1) COPD (chronic obstructive pulmonary disease): Comment: HAS ADVANCED COPD, PFT C/W SEVERE OBSTRUCTIVE LUNG DISEASE, WITH POSITIVE RESPONSE TO BDs . Came with complaint of severe shortness of breath on minimal walking. Code(s): J44.9 - Chronic obstructive pulmonary disease, unspecified Category: Medical Qualifiers: COPD type: unspecified COPD Qualified Code(s): J44.9 - Chronic obstructive pulmonary disease, unspecified Plan: Patient had 6 minutes walk test. Qualified to have portable oxygen at 3 L/minute when walking. Orders: Orders AMB 6 minute walk Today J44.9 - Chronic obstructive pulmonary disease, unspecified Coding Level of Care Code Established Pt Est Pt Level 1 (40350) Patient Type Established Diagnoses Chronic obstructive pulmonary disease, unspecified COPD type J44.9 COPD type: unspecified COPD CPT Codes Coding ([id number]) Comment NURSE VISIT ONLY
[2025-01-03 14:25] VITALS: PULSE 62; O2SAT 84
--- OUTSIDE RECORDS SUMMARY | 2025-01-03 14:36 | XMS_ITS | Encounter Summary ---
Author Organization [facility] Address [address] [place] [address] Care Team Providers Care Digging Machine Operator Name Role Phone Iggy Rojas MD Primary Care Provider Unavail able Ridge French Primary Care Provider Unavail able Encounter Details Date Type Department Care Team Description 07/14/2011 Practice Business Asst Report Medical Records [address] [place] [address] Orion Rodriguez MD Social History Tobacco Use Types Packs/Day [...] on filedocumented in this encounter Care Teams Digging Machine Operator Relationship Specialty Start Date End Date Iggy Rojas MD PCP - General 02/13/02 09/01/15 Ridge French PCP - General Internal Medicine 09/02/15 documented as of this encounter
--- OUTSIDE RECORDS SUMMARY | 2025-01-03 14:36 | XMS_ITS | Encounter Summary ---
Author Organization [facility] Address [address] [place] [address] Care Team Providers Care Instructional Coordinator Name Role Phone Iggy Rojas MD Primary Care Provider Unavail able Ridge French Primary Care Provider Unavail able Encounter Details Date Type Department Care Team Description 08/25/2014 [facility] Medical Records [address] [place] [phone] Emmett Burrell Social History Tobacco Use Types [...] on filedocumented in this encounter Care Teams Instructional Coordinator Relationship Specialty Start Date End Date Iggy Rojas MD PCP - General 02/13/02 09/01/15 Ridge French PCP - General Internal Medicine 09/02/15 documented as of this encounter
--- OUTSIDE RECORDS SUMMARY | 2025-01-03 14:36 | XMS_ITS | Encounter Summary ---
Author Organization [facility] Address [address] [place] [address] Care Team Providers Care Broker Agricultural Produce Name Role Phone Iggy Rojas MD Primary Care Provider Unavail able Ridge French Primary Care Provider Unavail able Reason for Visit * Reason Onset Date Comments injection 04/03/2013 Encounter Details Date Type Department Care Team Description 04/03/2013 Telephone Physiatry - [address] [address] Marquise Gerard DO injection Social History Tobacco Use Types Packs/Day Years [...] on file documented as of this encounter Miscellaneous Notes * Telephone Encounter - Monica Knutson M.A. - 04/03/2013 10:49 AM EDT Appointment booked and patient is aware/ [employer] called No referral needed for procedure code 48069 * Telephone Encounter - Mojgan Kidd - 04/03/2013 10:25 AM EDT Patient would like to schedule appt for injection please call patient documented in this encounter Plan of Treatment Not on file documented as of this encounter Visit Diagnoses Not on filedocumented in this encounter Care Teams Broker Agricultural Produce Relationship Specialty Start Date End Date Iggy Rojas MD PCP - General 02/13/02 09/01/15 Ridge French PCP - General Internal Medicine 09/02/15 documented as of this encounter
--- OUTSIDE RECORDS SUMMARY | 2025-01-03 14:36 | XMS_ITS | Encounter Summary ---
Author Organization [facility] Address [address] [place] [address] Care Team Providers Care Material Crew Supervisor Name Role Phone Iggy Rojas MD Primary Care Provider Unavail able Ridge French Primary Care Provider Unavail able Encounter Details Date Type Department Care Team Description 03/07/2015 Line Production Cook Report Medical Records [address] [place] [phone] Ridge French Social History Tobacco Use Types [...] on filedocumented in this encounter Care Teams Material Crew Supervisor Relationship Specialty Start Date End Date Iggy Rojas MD PCP - General 02/13/02 09/01/15 Ridge French PCP - General Internal Medicine 09/02/15 documented as of this encounter
--- OUTSIDE RECORDS SUMMARY | 2025-01-03 14:36 | XMS_ITS | Encounter Summary ---
Author Organization [facility] Address [address] [place] [address] Care Team Providers Care Manager School Name Role Phone Iggy Rojas MD Primary Care Provider Unavail able Ridge French Primary Care Provider Unavail able Encounter Details Date Type Department Care Team Description 07/13/2010 Advertising Sales Associate Report Medical Records [address] [place] [phone] Levy Stewart MD Social History Tobacco Use [...] on filedocumented in this encounter Care Teams Manager School Relationship Specialty Start Date End Date Iggy Rojas MD PCP - General 02/13/02 09/01/15 Ridge French PCP - General Internal Medicine 09/02/15 documented as of this encounter
--- OUTSIDE RECORDS SUMMARY | 2025-01-03 14:36 | XMS_ITS | Encounter Summary ---
Author Organization [facility] Address [address] [place] [address] Care Team Providers Care Cosmetic Account Coordinator Name Role Phone Iggy Rojas MD Primary Care Provider Unavail able Ridge French Primary Care Provider Unavail able Encounter Details Date Type Department Care Team Description 02/16/2012 Controlled Substance Contract with Plan Medical Records [address] [place] [address] Abstract, Provider Social History Tobacco Use Types [...] on filedocumented in this encounter Care Teams Cosmetic Account Coordinator Relationship Specialty Start Date End Date Iggy Rojas MD PCP - General 02/13/02 09/01/15 Ridge French PCP - General Internal Medicine 09/02/15 documented as of this encounter
--- OUTSIDE RECORDS SUMMARY | 2025-01-03 14:36 | XMS_ITS | Encounter Summary ---
Author Organization [facility] Address [address] [place] [address] Care Team Providers Care Body Piercer Name Role Phone Ridge French Primary Care Provider Unavail able Encounter Details Date Type Department Care Team Description 07/05/2016 Reclamation Supervisor Report Medical Records [address] [place] [address] Ridge French Social History Tobacco Use Types [...] on filedocumented in this encounter Care Teams Body Piercer Relationship Specialty Start Date End Date Ridge French PCP - General Internal Medicine 09/02/15 documented as of this encounter
--- OUTSIDE RECORDS SUMMARY | 2025-01-03 14:36 | XMS_ITS | Encounter Summary ---
Author Organization [facility] Address [address] [place] [address] Care Team Providers Care Prepress Technician Name Role Phone Iggy Rojas MD Primary Care Provider Unavail able Ridge French Primary Care Provider Unavail able Encounter Details Date Type Department Care Team Description 09/17/2010 Pole Peeler Report Medical Records [address] [place] [id number] Levy Stewart MD Social History Tobacco Use [...] on filedocumented in this encounter Care Teams Prepress Technician Relationship Specialty Start Date End Date Iggy Rojas MD PCP - General 02/13/02 09/01/15 Ridge French PCP - General Internal Medicine 09/02/15 documented as of this encounter
--- OUTSIDE RECORDS SUMMARY | 2025-01-03 14:36 | XMS_ITS | Encounter Summary ---
Author Organization [facility] Address [address] [place] [address] Care Team Providers Care Red Hat Linux Engineer Name Role Phone Iggy Rojas MD Primary Care Provider Unavail able Ridge French Primary Care Provider Unavail able Encounter Details Date Type Department Care Team Description 11/05/2014 SCAN Medical Records [address] [place] [address] Abstract, Provider Social History Tobacco Use Types [...] on filedocumented in this encounter Care Teams Red Hat Linux Engineer Relationship Specialty Start Date End Date Iggy Rojas MD PCP - General 02/13/02 09/01/15 Ridge French PCP - General Internal Medicine 09/02/15 documented as of this encounter
--- OUTSIDE RECORDS SUMMARY | 2025-01-03 14:36 | XMS_ITS | Encounter Summary ---
Author Organization [facility] Address [address] [place] [address] Care Team Providers Care Hemodialysis Charge Nurse Name Role Phone Iggy Rojas MD Primary Care Provider Unavail able Ridge French Primary Care Provider Unavail able Encounter Details Date Type Department Care Team Description 06/13/2014 [facility] Medical Records [address] [place] [phone] Miguel Souza Social History Tobacco Use Types [...] on filedocumented in this encounter Care Teams Hemodialysis Charge Nurse Relationship Specialty Start Date End Date Iggy Rojas MD PCP - General 02/13/02 09/01/15 Ridge French PCP - General Internal Medicine 09/02/15 documented as of this encounter
--- OUTSIDE RECORDS SUMMARY | 2025-01-03 14:36 | XMS_ITS | Encounter Summary ---
Author Organization [facility] Address [address] [place] [address] Care Team Providers Care Logistics/Shipper Name Role Phone Iggy Rojas MD Primary Care Provider Unavail able Ridge French Primary Care Provider Unavail able Encounter Details Date Type Department Care Team Description 06/12/2014 Release of Information Medical Records [address] [place] [address] Abstract, Provider Social History Tobacco Use Types [...] on filedocumented in this encounter Care Teams Logistics/Shipper Relationship Specialty Start Date End Date Iggy Rojas MD PCP - General 02/13/02 09/01/15 Ridge French PCP - General Internal Medicine 09/02/15 documented as of this encounter
--- OUTSIDE RECORDS SUMMARY | 2025-01-03 14:36 | XMS_ITS | Encounter Summary ---
Author Organization [facility] Address [address] [place] [address] Care Team Providers Care Special Collections Librarian Name Role Phone Iggy Rojas MD Primary Care Provider Unavail able Ridge French Primary Care Provider Unavail able Encounter Details Date Type Department Care Team Description 02/06/2015 Range Aide Report Medical Records [address] [place] [id number] Ridge French Social History Tobacco Use Types [...] on filedocumented in this encounter Care Teams Special Collections Librarian Relationship Specialty Start Date End Date Iggy Rojas MD PCP - General 02/13/02 09/01/15 Ridge French PCP - General Internal Medicine 09/02/15 documented as of this encounter
--- OUTSIDE RECORDS SUMMARY | 2025-01-03 14:36 | XMS_ITS | Encounter Summary ---
Author Organization [facility] Address [address] [place] [address] Care Team Providers Care Dental Appliance Repairer Name Role Phone Iggy Rojas MD Primary Care Provider Unavail able Ridge French Primary Care Provider Unavail able Encounter Details Date Type Department Care Team Description 08/06/2010 Polymer Scientist Report Medical Records [address] [place] [id number] Levy Stewart MD Social History Tobacco Use [...] on filedocumented in this encounter Care Teams Dental Appliance Repairer Relationship Specialty Start Date End Date Iggy Rojas MD PCP - General 02/13/02 09/01/15 Ridge French PCP - General Internal Medicine 09/02/15 documented as of this encounter
--- OUTSIDE RECORDS SUMMARY | 2025-01-03 14:36 | XMS_ITS | Encounter Summary ---
Author Organization [facility] Address [address] [place] [address] Care Team Providers Care Gauge Maker Name Role Phone Iggy Rojas MD Primary Care Provider Unavail able Ridge French Primary Care Provider Unavail able Encounter Details Date Type Department Care Team Description 10/22/2014 Property Supervisor Report Medical Records [address] [place] [id number] Ridge French Social History Tobacco Use Types [...] on filedocumented in this encounter Care Teams Gauge Maker Relationship Specialty Start Date End Date Iggy Rojas MD PCP - General 02/13/02 09/01/15 Ridge French PCP - General Internal Medicine 09/02/15 documented as of this encounter
--- OUTSIDE RECORDS SUMMARY | 2025-01-03 14:36 | XMS_ITS | Encounter Summary ---
Author Organization [facility] Address [address] [place] [address] Care Team Providers Care Glassworker Name Role Phone Iggy Rojas MD Primary Care Provider Unavail able Ridge French Primary Care Provider Unavail able Encounter Details Date Type Department Care Team Description 01/14/2015 Men'S Golf Coach Report Medical Records [address] [place] [phone] Ridge French Social History Tobacco Use Types [...] on filedocumented in this encounter Care Teams Glassworker Relationship Specialty Start Date End Date Iggy Rojas MD PCP - General 02/13/02 09/01/15 Ridge French PCP - General Internal Medicine 09/02/15 documented as of this encounter
--- OUTSIDE RECORDS SUMMARY | 2025-01-03 14:36 | XMS_ITS | Encounter Summary ---
Author Organization [facility] Address [address] [place] [address] Care Team Providers Care Seater Grinder Name Role Phone Iggy Rojas MD Primary Care Provider Unavail able Ridge French Primary Care Provider Unavail able Reason for Visit * Reason Onset Date Comments injection 09/04/2012 Encounter Details Date Type Department Care Team Description 09/04/2012 Telephone Physiatry - [address] [address] Marquise Gerard DO injection Social History Tobacco [...] encounter Miscellaneous Notes * Telephone Encounter - Marquise Gerard - 09/04/2012 1:49 PM EDT Procedure was ordered, please schedule. * Telephone Encounter - Nita Toney L.P.N. - 09/04/2012 1:28 PM EDT Patient is requesting a repeat right L5 TFE last injection was done 05/01/[address] [facility] [address] order thanks. * Telephone Encounter - Salome Gutierrez - 09/04/2012 12:40 PM EDT Patient was last seen 05/25/12 and had an injection in April 25 2012. He wants to schedule another injection he is in a lot of pain. documented in this encounter Plan of Treatment Scheduled Orders Name Type Priority Associated Diagnoses Orde r Schedule PHYSIATRY PROCEDURE PHYSIATRY Routine Radiculitis, lumbosacral Ordered: 09/04/2012 documented as of this encounter Visit Diagnoses Diagnosis Radiculitis, lumbosacral- Primary Thoracic or lumbosacral neuritis or radiculitis, unspecified documented in this encounter Care Teams Seater Grinder Relationship Specialty Start Date End Date Iggy Rojas MD PCP - General 02/13/02 09/01/15 Ridge French PCP - General Internal Medicine 09/02/15 documented as of this encounter
== END 2025-01-03 15:49 | disposition home or self-care (01) ==
PROVIDERS: PCP Internal Medicine; Visit Provider Internal Medicine
DX: J44.9 Chronic obstructive pulmonary disease, unspecified (principal)
CPT/HCPCS: 94618

== ENCOUNTER → 2025-01-03 13:39 | Outpatient (BNVA) | payer MEDICARE, SELFPAY | PROVIDERS: PCP Internal Medicine; Visit Provider Internal Medicine | DX: J44.9 Chronic obstructive pulmonary disease, unspecified (principal) | CPT/HCPCS: 94618; 99211 ==

== ENCOUNTER 2025-01-29 15:43 | Outpatient (AMB) | payer MEDICARE, SELFPAY ==
[2025-01-29 16:04] VITALS: BP 128/70; PULSE 76; O2SAT 96; BMI 20.8
--- NOTE | 2025-01-29 16:04 | MHC.OFFVIS ---
Vital Signs 01/29/25 16:04 Height 5 ft 11 in Weight 149 lb BMI 20.8 BP 128/70 Blood Pressure Location Lt brachial Position Sitting Pulse 76 Pulse Source Pulse Oximeter Pulse Oximetry (%) 96 Oxygen Delivery Method Nasal Cannula Oxygen Flow Rate 2 Intake Visit Reasons: COPD Intake Note: pt is here for follow up and states he is doing better with oxygen, he did well with POC at 2 liters Remote Sensing Advisor Required: No Allergies levofloxacin Adverse Reaction (Severe, Verified 01/29/25 16:14) tendon rupture duloxetine Adverse Reaction (Intermediate, Verified 01/29/25 16:14) sedation gabapentin Adverse Reaction (Intermediate, Verified 01/29/25 16:14) nightmares; leg cramps aspirin Adverse Reaction (Unknown, Verified 01/29/25 16:14) stomach upset, stomach nicole Medication List - Last Reconciled 01/29/25 by Ridge French MD albuterol sulfate 90 mcg/actuation 2 puffs inhalation Q6H PRN aspirin 81 mg PO DAILY azithromycin 250 mg PO Q OTHER DAY 90 days barium sulfate 2%(w/v) (Readi-Cat 2) 900 mL PO ONCE bumetanide 1 mg PO BID buspirone 5 mg PO BID 30 days cholecalciferol (vitamin D3) 50 mcg PO DAILY dextromethorphan-guaifenesin 30-600 mg (Mucinex DM) 1 tab PO Q12H PRN finasteride 5 mg orally M,W,F; Take Tuesday, Tuesday, Tuesday 90 days ipratropium-albuterol 0.5 mg-3 mg(2.5 mg base)/3 mL 3 mL inhalation Q6H PRN levothyroxine 137 mcg PO DAILY 90 days montelukast 10 mg PO DAILY omeprazole 20 mg PO QAM oxycodone-acetaminophen 10-325 mg 1 tab PO BID PRN 30 days pramipexole 1 mg PO TID PRN 30 days prednisone 10 mg PO Q OTHER DAY tizanidine 4 mg PO BEDTIME PRN 30 days Do you need a note to return to daycare/school/sports/work: No HPI HPI COPD: Details: TIERA IS HERE AFTER 2 MONTHS FOR HIS FOLLOW-UP. SINCE HE IS USING OXYGEN AT NIGHT AND DURING THE DAY HIS BREATHING IS DEFINITELY BETTER. HE FEELS MORE FRESH AND ENERGETIC. HE HAS STILL NOT GONE OUTDOORS, OR DONE ANY OUTSIDE WORK. HE IS STAYING MOSTLY IN THE HOUSE. LUCKILY HE HAS HAD NO RECENT RESPIRATORY INFECTION. HE IS ANXIOUS TO GET POC FOR OUTDOORS USAGE. [facility] Medical History (Updated 01/29/25 @ 16:31 by Ridge French MD) Respiratory failure with hypoxia Nocturnal hypoxemia Weight loss Weight loss Lung density on x-ray COPD exacerbation Depression GERD (gastroesophageal reflux disease) Pulmonary hypertension Benign essential hypertension Screening for diabetes mellitus Tachycardia Benign prostatic hyperplasia Restless leg syndrome Primary osteoarthritis of right shoulder Lumbar degenerative disc disease Anxiety Acquired hypothyroidism Dyspnea on exertion Bronchitis Fatigue COPD (chronic obstructive pulmonary disease) Surgical History History of esophagogastroduodenoscopy (EGD) History of gastric surgery History of foot surgery History of cardiac catheterization (~12/29/21) History of colonoscopy Family History Father No problems noted. 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 leveler helper 80% of hearing loss would like to get hearing aids.) Vision needs: No Review of Systems Const All systems reviewed & are unremarkable except as noted in HPI and below Eyes Reports no additional complaints ENT Reports no additional complaints Card Denies chest pain, Denies irregular heart rhythm and Denies leg edema Resp Reports as per HPI GI Reports no additional complaints Reports no additional complaints Musc Reports back pain Skin/Breast Reports system reviewed and no additional complaints, except as documented Neuro Reports no additional complaints Psych Reports no additional complaints Physical Exam Vital Signs: Last Vital Signs Pulse 76 01/29/25 16:04 BP 128/70 01/29/25 16:04 Pulse Ox 96 01/29/25 16:04 Oxygen Delivery Method Nasal Cannula 01/29/25 16:04 Oxygen Flow Rate 2 01/29/25 16:04 BMI result Body Mass Index 20.8 Const Other: He is of a thin build, with slightly hunched back, and walks with a cane. General: comfortable, no acute distress, alert and awake Orientation/consciousness: patient oriented x3 HEENT Head: Yes normal to inspection General nose exam: No nasal polyps present and No nasal discharge present Face and sinus: Yes sinuses nontender Mouth: oropharynx normal Throat: Yes posterior oropharynx normal Eyes General: appearance normal, both eyes and all related structures Neck Neck: Yes normal visual inspection, Yes no lymphadenopathy, Yes trachea midline and Yes no JVD Thyroid: Thyroid normal Chest Chest palpation & inspection: abnormal inspection of the chest (Extensive scar over the left lower chest from previous surgery), normal palpation of entire chest wall and no tenderness Resp Other: Percussion note is resonant, breath sounds are distant with prolonged expiratory phase. LUNGS ARE CLEAR AND NO WHEEZES OR CREPITATIONS ARE HEARD TODAY.. Cardio Palpation: normal PMI Rate: regular rate Rhythm: regular rhythm Heart sounds: no gallops and no murmurs GI Palpation (GI): Soft to palpation, nontender, No hepatosplenomegaly present and no masses Auscultation: normal bowel sounds Back/Spine/Pelvis Thoracic/Lumbar Spine: thoracic and lumbar spine normal to inspection, thoraco-lumbar ROM limited and thoraco-lumbar spasm Skin General skin exam: no rashes or lesions noted Neuro General: patient oriented x3 and no focal motor deficits Cranial nerves: Yes CN's II-XII intact bilaterally Extrem General: Yes normal to inspection, Yes no clubbing, cyanosis or edema and Yes no calf tenderness Psych Appearance: grossly normal and well kempt Speech and movement: Normal speech and movement present Results Reviewed Results Reviewed: HE WAS TESTED FOR O2 CONSERVING UNIT. HAD 6 MINUTES WALK TEST. HE WAS ABLE TO MAINTAIN O2 SAT ABOVE 90% WITH 2 L/MINUTE. Assessment & Plan Assessment & Plan (1) COPD (chronic obstructive pulmonary disease): Comment: HAS ADVANCED COPD, PFT C/W SEVERE OBSTRUCTIVE LUNG DISEASE, WITH POSITIVE RESPONSE TO BDs . HE HAS SHORTNESS OF BREATH MOST OF THE TIMES AND INCREASED WITH MINIMAL EXERTION. IT HAS SOMEWHAT IMPROVED WITH CONTINUOUS USE OF OXYGEN. Code(s): J44.9 - Chronic obstructive pulmonary disease, unspecified Category: Medical Qualifiers: COPD type: unspecified COPD Qualified Code(s): J44.9 - Chronic obstructive pulmonary disease, unspecified Plan: PREDNISONE 10 MG ON ALTERNATE DAYS IPRATROPIUM-ALBUTEROL SOLUTION IN THE NEBULIZER Q 6 HOURS WHILE AWAKE. ALBUTEROL HFA 2 PUFFS Q 6 HOURS P.R.N. WHEN OUTDOORS CONTINUE MONTELUKAST 10 MG DAILY AZITHROMYCIN 250 MG 3 DAYS A WEEK (2) Pulmonary hypertension: Comment: PATIENT DOES HAVE PULMONARY HYPERTENSION WHICH IS MOST LIKELY SECONDARY TO CHRONIC HYPOXEMIA. IT IS EXPECTED TO STAY UNDER CONTROLLED WITH THE USE OF OXYGEN Code(s): I27.20 - Pulmonary hypertension, unspecified Category: Medical Plan: ABOVE (3) Respiratory failure with hypoxia: Comment: IT HAS BEEN CONFIRMED BY 6 MINUTES WALK TEST THAT HE DESATURATES WITH MINIMAL EXERTION/WALKING. HE IS ALSO KNOWN TO HAVE NOCTURNAL HYPOXEMIA CORRECTED WITH OXYGEN SUPPLEMENTATION AT NIGHT. Code(s): J96.91 - Respiratory failure, unspecified with hypoxia Category: Medical Plan: HE IS ADVISED TO USE O2 2 L/MINUTE CONTINUOUSLY DURING THE DAY AND NIGHT. HOWEVER HE CAN GO WITHOUT OXYGEN FOR SHORT. PERIODS WITHOUT ANY PROBLEM I DISCUSSED WITH HIM THAT IF HE COULD USE OXYGEN. FROM 16-18 HOURS A DAY IT IS SUFFICIENT FOR Coding Level of Care Code Est Pt Level 3 (96884) Diagnoses Chronic obstructive pulmonary disease, unspecified COPD type J44.9 COPD type: unspecified COPD Pulmonary hypertension I27.20 Respiratory failure with hypoxia J96.91
[2025-01-30 07:57] VITALS: PULSE 92; O2SAT 97
== END 2025-01-29 16:22 | disposition home or self-care (01) ==
LOC: HO.HPS 15:44
PROVIDERS: PCP Internal Medicine; Visit Provider Internal Medicine
DX: J44.9 Chronic obstructive pulmonary disease, unspecified (principal); I27.20 Pulmonary hypertension, unspecified; J96.91 Respiratory failure, unspecified with hypoxia
CPT/HCPCS: 99213

== ENCOUNTER → 2025-01-29 15:43 | Outpatient (BNVA) | payer MEDICARE, SELFPAY | PROVIDERS: PCP Internal Medicine; Visit Provider Internal Medicine | DX: J44.9 Chronic obstructive pulmonary disease, unspecified (principal); I27.20 Pulmonary hypertension, unspecified; J96.91 Respiratory failure, unspecified with hypoxia | CPT/HCPCS: 94618; 99212 ==

== ENCOUNTER 2025-02-04 11:03 | Outpatient (AMB) | payer MEDICARE, SELFPAY ==
--- NOTE | 2025-02-04 11:06 | MHC.OFFVIS ---
Vital Signs 02/04/25 11:14 Height 5 ft 11 in Weight 145 lb 8.081 oz BMI 20.3 Blood Pressure Location Lt brachial Position Sitting Pulse 66 Pulse Source Pulse Oximeter Pulse Oximetry (%) 97 Oxygen Delivery Method Nasal Cannula Intake Visit Reasons: 5 month follow up Intake Note: Gerber presents in the office as a 5 month follow up. CC: General Car Yard Supervisor Required: No Allergies levofloxacin Adverse Reaction (Severe, Verified 02/04/25 11:14) tendon rupture duloxetine Adverse Reaction (Intermediate, Verified 02/04/25 11:14) sedation gabapentin Adverse Reaction (Intermediate, Verified 02/04/25 11:14) nightmares; leg cramps aspirin Adverse Reaction (Unknown, Verified 02/04/25 11:14) stomach upset, stomach nicole HPI HPI 5 month follow up: Details: 79 yr old m here for assessment for weight loss RECAP: HE has lost about 20# over last few years prior hx of peptic ulcer and perf many years ago he has chronic back pain no urine issues, no hematuria stools solids but now more like balls which is different labs with nomrocytic anemia for last several years I arranged a CT in the first instant and thuis showed fullness in GEJ INTERIM: weight is going back up he has been requiring oxygen due to COPD--3L at night and 2 L on walking no reflux or dysphagia no nausea or vomiting no depression no abdominal pain EXAM: GENERAL: The patient is thin and gaunt VITAL SIGNS:see workflow HEENT: Nonicteric sclerae, PERRLA, EOMI. Oropharynx clear. Moist mucous membranes. Conjunctivae appear well perfused. No thyroid mass. CHEST: Chest wall is nontender. HEART: Regular rate and rhythm without murmurs. LUNGS: hyperinflated chest, reduced air entry b/l ABDOMEN: Soft, positive bowel sounds, nontender, no organomegaly.no flank tenderness SKIN: No rash, no excessive bruising, petechiae, or purpura. NEUROLOGIC: Cranial nerves II-XII intact without motor/sensory deficit. Psych: normal affect A/P: 1/ unintentional weight loss -imaging with fullness in GEJ, but no dysphagia -weight stable--uncertain how signfiicant this is, he is v high risk for anesthesia PLAN: 1/ discussed options of EGD with high risk vs PPI high dose BID with ba swallow in 8 weeks --he wants to opt for Ba swallow and PPI PFSH Medical History Respiratory failure with hypoxia Nocturnal hypoxemia Weight loss Weight loss Lung density on x-ray COPD exacerbation Depression GERD (gastroesophageal reflux disease) Pulmonary hypertension Benign essential hypertension Screening for diabetes mellitus Tachycardia Benign prostatic hyperplasia Restless leg syndrome Primary osteoarthritis of right shoulder Lumbar degenerative disc disease Anxiety Acquired hypothyroidism Dyspnea on exertion Bronchitis Fatigue COPD (chronic obstructive pulmonary disease) Surgical History History of esophagogastroduodenoscopy (EGD) History of gastric surgery History of foot surgery History of cardiac catheterization (~12/29/21) History of colonoscopy Family History Father No problems noted. 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 early childhood assistant 80% of hearing loss would like to get hearing aids.) Vision needs: No Physical Exam Vital Signs: Last Vital Signs Pulse 66 02/04/25 11:14 Pulse Ox 97 02/04/25 11:14 Oxygen Delivery Method Nasal Cannula 02/04/25 11:14 BMI result Body Mass Index 20.3 Assessment & Plan Assessment & Plan (1) Weight loss: Code(s): R63.4 - Abnormal weight loss Category: Medical Plan: as above Orders: Orders [place] barium swallow 8 Weeks R13.10 - Dysphagia, unspecified Medications: New omeprazole 40 mg PO BID 90 caps 2RF Discontinued omeprazole Discontinued Reason: Doctor's Order 20 mg PO QAM 90 caps 0RF Coding Level of Care Code Est Pt Level 3 (91361) Diagnoses Weight loss R63.4
[2025-02-04 11:14] VITALS: PULSE 66; O2SAT 97; BMI 20.3
== END 2025-02-04 11:42 | disposition home or self-care (01) ==
PROVIDERS: PCP Internal Medicine; Visit Provider Internal Medicine Gastroenterology
DX: R63.4 Abnormal weight loss (principal)
CPT/HCPCS: 99213

== ENCOUNTER → 2025-02-04 11:03 | Outpatient (BNVA) | payer MEDICARE, SELFPAY | PROVIDERS: PCP Internal Medicine; Visit Provider Internal Medicine Gastroenterology | DX: R63.4 Abnormal weight loss (principal); R13.10 Dysphagia, unspecified | CPT/HCPCS: 99212 ==

== ENCOUNTER 2025-04-02 15:56 | Outpatient (AMB) | payer MEDICARE, SELFPAY ==
[2025-04-02 16:03] VITALS: BP 124/64; PULSE 83; O2SAT 97; BMI 20.1
--- NOTE | 2025-04-02 16:03 | A.OFFVIS_ITS ---
Vital Signs 04/02/25 16:03 Height 5 ft 11 in Weight 144 lb 6.444 oz BMI 20.1 BP 124/64 Blood Pressure Location Lt brachial Position Sitting Pulse 83 Pulse Source Pulse Oximeter Pulse Oximetry (%) 97 Oxygen Delivery Method Nasal Cannula Oxygen Flow Rate 2 Intake Visit Reasons: copd Intake Note: pt is here for follow up and states he is doing well with portable oxygen, but he does state he does see his oxygen numbers up and down. [employer] Required: No Allergies levofloxacin Adverse Reaction (Severe, Verified 04/02/25 16:18) tendon rupture duloxetine Adverse Reaction (Intermediate, Verified 04/02/25 16:18) sedation gabapentin Adverse Reaction (Intermediate, Verified 04/02/25 16:18) nightmares; leg cramps aspirin Adverse Reaction (Unknown, Verified 04/02/25 16:18) stomach upset, stomach nicole Medication List - Last Reconciled 04/02/25 by Ridge French MD albuterol sulfate 90 mcg/actuation 2 puffs inhalation Q6H PRN aspirin 81 mg PO DAILY azithromycin 250 mg PO Q OTHER DAY 90 days barium sulfate 2%(w/v) (Readi-Cat 2) 900 mL PO ONCE bumetanide 1 mg PO BID buspirone 5 mg PO BID 30 days cholecalciferol (vitamin D3) 50 mcg PO DAILY dextromethorphan-guaifenesin 30-600 mg (Mucinex DM) 1 tab PO Q12H PRN finasteride 5 mg orally M,W,F; Take Tuesday, Tuesday, Tuesday 90 days ipratropium-albuterol 0.5 mg-3 mg(2.5 mg base)/3 mL 3 mL inhalation Q6H PRN levothyroxine 137 mcg PO DAILY 90 days montelukast 10 mg PO DAILY omeprazole 40 mg PO BID oxycodone-acetaminophen 10-325 mg 1 tab PO BID PRN 30 days pramipexole 1 mg PO TID PRN 30 days prednisone 10 mg PO Q OTHER DAY tizanidine 4 mg PO BEDTIME PRN 30 days umeclidinium 62.5 mcg/actuation (Incruse Ellipta) 1 inh inhalation DAILY Do you need a note to return to daycare/school/sports/work: No HPI HPI copd: Details: Sami is 79 years old gentleman a long-term patient of mine, with advanced chronic obstructive pulmonary disease and many other comorbid conditions. Comes for follow-up after 2 months. Since his last visit he was qualified for using a lightweight portable O2 unit (POC ) Now that he can use oxygen around the clock and can go outdoors with portable unit, he is very happy. He has started doing some work in his backyard , The main complaint today is that when he uses Incruse Ellipta, he tends to get more constipated and it does not make any difference in his breathing if he does not take it. He would like to try going without Incruse Ellipta. FORMERLY [facility], [facility] Medical History Respiratory failure with hypoxia Nocturnal hypoxemia Weight loss Weight loss Lung density on x-ray COPD exacerbation Depression GERD (gastroesophageal reflux disease) Pulmonary hypertension Benign essential hypertension Screening for diabetes mellitus Tachycardia Benign prostatic hyperplasia Restless leg syndrome Primary osteoarthritis of right shoulder Lumbar degenerative disc disease Anxiety Acquired hypothyroidism Dyspnea on exertion Bronchitis Fatigue COPD (chronic obstructive pulmonary disease) Surgical History History of esophagogastroduodenoscopy (EGD) History of gastric surgery History of foot surgery History of cardiac catheterization (~12/29/21) History of colonoscopy Family History Father No problems noted. 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 black leather buffer 80% of hearing loss would like to get hearing aids.) Vision needs: No Review of Systems Const All systems reviewed & are unremarkable except as noted in HPI and below Eyes Reports no additional complaints ENT Reports no additional complaints Card Denies chest pain, Denies irregular heart rhythm and Denies leg edema Resp Reports as per HPI GI Reports no additional complaints Reports no additional complaints Musc Reports back pain Skin/Breast Reports system reviewed and no additional complaints, except as documented Neuro Reports no additional complaints Psych Reports no additional complaints Physical Exam Vital Signs: Last Vital Signs Pulse 83 04/02/25 16:03 BP 124/64 04/02/25 16:03 Pulse Ox 97 04/02/25 16:03 Oxygen Delivery Method Nasal Cannula 04/02/25 16:03 Oxygen Flow Rate 2 04/02/25 16:03 BMI result Body Mass Index 20.1 Const Other: He is of a thin build, with slightly hunched back, and walks with a cane. General: comfortable, no acute distress, alert and awake Orientation/consciousness: patient oriented x3 HEENT Head: Yes normal to inspection General nose exam: No nasal polyps present and No nasal discharge present Face and sinus: Yes sinuses nontender Mouth: oropharynx normal Throat: Yes posterior oropharynx normal Eyes General: appearance normal, both eyes and all related structures Neck Neck: Yes normal visual inspection, Yes no lymphadenopathy, Yes trachea midline and Yes no JVD Thyroid: Thyroid normal Chest Chest palpation & inspection: abnormal inspection of the chest (Extensive scar over the left lower chest from previous surgery), normal palpation of entire chest wall and no tenderness Resp Other: Percussion note is resonant, breath sounds are distant with prolonged expiratory phase. LUNGS ARE CLEAR AND NO WHEEZES OR CREPITATIONS ARE HEARD TODAY.. Cardio Palpation: normal PMI Rate: regular rate Rhythm: regular rhythm Heart sounds: no gallops and no murmurs GI Palpation (GI): Soft to palpation, nontender, No hepatosplenomegaly present and no masses Auscultation: normal bowel sounds Back/Spine/Pelvis Thoracic/Lumbar Spine: thoracic and lumbar spine normal to inspection, thoraco- lumbar ROM limited and thoraco-lumbar spasm Skin General skin exam: no rashes or lesions noted Neuro General: patient oriented x3 and no focal motor deficits Cranial nerves: Yes CN's II-XII intact bilaterally Extrem General: Yes normal to inspection, Yes no clubbing, cyanosis or edema and Yes no calf tenderness Psych Appearance: grossly normal and well kempt Speech and movement: Normal speech and movement present Assessment & Plan Assessment & Plan (1) COPD (chronic obstructive pulmonary disease): Comment: HAS ADVANCED COPD, PFT C/W SEVERE OBSTRUCTIVE LUNG DISEASE, WITH POSITIVE RESPONSE TO BDs . HE HAS SHORTNESS OF BREATH MOST OF THE TIMES AND INCREASED WITH MINIMAL EXERTION. IT HAS DEFINITELY IMPROVED WITH CONTINUOUS USE OF OXYGEN. Code(s): J44.9 - Chronic obstructive pulmonary disease, unspecified Category: Medical Qualifiers: COPD type: unspecified COPD Qualified Code(s): J44.9 - Chronic obstructive pulmonary disease, unspecified Plan: ADVISED TO CONTINUE OXYGEN 2-3 L/MINUTE WHEN GOING OUTDOORS ON 2 L/MINUTE AT HOME , 2 L/MINUTE AT NIGHT. CONTINUE THE MEDICATIONS FOLLOWS: PREDNISONE 10 MG ON ALTERNATE DAYS. IPRATROPIUM-ALBUTEROL IN THE NEBULIZER Q 6 HOURS WHILE AWAKE MONTELUKAST 10 MG DAILY OKAY TO STOP USING INCRUSE ELLIPTA, BUT KEEP IN MIND WHO RESTART IF SHORTNESS OF BREATH GETS ANY WORSE. (2) Bronchitis: Comment: HIS CHRONIC BRONCHITIS PART OF HIS ADVANCED COPD. It seems to be better controlled with azithromycin 250 mg Q 3 times a week. Code(s): J40 - Bronchitis, not specified as acute or chronic Category: Medical Plan: CONTINUE USING AZITHROMYCIN 250 MG 3 DAYS A WEEK (3) Pulmonary hypertension: Comment: PATIENT DOES HAVE PULMONARY HYPERTENSION WHICH IS MOST LIKELY SECONDARY TO ADVANCED COPD AND CHRONIC HYPOXEMIA. IT IS EXPECTED TO STAY UNDER CONTROLLED WITH THE USE OF OXYGEN Code(s): I27.20 - Pulmonary hypertension, unspecified Category: Medical Plan: CONTINUE USING OXYGEN . (4) Respiratory failure with hypoxia: Comment: IT HAS BEEN CONFIRMED BY 6 MINUTES WALK TEST THAT HE DESATURATES WITH MINIMAL EXERTION/WALKING. HE IS ALSO KNOWN TO HAVE NOCTURNAL HYPOXEMIA CORRECTED WITH OXYGEN SUPPLEMENTATION AT NIGHT. Code(s): J96.91 - Respiratory failure, unspecified with hypoxia Category: Medical Plan: O2 2 L/MINUTE AT NIGHT. 2 L/MINUTE DURING THE DAYTIME P.R.N. FOR ANY PHYSICAL ACTIVITY AND INCREASED SHORTNESS OF BREATH. 2-3 L/MINUTE WITH THE PORTABLE UNIT, WHEN GOING OUTDOORS. Coding Level of Care Code Est Pt Level 3 (34436) Diagnoses Chronic obstructive pulmonary disease, unspecified COPD type J44.9 COPD type: unspecified COPD Bronchitis J40 Pulmonary hypertension I27.20 Respiratory failure with hypoxia J96.91
== END 2025-04-02 16:35 | disposition home or self-care (01) ==
LOC: HO.HPS 15:57
PROVIDERS: PCP Internal Medicine; Visit Provider Internal Medicine
DX: J44.9 Chronic obstructive pulmonary disease, unspecified (principal); J40 Bronchitis, not specified as acute or chronic; I27.20 Pulmonary hypertension, unspecified; J96.91 Respiratory failure, unspecified with hypoxia
CPT/HCPCS: 99213

== ENCOUNTER → 2025-04-02 15:56 | Outpatient (BNVA) | payer MEDICARE, SELFPAY | PROVIDERS: PCP Internal Medicine; Visit Provider Internal Medicine | DX: J44.9 Chronic obstructive pulmonary disease, unspecified (principal); J40 Bronchitis, not specified as acute or chronic; I27.20 Pulmonary hypertension, unspecified; J96.91 Respiratory failure, unspecified with hypoxia | CPT/HCPCS: 99212 ==

== ENCOUNTER 2025-04-09 09:57 | Outpatient (REF) | payer MEDICARE, SELFPAY ==
[2025-04-09 13:23] LABS: MANUAL DIFF FLAG NO
[2025-04-09 13:44] LABS: Basophils Absolute Auto 0.1 X10*3/uL (0.0-0.2); Eosinophils Absolute Auto 0.3 X10*3/uL (0.0-0.4); Eosinophils Percent Auto 4.2 % (0-4); Hematocrit 36.6 % (42.0-52.0); Hemoglobin 11.9 g/dl (14.0-18.0); Imm Gran Abs Auto 0.02 X10*3/uL (0.00-0.03); Imm Gran Pct Auto 0.3 % (0.0-0.4); Lymphocytes Absolute Auto 1.9 X10*3/uL (1.2-4.9); Lymphocytes Percent Auto 26.9 % (20-40); Mean Corpuscular HGB Conc 32.5 g/dl (31.0-36.0); Mean Corpuscular Hemoglobin 30.5 pg (27.0-33.0); Mean Corpuscular Volume 93.8 fL (80.0-98.0); Mean Platelet Volume 10.1 fL (9.4-12.4); Monocytes Absolute Auto 0.7 X10*3/uL (0.1-1.2); Monocytes Percent Auto 9.7 % (2-11); Neutrophils Percent Auto 57.9 % (45-73); Platelet Count 275 X10*3/uL (160-400); Red Cell Distribution Width 12.4 % (11.0-16.0); White Blood Count 6.9 X10*3/uL (4.8-10.8)
[2025-04-09 13:49] LABS: Alanine Aminotransferase 21 U/L (0-40); Albumin Level 3.7 g/dL (3.5-5.0); Alkaline Phosphatase 72 U/L (39-117); Anion Gap 11 (12-20); Aspartate Amino Transferase 39 U/L (5-37); Bilirubin Total 1.4 mg/dL (0.0-1.0); Blood Urea Nitrogen 18 mg/dL (9-16); Calcium 8.7 mg/dL (8.4-10.2); Carbon Dioxide 34 mmol/L (22-29); Chloride 97 mmol/L (96-108); Cholesterol 112 mg/dL (<200); Estimated Glomerular Filt Rate 51; Glucose Fasting 87 mg/dL (60-99); HDL Cholesterol 49 mg/dL (>40); LDL Cholesterol Calculated 52 mg/dL (<100); Potassium 3.6 mmol/L (3.3-5.1); Sodium 138 mmol/L (135-145); Total Protein 6.7 g/dL (6.5-8.0); Triglycerides 57 mg/dL (<150)
[2025-04-09 14:13] LABS: Free T4 (Free Thyroxine) 1.18 ng/dL (0.71-1.85); Thyroid Stimulating Hormone 1.93 uIU/mL (0.32-4.0); Vitamin D 25-OH Total 49.7 ng/mL (>30)
== END 2025-04-09 09:58 | disposition home or self-care (01) ==
LOC: HO.HMGCLDS 09:57
PROVIDERS: PCP Internal Medicine; Visit Provider Internal Medicine
DX: D64.9 Anemia, unspecified (principal); E55.9 Vitamin D deficiency, unspecified; E78.00 Pure hypercholesterolemia, unspecified; E03.9 Hypothyroidism, unspecified
CPT/HCPCS: 36415; 80053; 80061; 82306; 84439; 84443; 85025

== ENCOUNTER 2025-04-12 15:58 | Outpatient (AMB) | payer MEDICARE, SELFPAY ==
[2025-04-12 16:04] VITALS: BP 130/78; PULSE 75; O2SAT 93; BMI 20.7
--- NOTE | 2025-04-12 16:04 | MHC.PC.OV ---
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 Food And Beverage Required: No Accompanied by: Self / Same As Patient Allergies levofloxacin Adverse Reaction (Severe, Verified 04/12/25 16:28) tendon rupture duloxetine Adverse Reaction (Intermediate, Verified 04/12/25 16:28) sedation gabapentin Adverse Reaction (Intermediate, Verified 04/12/25 16:28) nightmares; leg cramps aspirin Adverse Reaction (Unknown, Verified 04/12/25 16:28) stomach upset, stomach nicole Medication List - Last Reconciled 04/12/25 by Malick Hernandez MD albuterol sulfate 90 mcg/actuation 2 puffs inhalation Q6H PRN aspirin 81 mg PO DAILY azithromycin 250 mg PO Q OTHER DAY 90 days barium sulfate 2%(w/v) (Readi-Cat 2) 900 mL PO ONCE bumetanide 1 mg PO BID buspirone 5 mg PO BID 30 days cholecalciferol (vitamin D3) 50 mcg PO DAILY dextromethorphan-guaifenesin 30-600 mg (Mucinex DM) 1 tab PO Q12H PRN finasteride 5 mg orally M,W,F; Take Tuesday, Tuesday, Tuesday 90 days ipratropium-albuterol 0.5 mg-3 mg(2.5 mg base)/3 mL 3 mL inhalation Q6H PRN levothyroxine 137 mcg PO DAILY 90 days montelukast 10 mg PO DAILY omeprazole 40 mg PO BID oxycodone-acetaminophen 10-325 mg 1 tab PO BID PRN 30 days pramipexole 1 mg PO TID PRN 30 days prednisone 10 mg PO Q OTHER DAY tizanidine 4 mg PO BEDTIME PRN 30 days umeclidinium 62.5 mcg/actuation (Incruse Ellipta) 1 inh inhalation DAILY Tobacco use date assessed: 12/07/24 Fall risk assessment: No Falls in past year Last assessed Fall Risk: 04/12/25 Dental Screening Dental Screen Date: 04/12/25 Did you have a dental visit in the last 12 months?: No Did you have a dental problem in the last 6 months where you did not have access to dental care?: No Was dental information given to patient?: No HPI 4 month f/u HPI Details Patient comes in today for his follow-up visit States that he feels okay He denies any headaches or dizziness Denies any chest pains, no increased shortness of breath - he now has a portable oxygen concentrator to use and is happy that he can now keep his oxygen on wherever he goes No nausea/vomiting, no abdominal pain No change in bowel habits noted States that his low back pain and joint pains remain adequately controlled on his current medications He had his follow-up labs done a few days ago - to discuss his results [facility] Medical History Respiratory failure with hypoxia Nocturnal hypoxemia Weight loss Weight loss Lung density on x-ray COPD exacerbation Depression GERD (gastroesophageal reflux disease) Pulmonary hypertension Benign essential hypertension Screening for diabetes mellitus Tachycardia Benign prostatic hyperplasia Restless leg syndrome Primary osteoarthritis of right shoulder Lumbar degenerative disc disease Anxiety Acquired hypothyroidism Dyspnea on exertion Bronchitis Fatigue COPD (chronic obstructive pulmonary disease) Surgical History History of esophagogastroduodenoscopy (EGD) History of gastric surgery History of foot surgery History of cardiac catheterization (~12/29/21) History of colonoscopy Family History Father No problems noted. 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 top lift trimmer 80% of hearing loss would like to get hearing aids.) Vision needs: No Questionnaire PHQ-9 Over the last 2 weeks, how often have you been bothered by any of the following problems? 1. Little interest or pleasure in doing things: not at all 2. Feeling down, depressed, or hopeless: not at all 3. Trouble falling or staying asleep, or sleeping too much: not at all 4. Feeling tired or having little energy: not at all 5. Poor appetite or overeating: not at all 6. Feeling bad about yourself - or that you are a failure or have let yourself or your family down: not at all 7. Trouble concentrating on things, such as reading the newspaper or watching television: not at all 8. Moving or speaking so slowly that other people could have noticed. Or the opposite - being so fidgety or restless that you have been moving around a lot more than usual: not at all 9. Thoughts that you would be better off or of hurting yourself in some way: not at all Total score: 0 Depression Screening Interpretation: Negative Depression Screening Done: Yes 08493 - PHQ-9 Billing: Yes Source: Developed by Drs. Rishabh Stallworth, Kesha Madrid, Louis Tyler and colleagues, with an educational ritu from [employer]. Thrive Questionnaire Date Thrive assessed: 04/12/25 I am a: Parent/Caregiver What is your living situation today?: I have a steady place to live Within the past 12 months, did the food you bought not last and you didn't have the money to get more?: Never true Within the past 12 months, did you worry whether your food would run out before you got money to buy more?: Never true Do you have trouble paying for medicines?: No Do you have trouble getting transportation to medical appointments?: No Do you have trouble paying your heating and electricity bill?: No Do you have trouble taking care of your child, family member or friend?: No Do you have trouble with day-to-day activities such as bathing, preparing meals, shopping, managing finances, etc.?: No Are you currently unemployed and looking for a job?: No Are you interested in more education?: No Please select the resources that you would like help with: None Currently or been in a relationship where the following occur: No concerns reported THRIVE Score: 0 AUDIT C Alcohol Use Questionnaire (AUDIT-C) 1. How often do you have a drink containing alcohol?: Monthly or less 2. How many drinks containing alcohol do you have on a typical day when you are drinking?: 1 or 2 3. How often do you have six or more drinks on one occasion?: Never Total Score: 1 Score Reviewed/Action Taken: Yes THOM-7 AMB Questionnaire THOM-7 Date THOM - 7 assessed: 04/12/25 Feeling nervous, anxious, or on edge: 0 = Not at all Not being able to stop or control worryin = Not at all Worrying too much about different things: 0 = Not at all Trouble relaxin = Not at all Being so restless that it is hard to sit still: 0 = Not at all Becoming easily annoyed or irritable: 0 = Not at all Feeling afraid as if something awful might happen: 0 = Not at all Total THOM-7 score (0-4 normal; 5-9 mild; 10-14 moderate; 15-21 severe): 0 Source: Developed by Drs. Rishabh Stallworth, Kesha Madrid, Louis Tyler and colleagues, with an educational ritu from [employer]. Review of Systems Const Denies chills, Reports difficulty sleeping (at times), Reports fatigue, Denies fever(s) and Denies headache(s) ENT Denies dysphagia, Denies dizziness, Denies otalgia, Denies headache(s), Denies neck pain, Denies odynophagia and Denies sore throat Card Denies chest pain, Denies palpitations and Reports dyspnea on exertion Resp Denies chest congestion, Denies cough and Reports dyspnea on exertion GI Denies abdominal pain, Reports constipation (at times), Denies dysphagia, Denies heartburn, Denies diarrhea, Denies nausea, Denies odynophagia and Denies vomiting Denies difficulty urinating, Denies dysuria, Denies nocturia and Denies urinary frequency Musc Reports back pain (over the lower back, chronic), Reports arthralgias (right shoulder), Reports muscle cramps (in both legs, worse at night), Denies neck pain, Reports numbness (on the head and face lately) and Reports tingling (on and off, in both legs) Skin/Breast Denies rash Neuro Denies dizziness, Denies headache(s), Reports numbness (on the head and face lately), Reports radicular pain (in both lower extremities), Reports restless legs and Reports tingling (on and off, in both legs) Psych Reports anxiety (better controlled on current Rx), Denies depression and Denies irritability Endo Reports fatigue and Denies palpitations Jefe/Lymph Details: on and off swelling of both legs and feet Physical exam (Primary Care) Vital Signs: Last Vital Signs Pulse 75 04/12/25 16:04 BP 130/78 04/12/25 16:04 Pulse Ox 93 04/12/25 16:04 Oxygen Delivery Method Nasal Cannula 04/12/25 16:04 BMI result Body Mass Index 20.7 Tobacco/Smoking Status: Tobacco use Status Tobacco use date assessed 12/07/24 04/12/25 16:05 Patient Tobacco Use Status Former Tobacco user 04/12/25 16:05 Tobacco use type Cigarette 04/12/25 16:05 e-Cigarette/Vaping Use Never Used 04/12/25 16:05 PHQ-9: PHQ-9 Score PHQ-9: Total score 0 04/12/25 16:30 Depression Screening Interpretation: Negative Thrive Assessment: Date of Thrive Assessment Date Thrive assessed 04/12/25 04/12/25 16:06 Currently or been in a relationship where the following occur: No concerns reported Const General: no acute distress and alert HENMT Ears: TM's normal bilaterally and EAC's normal Throat: Yes posterior oropharynx normal and Yes tonsils normal (no TP congestion noted) Neck Neck: Yes supple and No lymphadenopathy Thyroid: Thyroid normal Resp Auscultation: clear to auscultation bilaterally, no rales and no wheezes Cardio Rate: regular rate Rhythm: regular rhythm Heart sounds: no murmurs GI Palpation (GI): Soft to palpation and nontender Auscultation: normal bowel sounds General: Yes no CVA tenderness Back/Spine/Pelvis Back: no CVA tenderness Thoracic/Lumbar Spine: lumbar spinal tenderness and straight leg raise positive Skin Rashes: no rashes Extrem General: No clubbing, No cyanosis and Yes edema (1+ bipedal edema) Results Reviewed Results Reviewed: Laboratory Tests 04/09/25 10:12 WBC 6.9 Hgb 11.9 L Hct 36.6 L Plt Count 275 Sodium 138 Potassium 3.6 Creatinine 1.35 Estimated GFR 51 Fasting Glucose 87 Calcium 8.7 Total Bilirubin 1.4 H AST 39 H ALT 21 Triglycerides 57 Cholesterol 112 LDL Cholesterol, Calc 52 HDL Cholesterol 49 25-OH Vitamin D Total 49.7 TSH 1.93 Free T4 1.18 Coding Level of Care Code Est Pt Level 4 (52705) Diagnoses Degeneration of intervertebral disc of lumbar region with discogenic back pain and lower extremity pain M51.362 Disc-related pain type: discogenic back pain and lower extremity pain Chronic obstructive pulmonary disease, unspecified COPD type J44.9 COPD type: unspecified COPD Pulmonary hypertension I27.20 Primary osteoarthritis of right shoulder M19.011 Acquired hypothyroidism E03.9 Bilateral lower extremity edema R60.0 Chronic anemia D64.9 Benign essential hypertension I10 Gastroesophageal reflux disease without esophagitis K21.9 Esophagitis presence: without esophagitis Restless leg syndrome G25.81 Benign prostatic hyperplasia with urinary frequency N40.1; R35.0 Lower urinary tract symptom detail: urinary frequency Lower urinary tract symptom presence: symptoms present Mood disorder F39 Additional Codes PHQ-9 - 26180 - PHQ-9 Billing: Yes ([id number]) Assessment & Plan Assessment & Plan (1) Lumbar degenerative disc disease: Code(s): M51.36 - Other intervertebral disc degeneration, lumbar region Category: Medical Qualifiers: Disc-related pain type: discogenic back pain and lower extremity pain Qualified Code(s): M51.362 - Other intervertebral disc degeneration, lumbar region with discogenic back pain and lower extremity pain Plan: Reinforced activity and weight-lifting restrictions MRI of the lumbar spine done back in 2008 revealed multilevel bony and disc degenerative changes and osteophytic narrowing of the neural foramina at multiple levels with no focal disc herniation or spinal stenosis noted at that time; patient has not had MRI repeated since Lumbar spine x-rays done in March 2020 revealed (+) prominent dextrocurvature and multilevel degenerative disc changes Repeat lumbar spine x-rays done back in March 2023 revealed (+) dextrorotoscoliosis with degenerative disc changes virtually at every disc level. No visible acute fracture or dislocation seen He has been to pain management but none of the options/interventions that he has tried so far have helped We tried referring him to the Spine Center here at [facility] last year to see what other treatment or management options remain available to him at this time but was advised that he needs to get a more recent lumbar spine MRI done before he can be seen Continue Celecoxib 200 mg QD PRN, Oxycodone-Acetaminophen 10-325 mg BID PRN and Tizanidine 4 mg Q HS PRN Patient has tried taking Gabapentin in the past but stopped due to frequent nightmares while on the medication;? he also recalled experiencing increasing leg cramps and pain when he was started back on Gabapentin He was also tried on Duloxetine 30 mg BID but was only taking it Q PM - states that he felt sedated, tired and too mellow while on the Rx and was advised to stop taking this after a while (2) COPD (chronic obstructive pulmonary disease): Comment: HAS ADVANCED COPD, PFT C/W SEVERE OBSTRUCTIVE LUNG DISEASE, WITH POSITIVE RESPONSE TO BDs . HE HAS SHORTNESS OF BREATH MOST OF THE TIMES AND INCREASED WITH MINIMAL EXERTION. IT HAS DEFINITELY IMPROVED WITH CONTINUOUS USE OF OXYGEN. Code(s): J44.9 - Chronic obstructive pulmonary disease, unspecified Category: Medical Qualifiers: COPD type: unspecified COPD Qualified Code(s): J44.9 - Chronic obstructive pulmonary disease, unspecified Plan: Chest CT done in July 2024 revealed (+) COPD and emphysematous changes and scarring in the left lower lobe with (+) coronary artery calcifications Continue Albuterol HFA 2 puffs 4 times a day as needed and Prednisone 20 mg 1 to 2 tablets per week, no more than 7 tablets per month He used to be on Spiriva Respimat 2 inhalations QD which was later switched to Incruse Ellipta but he felt that they were not helping at all so he asked to have these discontinued Patient states that his breathing has since improved significantly with continuous oxygen use and having a portable oxygen concentrator has made this possible Follow up with pulmonary at [facility] as scheduled (3) Pulmonary hypertension: Comment: PATIENT DOES HAVE PULMONARY HYPERTENSION WHICH IS MOST LIKELY SECONDARY TO ADVANCED COPD AND CHRONIC HYPOXEMIA. IT IS EXPECTED TO STAY UNDER CONTROLLED WITH THE USE OF OXYGEN Code(s): I27.20 - Pulmonary hypertension, unspecified Category: Medical Plan: Echocardiogram done back in September 2024 revealed (+) moderate to severe pulmonary hypertension Left ventricular size, thickness, systolic function, and wall motion are normal and the visually estimated ejection fraction is between 60-65%. (+) moderately increased right ventricular cavity size but right ventricular systolic function is normal. There is severe mitral annular calcification, mild to moderate tricuspid valve regurgitation, the right ventricular systolic pressure is 58 mmHg, with moderately elevated right atrial pressure. There is also (+) mild dilatation of the sinuses of Valsalva measuring 4.30 cm and mild dilatation of the ascending aorta measuring 3.70 cm Patient also recently underwent cardiac catheterization a few years ago (2021) for further evaluation of his progressive DORADO and equivocal stress test - coronary angiogram revealed no significant CAD Patient then advised to continue with aggressive risk factor modification Follow up with pulmonary and cardiology as scheduled (4) Primary osteoarthritis of right shoulder: Code(s): M19.011 - Primary osteoarthritis, right shoulder Category: Medical Plan: States that his current meds, especially Celecoxib, help with his shoulder pain He was given a cortisone injection into his shoulder by Dr. Gerard last year, which he states did not really help much Follow up with orthopedics at [facility] as scheduled (5) Acquired hypothyroidism: Code(s): E03.9 - Hypothyroidism, unspecified Category: Medical Plan: Results of his labs done a few days ago reviewed and discussed with patient - his TFTs were normal Continue Levothyroxine 137 mcg QD Will recheck his TFTs in 4 months for follow up (6) Bilateral lower extremity edema: Code(s): R60.0 - Localized edema Category: Medical Plan: Continue Bumetanide 1 mg Q AM PRN Patient has been advised that lower extremity edema is common in patients with advanced COPD and that this is most likely due to pulmonary hypertension (or cor pulmonale), as revealed in his recent echocardiogram Have advised that his Amlodipine 10 mg may also be contributing to this (7) Chronic anemia: Code(s): D64.9 - Anemia, unspecified Category: Medical Plan: Patient still has chronic but mild anemia on his labs done a few days ago - etiology remains unclear at this time as he does not appear to be deficient in iron or Vitamin B12 He reportedly last had his colonoscopy sometime in 2017 Because of his persistent anemia of unclear etiology, he was referred back to GI for consideration for repeat colonoscopy He was seen by Dr. Bustillos in September 2024 for initial consultation and was sent for additional work ups, including abdominal and pelvic CT, which have not revealed any potential source of his anemia Will continue to monitor his CBC regularly (8) Benign essential hypertension: Code(s): I10 - Essential (primary) hypertension Category: Medical Plan: Reinforced low sodium diet - goal is systolic BP of at least 130 to 140 mm or less Continue Amlodipine 10 mg QD (9) GERD (gastroesophageal reflux disease): Code(s): K21.9 - Gastro-esophageal reflux disease without esophagitis Category: Medical Qualifiers: Esophagitis presence: without esophagitis Qualified Code(s): K21.9 - Gastro-esophageal reflux disease without esophagitis Plan: Dietary restrictions reinforced Continue Omeprazole 40 mg BID (10) Restless leg syndrome: Comment: IS A CHRONIC PROBLEM CONTROLLED WITH ROPINIROLE 1 MG Q 6 HOURS P.R.N. Code(s): G25.81 - Restless legs syndrome Category: Medical Plan: Continue Pramipexole 1 mg TID PRN He was on Ropinirole 1 mg every 6 hours for a while but it has no longer been helping He was referred to and was seen by neurology a few months ago, who cut down his Ropinirole to 1 mg QHS and he was reportedly advised that there is really no effective cure for RLS and taking Rx at higher doses can actually be more counterproductive Follow up with neurology as scheduled (11) Benign prostatic hyperplasia: Code(s): N40.0 - Benign prostatic hyperplasia without lower urinary tract symptoms Category: Medical Qualifiers: Lower urinary tract symptom detail: urinary frequency Lower urinary tract symptom presence: symptoms present Qualified Code(s): N40.1 - Benign prostatic hyperplasia with lower urinary tract symptoms; R35.0 - Frequency of micturition Plan: Continue Finasteride 5 mg every other day (MWF) Follow up with urology as scheduled (12) Mood disorder: Code(s): F39 - Unspecified mood [affective] disorder Category: Medical Plan: This is in part due to frustrations regarding his physical condition and also to his anxiety and some depression Patient states that he has been feeling better since he was started on Sertaline Continue Sertraline 100 mg QD Plan Follow up in 4 months Orders: Orders Complete Blood Count Auto Diff 4 Months D64.9 - Anemia, unspecified Lipid Panel 4 Months E78.00 - Pure hypercholesterolemia, unspecified Free T4 (Free Thyroxine) 4 Months E03.9 - Hypothyroidism, unspecified Thyroid Stimulating Hormone 4 Months E03.9 - Hypothyroidism, unspecified UA CC w/rflx Micro + Cult 4 Months R30.0 - Dysuria Comprehensive [place]. Panel Fast 4 Months E78.00 - Pure hypercholesterolemia, unspecified
== END 2025-04-12 16:44 | disposition home or self-care (01) ==
LOC: HO.HMCH 15:59
PROVIDERS: PCP Internal Medicine; Visit Provider Internal Medicine
DX: M51.362 Other intervertebral disc degeneration, lumbar region with discogenic back pain and lower extremity pain (principal); J44.9 Chronic obstructive pulmonary disease, unspecified; I27.20 Pulmonary hypertension, unspecified; M19.011 Primary osteoarthritis, right shoulder; E03.9 Hypothyroidism, unspecified; R60.0 Localized edema; D64.9 Anemia, unspecified; I10 Essential (primary) hypertension; K21.9 Gastro-esophageal reflux disease without esophagitis; G25.81 Restless legs syndrome; N40.1 Benign prostatic hyperplasia with lower urinary tract symptoms; R35.0 Frequency of micturition; F39 Unspecified mood [affective] disorder

== ENCOUNTER → 2025-04-12 15:58 | Outpatient (BNVA) | payer MEDICARE, SELFPAY | PROVIDERS: PCP Internal Medicine; Visit Provider Internal Medicine | DX: M51.362 Other intervertebral disc degeneration, lumbar region with discogenic back pain and lower extremity pain (principal); J44.9 Chronic obstructive pulmonary disease, unspecified; I27.20 Pulmonary hypertension, unspecified; M19.011 Primary osteoarthritis, right shoulder; E03.9 Hypothyroidism, unspecified; R60.0 Localized edema; D64.9 Anemia, unspecified; I10 Essential (primary) hypertension; K21.9 Gastro-esophageal reflux disease without esophagitis; G25.81 Restless legs syndrome; N40.1 Benign prostatic hyperplasia with lower urinary tract symptoms; R35.0 Frequency of micturition; F39 Unspecified mood [affective] disorder; Z79.891 Long term (current) use of opiate analgesic; Z79.899 Other long term (current) drug therapy; Z13.31 Encounter for screening for depression; Z13.30 Encounter for screening examination for mental health and behavioral disorders, unspecified | CPT/HCPCS: 96127; 99212 ==

== ENCOUNTER → 2025-05-14 14:38 | Outpatient (REF) | payer MEDICARE, SELFPAY ==
--- NOTE | 2025-05-14 14:41 | CA_ITS ---
Transthoracic Echocardiogram Patient (Last, First, Middle): Sami Levi, Gender: Male Date of : 1945 Age: 80 Procedure Date: 05/14/2025 Procedure Type: Transthoracic Echocardiogram Location: OP Height: 180.34 cm Weight: 67.13 kg BSA: 1.86 m2 Heart Rate: bpm BP: 130 / 78 mmHg Grain Elevator Motor Starter: SARAH Referring MD: Jeferson Jenkins RN SURGICAL PCU Symptoms: I27.20 - Pulmonary hypertension, unspecified Study Quality: Adequate Conclusions: - 1. Normal LV ejection fraction of 60 65% with grade 1 diastolic dysfunction 2. Mildly dilated left atrium 3. Moderately dilated right sided chambers with preserved RV contractility 4. Severe mitral annular calcification mild mitral regurgitation 5. Mild aortic regurgitation 6. Moderate tricuspid regurgitation 7. Moderately elevated right ventricular systolic pressure with mildly elevated right atrial pressures 8. No gross pericardial effusion Findings Left Ventricle Normal left ventricular size, thickness, and systolic function. The visually estimated ejection fraction is between 60-65%. Spectral Doppler is indicative of an impaired relaxation filling pattern. E/E prime ratio is <8, consistent with normal filling pressures. Evidence suggests grade I (mild) diastolic dysfunction. Right Ventricle Moderately increased right ventricular cavity size. There is normal right ventricular systolic function. Atria The left atrium is mildly dilated. There is no evidence of interatrial shunt. The right atrium is moderately dilated. Aortic Valve Normal aortic valve structure and function. There is no aortic valve stenosis. There is mild aortic valve regurgitation. Mitral Valve There is mild anterior and severe posterior mitral leaflet thickening. There is severe mitral annular calcification. There is mild mitral valve regurgitation. There is no mitral valve stenosis. Pulmonic Valve The pulmonic valve is likely normal. There is trace to mild pulmonic valve regurgitation. Tricuspid Valve Normal tricuspid valve structure. There is moderate tricuspid valve regurgitation. The right ventricular systolic pressure is 59 mmHg. Mildly elevated right atrial pressure. Moderate to severe pulmonary hypertension is present. Great Vessels The pulmonary artery was not well visualized. There is mild dilatation of the ascending aorta measuring 4.00 cm. Venous The inferior vena cava is severely dilated and collapses greater than 50% with inspiration. Pericardium/Pleural There is no evidence of pericardial effusion. Prior Study Comparison No significant change compared to prior study dated: 10/08/2024. Measurements 2D Linear Measurements IVSd: 0.93 0.6-0.9/0.6-1.0 cm LVIDd: 3.91 3.9-5.3/4.2-5.9 cm LVIDd Index: 2.10 2.4-3.2/2.2-3.1 cm/m2 LVIDs: 2.32 2.0-3.6 cm LVPWd: 1.24 0.7-1.1 cm LA Diam: 3.40 2.7-3.8/3.0-4.0 cm LAIDs Index: 1.83 1.5-2.3 cm/m2 LV Mass: 171.69 67-162/88-224 g LV Mass Index: 92.31 43-95/49-115 g/m2 LVOT Diam: 2.30 3.0+(-)1.3 cm 2D Systolic Function EF 4C: 65.20 >55% EF 2C: 62.00 >55% EF BiP: 64.70 >55% Mitral Valve MV VTI: 0.36 MV Pk Rojas: 1.08 MV Mn Rojas: 0.55 MV Pk Grad: 5.00 MV Mn Grad: 1.00 MV Pk E: 0.63 MV PK A: 0.93 MV Decel Time: 259.00 E/A: 0.70 E'Lateral: 8.38 E'Medial: 6.20 E/E' Med: 10.20 E/E' Lat: 7.60 PHT: 76.00 MVA PHT: 2.89 MVA Continuity: 2.46 Decel [place]: 2.45 Aortic Valve AoV Pk Rojas: 1.35 AoV Mn Rojas: 0.88 AoV VTI: 0.30 AoV Pk Grad: 7.00 Aov Mn Grad: 4.00 REMI Cont.VTI: 2.94 LVOT LVOT Pk Rojas: 1.07 LVOT Mn Rojas: 0.61 LVOT VTI: 0.22 LVOT Pk Grad: 5.00 LVOT Mn Grad: 2.00 LVOT Diam: 2.30 LVOT Area: 4.15 Diastolic Function MV Pk E: 0.63 MV Pk A: 0.93 E/A: 0.70 E'Medial: 6.20 E/E' Med: 10.20 E' Laterial: 8.38 E/E' Lat: 7.60 Right Ventricle TAPSE (mm): 27.30 TVS' Rojas: 15.20 Tricuspid Valve TR Pk Rojas: 3.58 TR Pk Grad: 51.00 RA Press: 8.00 RVSP: 59.00 Great Vessels Aorta Sinus of Valsalva: 4.51 2.0-3.[address] [place]: 3.53 1.7-3.4 cm Ao Asc: 4.00 2.1-3.4 cm Updated in Other Vendor System with Status of Final Jerod Pickering MD electronically signed on 05/15/2025 1:36:31 PM with status of Final
== END ==
LOC: HO.CARD 14:38
PROVIDERS: PCP Internal Medicine
DX: I27.20 Pulmonary hypertension, unspecified (principal)
CPT/HCPCS: 93306

== ENCOUNTER → 2025-05-14 14:41 | Outpatient (BNV) | payer MEDICARE, SELFPAY | PROVIDERS: PCP Internal Medicine; Visit Provider Internal Medicine Cardiovascular Disease | DX: I27.20 Pulmonary hypertension, unspecified (principal); I34.81 Nonrheumatic mitral (valve) annulus calcification; I34.0 Nonrheumatic mitral (valve) insufficiency; I35.1 Nonrheumatic aortic (valve) insufficiency; I51.7 Cardiomegaly; I36.1 Nonrheumatic tricuspid (valve) insufficiency; I37.1 Nonrheumatic pulmonary valve insufficiency; I51.89 Other ill-defined heart diseases | CPT/HCPCS: 93306 ==

== ENCOUNTER 2025-07-03 15:39 | Outpatient (AMB) | payer MEDICARE, SELFPAY ==
[2025-07-03 15:46] VITALS: BP 130/80; PULSE 79; O2SAT 96; BMI 20.8
--- NOTE | 2025-07-03 15:46 | A.OFFVIS_ITS ---
Vital Signs 07/03/25 15:46 Height 5 ft 11 in Weight 148 lb 12.992 oz BMI 20.8 BP 130/80 Blood Pressure Location Lt brachial Position Sitting Pulse 79 Pulse Source Pulse Oximeter Pulse Oximetry (%) 96 Oxygen Delivery Method Nasal Cannula Oxygen Flow Rate 2 Intake Visit Reasons: COPD Intake Note: pt is here for follow up and states he is having a bad day today, but he does have good days, the weather is affecting him. 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 Required: No Allergies levofloxacin Adverse Reaction (Severe, Verified 07/03/25 16:10) tendon rupture duloxetine Adverse Reaction (Intermediate, Verified 07/03/25 16:10) sedation gabapentin Adverse Reaction (Intermediate, Verified 07/03/25 16:10) nightmares; leg cramps aspirin Adverse Reaction (Unknown, Verified 07/03/25 16:10) stomach upset, stomach nicole Medication List - Last Reconciled 07/03/25 by Ridge French MD albuterol sulfate 90 mcg/actuation 2 puffs inhalation Q6H PRN aspirin 81 mg PO DAILY azithromycin 250 mg PO Q OTHER DAY 90 days barium sulfate 2%(w/v) (Readi-Cat 2) 900 mL PO ONCE bumetanide 1 mg PO BID buspirone 5 mg PO BID 30 days cholecalciferol (vitamin D3) 50 mcg PO DAILY dextromethorphan-guaifenesin 30-600 mg (Mucinex DM) 1 tab PO Q12H PRN finasteride 5 mg orally M,W,F; Take Tuesday, Tuesday, Tuesday 90 days ipratropium-albuterol 0.5 mg-3 mg(2.5 mg base)/3 mL 3 mL inhalation Q6H PRN levothyroxine 137 mcg PO DAILY 90 days montelukast 10 mg PO DAILY omeprazole 40 mg PO BID oxycodone-acetaminophen 10-325 mg 1 tab PO BID PRN 30 days pramipexole 1 mg PO TID PRN 30 days prednisone 10 mg PO Q OTHER DAY 30 days tizanidine 4 mg PO BEDTIME PRN 30 days umeclidinium 62.5 mcg/actuation (Incruse Ellipta) 1 inh inhalation DAILY Do you need a note to return to daycare/school/sports/work: No HPI HPI COPD: Details: TIERA COMES AFTER. 3 MONTHS FOR HIS ROUTINE FOLLOW-UP HE IS A CASE OF END-STAGE CHRONIC OBSTRUCTIVE PULMONARY DISEASE, HE IS ON MAXIMUM MEDICAL REGIMEN AND ALSO ON CONTINUOUS OXYGEN. HE DOES NEED ORAL PREDNISONE ON AN ONGOING BASIS, HE GETS INTO TROUBLE ANY TIME HE CUTS DOWN THE USE OF PREDNISONE. LUCKILY HE HAS HAD NO ACUTE. INFECTION IN THE LAST 3 MONTHS HE REMAINS ON AZITHROMYCIN 250 MG 3 DAYS A WEEK. HIS MAIN PROBLEM IS SHORTNESS OF BREATH ON MINIMAL EFFORT AND ALSO MUCUS THAT HE FINDS DIFFICULT TO EXPECTORATES. HE DOES HAVE A FLUTTER VALVE, ALSO USES THE NEBULIZER WELL MUCINEX , TO CLEAR HIS AIRWAYS. REPLACED BY [facility] Medical History Respiratory failure with hypoxia Nocturnal hypoxemia Weight loss Weight loss Lung density on x-ray COPD exacerbation Depression GERD (gastroesophageal reflux disease) Pulmonary hypertension Benign essential hypertension Screening for diabetes mellitus Tachycardia Benign prostatic hyperplasia Restless leg syndrome Primary osteoarthritis of right shoulder Lumbar degenerative disc disease Anxiety Acquired hypothyroidism Dyspnea on exertion Bronchitis Fatigue COPD (chronic obstructive pulmonary disease) Surgical History History of esophagogastroduodenoscopy (EGD) History of gastric surgery History of foot surgery History of cardiac catheterization (~12/29/21) History of colonoscopy Family History Father No problems noted. 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 farmworker 80% of hearing loss would like to get hearing aids.) Vision needs: No Review of Systems Const All systems reviewed & are unremarkable except as noted in HPI and below Eyes Reports no additional complaints ENT Reports no additional complaints Card Denies chest pain, Denies irregular heart rhythm and Denies leg edema Resp Reports as per HPI GI Reports no additional complaints Reports no additional complaints Musc Reports back pain Skin/Breast Reports system reviewed and no additional complaints, except as documented Neuro Reports no additional complaints Psych Reports no additional complaints Physical Exam Vital Signs: Last Vital Signs Pulse 79 07/03/25 15:46 BP 130/80 07/03/25 15:46 Pulse Ox 96 07/03/25 15:46 Oxygen Delivery Method Nasal Cannula 07/03/25 15:46 Oxygen Flow Rate 2 07/03/25 15:46 BMI result Body Mass Index 20.8 Const Other: He is of a thin build, with slightly hunched back, and walks with a cane. General: comfortable, no acute distress, alert and awake Orientation/consciousness: patient oriented x3 HEENT Head: Yes normal to inspection General nose exam: No nasal polyps present and No nasal discharge present Face and sinus: Yes sinuses nontender Mouth: oropharynx normal Throat: Yes posterior oropharynx normal Eyes General: appearance normal, both eyes and all related structures Neck Neck: Yes normal visual inspection, Yes no lymphadenopathy, Yes trachea midline and Yes no JVD Thyroid: Thyroid normal Chest Chest palpation & inspection: abnormal inspection of the chest (Extensive scar over the left lower chest from previous surgery), normal palpation of entire chest wall and no tenderness Resp Other: Percussion note is resonant, breath sounds are distant with prolonged expiratory phase. LUNGS ARE CLEAR AND NO WHEEZES OR CREPITATIONS ARE HEARD TODAY.. Cardio Palpation: normal PMI Rate: regular rate Rhythm: regular rhythm Heart sounds: no gallops and no murmurs GI Palpation (GI): Soft to palpation, nontender, No hepatosplenomegaly present and no masses Auscultation: normal bowel sounds Back/Spine/Pelvis Thoracic/Lumbar Spine: thoracic and lumbar spine normal to inspection, thoraco- lumbar ROM limited and thoraco-lumbar spasm Skin General skin exam: no rashes or lesions noted Neuro General: patient oriented x3 and no focal motor deficits Cranial nerves: Yes CN's II-XII intact bilaterally Extrem General: Yes normal to inspection, Yes no clubbing, cyanosis or edema and Yes no calf tenderness Psych Appearance: grossly normal and well kempt Speech and movement: Normal speech and movement present Assessment & Plan Assessment & Plan (1) COPD (chronic obstructive pulmonary disease): Comment: HAS ADVANCED COPD, PFT C/W SEVERE OBSTRUCTIVE LUNG DISEASE, WITH POSITIVE RESPONSE TO BDs . HE HAS SHORTNESS OF BREATH MOST OF THE TIMES AND INCREASED WITH MINIMAL EXERTION. THE SHORTNESS OF BREATH HAS DEFINITELY IMPROVED WITH CONTINUOUS USE OF OXYGEN. Code(s): J44.9 - Chronic obstructive pulmonary disease, unspecified Category: Medical Qualifiers: COPD type: unspecified COPD Qualified Code(s): J44.9 - Chronic obstructive pulmonary disease, unspecified Plan: CONTINUE PRESENT REGIMEN WHICH IS FOLLOWS: PREDNISONE 10 MG DAILY. IPRATROPIUM-ALBUTEROL SOLUTION IN THE NEBULIZER Q 6 HOURS WHILE AWAKE MONTELUKAST 10 MG DAILY INCRUSE ELLIPTA 1 INHALATION DAILY NO INHALED STEROIDS HE IS ON ORAL PREDNISONE MUCINEX DM 600-30 1 TABLET Q.12 HOURS PRN (2) Bronchitis: Comment: HIS CHRONIC BRONCHITIS PART OF HIS ADVANCED COPD. It seems to be better controlled with azithromycin 250 mg Q 3 times a week. Code(s): J40 - Bronchitis, not specified as acute or chronic Category: Medical Plan: CONTINUE ON AZITHROMYCIN 250 MG 3 DAYS A WEEK (3) Pulmonary hypertension: Comment: PATIENT DOES HAVE PULMONARY HYPERTENSION WHICH IS MOST LIKELY SECONDARY TO ADVANCED COPD AND CHRONIC HYPOXEMIA. IT IS EXPECTED TO STAY UNDER CONTROLLED WITH THE USE OF OXYGEN Code(s): I27.20 - Pulmonary hypertension, unspecified Category: Medical Plan: O2 3 L/MINUTE CONTINUOUSLY, AT NIGHT AND DAYTIME, MAY TAKE ONLY SHORT BREAKS FOR 10-15 MINUTES AT A TIME DURING THE DAY. (4) Respiratory failure with hypoxia: Comment: IT HAS BEEN CONFIRMED BY 6 MINUTES WALK TEST THAT HE DESATURATES WITH MINIMAL EXERTION/WALKING. HE IS ALSO KNOWN TO HAVE NOCTURNAL HYPOXEMIA CORRECTED WITH OXYGEN SUPPLEMENTATION AT NIGHT. Code(s): J96.91 - Respiratory failure, unspecified with hypoxia Category: Medical Plan: CONTINUOUS OXYGEN SUPPLEMENTATION AT 3 L/MINUTE Coding Level of Care Code Est Pt Level 4 (96491) Diagnoses Chronic obstructive pulmonary disease, unspecified COPD type J44.9 COPD type: unspecified COPD Bronchitis J40 Pulmonary hypertension I27.20 Respiratory failure with hypoxia J96.91
== END 2025-07-03 16:10 | disposition home or self-care (01) ==
LOC: HO.HPS 15:40
PROVIDERS: PCP Internal Medicine; Visit Provider Internal Medicine
DX: J44.9 Chronic obstructive pulmonary disease, unspecified (principal); J40 Bronchitis, not specified as acute or chronic; I27.20 Pulmonary hypertension, unspecified; J96.91 Respiratory failure, unspecified with hypoxia
CPT/HCPCS: 99214

== ENCOUNTER → 2025-07-03 15:39 | Outpatient (BNVA) | payer MEDICARE, SELFPAY | PROVIDERS: PCP Internal Medicine; Visit Provider Internal Medicine | DX: J44.9 Chronic obstructive pulmonary disease, unspecified (principal) | CPT/HCPCS: 99212 ==

== ENCOUNTER 2025-07-04 13:00 | Outpatient (AMB) | payer MEDICARE, SELFPAY ==
--- NOTE | 2025-07-04 13:29 | MHC.OFFVIS ---
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: No Accompanied by: Spouse Allergies levofloxacin Adverse Reaction (Severe, Verified 07/03/25 16:10) tendon rupture duloxetine Adverse Reaction (Intermediate, Verified 07/03/25 16:10) sedation gabapentin Adverse Reaction (Intermediate, Verified 07/03/25 16:10) nightmares; leg cramps aspirin Adverse Reaction (Unknown, Verified 07/03/25 16:10) stomach upset, stomach nicole Medication List - Last Reconciled 07/04/25 by Jeferson Jenkins NP albuterol sulfate 90 mcg/actuation 2 puffs inhalation Q6H PRN aspirin 81 mg PO DAILY azithromycin 250 mg PO Q OTHER DAY 90 days barium sulfate 2%(w/v) (Readi-Cat 2) 900 mL PO ONCE bumetanide 1 mg PO BID buspirone 5 mg PO BID 30 days cholecalciferol (vitamin D3) 50 mcg PO DAILY dextromethorphan-guaifenesin 30-600 mg (Mucinex DM) 1 tab PO Q12H PRN finasteride 5 mg orally M,W,F; Take Tuesday, Tuesday, Tuesday 90 days ipratropium-albuterol 0.5 mg-3 mg(2.5 mg base)/3 mL 3 mL inhalation Q6H PRN levothyroxine 137 mcg PO DAILY 90 days montelukast 10 mg PO DAILY omeprazole 40 mg PO BID oxycodone-acetaminophen 10-325 mg 1 tab PO BID PRN 30 days pramipexole 1 mg PO TID PRN 30 days prednisone 10 mg PO Q OTHER DAY 30 days tizanidine 4 mg PO BEDTIME PRN 30 days umeclidinium 62.5 mcg/actuation (Incruse Ellipta) 1 inh inhalation DAILY HPI Comments Details: This is an 80-year-old male patient coming in for a follow-up visit, accompanied by his . Patient has history of advanced COPD previously on nocturnal O2 only and now on continuous O2 even throughout the day. Since the last visit, patient states that his shortness of breath had gotten worse and had pulmonology visits in between where they noted that patient does indeed need continuous O2 even throughout the day. Patient now has a portable oxygen tank that he wears at 2 L throughout the day and increase his up to 3 L with exertion. Patient notes that his chronic shortness of breath is under control with the continued oxygenation however he does note that he has some bad days when the weather is humid. Patient is otherwise denying any exertional chest pain, palpitations, dizziness, orthopnea, PND, leg edema, presyncope or syncope. Patient reports compliance with all his medications. [facility] Medical History Respiratory failure with hypoxia Nocturnal hypoxemia Weight loss Weight loss Lung density on x-ray COPD exacerbation Depression GERD (gastroesophageal reflux disease) Pulmonary hypertension Benign essential hypertension Screening for diabetes mellitus Tachycardia Benign prostatic hyperplasia Restless leg syndrome Primary osteoarthritis of right shoulder Lumbar degenerative disc disease Anxiety Acquired hypothyroidism Dyspnea on exertion Bronchitis Fatigue COPD (chronic obstructive pulmonary disease) Surgical History History of esophagogastroduodenoscopy (EGD) History of gastric surgery History of foot surgery History of cardiac catheterization (~12/29/21) History of colonoscopy Family History Father No problems noted. 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 process consultant 80% of hearing loss would like to get hearing aids.) Vision needs: No Review of Systems Const Denies chills, Denies fatigue, Denies fever(s), Denies frequent falls, Denies weakness, Denies weight gain and Denies weight loss ENT Denies dizziness Card Denies chest pain, Denies leg edema, Denies lightheadedness, Denies palpitations, Denies dyspnea and Denies dyspnea on exertion Resp Denies cough, Denies dyspnea and Denies dyspnea on exertion GI Denies hematochezia Musc Denies abnormal gait, Denies muscle weakness, Denies numbness, Denies radiating pain into limb and Denies tingling Neuro Denies abnormal gait, Denies dizziness, Denies frequent falls, Denies numbness, Denies tingling and Denies weakness Endo Denies fatigue and Denies palpitations Physical Exam Vital Signs: Last Vital Signs Pulse 64 07/04/25 13:30 BP 120/70 07/04/25 13:30 BMI result Body Mass Index 20.7 Const General: cooperative, healthy appearing, comfortable and no acute distress Orientation/consciousness: patient oriented x3 HEENT Head: Yes normal to inspection Neck Neck: Yes normal visual inspection, Yes trachea midline and Yes supple Chest Chest palpation & inspection: normal inspection of the chest Resp Other: On continues O2 2 L via nasal cannula Auscultation: clear to auscultation bilaterally, no crackles, no rales, no rhonchi and no wheezes Cardio Jugular venous distension: no JVD Palpation: normal PMI Rate: regular rate Rhythm: regular rhythm Heart sounds: S1 normal heart sound present, S2 normal heart sound present, no click, no gallops, no murmurs and no rubs Peripheral pulses: Peripheral pulses 2+ throughout GI Inspection: Yes normal to inspection Palpation (GI): Soft to palpation Auscultation: normal bowel sounds Skin General skin exam: no rashes or lesions noted Neuro General: patient oriented x3 Extrem General: Yes normal to inspection, No no pedal edema and No calf tenderness Psych Appearance: grossly normal Mental Status: mental status grossly normal Speech and movement: Normal speech and movement present Office Procedures EKG Details: EKG today showed normal sinus rhythm with sinus arrhythmia, rate 64 beats per minute, incomplete right bundle branch block, [place], [place]. [id number], Complete Assessment & Plan Assessment & Plan (1) Dyspnea on exertion: Comment: Code(s): R06.00 - Dyspnea, unspecified Category: Medical (2) Pulmonary hypertension: Comment: PATIENT DOES HAVE PULMONARY HYPERTENSION WHICH IS MOST LIKELY SECONDARY TO ADVANCED COPD AND CHRONIC HYPOXEMIA. IT IS EXPECTED TO STAY UNDER CONTROLLED WITH THE USE OF OXYGEN Code(s): I27.20 - Pulmonary hypertension, unspecified Category: Medical (3) Bilateral lower extremity edema: Code(s): R60.0 - Localized edema Category: Medical Plan 05/14/2025-echo showed a normal LV systolic function with an ejection fraction between 60-65% with grade 1 diastolic dysfunction, mildly dilated left atrium, moderately dilated right-sided chambers with a preserved RV contractility, severe mitral annular calcification with mild mitral regurgitation, mild aortic regurgitation, moderate tricuspid regurgitation, moderately elevated RV systolic pressure with mildly elevated RA pressure, and mild dilation of the ascending aorta at 4 cm. Patient with known advanced COPD and related pulmonary hypertension. Patient now on continuous O2 supplement 2 L with 3 L on exertion. Clinically stable and euvolemic. Continue Bumex therapy. Emphasized on the need to continue using O2 supplementation throughout. Blood pressure today is well controlled. No changes to regimen at this time. We will monitor him with periodic echo. Advised heart healthy diet, regular exercise as tolerated, med compliance, low-salt diet, and management of vascular risk factors. Follow up in [address] Liz. In the interim patient will call the office with any concerns or change in symptoms. This note was generated using voice recognition software. While every effort has been made to ensure accuracy and proper technologist development, there may be occasional errors that could affect the content or meaning of the described symptoms. Orders: Orders AMB EKG-In Office Today I27.20 - Pulmonary hypertension, unspecified Coding Level of Care Code Est Pt Level 4 (90040) Complex EM visit Add On G2211 Diagnoses Dyspnea on exertion R06.00 Pulmonary hypertension I27.20 Bilateral lower extremity edema R60.0 CPT Codes EKG - CPT: [id number], Complete ([id number]) Time Spent (min) 33 Comment Time spent in reviewing the chart, test results, assessment, counseling and documentation.
[2025-07-04 13:30] VITALS: BP 120/70; PULSE 64; BMI 20.7
== END 2025-07-04 13:53 | disposition home or self-care (01) ==
LOC: HO.HCS 13:01
PROVIDERS: PCP Internal Medicine
DX: R06.00 Dyspnea, unspecified (principal); I27.20 Pulmonary hypertension, unspecified; R60.0 Localized edema
CPT/HCPCS: 93010; 99214; G2211

== ENCOUNTER → 2025-07-04 13:00 | Outpatient (BNVA) | payer MEDICARE, SELFPAY | PROVIDERS: PCP Internal Medicine | DX: R60.0 Localized edema (principal); I27.20 Pulmonary hypertension, unspecified; R06.00 Dyspnea, unspecified | CPT/HCPCS: 93005; 99212 ==

== ENCOUNTER 2025-08-09 11:50 | Outpatient (REF) | payer MEDICARE, SELFPAY ==
[2025-08-09 13:16] LABS: MANUAL DIFF FLAG NO
[2025-08-09 13:21] LABS: Appearance Urine Clear; Glucose Urine UA Negative (Negative); PH 5.5 (5.0-9.0); Specific Gravity - Urine 1.015 (1.005-1.025)
[2025-08-09 13:28] LABS: Hematocrit 34.6 % (42.0-52.0); Hemoglobin 11.4 g/dl (14.0-18.0); Imm Gran Abs Auto 0.04 X10*3/uL (0.00-0.03); Imm Gran Pct Auto 0.5 % (0.0-0.4); Lymphocytes Absolute Auto 2.2 X10*3/uL (1.2-4.9); Mean Corpuscular HGB Conc 32.9 g/dl (31.0-36.0); Mean Corpuscular Hemoglobin 30.6 pg (27.0-33.0); Mean Corpuscular Volume 92.8 fL (80.0-98.0); NRBC Abs Auto 0.000 X10*3/uL (0.0-0.012); NRBC Pct Auto 0.0 /100WBC (0.0-0.2); Platelet Count 271 X10*3/uL (160-400); Red Blood Count 3.73 X10*6/uL (4.60-5.80); White Blood Count 8.5 X10*3/uL (4.8-10.8)
[2025-08-09 14:13] LABS: Alanine Aminotransferase 16 U/L (0-40); Albumin Level 3.8 g/dL (3.5-5.0); Alkaline Phosphatase 66 U/L (39-117); Anion Gap 12 (12-20); Aspartate Amino Transferase 36 U/L (5-37); Blood Urea Nitrogen 16 mg/dL (9-16); Calcium 8.6 mg/dL (8.4-10.2); Carbon Dioxide 31 mmol/L (22-29); Chloride 100 mmol/L (96-108); Cholesterol 107 mg/dL (<200); Estimated Glomerular Filt Rate 43; HDL Cholesterol 42 mg/dL (>40); Potassium 3.9 mmol/L (3.3-5.1); Sodium 139 mmol/L (135-145); Total Protein 6.9 g/dL (6.5-8.0); Triglycerides 79 mg/dL (<150)
[2025-08-09 14:19] LABS: Free T4 (Free Thyroxine) 1.09 ng/dL (0.71-1.85); Thyroid Stimulating Hormone 2.53 uIU/mL (0.32-4.0)
== END 2025-08-09 11:51 | disposition home or self-care (01) ==
LOC: HO.HMGCLDS 11:50
PROVIDERS: PCP Internal Medicine; Visit Provider Internal Medicine
DX: R30.0 Dysuria (principal); D64.9 Anemia, unspecified; E03.9 Hypothyroidism, unspecified; E78.00 Pure hypercholesterolemia, unspecified
CPT/HCPCS: 36415; 80053; 80061; 81003; 84439; 84443; 85025

== ENCOUNTER 2025-08-13 16:15 | Outpatient (AMB) | payer MEDICARE, SELFPAY ==
--- NOTE | 2025-08-13 16:37 | MHC.PC.OV ---
Vital Signs 08/13/25 16:38 Height 5 ft 11 in Weight 148 lb BMI 20.6 BP 138/80 Blood Pressure Location Lt brachial Position Sitting Pulse 58 Pulse Source Pulse Oximeter Pulse Oximetry (%) 95 Oxygen Delivery Method Nasal Cannula Oxygen Flow Rate 2 Intake Visit Reasons: 4 mnth f/u Student Records Specialist Required: No Accompanied by: Self / Same As Patient Allergies levofloxacin Adverse Reaction (Severe, Verified 08/13/25 20:59) tendon rupture duloxetine Adverse Reaction (Intermediate, Verified 08/13/25 20:59) sedation gabapentin Adverse Reaction (Intermediate, Verified 08/13/25 20:59) nightmares; leg cramps aspirin Adverse Reaction (Unknown, Verified 08/13/25 20:59) stomach upset, stomach nicole Medication List - Last Reconciled 08/13/25 by Malick Hernandez MD albuterol sulfate 90 mcg/actuation 2 puffs inhalation Q6H PRN aspirin 81 mg PO DAILY azithromycin 250 mg PO Q OTHER DAY 90 days barium sulfate 2%(w/v) (Readi-Cat 2) 900 mL PO ONCE bumetanide 1 mg PO BID buspirone 5 mg PO BID 30 days cholecalciferol (vitamin D3) 50 mcg PO DAILY dextromethorphan-guaifenesin 30-600 mg (Mucinex DM) 1 tab PO Q12H PRN doxycycline hyclate 100 mg PO BID 7 days finasteride 5 mg orally M,W,F; Take Tuesday, Tuesday, Tuesday 90 days ipratropium-albuterol 0.5 mg-3 mg(2.5 mg base)/3 mL 3 mL inhalation Q6H PRN levothyroxine 137 mcg PO DAILY 90 days montelukast 10 mg PO DAILY omeprazole 40 mg PO BID oxycodone-acetaminophen 10-325 mg 1 tab PO BID PRN 30 days pramipexole 1 mg PO TID PRN 30 days prednisone 10 mg PO Q OTHER DAY 30 days prednisone 10 mg PO DAILY 30 days prednisone 4 tablets x 3 days, then 3 tablets x 3 days, then 2 tablets x 3 days, then 1 tablet x 3 days 12 days tizanidine 4 mg PO BEDTIME PRN 30 days umeclidinium 62.5 mcg/actuation (Incruse Ellipta) 1 inh inhalation DAILY Tobacco use date assessed: 08/13/25 Fall risk assessment: 2 + Falls in past year Last assessed Fall Risk: 08/13/25 Dental Screening Dental Screen Date: 08/13/25 Did you have a dental visit in the last 12 months?: No Did you have a dental problem in the last 6 months where you did not have access to dental care?: No Was dental information given to patient?: No HPI 4 mnth f/u HPI Details Patient comes in today for his follow uo visit States that he has been experiencing increasing chest tightness and congestion for a few days now and has been having some trouble breathing lately even with his oxygen on He had to increase his oxygen on his concentrator during his visit today from 2 L to 3 LPM just to get some relief He denies any fever or sore throat; denies any headaches or dizziness Denies any chest pains No nausea/vomiting, no abdominal pain No change in bowel habits noted Patient feels that his low back pain has been getting worse lately and that his current meds are barely helping at times - is wondering if there is anything else he can take or do to help relieve some of his pain, which he states can be excruciating at times He had his follow up labs done a few days ago - to discuss his results [facility] Medical History (Updated 08/13/25 @ 21:37 by Malick Hernandez MD) Respiratory failure with hypoxia Nocturnal hypoxemia Weight loss Weight loss Lung density on x-ray COPD exacerbation Depression GERD (gastroesophageal reflux disease) Pulmonary hypertension Benign essential hypertension Screening for diabetes mellitus Tachycardia Benign prostatic hyperplasia Restless leg syndrome Primary osteoarthritis of right shoulder Lumbar degenerative disc disease Anxiety Acquired hypothyroidism Dyspnea on exertion Bronchitis Fatigue COPD (chronic obstructive pulmonary disease) Surgical History History of esophagogastroduodenoscopy (EGD) History of gastric surgery History of foot surgery History of cardiac catheterization (~12/29/21) History of colonoscopy Family History Father No problems noted. 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 photofinishing laboratory worker 80% of hearing loss would like to get hearing aids.) Vision needs: No Questionnaire PHQ-9 Over the last 2 weeks, how often have you been bothered by any of the following problems? Depression Screening Interpretation: Negative Depression Screening Done: Yes Source: Developed by Drs. Rishabh Stallworth, Kesha Madrid, Louis Tyler and colleagues, with an educational ritu from [employer]. Thrive Questionnaire Date Thrive assessed: 04/12/25 I am a: Parent/Caregiver What is your living situation today?: I have a steady place to live Within the past 12 months, did the food you bought not last and you didn't have the money to get more?: Never true Within the past 12 months, did you worry whether your food would run out before you got money to buy more?: Never true Do you have trouble paying for medicines?: No Do you have trouble getting transportation to medical appointments?: No Do you have trouble paying your heating and electricity bill?: No Do you have trouble taking care of your child, family member or friend?: No Do you have trouble with day-to-day activities such as bathing, preparing meals, shopping, managing finances, etc.?: No Are you currently unemployed and looking for a job?: No Are you interested in more education?: No Please select the resources that you would like help with: None Currently or been in a relationship where the following occur: No concerns reported THRIVE Score: 0 AUDIT C Alcohol Use Questionnaire (AUDIT-C) 1. How often do you have a drink containing alcohol?: Monthly or less 2. How many drinks containing alcohol do you have on a typical day when you are drinking?: 1 or 2 3. How often do you have six or more drinks on one occasion?: Never Total Score: 1 Score Reviewed/Action Taken: Yes THOM-7 AMB Questionnaire THOM-7 Date THOM - 7 assessed: 04/12/25 Source: Developed by Drs. Rishabh Stallworth, Kesha Madrid, Louis Tyler and colleagues, with an educational ritu from [employer]. Review of Systems Const Denies chills, Reports difficulty sleeping (at times), Reports fatigue, Denies fever(s) and Denies headache(s) ENT Denies dysphagia, Denies dizziness, Denies otalgia, Denies headache(s), Denies neck pain, Denies odynophagia and Denies sore throat Card Denies chest pain, Denies palpitations, Reports dyspnea and Reports dyspnea on exertion Resp Reports chest congestion (chest feels tight lately), Reports cough (recurrent, coughs up thick whitish phlegm at times), Denies pain with cough, Reports dyspnea and Reports dyspnea on exertion GI Denies abdominal pain, Reports constipation (at times), Denies dysphagia, Denies heartburn, Denies diarrhea, Denies nausea, Denies odynophagia and Denies vomiting Denies difficulty urinating, Denies dysuria, Denies nocturia and Denies urinary frequency Musc Reports back pain (over the lower back, chronic and increasing lately), Reports arthralgias (right shoulder), Reports muscle cramps (in both legs, worse at night), Denies neck pain and Reports tingling (on and off, in both legs) Skin/Breast Denies rash Neuro Denies dizziness, Denies headache(s), Reports radicular pain (in both lower extremities), Reports restless legs and Reports tingling (on and off, in both legs) Psych Reports anxiety (better controlled on current Rx), Denies depression and Denies irritability Endo Reports fatigue and Denies palpitations Jefe/Lymph Details: on and off swelling of both legs and feet Physical exam (Primary Care) Vital Signs: Last Vital Signs Pulse 58 08/13/25 16:38 BP 138/80 08/13/25 16:38 Pulse Ox 95 08/13/25 16:38 Oxygen Delivery Method Nasal Cannula 08/13/25 16:38 Oxygen Flow Rate 2 08/13/25 16:38 BMI result Body Mass Index 20.6 Tobacco/Smoking Status: Tobacco use Status Tobacco use date assessed 08/13/25 08/13/25 16:41 Patient Tobacco Use Status Former Tobacco user 08/13/25 16:41 Tobacco use type Cigarette 08/13/25 16:41 e-Cigarette/Vaping Use Never Used 08/13/25 16:41 Depression Screening Interpretation: Negative Thrive Assessment: Date of Thrive Assessment Date Thrive assessed 04/12/25 08/13/25 16:41 Currently or been in a relationship where the following occur: No concerns reported Const General: no acute distress and alert HENMT Ears: TM's normal bilaterally and EAC's normal Throat: Yes posterior oropharynx normal and Yes tonsils normal (no TP congestion noted) Neck Neck: Yes supple and No lymphadenopathy Thyroid: Thyroid normal Resp Auscultation: no crackles, no rales, rhonchi (scattered) throughout, no wheezes, diminished lung sounds (significantly) bilateral and bronchial breath sounds bilateral Cardio Rate: regular rate Rhythm: regular rhythm Heart sounds: no murmurs GI Palpation (GI): Soft to palpation and nontender Auscultation: normal bowel sounds General: Yes no CVA tenderness Back/Spine/Pelvis Back: no CVA tenderness Thoracic/Lumbar Spine: lumbar spinal tenderness and straight leg raise positive Skin Rashes: no rashes Extrem General: No clubbing, No cyanosis and Yes edema (1+ bipedal edema) Results Reviewed Results Reviewed: Laboratory Tests 08/09/25 08/09/25 11:55 12:00 WBC 8.5 Hgb 11.4 L Hct 34.6 L Plt Count 271 Sodium 139 Potassium 3.9 Creatinine 1.54 H Estimated GFR 43 Fasting Glucose 90 Calcium 8.6 AST 36 ALT 16 Triglycerides 79 Cholesterol 107 LDL Cholesterol, Calc 50 HDL Cholesterol 42 TSH 2.53 Free T4 1.09 Ur Specific [place] 1.015 Urine Protein Negative Urine Glucose (UA) Negative Urine Blood Negative Urine Nitrite Negative Ur Leukocyte Esterase Negative Coding Level of Care Code Est Pt Level 4 (23813) Diagnoses Degeneration of intervertebral disc of lumbar region with discogenic back pain and lower extremity pain M51.362 Disc-related pain type: discogenic back pain and lower extremity pain Chronic obstructive pulmonary disease, unspecified COPD type J44.9 COPD type: unspecified COPD Pulmonary hypertension I27.20 Primary osteoarthritis of right shoulder M19.011 Acquired hypothyroidism E03.9 Bilateral lower extremity edema R60.0 Chronic anemia D64.9 Benign essential hypertension I10 Gastroesophageal reflux disease without esophagitis K21.9 Esophagitis presence: without esophagitis Restless leg syndrome G25.81 Benign prostatic hyperplasia with urinary frequency N40.1; R35.0 Lower urinary tract symptom detail: urinary frequency Lower urinary tract symptom presence: symptoms present Mood disorder F39 Assessment & Plan Assessment & Plan (1) Lumbar degenerative disc disease: Code(s): M51.36 - Other intervertebral disc degeneration, lumbar region Category: Medical Qualifiers: Disc-related pain type: discogenic back pain and lower extremity pain Qualified Code(s): M51.362 - Other intervertebral disc degeneration, lumbar region with discogenic back pain and lower extremity pain Plan: Reinforced activity and weight-lifting restrictions MRI of the lumbar spine done back in 2008 revealed multilevel bony and disc degenerative changes and osteophytic narrowing of the neural foramina at multiple levels with no focal disc herniation or spinal stenosis noted at that time; patient has not had MRI repeated since Lumbar spine x-rays done in March 2020 revealed (+) prominent dextrocurvature and multilevel degenerative disc changes Repeat lumbar spine x-rays done back in March 2023 revealed (+) dextrorotoscoliosis with degenerative disc changes virtually at every disc level. No visible acute fracture or dislocation seen He has been to pain management but none of the options/interventions that he has tried so far have helped We tried referring him to the Sp[facility] Center here at [facility] last year to see what other treatment or management options remain available to him at this time but was advised that he needs to get a more recent lumbar spine MRI done before he can be seen Continue Celecoxib 200 mg QD PRN, Oxycodone-Acetaminophen 10-325 mg BID PRN and Tizanidine 4 mg Q HS PRN Patient has tried taking Gabapentin in the past but stopped due to frequent nightmares while on the medication;? he also recalled experiencing increasing leg cramps and pain when he was started back on Gabapentin He was also tried on Duloxetine 30 mg BID but was only taking it Q PM - states that he felt sedated, tired and too mellow while on the Rx and was advised to stop taking this after a while Patient states that lately, his medications have not been helping much with his pain and is wondering if increasing his medication would be helpful Have advised patient that with his significant oxygen-dependent COPD, increasing his opioid Rx would not be advisable as opioids, especially in high doses, can depress his respiratory drive and lead to CO2 retention, which can further affect his breathing adversely At this point, have advised patient to try going back to pain management to see if they have any further recommendations - referral to pain management done (2) COPD (chronic obstructive pulmonary disease): Comment: HAS ADVANCED COPD, PFT C/W SEVERE OBSTRUCTIVE LUNG DISEASE, WITH POSITIVE RESPONSE TO BDs . HE HAS SHORTNESS OF BREATH MOST OF THE TIMES AND INCREASED WITH MINIMAL EXERTION. THE SHORTNESS OF BREATH HAS DEFINITELY IMPROVED WITH CONTINUOUS USE OF OXYGEN. Code(s): J44.9 - Chronic obstructive pulmonary disease, unspecified Category: Medical Qualifiers: COPD type: unspecified COPD Qualified Code(s): J44.9 - Chronic obstructive pulmonary disease, unspecified Plan: Chest CT done in July 2024 revealed (+) COPD and emphysematous changes and scarring in the left lower lobe with (+) coronary artery calcifications He is currently maintained on Albuterol HFA 2 puffs 4 times a day as needed and Prednisone 20 mg 1 to 2 tablets per week, no more than 7 tablets per month He used to be on Spiriva Respimat 2 inhalations QD which was later switched to Incruse Ellipta but he felt that they were not helping at all so he asked to have these discontinued Patient states that his breathing has since improved significantly with continuous oxygen use and having a portable oxygen concentrator has made this possible until recently - he currently appears to be experiencing COPD exacerbation but with his significantly diminished breath sounds and increasing oxygen requirement, I am concerned that he may either be coming down with a pneumonia or one of the viral respiratory infections Will send him for chest x-rays and the viral panel (RSV, influenza, COVID) MINDY for further evaluation Will go ahead as well and start him empirically for now on Doxycycline 100 mg BID x 7 days and oral Prednisone taper (3) Pulmonary hypertension: Comment: PATIENT DOES HAVE PULMONARY HYPERTENSION WHICH IS MOST LIKELY SECONDARY TO ADVANCED COPD AND CHRONIC HYPOXEMIA. IT IS EXPECTED TO STAY UNDER CONTROLLED WITH THE USE OF OXYGEN Code(s): I27.20 - Pulmonary hypertension, unspecified Category: Medical Plan: Echocardiogram done back in September 2024 revealed (+) moderate to severe pulmonary hypertension Left ventricular size, thickness, systolic function, and wall motion are normal and the visually estimated ejection fraction is between 60-65%. (+) moderately increased right ventricular cavity size but right ventricular systolic function is normal. There is severe mitral annular calcification, mild to moderate tricuspid valve regurgitation, the right ventricular systolic pressure is 58 mmHg, with moderately elevated right atrial pressure. There is also (+) mild dilatation of the sinuses of Valsalva measuring 4.30 cm and mild dilatation of the ascending aorta measuring 3.70 cm Patient also recently underwent cardiac catheterization a few years ago (2021) for further evaluation of his progressive DORADO and equivocal stress test - coronary angiogram revealed no significant CAD Patient then advised to continue with aggressive risk factor modification Follow up with pulmonary and cardiology as scheduled (4) Primary osteoarthritis of right shoulder: Code(s): M19.011 - Primary osteoarthritis, right shoulder Category: Medical Plan: States that his current meds, especially Celecoxib, help with his shoulder pain He was given a cortisone injection into his shoulder by Dr. Gerard last year, which he states did not really help much Follow up with orthopedics at [facility] as scheduled (5) Acquired hypothyroidism: Code(s): E03.9 - Hypothyroidism, unspecified Category: Medical Plan: Results of his labs done a few days ago reviewed and discussed with patient - his TFTs were normal Continue Levothyroxine 137 mcg QD Will recheck his TFTs in 4 months for follow up (6) Bilateral lower extremity edema: Code(s): R60.0 - Localized edema Category: Medical Plan: Continue Bumetanide 1 mg BID Patient has been advised that lower extremity edema is common in patients with advanced COPD and that this is most likely due to pulmonary hypertension (or cor pulmonale), as revealed in his recent echocardiogram (7) Chronic anemia: Code(s): D64.9 - Anemia, unspecified Category: Medical Plan: Patient still has chronic but mild anemia on his labs done a few days ago - etiology remains unclear at this time as he does not appear to be deficient in iron or Vitamin B12 He reportedly last had his colonoscopy sometime in 2016 Because of his persistent anemia of unclear etiology, he was referred back to GI for consideration for repeat colonoscopy He was seen by Dr. Bustillos in September 2024 for initial consultation and was sent for additional work ups, including abdominal and pelvic CT, which have not revealed any potential source of his anemia Will continue to monitor his CBC regularly (8) Benign essential hypertension: Code(s): I10 - Essential (primary) hypertension Category: Medical Plan: Reinforced low sodium diet - goal is systolic BP of at least 130 to 140 mm or less Continue Bumetanide 1 mg BID (9) GERD (gastroesophageal reflux disease): Code(s): K21.9 - Gastro-esophageal reflux disease without esophagitis Category: Medical Qualifiers: Esophagitis presence: without esophagitis Qualified Code(s): K21.9 - Gastro-esophageal reflux disease without esophagitis Plan: Dietary restrictions reinforced Continue Omeprazole 40 mg BID (10) Restless leg syndrome: Comment: IS A CHRONIC PROBLEM CONTROLLED WITH ROPINIROLE 1 MG Q 6 HOURS P.R.N. Code(s): G25.81 - Restless legs syndrome Category: Medical Plan: Continue Pramipexole 1 mg TID PRN He was on Ropinirole 1 mg every 6 hours for a while but it has no longer been helping He was referred to and was seen by neurology a few months ago, who cut down his Ropinirole to 1 mg QHS and he was reportedly advised that there is really no effective cure for RLS and taking Rx at higher doses can actually be more counterproductive Follow up with neurology as scheduled (11) Benign prostatic hyperplasia: Code(s): N40.0 - Benign prostatic hyperplasia without lower urinary tract symptoms Category: Medical Qualifiers: Lower urinary tract symptom detail: urinary frequency Lower urinary tract symptom presence: symptoms present Qualified Code(s): N40.1 - Benign prostatic hyperplasia with lower urinary tract symptoms; R35.0 - Frequency of micturition Plan: Continue Finasteride 5 mg every other day (MWF) Follow up with urology as scheduled (12) Mood disorder: Code(s): F39 - Unspecified mood [affective] disorder Category: Medical Plan: This is in part due to frustrations regarding his physical condition and also to his anxiety and some depression Patient was on Sertraline 100 mg QD in the past but this was stopped last year when the Rx was no longer helping Continue Buspirone 5 mg BID Plan Follow up in 4 months Orders: Orders XR chest 2V Today J98.8 - Other specified respiratory disorders, R06.00 - Dyspnea, unspecified SARS-CoV2/FLU/RSV Today J98.8 - Other specified respiratory disorders, R06.00 - Dyspnea, unspecified Referrals Pain Management Referral M51.362 - Other intervertebral disc degeneration, lumbar region with discogenic back pain and lower extremity pain Medications: New doxycycline hyclate 100 mg PO BID 7 days 14 caps 0RF prednisone 4 tablets x 3 days, then 3 tablets x 3 days, then 2 tablets x 3 days, then 1 tablet x 3 days 12 days 33 ea 0RF J45.901 - Unspecified asthma with (acute) exacerbation, M25.50 - Pain in unspecified joint doxycycline hyclate 100 mg PO BID 7 days 14 caps 0RF prednisone 4 tablets x 3 days, then 3 tablets x 3 days, then 2 tablets x 3 days, then 1 tablet x 3 days 12 days 33 ea 0RF J45.901 - Unspecified asthma with (acute) exacerbation, M25.50 - Pain in unspecified joint prednisone 4 tablets x 3 days, then 3 tablets x 3 days, then 2 tablets x 3 days, then 1 tablet x 3 days 33 ea 0RF 12 days J45.901 - Unspecified asthma with (acute) exacerbation, M25.50 - Pain in unspecified joint doxycycline hyclate 100 mg PO BID 14 caps 0RF 7 days
[2025-08-13 16:38] VITALS: BP 138/80; PULSE 58; O2SAT 95; BMI 20.6
== END 2025-08-13 17:27 | disposition home or self-care (01) ==
LOC: HO.HMCH 16:16
PROVIDERS: PCP Internal Medicine; Visit Provider Internal Medicine
DX: M51.362 Other intervertebral disc degeneration, lumbar region with discogenic back pain and lower extremity pain (principal); J44.9 Chronic obstructive pulmonary disease, unspecified; I27.20 Pulmonary hypertension, unspecified; M19.011 Primary osteoarthritis, right shoulder; E03.9 Hypothyroidism, unspecified; R60.0 Localized edema; D64.9 Anemia, unspecified; I10 Essential (primary) hypertension; K21.9 Gastro-esophageal reflux disease without esophagitis; G25.81 Restless legs syndrome; N40.1 Benign prostatic hyperplasia with lower urinary tract symptoms; R35.0 Frequency of micturition; F39 Unspecified mood [affective] disorder

== ENCOUNTER → 2025-08-13 16:15 | Outpatient (BNVA) | payer MEDICARE, SELFPAY | PROVIDERS: PCP Internal Medicine; Visit Provider Internal Medicine | DX: M51.362 Other intervertebral disc degeneration, lumbar region with discogenic back pain and lower extremity pain (principal); R07.89 Other chest pain; R09.89 Other specified symptoms and signs involving the circulatory and respiratory systems; J44.9 Chronic obstructive pulmonary disease, unspecified; I27.20 Pulmonary hypertension, unspecified; M19.011 Primary osteoarthritis, right shoulder; E03.9 Hypothyroidism, unspecified; R60.0 Localized edema; D64.9 Anemia, unspecified; I10 Essential (primary) hypertension; K21.9 Gastro-esophageal reflux disease without esophagitis; G25.81 Restless legs syndrome; N40.1 Benign prostatic hyperplasia with lower urinary tract symptoms; R35.0 Frequency of micturition; F39 Unspecified mood [affective] disorder; J45.901 Unspecified asthma with (acute) exacerbation; Z99.81 Dependence on supplemental oxygen | CPT/HCPCS: 99212 ==

== ENCOUNTER 2025-08-14 10:55 | Outpatient (REF) | payer MEDICARE, SELFPAY ==
--- NOTE | ~2025-08-14 | XR_ITS ---
EXAMINATION: XR CHEST 2 VIEWS HISTORY: J98.8 - Other specified respiratory disorders COMPARISON: Comparison is made with the prior examination dated 06/30/2023. FINDINGS: PA and lateral views of the chest are submitted. The lungs are hyperinflated, consistent with COPD. There are no focal airspace opacities. There is no pleural effusion, pneumothorax, or pulmonary vascular congestion. The heart is normal in size. There is degenerative disc disease of the spine. XR/XR chest 2V IMPRESSION: COPD. No acute cardiopulmonary abnormality. Electronically signed by: Rishabh Fraser MD 08/14/2025 11:25 AM EDT
== END 2025-08-14 10:56 | disposition home or self-care (01) ==
LOC: HO.HMGCX 10:55
PROVIDERS: PCP Internal Medicine; Visit Provider Internal Medicine
DX: J98.8 Other specified respiratory disorders (principal); R06.00 Dyspnea, unspecified
CPT/HCPCS: 71046

== ENCOUNTER → 2025-08-14 11:06 | Outpatient (BNV) | payer MEDICARE, SELFPAY | PROVIDERS: PCP Internal Medicine; Visit Provider Radiology Diagnostic Radiology | DX: J44.9 Chronic obstructive pulmonary disease, unspecified (principal) | CPT/HCPCS: 71046 ==

== ENCOUNTER 2025-09-11 15:15 | Outpatient (AMB) | payer MEDICARE, SELFPAY ==
[2025-09-11 15:19] VITALS: BP 142/74; PULSE 88; O2SAT 94; BMI 20.2
--- NOTE | 2025-09-11 15:19 | A.OFFVIS_ITS ---
Vital Signs 09/11/25 15:19 Height 5 ft 11 in Weight 145 lb BMI 20.2 BP 142/74 H Blood Pressure Location Lt brachial Position Sitting Pulse 88 Pulse Source Pulse Oximeter Pulse Oximetry (%) 94 Oxygen Delivery Method Room Air Intake Visit Reasons: Other intervertebral disc degeneration, lumbar Auto Body Technician Required: No Accompanied by: Life Partner Allergies levofloxacin Adverse Reaction (Severe, Verified 09/11/25 15:23) tendon rupture duloxetine Adverse Reaction (Intermediate, Verified 09/11/25 15:23) sedation gabapentin Adverse Reaction (Intermediate, Verified 09/11/25 15:23) nightmares; leg cramps aspirin Adverse Reaction (Unknown, Verified 09/11/25 15:23) stomach upset, stomach nicole HPI Comments Details: Sami is back in my office after 3 years of absence. He has axial lumbar pain without radiation into bilateral lower extremities. We tried to perform medial branch blocks which were equivocal to improve his pain. Now his pain is intractable 8/10 to 9/10 and he reports difficulty walking standing and difficulty breathing when pain is getting aggravated. I will diagnose him with intractable lower back pain and I will schedule him for sprint PNS. In the past we discussed spinal cord stimulator as well as intrathecal pain pump. Unfortunately his pulmonary condition in the past 3 years got worse. It is not very clear whether he will be able to we stand anesthesia. At the same time the sprint PNS procedure would not require any anesthetic. I will schedule him for the right and after that for the left sprint PNS at L4 lamina positioned. Prior: Sami Phoenix) is very pleasant 78 years old gentleman who presents in my office with complains on lower back pain. He reports that pain started 20 years ago and keep getting worse. 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 He reports that he cannot sleep normally because of his pain cannot do activities of daily living, he can take care of himself but he cannot function normally. He is retired individual. He is using cane for ambulation. He reports that his pain is most severe and the left at afternoon and early a.m. in the morning, he reports that he wakes up from pain. He takes Celebrex 200 mg once a day for his pain. He used to take oxycodone for his pain but eventually he stop taking oxycodone because of developed tolerance and ?ineffectiveness . He had physical therapy and obtain some relief with his pain. He was a subject of chiropractic manipulation which did not help his pain. He had acupuncture procedure which did not help his pain and he has 10s unit at home which does not help his pain. He was under care of Dr. Gerard who performed unknown type of steroid injections in his back. He reported that originally injections were working for him for long period of time however the faded ineffectiveness with time. The nature of injections are not known to me. His past medical history significant for advanced COPD with shortness of breath and multiple medications. He has benign prostate hypertrophy and hypertension. He is suffering from multiple sites arthritis. [facility] Medical History (Updated 09/11/25 @ 15:37 by Chcuk Sandoval MD) Respiratory failure with hypoxia Nocturnal hypoxemia Weight loss Weight loss Lung density on x-ray COPD exacerbation Depression GERD (gastroesophageal reflux disease) Pulmonary hypertension Benign essential hypertension Screening for diabetes mellitus Tachycardia Benign prostatic hyperplasia Restless leg syndrome Primary osteoarthritis of right shoulder Lumbar degenerative disc disease Anxiety Acquired hypothyroidism Dyspnea on exertion Bronchitis Fatigue COPD (chronic obstructive pulmonary disease) Surgical History History of esophagogastroduodenoscopy (EGD) History of gastric surgery History of foot surgery History of cardiac catheterization (~12/29/21) History of colonoscopy Family History Father No problems noted. 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 engine test cell technician 80% of hearing loss would like to get hearing aids.) Vision needs: No Review of Systems Const All systems reviewed & are unremarkable except as noted in HPI and below ENT Reports Normal hearing present Neuro Reports Normal hearing present, Denies Abnormal speech present and Denies Sensory deficit (Neuro) Physical Exam Vital Signs: Last Vital Signs Pulse 88 09/11/25 15:19 BP 142/74 H 09/11/25 15:19 Pulse Ox 94 09/11/25 15:19 Oxygen Delivery Method Room Air 09/11/25 15:19 BMI result Body Mass Index 20.2 Const General: no acute distress Orientation/consciousness: patient oriented x3 Eyes General: appearance normal, both eyes and all related structures Pupils: Equal, round and reactive pupils present EOM: EOMs intact bilaterally Neck Neck: Yes full ROM Chest Chest palpation & inspection: normal inspection of the chest Resp Effort & Inspection: normal respiratory effort, able to speak in complete sentences, normal respiratory pattern, no audible wheezes and no cough Cardio Jugular venous distension: no JVD GI Inspection: Yes normal to inspection Back/Spine/Pelvis Other: He is able to stand on bilateral tiptoes in bilateral heels without difficulty. He is able to dorsiflex bilateral 1st toes without difficulty. That demonstrates normal strength of bilateral lower extremities. SLR is negative for pain increase. Lassegue test is negative for pain increase. He reports tenderness on palpation in paraspinal spinal region of the lumbar spine. He reports tenderness on palpation in projection of bilateral iliac joints which justifies positive Manny finger test. Stinchfield test is positive for the pain increase in bilateral SI joints. Loading test is positive bilateral. Neuro General: patient oriented x3 and gait normal Cranial nerves: Yes CN's II-XII intact bilaterally, Yes Equal, round and re active pupils present, Yes Normal hearing present and Yes Ability to bilaterally elevate shoulders present Speech: No Abnormal speech present Gait exam (Neuro): Normal gait present Motor exam (neuro): 5/5 motor strength present throughout Sensory Exam: No Sensory deficit (Neuro) Extrem General: No pedal edema Psych Speech and movement: Normal speech and movement present Affect: normal affect Attitude: cooperative Thought process: Normal thought process present Thought content: Normal thought content present Insight: Good insight present (Psych) Judgement: Good judgement present (Psych) Assessment & Plan Assessment & Plan (1) Spondylosis of lumbar region without myelopathy or radiculopathy: Code(s): M47.816 - Spondylosis without myelopathy or radiculopathy, lumbar region Category: Medical (2) Sacroiliitis: Code(s): M46.1 - Sacroiliitis, not elsewhere classified Category: Medical (3) Sacroiliac joint dysfunction of both sides: Code(s): M53.3 - Sacrococcygeal disorders, not elsewhere classified Category: Medical (4) Chronic pain syndrome: Code(s): G89.4 - Chronic pain syndrome Category: Medical (5) Arthropathy of facet joint: Code(s): M47.819 - Spondylosis without myelopathy or radiculopathy, site unspecified Category: Medical (6) Intractable low back pain: Code(s): M54.59 - Other low back pain Category: Medical Plan Three years ago I offered this patient SCS Nevro and or I DDD [employer] to help his pain. Unfortunately the patient did not follow-up with us and now his pulmonary condition turned to worse, he is now on continuous 2 L of oxygen and from time to time it increases to 3 L of oxygen. He states that the pain makes his breathing more difficult. I discussed the situation with this patient I offered him peripheral nerve stimulation sprint PNS intractable lower back pain. This procedure does not require psychological evaluation, it can not be done under local anesthesia. Patient Instructions: I hereby testify that I spent 30 minutes in conversation with this patient as well as planning his care and organizing this note Coding Level of Care Code Est Pt Level 4 (72556) Diagnoses Spondylosis of lumbar region without myelopathy or radiculopathy M47.816 Sacroiliitis M46.1 Sacroiliac joint dysfunction of both sides M53.3 Chronic pain syndrome G89.4 Arthropathy of facet joint M47.819 Intractable low back pain M54.59
== END 2025-09-11 15:33 | disposition home or self-care (01) ==
LOC: HO.PMC 15:16
PROVIDERS: PCP Internal Medicine; Visit Provider Anesthesiology
DX: M47.816 Spondylosis without myelopathy or radiculopathy, lumbar region (principal); M46.1 Sacroiliitis, not elsewhere classified; M53.3 Sacrococcygeal disorders, not elsewhere classified; G89.4 Chronic pain syndrome; M47.819 Spondylosis without myelopathy or radiculopathy, site unspecified; M54.59 Other low back pain
CPT/HCPCS: 99214

== ENCOUNTER → 2025-09-11 15:15 | Outpatient (BNVA) | payer MEDICARE, SELFPAY | PROVIDERS: PCP Internal Medicine; Visit Provider Anesthesiology | DX: G89.4 Chronic pain syndrome (principal); M47.816 Spondylosis without myelopathy or radiculopathy, lumbar region; M46.1 Sacroiliitis, not elsewhere classified; M53.3 Sacrococcygeal disorders, not elsewhere classified; M54.59 Other low back pain | CPT/HCPCS: 99212 ==

== ENCOUNTER 2025-10-01 15:55 | Outpatient (AMB) | payer MEDICARE, SELFPAY ==
[2025-10-01 16:06] VITALS: BP 140/68; PULSE 64; O2SAT 96; BMI 21.1
--- NOTE | 2025-10-01 16:06 | MHC.OFFVIS ---
Vital Signs 10/01/25 16:06 Height 5 ft 11 in Weight 151 lb 0.266 oz BMI 21.1 BP 140/68 H Blood Pressure Location Lt brachial Position Sitting Pulse 64 Pulse Source Pulse Oximeter Pulse Oximetry (%) 96 Oxygen Delivery Method Nasal Cannula Oxygen Flow Rate 2 Intake Visit Reasons: COPD Intake Note: pt is here for follow up and states his back is really affecting his breathing, some coughing jags with mucous, his hearing is not right, feels like he is flying in a airplane., wakes up in am likes this, and has a very hard time hearing his at these times. Print Manager Required: No Allergies levofloxacin Adverse Reaction (Severe, Verified 10/01/25 16:16) tendon rupture duloxetine Adverse Reaction (Intermediate, Verified 10/01/25 16:16) sedation gabapentin Adverse Reaction (Intermediate, Verified 10/01/25 16:16) nightmares; leg cramps aspirin Adverse Reaction (Unknown, Verified 10/01/25 16:16) stomach upset, stomach nicole Medication List - Last Reconciled 10/01/25 by Ridge French MD albuterol sulfate 90 mcg/actuation 2 puffs inhalation Q6H PRN aspirin 81 mg PO DAILY azithromycin 250 mg PO Q OTHER DAY 90 days barium sulfate 2%(w/v) (Readi-Cat 2) 900 mL PO ONCE bumetanide 1 mg PO BID buspirone 5 mg PO BID 30 days cholecalciferol (vitamin D3) 50 mcg PO DAILY dextromethorphan-guaifenesin 30-600 mg (Mucinex DM) 1 tab PO Q12H PRN finasteride 5 mg orally M,W,F; Take Tuesday, Tuesday, Tuesday 90 days ipratropium-albuterol 0.5 mg-3 mg(2.5 mg base)/3 mL 3 mL inhalation Q6H PRN levothyroxine 137 mcg PO DAILY 90 days montelukast 10 mg PO DAILY omeprazole 40 mg PO BID oxycodone-acetaminophen 10-325 mg 1 tab PO BID PRN 30 days pramipexole 1 mg PO TID PRN 30 days prednisone 10 mg PO DAILY 30 days tizanidine 4 mg PO BEDTIME PRN 30 days Do you need a note to return to daycare/school/sports/work: No HPI HPI COPD: Details: Sami is coming after 3 months for follow-up. Luckily in the last 3 months he has remained as stable as expected. He still has frequent bouts of dry cough., and gets short of breath on minimal exertion. He continues to have back problem which affects his breathing. Continues to use all meds as prescribed. Stays on oxygen mostly 3 L/minute when outdoors and 2 L/minute at home. [facility] Medical History Respiratory failure with hypoxia Nocturnal hypoxemia Weight loss Weight loss Lung density on x-ray COPD exacerbation Depression GERD (gastroesophageal reflux disease) Pulmonary hypertension Benign essential hypertension Screening for diabetes mellitus Tachycardia Benign prostatic hyperplasia Restless leg syndrome Primary osteoarthritis of right shoulder Lumbar degenerative disc disease Anxiety Acquired hypothyroidism Dyspnea on exertion Bronchitis Fatigue COPD (chronic obstructive pulmonary disease) Surgical History History of esophagogastroduodenoscopy (EGD) History of gastric surgery History of foot surgery History of cardiac catheterization (~12/29/21) History of colonoscopy Family History Father No problems noted. 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 deposit refund clerk 80% of hearing loss would like to get hearing aids.) Vision needs: No Review of Systems Const All systems reviewed & are unremarkable except as noted in HPI and below Eyes Reports no additional complaints ENT Reports no additional complaints Card Denies chest pain, Denies irregular heart rhythm and Denies leg edema Resp Reports as per HPI GI Reports no additional complaints Reports no additional complaints Musc Reports back pain Skin/Breast Reports system reviewed and no additional complaints, except as documented Neuro Reports no additional complaints Psych Reports no additional complaints Physical Exam Vital Signs: Last Vital Signs Pulse 64 10/01/25 16:06 BP 140/68 H 10/01/25 16:06 Pulse Ox 96 10/01/25 16:06 Oxygen Delivery Method Nasal Cannula 10/01/25 16:06 Oxygen Flow Rate 2 10/01/25 16:06 BMI result Body Mass Index 21.1 Const Other: He is of a thin build, with slightly hunched back, and walks with a cane. General: comfortable, no acute distress, alert and awake Orientation/consciousness: patient oriented x3 HEENT Head: Yes normal to inspection General nose exam: No nasal polyps present and No nasal discharge present Face and sinus: Yes sinuses nontender Mouth: oropharynx normal Throat: Yes posterior oropharynx normal Eyes General: appearance normal, both eyes and all related structures Neck Neck: Yes normal visual inspection, Yes no lymphadenopathy, Yes trachea midline and Yes no JVD Thyroid: Thyroid normal Chest Chest palpation & inspection: abnormal inspection of the chest (Extensive scar over the left lower chest from previous surgery), normal palpation of entire chest wall and no tenderness Resp Other: Percussion note is resonant, breath sounds are distant with prolonged expiratory phase. LUNGS ARE CLEAR AND NO WHEEZES OR CREPITATIONS ARE HEARD TODAY.. Cardio Palpation: normal PMI Rate: regular rate Rhythm: regular rhythm Heart sounds: no gallops and no murmurs GI Palpation (GI): Soft to palpation, nontender, No hepatosplenomegaly present and no masses Auscultation: normal bowel sounds Back/Spine/Pelvis Thoracic/Lumbar Spine: thoracic and lumbar spine normal to inspection, thoraco-lumbar ROM limited and thoraco-lumbar spasm Skin General skin exam: no rashes or lesions noted Neuro General: patient oriented x3 and no focal motor deficits Cranial nerves: Yes CN's II-XII intact bilaterally Extrem General: Yes normal to inspection, Yes no clubbing, cyanosis or edema and Yes no calf tenderness Psych Appearance: grossly normal and well kempt Speech and movement: Normal speech and movement present Assessment & Plan Assessment & Plan (1) COPD (chronic obstructive pulmonary disease): Comment: HAS ADVANCED COPD, PFT C/W SEVERE OBSTRUCTIVE LUNG DISEASE, WITH POSITIVE RESPONSE TO BDs . HE HAS SHORTNESS OF BREATH MOST OF THE TIMES AND INCREASED WITH MINIMAL EXERTION. THE SHORTNESS OF BREATH HAS DEFINITELY IMPROVED WITH CONTINUOUS USE OF OXYGEN. Code(s): J44.9 - Chronic obstructive pulmonary disease, unspecified Category: Medical Qualifiers: COPD type: unspecified COPD Qualified Code(s): J44.9 - Chronic obstructive pulmonary disease, unspecified Plan: Ipratropium-albuterol solution in the nebulizer Q 6 hours while awake ( he is using 4 times a day almost regularly ) Montelukast 10 mg daily prednisone 10 mg daily Mucinex 600 mg b.i.d. Azithromycin 250 mg 3 days a week (2) Pulmonary hypertension: Comment: PATIENT DOES HAVE PULMONARY HYPERTENSION WHICH IS MOST LIKELY SECONDARY TO ADVANCED COPD AND CHRONIC HYPOXEMIA. IT IS EXPECTED TO STAY UNDER CONTROLLED WITH THE USE OF OXYGEN Code(s): I27.20 - Pulmonary hypertension, unspecified Category: Medical Plan: Continue to use oxygen day and night (3) Respiratory failure with hypoxia: Comment: IT HAS BEEN CONFIRMED BY 6 MINUTES WALK TEST THAT HE DESATURATES WITH MINIMAL EXERTION/WALKING. HE IS ALSO KNOWN TO HAVE NOCTURNAL HYPOXEMIA CORRECTED WITH OXYGEN SUPPLEMENTATION AT NIGHT. Code(s): J96.91 - Respiratory failure, unspecified with hypoxia Category: Medical Plan: As noted above he does use oxygen throughout 24 hours. At 2 L/minute but when going outdoors he does increase to 3 L/minute. Coding Level of Care Code Est Pt Level 3 (36747) Diagnoses Chronic obstructive pulmonary disease, unspecified COPD type J44.9 COPD type: unspecified COPD Pulmonary hypertension I27.20 Respiratory failure with hypoxia J96.91
== END 2025-10-01 17:00 ==
LOC: HO.HPS 15:56
PROVIDERS: PCP Internal Medicine; Visit Provider Internal Medicine
DX: J44.9 Chronic obstructive pulmonary disease, unspecified (principal); I27.20 Pulmonary hypertension, unspecified; J96.91 Respiratory failure, unspecified with hypoxia
CPT/HCPCS: 99213

== ENCOUNTER → 2025-10-01 15:55 | Outpatient (BNVA) | payer MEDICARE, SELFPAY | PROVIDERS: PCP Internal Medicine; Visit Provider Internal Medicine | DX: J44.9 Chronic obstructive pulmonary disease, unspecified (principal); I10 Essential (primary) hypertension; I27.20 Pulmonary hypertension, unspecified; J96.91 Respiratory failure, unspecified with hypoxia | CPT/HCPCS: 99212 ==

== ENCOUNTER 2025-10-09 13:59 | Outpatient (AMB) | payer MEDICARE, SELFPAY ==
--- NOTE | 2025-10-09 14:00 | MHC.OFFVIS ---
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 We were planning to perform treatment of his intractable lower back pain with sprint PNS. Unfortunately his insurance does not cover the procedure. They consider this investigational and experimental and they do not have the possibility of to peer review of my orders. We are now in open enrollment period. I recommended him to switch to the Medicare subsidiary insurance which will be covering this procedure. On Tuesday they will call Barbara the OR process mechanic and find which Medicare subsidiary will cover the sprint PNS. Unfortunately because of his severe COPD and oxygen dependence he will be not a good candidate for I DDD or SCS which was planned on his initial encounter with me 3 years ago. Prior: He has axial lumbar pain without radiation into bilateral lower extremities. We tried to perform medial branch blocks which were equivocal to improve his pain. Now his pain is intractable 8/10 to 9/10 and he reports difficulty walking standing and difficulty breathing when pain is getting aggravated. I will diagnose him with intractable lower back pain and I will schedule him for sprint PNS. In the past we discussed spinal cord stimulator as well as intrathecal pain pump. Unfortunately his pulmonary condition in the past 3 years got worse. It is not very clear whether he will be able to we stand anesthesia. At the same time the sprint PNS procedure would not require any anesthetic. I will schedule him for the right and after that for the left sprint PNS at L4 lamina positioned. Prior: Sami Phoenix) is very pleasant 78 years old gentleman who presents in my office with complains on lower back pain. He reports that pain started 20 years ago and keep getting worse. 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 He reports that he cannot sleep normally because of his pain cannot do activities of daily living, he can take care of himself but he cannot function normally. He is retired individual. He is using cane for ambulation. He reports that his pain is most severe and the left at afternoon and early a.m. in the morning, he reports that he wakes up from pain. He takes Celebrex 200 mg once a day for his pain. He used to take oxycodone for his pain but eventually he stop taking oxycodone because of developed tolerance and ?ineffectiveness . He had physical therapy and obtain some relief with his pain. He was a subject of chiropractic manipulation which did not help his pain. He had acupuncture procedure which did not help his pain and he has 10s unit at home which does not help his pain. He was under care of Dr. Gerard who performed unknown type of steroid injections in his back. He reported that originally injections were working for him for long period of time however the faded ineffectiveness with time. The nature of injections are not known to me. His past medical history significant for advanced COPD with shortness of breath and multiple medications. He has benign prostate hypertrophy and hypertension. He is suffering from multiple sites arthritis. [facility] Medical History Respiratory failure with hypoxia Nocturnal hypoxemia Weight loss Weight loss Lung density on x-ray COPD exacerbation Depression GERD (gastroesophageal reflux disease) Pulmonary hypertension Benign essential hypertension Screening for diabetes mellitus Tachycardia Benign prostatic hyperplasia Restless leg syndrome Primary osteoarthritis of right shoulder Lumbar degenerative disc disease Anxiety Acquired hypothyroidism Dyspnea on exertion Bronchitis Fatigue COPD (chronic obstructive pulmonary disease) Surgical History History of esophagogastroduodenoscopy (EGD) History of gastric surgery History of foot surgery History of cardiac catheterization (~12/29/21) History of colonoscopy Family History Father No problems noted. 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 news editor 80% of hearing loss would like to get hearing aids.) Vision needs: No Review of Systems Const All systems reviewed & are unremarkable except as noted in HPI and below ENT Reports Normal hearing present Neuro Reports Normal hearing present, Denies Abnormal speech present and Denies Sensory deficit (Neuro) Physical Exam Vital Signs: Last Vital Signs Pulse 81 10/09/25 14:01 Resp 16 10/09/25 14:01 BP 167/77 H 10/09/25 14:01 Pulse Ox 94 10/09/25 14:01 Oxygen Delivery Method Room Air 10/09/25 14:01 BMI result Body Mass Index 20.4 Const General: no acute distress Orientation/consciousness: patient oriented x3 Eyes General: appearance normal, both eyes and all related structures Pupils: Equal, round and reactive pupils present EOM: EOMs intact bilaterally Neck Neck: Yes full ROM Chest Chest palpation & inspection: normal inspection of the chest Resp Effort & Inspection: normal respiratory effort, able to speak in complete sentences, normal respiratory pattern, no audible wheezes and no cough Cardio Jugular venous distension: no JVD GI Inspection: Yes normal to inspection Back/Spine/Pelvis Other: He is able to stand on bilateral tiptoes in bilateral heels without difficulty. He is able to dorsiflex bilateral 1st toes without difficulty. That demonstrates normal strength of bilateral lower extremities. SLR is negative for pain increase. Lassegue test is negative for pain increase. He reports tenderness on palpation in paraspinal spinal region of the lumbar spine. He reports tenderness on palpation in projection of bilateral iliac joints which justifies positive Manny finger test. Stinchfield test is positive for the pain increase in bilateral SI joints. Loading test is positive bilateral. Neuro General: patient oriented x3 and gait normal Cranial nerves: Yes CN's II-XII intact bilaterally, Yes Equal, round and reactive pupils present, Yes Normal hearing present and Yes Ability to bilaterally elevate shoulders present Speech: No Abnormal speech present Gait exam (Neuro): Normal gait present Motor exam (neuro): 5/5 motor strength present throughout Sensory Exam: No Sensory deficit (Neuro) Extrem General: No pedal edema Psych Speech and movement: Normal speech and movement present Affect: normal affect Attitude: cooperative Thought process: Normal thought process present Thought content: Normal thought content present Insight: Good insight present (Psych) Judgement: Good judgement present (Psych) Assessment & Plan Assessment & Plan (1) Spondylosis of lumbar region without myelopathy or radiculopathy: Code(s): M47.816 - Spondylosis without myelopathy or radiculopathy, lumbar region Category: Medical (2) Sacroiliitis: Code(s): M46.1 - Sacroiliitis, not elsewhere classified Category: Medical (3) Sacroiliac joint dysfunction of both sides: Code(s): M53.3 - Sacrococcygeal disorders, not elsewhere classified Category: Medical (4) Chronic pain syndrome: Code(s): G89.4 - Chronic pain syndrome Category: Medical (5) Arthropathy of facet joint: Code(s): M47.819 - Spondylosis without myelopathy or radiculopathy, site unspecified Category: Medical (6) Intractable low back pain: Code(s): M54.59 - Other low back pain Category: Medical Plan Three years ago I offered this patient SCS Nevro and or I DDD [employer] to help his pain. Unfortunately the patient did not follow-up with us and now his pulmonary condition turned to worse, he is now on continuous 2 L of oxygen and from time to time it increases to 3 L of oxygen. He states that the pain makes his breathing more difficult. I discussed the situation with this patient I offered him peripheral nerve stimulation sprint PNS intractable lower back pain. Unfortunately his insurance does not cover the cost of the procedure. I recommended him to switch his insurance since we now in open enrollment period. After that I will be able to perform the procedure I was planning on him. After they will successfully change their insurance they will give us a call and schedule appointment with me. Coding Level of Care Code Est Pt Level 3 (86503) Diagnoses Spondylosis of lumbar region without myelopathy or radiculopathy M47.816 Sacroiliitis M46.1 Sacroiliac joint dysfunction of both sides M53.3 Chronic pain syndrome G89.4 Arthropathy of facet joint M47.819 Intractable low back pain M54.59
[2025-10-09 14:01] VITALS: BP 167/77; PULSE 81; RESP 16; O2SAT 94; BMI 20.4
== END 2025-10-09 14:15 | disposition home or self-care (01) ==
LOC: HO.PMC 13:59
PROVIDERS: PCP Internal Medicine; Visit Provider Anesthesiology
DX: M47.816 Spondylosis without myelopathy or radiculopathy, lumbar region (principal); M46.1 Sacroiliitis, not elsewhere classified; M53.3 Sacrococcygeal disorders, not elsewhere classified; G89.4 Chronic pain syndrome; M47.819 Spondylosis without myelopathy or radiculopathy, site unspecified; M54.59 Other low back pain
CPT/HCPCS: 99213

== ENCOUNTER → 2025-10-09 13:59 | Outpatient (BNVA) | payer MEDICARE, SELFPAY | PROVIDERS: PCP Internal Medicine; Visit Provider Anesthesiology | DX: M47.816 Spondylosis without myelopathy or radiculopathy, lumbar region (principal); M46.1 Sacroiliitis, not elsewhere classified; M53.3 Sacrococcygeal disorders, not elsewhere classified; G89.4 Chronic pain syndrome; M54.59 Other low back pain | CPT/HCPCS: 99212 ==

== ENCOUNTER 2025-10-22 13:31 | Outpatient (REF) | payer MEDICARE, SELFPAY ==
[2025-10-22 18:06] LABS: Prostate Specific Antigen 3.72 ng/mL (<0.05-4.0)
== END 2025-10-22 13:32 | disposition home or self-care (01) ==
LOC: HO.HMGCLDS 13:31
PROVIDERS: PCP Internal Medicine; Visit Provider Urology
DX: Z12.5 Encounter for screening for malignant neoplasm of prostate (principal); R97.20 Elevated prostate specific antigen [PSA]; N42.9 Disorder of prostate, unspecified
CPT/HCPCS: 36415; 84153

== ENCOUNTER 2025-10-25 14:50 | Outpatient (AMB) | payer MEDICARE, SELFPAY ==
--- NOTE | 2025-10-25 14:51 | A.OFFVIS_ITS ---
Intake Visit Reasons: 1Y PSA(set) Intake Note: Reason for Visit: PVR/PSA Follow Up Urology Meds: Finasteride Blood Thinners: Aspirin Labs: PSA Imaging: None Last PVR: Cvir Tech Required: No Allergies levofloxacin Adverse Reaction (Severe, Verified 10/09/25 14:00) tendon rupture duloxetine Adverse Reaction (Intermediate, Verified 10/09/25 14:00) sedation gabapentin Adverse Reaction (Intermediate, Verified 10/09/25 14:00) nightmares; leg cramps aspirin Adverse Reaction (Unknown, Verified 10/09/25 14:00) stomach upset, stomach nicole HPI Comments Details: Gerber is a pleasant male. He is a patient of Dr. Hernandez. He is seen for the following urologic conditions - lower urinary tract symptoms - elevated PSA Telemedicine Evaluation 15 min Consultation [employer] Elsa Video attempted Twelve month follow-up PSA remains in range - slight rise on every other day finasteride Twelve month follow-up Lower urinary tract symptoms Long-term lower urinary tract symptoms Good response to tamsulosin and finasteride Prior cystoscopy with known trilobar hypertrophy Has been considering prostate procedure PSA - historic range 3.5-4.5 06/03 3.8, 07/05 5.7, 02/03 3.1, 11/05 2.8, 11/06 3.1, 11/07 3.7 Will continue with current therapy review with PSA in 12 months [facility] Medical History Respiratory failure with hypoxia Nocturnal hypoxemia Weight loss Weight loss Lung density on x-ray COPD exacerbation Depression GERD (gastroesophageal reflux disease) Pulmonary hypertension Benign essential hypertension Screening for diabetes mellitus Tachycardia Benign prostatic hyperplasia Restless leg syndrome Primary osteoarthritis of right shoulder Lumbar degenerative disc disease Anxiety Acquired hypothyroidism Dyspnea on exertion Bronchitis Fatigue COPD (chronic obstructive pulmonary disease) Surgical History History of esophagogastroduodenoscopy (EGD) History of gastric surgery History of foot surgery History of cardiac catheterization (~12/29/21) History of colonoscopy Family History Father No problems noted. 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 80% of hearing loss would like to get hearing aids.) Vision needs: No Review of Systems Const All systems reviewed & are unremarkable except as noted in HPI and below Reports no additional complaints Resp Reports no additional complaints GI Reports no additional complaints Reports as per HPI Musc Reports no additional complaints Physical Exam Telemedicine evaluation Appropriate responses Regular breathing rate and rhythm HEENT Head: Yes normal to inspection Ears: hearing grossly normal bilaterally Eyes General: appearance normal, both eyes and all related structures Neck Neck: Yes normal visual inspection Chest Chest palpation & inspection: normal inspection of the chest Resp Effort & Inspection: normal respiratory effort and able to speak in complete sentences Telehealth Telehealth Telehealth Platform: [employer] Location of provider rendering services: practice address Location of patient: address on file Patient Identification confirmed using: Name, : Yes Telehealth method: video Patient verbally consented to treatment: Yes Patient verbally consented to billing insurance company: Yes Patient informed of any privacy concerns related to visit: Yes Minutes spent on Phone/Video with Pt.: 15 Assessment & Plan Assessment & Plan (1) Nocturia associated with benign prostatic hyperplasia: Code(s): N40.1 - Benign prostatic hyperplasia with lower urinary tract symptoms; R35.1 - Nocturia Category: Medical (2) Elevated PSA: Code(s): R97.20 - Elevated prostate specific antigen [PSA] Category: Medical Plan Twelve month follow-up repeat PSA Medications: Refilled finasteride 5 mg orally M,W,F; Take Tuesday, Tuesday, Tuesday 90 tabs 3RF 90 days N40.1 - Benign prostatic hyperplasia with lower urinary tract symptoms, R35.0 - Frequency of micturition Patient Instructions: This note is constructed using voice recognition software. While every effort has been made to ensure accuracy toppiece chopper errors may have been included. Imaging studies, laboratory and physical exam results were discussed and reviewed in detail. No major barriers to patient understanding were identified. An opportunity to ask questions regarding the treatment plan was provided. All questions were answered. The patient expressed understanding and agreement with the above treatment plan. The patient is aware they should contact our office by phone for worsening of their current condition or the appearance of new urologic symptoms. Compliance is encouraged with any medications and followup testing that is ordered. It is a privilege to participate in the urologic care of your patient. If you have any questions or concerns regarding treatment for the above conditions, or other urologic issues, please do not hesitate to contact me. The office telephone contact is [phone]. Sincerely, Dr Roscoe See MD, [facility] - Urology Compassionate Specialist Care for the Genitourinary System Coding Level of Care Code Tele Est Pt Level 4 (38729) Diagnoses Nocturia associated with benign prostatic hyperplasia N40.1; R35.1 Elevated PSA R97.20
== END 2025-10-25 15:47 | disposition home or self-care (01) ==
LOC: HO.HUSH 14:50
PROVIDERS: PCP Internal Medicine; Visit Provider Urology
DX: N40.1 Benign prostatic hyperplasia with lower urinary tract symptoms (principal); R35.1 Nocturia; R97.20 Elevated prostate specific antigen [PSA]
CPT/HCPCS: 99214